=== PATIENT | male | born 1965 | race Caucasian/White ===

== ENCOUNTER 2024-09-17 15:36 | Inpatient (IN) ==
[2024-09-17 16:32] LABS: iSTAT Blood Urea Nitrogen > 140 mg/dl (7-18); iSTAT Carbon Dioxide 17 mmol/L (24-31); iSTAT Chloride 106 mmol/L (101-112); iSTAT Creatinine 16.4 mg/dl (0.6-1.3); iSTAT Glucose 93 mg/dl (70-99); iSTAT Hematocrit 21 % (42-52); iSTAT Hemoglobin 7.1 g/dl (14.0-18.0); iSTAT Ionized Calcium 0.84 mmol/l (1.12-1.32); iSTAT Potassium 4.9 mmol/L (3.3-5.0); iSTAT Sodium 136 mmol/L (135-144)
[2024-09-17 16:43] LABS: Basophils # (auto) 0.05 K/uL (0.00-0.20); Basophils % (auto) 0.7 %; Eosinophils # (auto) 0.16 K/uL (0.00-0.50); Eosinophils % (auto) 2.2 %; Hematocrit (blood only) 23.4 % (42.0-52.0); Hemoglobin 7.9 g/dl (14.0-18.0); Immature Granulocytes # (auto) 0.09 K/uL (0.01-0.20); Immature Granulocytes % (auto) 1.2 %; Lymphocytes # (auto) 0.97 K/uL (1.20-3.40); Lymphocytes % (auto) 13.3 %; Mean Corpuscular Hemoglobin 28.9 pg (25.0-34.0); Mean Corpuscular Hgb Conc 33.8 g/dL (32.0-36.0); Mean Corpuscular Volume 85.7 fL (80.0-100.0); Mean Platelet Volume 10.3 fL (9.4-12.4); Monocytes # (auto) 0.59 K/uL (0.11-0.59); Monocytes % (auto) 8.1 %; Neutrophils # (auto) 5.46 K/uL (1.40-6.50); Neutrophils % (auto) 74.5 %; Platelet Count 191 K/uL (130-400); Red Blood Count 2.73 M/uL (4.70-6.10); White Blood Count 7.32 K/ul (4.8-10.8)
--- NOTE | 2024-09-17 16:50 | Emergency Department Note ---
Impression & Plan Acute renal failure, Anemia ED Provider Note NAME: JULIA PURVIS AGE: 59 SEX: M : 1965 ARRIVES VIA: Walk-In INFORMANT: Patient, ED PROVIDER(S): Kofi Siddiqui DO CHIEF COMPLAINT: Renal failure HPI: The patient is a 59-year-old male who presented to the emergency department at the request of his primary care physician for an evaluation of renal failure. The patient was diagnosed with kidney disease. They have been following his labs. The patient started to enter stage IV but was last seen by nephrology in 2022. At that time they were encouraging the patient to consider dialysis. The patient was very reluctant and did not want to have dialysis. The patient had worsening of his uremia and was found to have signs of renal failure. He was told by his primary care physician to call his iv rn and when he talk to his iv rn office he was told to come to the emergency department in [facility]. ROS: See above HPI for pertinent positives & negatives. A total of 10 systems reviewed and were otherwise negative. PAST MEDICAL HISTORY: See Below PAST SURGICAL HISTORY: See Below FAMILY HISTORY: See Below SOCIAL HISTORY: See Below HOME MEDICATIONS: See Below ALLERGIES: See Below VITALS: See Below PHYSICAL EXAMINATION: GENERAL: Patient is awake alert in no acute distress patient is resting comfortably and showing no signs of anxiety EYES: The conjunctivae are clear. The pupils are round and reactive. EARS, NOSE, MOUTH AND THROAT: The nose is without any evidence of any deformity NECK: The neck is nontender and supple. RESPIRATORY: Normal respiratory effort is noted there is no evidence of wheezing rhonchi or rales CARDIOVASCULAR: Regular rate and rhythm noted there no murmurs rubs or gallops normal S1 normal S2. GASTROINTESTINAL: The abdomen is soft. Abdomen is nontender. MUSCULOSKELETAL/EXTREMITIES: There is no evidence of gross deformity full range of motion is noted in the hips and shoulders. SKIN: There is no obvious evidence of any rash. There are no petechiae, pallor or cyanosis noted. NEUROLOGIC: Patient is awake alert and oriented x3 MEDICAL DECISION MAKING: The patient is a 59-year-old male who presented to the emergency department for an evaluation of renal insufficiency. The patient is diagnosed with stage IV renal insufficiency. His laboratory studies have been trending upward and the patient was felt to be nearing the need for dialysis. He is been very resistant to this but his has been prompting him to seek follow-up. The patient was followed by his family doctor. He was told to call his primary iv rn today. The patient was sent to the emergency department for further evaluation. Vital signs are reassuring. He does not have hyperkalemia but his BUN and creatinine are consistent with worsening disease and he is likely heading towards dialysis. I discussed his condition with his primary iv rn and he recommends that we keep the patient in the hospital. He will likely need some sort of access for dialysis which can happen tomorrow and then he can have dialysis and follow-up from there. Triage Nursing notes reviewed. Prior medical records reviewed Vital Signs: reviewed and remarkable for elevated blood pressure. Differential diagnosis: Infection, dehydration, metabolic abnormality, hypo/hyperglycemia, electrolyte disturbance, anemia, hypoxia, cardiac sources, intracerebral event, toxicologic, neurologic, as well as other pathologies. ER treatment provided: See below Diagnostics interpreted by me: ECG: EKG was obtained in the emergency department. My interpretation is normal sinus rhythm at 78 bpm. There was no ectopy. Nonspecific T wave abnormalities were noted. No previous tracing was available. Cardiac Monitoring: An order was placed for continuous cardiac monitoring. The monitor shows a rate of elevated blood pressure. Laboratory studies: As stated above and show below. Imaging studies: See below. Radiographic imaging was reviewed by myself Consultation(s): I discussed this case with Dr. Franco who is on-call for the [facility] hospitalist group. I discussed this case with Dr[facility] Horn [facility] I discussed this case with Dr. Hirsch who was the patient's previous iv rn. Past Med/Surg History Problem List (Updated 09/17/24 @ 19:01 by Kofi Siddiqui DO) Acute renal failure (Acute) Anemia (Acute) Secondary hyperparathyroidism Chronic Kidney Disease History of CVA (cerebrovascular accident) Diabetes mellitus Hypertension Medical History History of deep venous thrombosis or pulmonary embolus Asthma Dyslipidemia Hypertriglyceridemia Family History Father Cancer Prostate Kidney disease Late in life while suffering from advanced metastatic prostate cancer and alcoholism Social History Smoking Status: Never smoker Hx Alcohol Use: No Preferred Language: Setswana Current Living Situation: Spouse current occupational status: disabled How many Children do You have: 2 Feels Safe at Home: Yes Allergies Allergies Allergy/AdvReac Type Severity Reaction Status Date / Time cephalexin AdvReac Verified 07/29/23 13:35 hydralazine AdvReac Verified 07/29/23 13:35 sulfamethoxazole AdvReac Verified 07/29/23 13:35 [From Bactrim] trimethoprim [From Bactrim] AdvReac Verified 07/29/23 13:35 Home Meds Home Medications Medication Instructions Recorded Confirmed albuterol sulfate 90 mcg/actuation 2 puff inhalation QID PRN 11/02/21 07/29/23 aerosol inhaler (Ventolin HFA) shortness of breath or wheezing insulin glargine 100 unit/mL (3 20 unit subcut BID 11/02/21 07/29/23 mL) subcutaneous pen (Lantus Solostar U-100 Insulin) allopurinol 100 mg tablet 100 mg PO Q2D 07/29/23 07/29/23 Previous Rx's Medication Instructions Recorded lisinopril 10 mg tablet 10 mg PO DAILY #30 tabs 11/06/22 clonidine HCl 0.1 mg tablet 0.1 mg PO BID PRN hypertensive 07/29/23 emergency #60 tabs Results & Data (ED) Vital Signs Vital Signs - 24 hr 09/17/24 16:00 09/17/24 16:40 09/17/24 16:58 Temperature 36.5 C Temperature Source Temporal Artery Scan Pulse Rate 73 80 Pulse Rate [Apical] 78 Pulse Rhythm [Apical] Regular Respiratory Rate 18 16 Respiratory Effort / Characteristics Non-Labored Non-Labored Respiratory Depth Normal Normal Blood Pressure 178/92 H Blood Pressure [Right Arm] 175/109 H Blood Pressure Mean 120 Blood Pressure Mean [Right Arm] 131 Pulse Oximetry 100 100 Oxygen Delivery Method Room Air Room Air Sepsis Recent Fever Within 48 Hours No Sepsis New/Unexplained Change in Mental Status No Sepsis Action Taken by Nursing No Action Required Home Medications Current Medication List: was personally reviewed by me Laboratory Data Attestation: I reviewed the patient's lab results. 09/17/24 16:15 01/17/25 16:15 Lab Results 09/17/24 09/17/24 09/17/24 Range/Units 16:15 16:19 16:35 WBC 7.32 (4.8-10.8) K/ul RBC 2.73 L (4.70-6.10) M/uL Hgb 7.9 L (14.0-18.0) g/dl POC Hgb 7.1 L (14.0-18.0) g/dl Hct 23.4 L (42.0-52.0) % POC Hct 21 L (42-52) % MCV 85.7 (80.0-100.0) fL MCH 28.9 (25.0-34.0) pg MCHC 33.8 (32.0-36.0) g/dL RDW Std Deviation 40.0 (36.4-46.3) fL RDW Coeff of Chelsey 13.0 (11.5-14.5) % Plt Count 191 (130-400) K/uL MPV 10.3 (9.4-12.4) fL Immature Gran % (Auto) 1.2 % Neut % (Auto) 74.5 % Lymph % (Auto) 13.3 % [place] % (Auto) 8.1 % Eos % (Auto) 2.2 % Baso % (Auto) 0.7 % Neut # (Auto) 5.46 (1.40-6.50) K/uL Lymph # (Auto) 0.97 L (1.20-3.40) K/uL [place] # (Auto) 0.59 (0.11-0.59) K/uL Eos # (Auto) 0.16 (0.00-0.50) K/uL Baso # (Auto) 0.05 (0.00-0.20) K/uL Immature Gran # (Auto) 0.09 (0.01-0.20) K/uL RBC Morphology Unremarkable PT 10.9 (9.0-12.0) Seconds INR 1.0 (0.9-1.1) APTT 30 (21-31) Seconds PTT Ratio 1.1 POC Sodium 136 (135-144) mmol/L Sodium 136 (136-145) mmol/L POC Potassium 4.9 (3.3-5.0) mmol/L Potassium 4.9 (3.5-5.1) mmol/L POC Chloride 106 (101-112) mmol/L Chloride 104 (98-107) mmol/L Carbon Dioxide 16 L (21-32) mmol/L POC Total CO2 17 L (24-31) mmol/L Anion Gap 16 H (3-11) POC Anion Gap 19.0 (16-25) mmol/L POC BUN > 140 H* (7-18) mg/dl BUN 145 H (6-23) mg/dl Creatinine 14.81 H* (0.6-1.4) mg/dl POC Creatinine 16.4 H* (0.6-1.3) mg/dl Est Cr Clr Drug Dosing 5.6 ml/min eGFR 3.39 BUN/Creatinine Ratio 9.8 L (10-20) Glucose 96 (70-99(Fasting)) mg/dl POC Glucose (other) 93 (70-99) mg/dl Calcium 6.9 L (8.6-10.3) mg/dl POC Ioniz Calcium Brando 0.84 L (1.12-1.32) mmol/l Phosphorus 10.9 H (2.5-4.9) mg/dl Magnesium 2.1 (1.7-2.4) mg/dl Total Bilirubin 0.5 (0.2-1.0) mg/dl AST 9 L (13-39) U/L ALT 8 (7-52) U/L Alkaline Phosphatase 83 (34-104) U/L Total Protein 7.0 (6.0-8.3) gm/dl Albumin 4.5 (3.4-5.0) gm/dl Globulin 2.5 (2.5-4.0) gm/dl Albumin/Globulin Ratio 1.8 (0.9-2) Urine Color Yellow Urine Appearance Clear (Clear) Urine pH 5.5 (4.5-7.5) Ur Specific [place] 1.012 (1.000-1.030) Urine Protein 3+ H (Negative) Urine Glucose (UA) Trace H (Negative) Urine Ketones Negative (Negative) Urine Blood Trace H (Negative) Urine Nitrite Negative (Negative) Urine Bilirubin Negative (Negative) Urine Urobilinogen Negative (Negative) Ur Leukocyte Esterase Negative (Negative) Urine WBC (Auto) 0-5 (0-5) /hpf Urine RBC (Auto) 0-2 (0-2) /hpf U Hyaline Cast (Auto) 0-2 (0-2) /lpf U Epithel Cells (Auto) 0-2 (0-2) /hpf Urine Bacteria (Auto) None Seen (None Seen) Imaging Data Attestation: I personally reviewed and interpreted this imaging study as follows: My Impression: 1 view chest x-ray was obtained in the emergency department. My interpretation is no free air or definite infiltrate, final report below. Radiologist's Impression: Chest X-Ray 09/17/24 16:08 EXAM: XR chest 1V not portable CLINICAL HISTORY: ILLNESS CLW TECHNIQUE: An X-ray image of the chest is obtained in AP projection. COMPARISON: No prior studies are available for comparison. FINDINGS: Pulmonary Parenchyma: Lungs are clear bilaterally. No evidence of consolidation, collapse, or focal opacities. No pulmonary nodules are identified. No evidence of pleural effusion or pleural thickening. Heart and Mediastinum: Heart size and shape are normal. No mediastinal widening or masses. No hilar or mediastinal lymphadenopathy. Bony Thorax: Bony thorax appears intact without fractures or deformities. Soft Tissues: Soft tissues overlying the chest wall are unremarkable. IMPRESSION: No acute cardiopulmonary abnormalities are identified. Electronically signed by Fannie Sinclair 09-17-2024 6:13 PM Renal Ultrasound 09/17/24 16:45 EXAM: US Retroperitoneal Limited Renal INDICATION: Acute kidney failure. TECHNIQUE: Real-time limited ultrasound of the kidneys and bladder with image documentation. COMPARISON: No relevant prior studies available. FINDINGS: Right kidney: 10.7 cm long. There is mild cortical thinning and increased echotexture. No stones. No solid mass. No hydronephrosis. Left kidney: 10.1 cm long. There is mild cortical thinning and increased echotexture. No stones. No solid mass. No hydronephrosis. Bladder: Suboptimally distended. Grossly unremarkable. No debris. No surrounding fluid. Ureteral jets not identified during the examination although they can be intermittent. IMPRESSION: There is mild bilateral renal cortical atrophy. No hydronephrosis. ACT 112: Negative or not required by law. Electronically signed by Lori Rosas 09-17-2024 5:44 PM Discharge Plan Visit Data Chief Complaint: Referred by Doctor Stated Complaint: KIDNEY FAILURE, NOSE BLEED, VOMITING/DIARRHEA ED Provider: Kofi Siddiqui Discharge Problem: Acute renal failure, Anemia Patient Disposition: Being Evaluated by Hospitalist Forms Stand Alone Forms: My [facility] Prescriptions Prescriptions: No Action lisinopril 10 mg tablet 10 mg PO DAILY Qty: 30 11RF albuterol sulfate [Ventolin HFA] 90 mcg/actuation HFA aerosol inhaler 2 puff inhalation QID PRN (Reason: shortness of breath or wheezing) Lantus Solostar U-100 Insulin 100 unit/mL (3 mL) insulin pen 20 unit subcut BID allopurinol 100 mg tablet 100 mg PO Q2D clonidine HCl 0.1 mg tablet 0.1 mg PO BID MDD 0.2 mg PRN (Reason: hypertensive emergency) Qty: 60 0RF Rx Instructions: PRN SBP >150 mmHg Referrals Referrals: Kamlesh Owens DO [Primary Care Provider] - Discharge Problem: Acute renal failure Qualifiers: Acute renal failure type: unspecified Qualified Code(s): N17.9 - Acute kidney failure, unspecified Anemia Qualifiers: Anemia type: unspecified type Qualified Code(s): D64.9 - Anemia, unspecified
[2024-09-17 16:51] LABS: Appearance Urine Clear (Clear); Bacteria Urine Automated None Seen (None Seen); Bilirubin Urine Negative (Negative); Blood Urine Trace (Negative); Cast Urine Automated 0-2 /lpf (0-2); Color Urine Yellow; Epithelial Cell Urine Auto 0-2 /hpf (0-2); Glucose Urine UA Trace (Negative); Ketones Urine Negative (Negative); Leukocyte Esterase Urine Negative (Negative); Nitrite Urine Negative (Negative); Protein Urine 3+ (Negative); RBC Urine Automated 0-2 /hpf (0-2); Specific Gravity Urine 1.012 (1.000-1.030); Urobilinogen Urine Negative (Negative); WBC Urine Automated 0-5 /hpf (0-5); pH Urine 5.5 (4.5-7.5)
[2024-09-17 17:04] LABS: RBC Morphology Unremarkable
[2024-09-17 17:14] LABS: Albumin Globulin Ratio 1.8 (0.9-2); Albumin Level 4.5 gm/dl (3.4-5.0); BUN Creatinine Ratio 9.8 (10-20); Bilirubin,Total 0.5 mg/dl (0.2-1.0); Calcium 6.9 mg/dl (8.6-10.3); Globulin 2.5 gm/dl (2.5-4.0); Magnesium 2.1 mg/dl (1.7-2.4); Phosphorus 10.9 mg/dl (2.5-4.9); Potassium 4.9 mmol/L (3.5-5.1)
[2024-09-17 17:15] LABS: Creatinine Clr Calc Pharmacy 5.6 ml/min
[2024-09-17 17:17] LABS: Partial Thromboplastin Ratio 1.1; Partial Thromboplastin Time 30 Seconds (21-31); Prothrombin Time 10.9 Seconds (9.0-12.0)
--- NOTE | 2024-09-17 17:43 | Nephrology Consultation ---
Date of Consultation September 17, 2024 Assessment & Plan (1) Chronic Kidney Disease: ESRD requiring HD. I have advised admission for emergent start hemodialysis. Curtis was agreeable. Dr. Rogel confirmed that temporary dialysis catheter can be placed tomorrow. Curtis will be admitted to the hospitalist service. Once catheter is in place, the first HD treatment will be coordinated. Vascular surgery will be consulted for permcath placement when available. Please obtain updated hepatitis B core antibody, hepatitis B surf ag + hep B surf ab testing. Please ask case management to place a referral to [facility] for outpatient dialysis arrangements under my care. Renal dietary restrictions requested. (2) Hypertension: Lisinopril may be continued. (3) Secondary hyperparathyroidism: Low phosphorus diet. Updated PO4 and iPTH requested with next blood work. (4) Anemia: Check iron profile with next labs. QUETA therapy can be coordinated with hemodialysis. History of Present Illness Reason for Consultation: chronic kidney disease Requesting Physician: Dr. Siddiqui History of Present Illness Mr. Curtis Ballesteros is a 59 year-old male with advanced CKD who previously followed with me in the [facility] clinic in [place]. His last clinic visit was in July 2023. At that time, I advise Curtis to start preparing for dialysis but Curtis declined and opted not to follow up. Curtis completed predialysis education through [facility] in 2022. He refused referral for transplant evaluation. We had discussed the advanced nature of his kidney dysfunction extensively. He is aware of the possibility of due to kidney failure. R eferrals had been made to Dr. Milner for vascular access placement but Curtis canceled this consultation. Curtis told me that he did not want dialysis and that he would pursue hospice care when appropriate. He has continued to follow with his PCP - Dr. Owens. Uremic symptoms have been progressing. Curtis discussed his symptoms with his PCP. He stated that he did not want hospice and would reconsider dialysis. His PCP advised that he reach out to my office today. Curtis presents to the ER accompanied by his . After discussion in the ER, the patient and his were agreeable to admission for urgent start hemodialysis. Unfortunately, vascular surgery is not available for permcath placement over the weekend. I confirmed with Dr. Rogel that a temporary HD catheter could be placed tomorrow. I discussed the plan with Dr. Siddiqui. Curtis will be admitted to the hospitalist service. He denies fluid retention or edema. Remains non-oliguric. CKD has been attributed to DKD. He has never had a kidney biopsy. Curtis's father also suffered with advanced kidney dysfunction late in life associated with underlying metastatic prostate cancer and complications from alcoholism. Curtis's medical history is notable for DM, hypertension, history of CVA x 2 (10/2012 and 11/2014), history of gout in 2016, vertigo, OA/DJD, and a history of DVT/PE. Curtis followed with Dr. De La Vega in the urology clinic for what he describes as BPH with LUTS. Cystoscopy scheduled with Dr. De La Vega in 2022 was canceled by Curtis. Renal US obtained in the ER demonstrated no evidence of obstruction. Allergies Allergy/AdvReac Type Severity Reaction Status Date / Time cephalexin AdvReac Verified 07/29/23 13:35 hydralazine AdvReac Verified 07/29/23 13:35 sulfamethoxazole AdvReac Verified 07/29/23 13:35 [From Bactrim] trimethoprim [From Bactrim] AdvReac Verified 07/29/23 13:35 Home Medications Medication Instructions Recorded Confirmed Type albuterol sulfate 90 mcg/actuation 2 puff inhalation QID PRN 11/02/21 07/29/23 History aerosol inhaler (Ventolin HFA) shortness of breath or wheezing insulin glargine 100 unit/mL (3 20 unit subcut BID 11/02/21 07/29/23 History mL) subcutaneous pen (Lantus Solostar U-100 Insulin) lisinopril 10 mg tablet 10 mg PO DAILY #30 tabs 11/06/22 07/29/23 Rx allopurinol 100 mg tablet 100 mg PO Q2D 07/29/23 07/29/23 History clonidine HCl 0.1 mg tablet 0.1 mg PO BID PRN hypertensive 07/29/23 07/29/23 Rx emergency #60 tabs Patient History Medical History History of deep venous thrombosis or pulmonary embolus Asthma Dyslipidemia Hypertriglyceridemia Family History Father Cancer Prostate Kidney disease Late in life while suffering from advanced metastatic prostate cancer and alcoholism Social History Smoking Status: Never smoker Hx Alcohol Use: No Preferred Language: Maori Current Living Situation: Spouse current occupational status: disabled How many Children do You have: 2 Feels Safe at Home: Yes Review of Systems Review of Systems: All systems reviewed & are unremarkable except as noted in HPI & below Constitutional: + fatigue, + weakness, + anorexia, + jose luis ght loss and + insomnia; no fever Cardiovascular: no chest pain, no palpitations and no edema Integumentary: + rash, + dry skin and + pruritus Physical Exam Constitutional: well developed; no acute distress Eyes: no scleral abnormality and no corneal abnormality Neck: normal visual inspection and trachea midline Respiratory: normal respiratory effort Auscultation: lungs clear to auscult ation bilaterally Cardiovascular: Rate/Rhythm: regular rate Heart Sounds: normal S1 and normal S2 Extremities: no edema Musculoskeletal: Extremities: no cyanosis and no clubbing Skin: normal turgor; no lesions Neurologic: Motor/Sensory: + asterixis Psychiatric: Orientation: alert and oriented x 3 Results & Data Vital Signs (Past 12 Hours) Vital Signs Temp Pulse Pulse Resp BP BP Pulse Ox 09/17/24 16:58 80 09/17/24 16:40 78 16 175/109 H 100 09/17/24 16:00 36.5 C 73 18 178/92 H 100 O2 Del Method 09/17/24 16:58 09/17/24 16:40 Room Air 09/17/24 16:00 Room Air Laboratory Results Laboratory Results - last 24 hr 09/17/24 09/17/24 09/17/24 16:15 16:19 16:35 WBC 7.32 RBC 2.73 L Hgb 7.9 L POC Hgb 7.1 L Hct 23.4 L POC Hct 21 L MCV 85.7 MCH 28.9 MCHC 33.8 RDW Std Deviation 40.0 RDW Coeff of Chelsey 13.0 Plt Count 191 MPV 10.3 Immature Gran % (Auto) 1.2 Neut % (Auto) 74.5 Lymph % (Auto) 13.3 [place] % (Auto) 8.1 Eos % (Auto) 2.2 Baso % (Auto) 0.7 Neut # (Auto) 5.46 Lymph # (Auto) 0.97 L [place] # (Auto) 0.59 Eos # (Auto) 0.16 Baso # (Auto) 0.05 Immature Gran # (Auto) 0.09 RBC Morphology Unremarkable PT 10.9 INR 1.0 APTT 30 PTT Ratio 1.1 POC Sodium 136 Sodium 136 POC Potassium 4.9 Potassium 4.9 POC Chloride 106 Chloride 104 Carbon Dioxide 16 L POC Total CO2 17 L Anion Gap 16 H POC Anion Gap 19.0 POC BUN > 140 H* BUN 145 H Creatinine 14.81 H* POC Creatinine 16.4 H* Est Cr Clr Drug Dosing 5.6 eGFR 3.39 BUN/Creatinine Ratio 9.8 L Glucose 96 POC Glucose (other) 93 Calcium 6.9 L POC Ioniz Calcium Brando 0.84 L Phosphorus 10.9 H Magnesium 2.1 Total Bilirubin 0.5 AST 9 L ALT 8 Alkaline Phosphatase 83 Total Protein 7.0 Albumin 4.5 Globulin 2.5 Albumin/Globulin Ratio 1.8 Urine Color Yellow Urine Appearance Clear Urine pH 5.5 Ur Specific [place] 1.012 Urine Protein 3+ H Urine Glucose (UA) Trace H Urine Ketones Negative Urine Blood Trace H Urine Nitrite Negative Urine Bilirubin Negative Urine Urobilinogen Negative Ur Leukocyte Esterase Negative Urine WBC (Auto) 0-5 Urine RBC (Auto) 0-2 U Hyaline Cast (Auto) 0-2 U Epithel Cells (Auto) 0-2 Urine Bacteria (Auto) None Seen Diagnostic Findings US Retroperitoneal Limited Renal FINDINGS: Right kidney: 10.7 cm long. There is mild cortical thinning and increased echotexture. No stones. No solid mass. No hydronephrosis. Left kidney: 10.1 cm long. There is mild cortical thinning and increased echotexture. No stones. No solid mass. No hydronephrosis. Bladder: Suboptimally distended. Grossly unremarkable. No debris. No surrounding fluid. Ureteral jets not identified during the examination although they can be intermittent. IMPRESSION: There is mild bilateral renal cortical atrophy. No hydronephrosis. PG Care Time/CCT Total # of Minutes Spent Total Time Spent with Patient: Total time spent is greater than 50% in coordination of care (as documented) at patient's floor/unit and/or counseling patient: Coding Level of Care Code 88748 IN/OBS CONSULT LVL 5,80M Diagnoses Chronic Kidney Disease N18.9 Hypertension I10 Secondary hyperparathyroidism N25.81 Anemia D64.9
--- NOTE | 2024-09-17 17:45 | Ultrasound Report ---
EXAM: US Retroperitoneal Limited Renal INDICATION: Acute kidney failure. TECHNIQUE: Real-time limited ultrasound of the kidneys and bladder with image documentation. COMPARISON: No relevant prior studies available. FINDINGS: Right kidney: 10.7 cm long. There is mild cortical thinning and increased echotexture. No stones. No solid mass. No hydronephrosis. Left kidney: 10.1 cm long. There is mild cortical thinning and increased echotexture. No stones. No solid mass. No hydronephrosis. Bladder: Suboptimally distended. Grossly unremarkable. No debris. No surrounding fluid. Ureteral jets not identified during the examination although they can be intermittent. IMPRESSION: There is mild bilateral renal cortical atrophy. No hydronephrosis. ACT 112: Negative or not required by law. Electronically signed by Lori Rossa 09-17-2024 5:44 PM
--- NOTE | 2024-09-17 18:13 | XRay Report ---
EXAM: XR chest 1V not portable CLINICAL HISTORY: ILLNESS CLW TECHNIQUE: An X-ray image of the chest is obtained in AP projection. COMPARISON: No prior studies are available for comparison. FINDINGS: Pulmonary Parenchyma: Lungs are clear bilaterally. No evidence of consolidation, collapse, or focal opacities. No pulmonary nodules are identified. No evidence of pleural effusion or pleural thickening. Heart and Mediastinum: Heart size and shape are normal. No mediastinal widening or masses. No hilar or mediastinal lymphadenopathy. Bony Thorax: Bony thorax appears intact without fractures or deformities. Soft Tissues: Soft tissues overlying the chest wall are unremarkable. IMPRESSION: No acute cardiopulmonary abnormalities are identified. Electronically signed by Fannie Sinclair 09-17-2024 6:13 PM
--- NOTE | 2024-09-17 19:36 | History & Physical Report ---
Date of Service September 17, 2024 Assessment & Plan (1) Chronic Kidney Disease: Plan: ESRD with uremianow would like to initiate dialysis. While he definitely appears to be symptomatic with nausea, tremors, and skin changes; fortunately he does not show anything as far as pulmonary edema or hyperkalemia. Appreciate nephrology input. For dialysis over the weekendNephrology discussed with hoisting machine operator who will place central venous access. Check PTH. Continue to follow. (2) Diabetes mellitus: Plan: It sounds like he is essentially cured this with lifestyle change. Given that he is on almost homeopathic dosing of insulin at home, I will hold off on any basal/bolus dosing unless he proves to need it. Fingersticks with purely reactive sliding scale insulin for nowrolling over to a basal bolus regimen if required; check A1c. Follow. (3) Anemia: Plan: Probably due to his ESRD. Check iron stores, replace if low. Anticipate nephrology management as it relates to his ESRD. (4) Hypertension: Plan: Quite likely that dialysis will improve blood pressure control. Low-dose of amlodipine for now. (5) DVT prophylaxis: Plan: heparin subcu (6) Discharge planning issues: Plan: admit the [facility], medical floor, anticipate he will discharge home independently once he is doing well on dialysis and outpatient dialysis has been set up. He is a full code. History of Present Illness Chief Complaint: abnormal labs Primary Care Provider: Kamlesh Owens DO patient is a very pleasant 59-year-old male who came due to abnormal labs indicating end-stage renal disease. He has actually been in end-stage renal disease for quite a while but was declining any dialysis or transplant evaluation. His labs continued to be bad, he was continuing to feel fairly bad, and eventually it sounds like largely at the urging of his he decided to seek care. He was instructed to come to the hospital for admission and initiation of dialysis. It sounds like he has been uremic for quite a whilenoting quite a while of feeling nausea and some vomiting, tremulousness/shakes, and very dry and itchy skin. Fortunately he does not have shortness of breath. He notes that his sugars under very good controlgenerally speaking he takes about 2 units of Lantus if he checks his sugar and sees it above 125. On review of A1c's available they had been dropping and most recently had been normal. He notes this was largely affected by about 70 pounds of intentional weight loss and diet improvement. Allergies Allergy/AdvReac Type Severity Reaction Status Date / Time cephalexin AdvReac Verified 07/29/23 13:35 hydralazine AdvReac Verified 07/29/23 13:35 sulfamethoxazole AdvReac Verified 07/29/23 13:35 [From Bactrim] trimethoprim [From Bactrim] AdvReac Verified 07/29/23 13:35 Home Medications Medication Instructions Recorded Confirmed Type albuterol sulfate 90 mcg/actuation 2 puff inhalation QID PRN 11/02/21 07/29/23 History aerosol inhaler (Ventolin HFA) shortness of breath or wheezing insulin glargine 100 unit/mL (3 20 unit subcut BID 11/02/21 07/29/23 History mL) subcutaneous pen (Lantus Solostar U-100 Insulin) lisinopril 10 mg tablet 10 mg PO DAILY #30 tabs 11/06/22 07/29/23 Rx allopurinol 100 mg tablet 100 mg PO Q2D 07/29/23 07/29/23 History clonidine HCl 0.1 mg tablet 0.1 mg PO BID PRN hypertensive 07/29/23 07/29/23 Rx emergency #60 tabs Past Med/Surg History Problem List (Updated 09/17/24 @ 19:33 by Juan Horn DO) Discharge planning issues DVT prophylaxis Acute renal failure (Acute) Anemia (Acute) Secondary hyperparathyroidism Chronic Kidney Disease History of CVA (cerebrovascular accident) Diabetes mellitus Hypertension Medical History History of deep venous thrombosis or pulmonary embolus Asthma Dyslipidemia Hypertriglyceridemia Family History Father Cancer Prostate Kidney disease Late in life while suffering from advanced metastatic prostate cancer and alcoholism Social History Smoking Status: Never smoker Hx Alcohol Use: No Preferred Language: Romanian Current Living Situation: Spouse current occupational status: disabled How many Children do You have: 2 Feels Safe at Home: Yes Review of Systems Review of Systems: All systems reviewed & are unremarkable except as noted in HPI & below Physical Exam Physical Exam: In general he is awake and alert very pleasant no acute distress but does appear somewhat fatigued. HEENT normocephalic atraumatic mucous membranes moist. Cardio is regular although somewhat distant, lungs are clear but somewhat quiet. No rubs murmurs gallops no rales rhonchi or wheezes. Abdomen is soft nondistended nontender. Extremities are without cyanosis clubbing or edema. Skin is very dry and scaly. Neuro shows moderate tremor and occasional random myoclonic jerks. Mental status shows good recent and remote recall normal mood and affect good judgment and insight. Labs notedmost notably anemia and rather significant elevation of creatinine. Renal ultrasound does not show obstruction. Results & Data Results & Data Vital Signs (Past 12 Hours) Vital Signs Temp Pulse Pulse Resp BP BP Pulse Ox 09/17/24 16:58 80 09/17/24 16:40 78 16 175/109 H 100 09/17/24 16:00 97.7 F 73 18 178/92 H 100 O2 Del Method 09/17/24 16:58 09/17/24 16:40 Room Air 09/17/24 16:00 Room Air Code Status & VTE Plan VTE Prophylaxis Plan VTE Prophylaxis will be ordered: Yes PG Care Time/CCT Total # of Minutes Spent Total Time Spent with Patient: Total time spent is greater than 50% in coordination of care (as documented) at patient's floor/unit and/or counseling patient: Coding Level of Care Code 51393 INT INP/OBS CARE MIN Diagnoses Chronic Kidney Disease N18.9 Diabetes mellitus E11.9 Anemia D64.9 Anemia type: unspecified type Hypertension I10 DVT prophylaxis Z29.9 Discharge planning issues Z75.8 (3) Anemia Anemia type: unspecified type Qualified Code(s): D64.9 - Anemia, unspecified
--- NOTE | 2024-09-17 21:00 | Procedure Note ---
Procedure Note Date of Service September 17, 2024 Procedure: Internal Jugular Dialysis Line placement Proceduralist: Yuriy INGRAM ([facility]-) Attending: Dr. Rogel Indication: Access for Dialysis Anesthesia: [x]Lidocaine 1% Consent was obtained as delegated to me by Dr. Rogel. Consent was signed and witnessed and placed on the chart prior to procedure. Indication, risks, and benefits were explained at length. A time-out was completed verifying correct patient, procedure, site, position ing, and implants(s) or special equipment if applicable. Patients RIGHT Neck was scouted with ultrasound, once anatomy identified and appropriate target identified, the RIGHT neck was cleansed and draped in the typical sterile fashion using Chloraprep. The Internal Jugular Vein and Carotid Artery were identified using ultrasound. The superficial tissue was anesthetized using 5 mL of 1% lidocaine without epinephrine under direct visualization with the ultrasound. After adequate anesthetization was achieved, the Internal Jugular vein was cannulated under direct ultrasound guidance using an introducer needle on a syringe. Good venous blood return was maintained prior to removal of syringe from introducer needle. Using Seldinger Technique, a guide wire was advanced through the introducer needle without resistance. The introducer needle was removed and ultrasound images were obtained of the guide wire within the Internal Jugular Vein. A small incision was made in penetrating fashion at the guide wire insertion site utilizing an 11 blade scalpel. The serial dilators were advanced to the vessel without resistance. The larger dilator was then exchanged for the dual lumen dialysis catheter which was advanced into the vessel without resistance. The guide wire was removed intact from the catheter without issue. Claves were placed on each catheter tip with confirmation of good blood flow from each lumen. Each port was easily flushed with sterile saline. The catheter was placed at 18 cm and sutured in place. BioPatch was applied to the catheter and a sterile Tegaderm dressing was applied over the catheter with careful attention to sterility. Patient tolerated procedure well. No immediate complications were met. Post procedure x-ray was completed, placement was appropriate and no pneumothorax was noted. Images obtained are NOT saved for permanent record as patient was awaiting bed placement and technical issues prevented. Artery AND Vein visualized: YES Compressible Vein: YES Guidewire or Short Catheter seen in vein prior to dilation: YES [facility] Procedure Codes (Charges) Tubes, Drains, and Vasc Access Procedure 1: Tubes, Drains, and Vasc Access: [id number] Insertion Of Non-tunneled Catheter Age 4 Yrs> Coding CPT Codes Tubes, Drains, and Vasc Access - Tubes, Drains, and Vasc Access: [id number] Insertion Of Non-tunneled Catheter Age 4 Yrs> ([id number]) Additional Codes Date of Service (PG.SURGERY)
[2024-09-17] MEDS ORDERED: MAGNESIUM HYDROXIDE SUSP 30 ML UDC PO PRN (21:22)
[2024-09-17] MEDS ORDERED: ONDANSETRON INJ 2 MG/ML 2 ML VIAL IV PRN (21:22)
[2024-09-17] MEDS ORDERED: MELATONIN 3 MG TAB PO PRN (21:22)
[2024-09-17] MEDS ORDERED: ALBUTEROL HFA 8 GM INHALER INH PRN (21:22)
[2024-09-17] MEDS ORDERED: ALUMINUM/MAGNESIUM SUSP 30 ML UDC PO PRN (21:22)
[2024-09-17] MEDS ORDERED: POLYETHYLENE (MIRALAX) 17 GM PACK PO PRN (21:22)
[2024-09-17] MEDS: INSULIN ASPART PER UNIT CHARGE SC SCH (21:28)
[2024-09-17] MEDS: HEPARIN SOD 5,000 UNIT/0.5 ML VIAL SQ SCH (22:03)
[2024-09-17] MEDS: EUCERIN CR 120 GM JAR EXT SCH (22:04)
[2024-09-17] MEDS: TRIAMCINOLONE ACET 0.1% CR 80 GM TUBE EXT SCH (22:04)
[2024-09-17] MEDS: allopurinoL 100 MG TAB PO SCH (22:05)
[2024-09-17 22:21] LABS: Ferritin 488.5 ng/ml (8-388)
[2024-09-17 23:57] LABS: Hepatitis B Surface Ab Quant < 3.00 mIU/mL (>or=10mIU/mL Immune); Hepatitis B Surface Antibody Non-Immune
--- NOTE | 2024-09-18 01:13 | XRay Report ---
Exam(s): XR CXR 1 VIEW EXAM: XR Chest, 1 View CLINICAL HISTORY: Reason for exam: s/p dialysis line placement- eval line and lung. TECHNIQUE: Frontal view of the chest. COMPARISON: 09/17/24 at 1644 hrs. FINDINGS: Lungs: Unremarkable. No consolidation. Pleural space: Unremarkable. No pleural effusion or pneumothorax. Heart: Unremarkable. No cardiomegaly or pulmonary vascular congestion. Bones/joints: No acute fracture. No dislocation. Tubes, lines and devices: Right internal jugular hemodialysis catheter with tip in the distal SVC. IMPRESSION: Right internal jugular hemodialysis catheter with tip in the distal SVC. Electronically signed by: Evangelista Siddiqi M.D. 09/18/24 01:12 AM
[2024-09-18 02:13] LABS: Hep B Surface Ag with confirm Negative (Negative)
[2024-09-18 07:10] LABS: Basophils # (auto) 0.05 K/uL (0.00-0.20); Basophils % (auto) 0.6 %; Eosinophils # (auto) 0.21 K/uL (0.00-0.50); Eosinophils % (auto) 2.7 %; Hematocrit (blood only) 22.1 % (42.0-52.0); Hemoglobin 7.5 g/dl (14.0-18.0); Immature Granulocytes # (auto) 0.07 K/uL (0.01-0.20); Immature Granulocytes % (auto) 0.9 %; Lymphocytes # (auto) 0.88 K/uL (1.20-3.40); Lymphocytes % (auto) 11.1 %; Mean Corpuscular Hemoglobin 28.8 pg (25.0-34.0); Mean Corpuscular Hgb Conc 33.9 g/dL (32.0-36.0); Mean Platelet Volume 10.4 fL (9.4-12.4); Monocytes # (auto) 0.58 K/uL (0.11-0.59); Monocytes % (auto) 7.3 %; Neutrophils # (auto) 6.13 K/uL (1.40-6.50); Neutrophils % (auto) 77.4 %; Platelet Count 172 K/uL (130-400); RDW Coefficient of Variation 12.8 % (11.5-14.5); RDW Standard Deviation 38.8 fL (36.4-46.3); White Blood Count 7.92 K/ul (4.8-10.8)
--- NOTE | 2024-09-18 07:33 | Electrocardiogram Report ---
Test Reason : Blood Pressure : */* mmHG Vent. Rate : 78 BPM Atrial Rate : 78 BPM P-R Int : 144 ms QRS Dur : 90 ms QT Int : 426 ms P-R-T Axes : 31 8 104 degrees QTcB Int : 485 ms Normal sinus rhythm Nonspecific T wave abnormality Abnormal ECG No previous ECGs available Confirmed by Venkata Salazar ([id number]) on 09/18/2024 7:33:22 AM Referred By: Confirmed By: Venkata Salazar
[2024-09-18 07:34] LABS: Polychromasia 2+
[2024-09-18 07:53] LABS: BUN Creatinine Ratio 10.1 (10-20); Calcium 6.7 mg/dl (8.6-10.3); Creatinine Clr Calc Pharmacy 5.7 ml/min; Phosphorus 10.9 mg/dl (2.5-4.9); Potassium 5.3 mmol/L (3.5-5.1)
[2024-09-18 08:40] LABS: Estimated Average Glucose 108 mg/dl; Hemoglobin A1C 5.4 % (4.5-5.6)
--- NOTE | 2024-09-18 08:44 | Nephrology Progress Note ---
Date of Service September 18, 2024 Assessment & Plan (1) End stage chronic kidney disease: Plan: * ESKD due to DKD, HTN * Has not maintained regular outpatient nephrology follow-up * Presented to [facility] with kidney failure and need for urgent start HD * Temporary right IJ dialysis catheter has been placed by critical care team 09/17/2024 * Will provide 1st run HD this a.m. Orders have been placed in EMR and HD RN notified. Plan is for 2-hour treatment at [facility] with 2L UF * Consult vascular surgery for IJ TCC on Friday * Social service consultation to set up outpatient HD at [facility] * Start nephrocap one daily, phos-lo 667 mg two w/ each meal * Will need Heplisav immunization at outpatient HD unit (2) Hypertension: Plan: * Continue lisinopril * Monitor BP response following UF (3) Secondary hyperparathyroidism: Plan: * Start phos-lo 667 mg 2 cap po qAC (4) Anemia: Plan: * Iron saturation acceptable * Will provide QUETA w/ HD Admission and Anticipated Discharge Date Admission Date: September 17, 2024 Subjective Mr. Ballesteros was evaluated in his hospital room this morning. He underwent placement of a temporary right IJ dialysis catheter last evening. He reports no complications and denies dyspnea or angina. Mr. Ballesteros is anxious to begin dialysis so that he may return home soon. Review of Systems Constitutional: no fever Eyes: no problem reported Ear, Nose, Mouth, Throat: no problem reported Respiratory: no cough and no dyspnea Cardiovascular: no chest pain and no dyspnea Gastrointestinal: no abdominal pain, no nausea, no vomiting and no diarrhea/loose stools Integumentary: no rash Physical Exam Constitutional: not in distress Eyes: PERRL, conjunctivae normal, anicteric sclerae ENMT: external ear and nose normal, oropharynx normal Neck: trachea midline, no thyromegaly R IJ temporary dialysis catheter w/ clean dry dressing in place Respiratory: normal respiratory effort, lungs clear to auscultation Cardiovascular: RRR, no murmur, no edema Gastrointestinal (Abdomen): normal bowel sounds, soft, nontender, no hepatosplenomegaly Musculoskeletal: Extremities: no cyanosis and no clubbing Skin: no rashes, warm and dry Neurologic: awake; not confused Results & Data Vital Signs (Past 12 Hours) Vital Signs Temp Pulse Pulse Resp BP BP Pulse Ox 09/18/24 07:31 36.4 C L 80 16 167/85 H 98 09/17/24 21:48 36.7 C 94 H 18 188/95 H 99 O2 Del Method 09/18/24 07:31 Room Air 09/17/24 21:48 Room Air Laboratory Results Laboratory Results - last 24 hr 09/17/24 09/17/24 09/17/24 16:14 16:15 16:19 WBC 7.32 RBC 2.73 L Hgb 7.9 L POC Hgb 7.1 L Hct 23.4 L POC Hct 21 L MCV 85.7 MCH 28.9 MCHC 33.8 RDW Std Deviation 40.0 RDW Coeff of Chelsey 13.0 Plt Count 191 MPV 10.3 Immature Gran % (Auto) 1.2 Neut % (Auto) 74.5 Lymph % (Auto) 13.3 Boundary % (Auto) 8.1 Eos % (Auto) 2.2 Baso % (Auto) 0.7 Neut # (Auto) 5.46 Lymph # (Auto) 0.97 L Boundary # (Auto) 0.59 Eos # (Auto) 0.16 Baso # (Auto) 0.05 Immature Gran # (Auto) 0.09 RBC Morphology Unremarkable Polychromasia PT 10.9 INR 1.0 APTT 30 PTT Ratio 1.1 POC Sodium 136 Sodium 136 POC Potassium 4.9 Potassium 4.9 POC Chloride 106 Chloride 104 Carbon Dioxide 16 L POC Total CO2 17 L Anion Gap 16 H POC Anion Gap 19.0 POC BUN > 140 H* BUN 145 H Creatinine 14.81 H* POC Creatinine 16.4 H* Est Cr Clr Drug Dosing 5.6 eGFR 3.39 BUN/Creatinine Ratio 9.8 L Glucose 96 POC Glucose POC Glucose (other) 93 Estimat Average Glucose 108 Hemoglobin A1c 5.4 Calcium 6.9 L POC Ioniz Calcium Brando 0.84 L Phosphorus 10.9 H Magnesium 2.1 Iron 127 TIBC 248 L Transferrin 177 L Transferrin % Sat 51 H Ferritin 488.5 H Total Bilirubin 0.5 AST 9 L ALT 8 Alkaline Phosphatase 83 Total Protein 7.0 Albumin 4.5 Globulin 2.5 Albumin/Globulin Ratio 1.8 PTH Intact Urine Color Urine Appearance Urine pH Ur Specific [place] Urine Protein Urine Glucose (UA) Urine Ketones Urine Blood Urine Nitrite Urine Bilirubin Urine Urobilinogen Ur Leukocyte Esterase Urine WBC (Auto) Urine RBC (Auto) U Hyaline Cast (Auto) U Epithel Cells (Auto) Urine Bacteria (Auto) Hep Bs Antigen Negative Hep Bs Antibody Non-Immune Hep Bs Antibody, Quant < 3.00 Hep B Core IgM Ab 09/17/24 09/17/24 09/18/24 16:35 21:27 06:24 WBC 7.92 RBC 2.60 L Hgb 7.5 L POC Hgb Hct 22.1 L POC Hct MCV 85.0 MCH 28.8 MCHC 33.9 RDW Std Deviation 38.8 RDW Coeff of Chelsey 12.8 Plt Count 172 MPV 10.4 Immature Gran % (Auto) 0.9 Neut % (Auto) 77.4 Lymph % (Auto) 11.1 Boundary % (Auto) 7.3 Eos % (Auto) 2.7 Baso % (Auto) 0.6 Neut # (Auto) 6.13 Lymph # (Auto) 0.88 L Boundary # (Auto) 0.58 Eos # (Auto) 0.21 Baso # (Auto) 0.05 Immature Gran # (Auto) 0.07 RBC Morphology Polychromasia 2+ PT INR APTT PTT Ratio POC Sodium Sodium 136 POC Potassium Potassium 5.3 H POC Chloride Chloride 104 Carbon Dioxide 15 L POC Total CO2 Anion Gap 17 H POC Anion Gap POC BUN BUN 147 H Creatinine 14.59 H* POC Creatinine Est Cr Clr Drug Dosing 5.7 eGFR 3.46 BUN/Creatinine Ratio 10.1 Glucose 87 POC Glucose 138 H POC Glucose (other) Estimat Average Glucose Hemoglobin A1c Calcium 6.7 L POC Ioniz Calcium Brando Phosphorus 10.9 H Magnesium Iron TIBC Transferrin Transferrin % Sat Ferritin Total Bilirubin AST ALT Alkaline Phosphatase Total Protein Albumin Globulin Albumin/Globulin Ratio PTH Intact 647.3 H Urine Color Yellow Urine Appearance Clear Urine pH 5.5 Ur Specific [place] 1.012 Urine Protein 3+ H Urine Glucose (UA) Trace H Urine Ketones Negative Urine Blood Trace H Urine Nitrite Negative Urine Bilirubin Negative Urine Urobilinogen Negative Ur Leukocyte Esterase Negative Urine WBC (Auto) 0-5 Urine RBC (Auto) 0-2 U Hyaline Cast (Auto) 0-2 U Epithel Cells (Auto) 0-2 Urine Bacteria (Auto) None Seen Hep Bs Antigen Hep Bs Antibody Hep Bs Antibody, Quant Hep B Core IgM Ab Pending 09/18/24 07:55 WBC RBC Hgb POC Hgb Hct POC Hct MCV MCH MCHC RDW Std Deviation RDW Coeff of Chelsey Plt Count MPV Immature Gran % (Auto) Neut % (Auto) Lymph % (Auto) Boundary % (Auto) Eos % (Auto) Baso % (Auto) Neut # (Auto) Lymph # (Auto) Boundary # (Auto) Eos # (Auto) Baso # (Auto) Immature Gran # (Auto) RBC Morphology Polychromasia PT INR APTT PTT Ratio POC Sodium Sodium POC Potassium Potassium POC Chloride Chloride Carbon Dioxide POC Total CO2 Anion Gap POC Anion Gap POC BUN BUN Creatinine POC Creatinine Est Cr Clr Drug Dosing eGFR BUN/Creatinine Ratio Glucose POC Glucose 91 POC Glucose (other) Estimat Average Glucose Hemoglobin A1c Calcium POC Ioniz Calcium Brando Phosphorus Magnesium Iron TIBC Transferrin Transferrin % Sat Ferritin Total Bilirubin AST ALT Alkaline Phosphatase Total Protein Albumin Globulin Albumin/Globulin Ratio PTH Intact Urine Color Urine Appearance Urine pH Ur Specific [place] Urine Protein Urine Glucose (UA) Urine Ketones Urine Blood Urine Nitrite Urine Bilirubin Urine Urobilinogen Ur Leukocyte Esterase Urine WBC (Auto) Urine RBC (Auto) U Hyaline Cast (Auto) U Epithel Cells (Auto) Urine Bacteria (Auto) Hep Bs Antigen Hep Bs Antibody Hep Bs Antibody, Quant Hep B Core IgM Ab PG Care Time/CCT Total # of Minutes Spent Total Time Spent with Patient: Total time spent is greater than 50% in coordination of care (as documented) at patient's floor/unit and/or counseling patient: Coding Level of Care Code 68829 SUB INP/OBS CARE 3/50MIN Diagnoses End stage chronic kidney disease N18.6 Hypertension I10 Secondary hyperparathyroidism N25.81 Anemia D64.9 Anemia type: unspecified type (4) Anemia Anemia type: unspecified type Qualified Code(s): D64.9 - Anemia, unspecified
[2024-09-18] MEDS: EPOETIN ALFA 10,000 UNITS/ML VIAL IV ONE (11:32)
[2024-09-18] MEDS: HEPARIN SOD (PORCINE) 1000 UNIT/ML IV ONE (11:33)
[2024-09-18] MEDS: CALCIUM ACETATE 667 MG CAP/TAB PO SCH (13:38)
[2024-09-18] MEDS: amLODIPine BESYLATE 5 MG TAB PO SCH (14:06)
--- NOTE | 2024-09-18 18:04 | Hospitalist Progress Note ---
Date of Service September 18, 2024 Assessment & Plan (1) Chronic Kidney Disease: Plan: ESRD with uremia No starting dialysis. Tolerated first treatment well today. PTH up with secondary hyperparathyroidism. Continue dialysis. For tunneled dialysis catheter early next week, early next week will ask case management to start to coordinate for dialysis as an outpatient. (2) Diabetes mellitus: Plan: It sounds like he is essentially cured this with lifestyle change. Given that he is on almost homeopathic dosing of insulin at home, I am holding off on any basal/bolus dosing unless he proves to need it. Fingersticks with purely reactive sliding scale insulin for nowrolling over to a basal bolus regimen if required; he has needed none. A1c 5.4. (3) Anemia: Plan: Probably due to his ESRD. Anticipate nephrology management as it relates to his ESRD. (4) Hypertension: Plan: Quite likely that dialysis will improve blood pressure control. Per nephrology, can continue lisinopril, at the same timetoday his blood pressures were somewhat erratic and even reasonably low briefly during dialysisto that end we will hold off on active management for now until his situation has a chance to level out more. (5) DVT prophylaxis: Plan: heparin subcu (6) Discharge planning issues: Plan: admit the [facility], medical floor, anticipate he will discharge home independently once he is doing well on dialysis and outpatient dialysis has been set up. He is a full code. Admission and Anticipated Discharge Date Admission Date: September 17, 2024 Subjective feeling pretty good overall. Seen twiceduring dialysis he was doing okay. Later revisited to answer questions to family. No complaints during any time. Answered all questions to the best my ability and to their satisfaction. Review of Systems Review of Systems: All systems reviewed & are unremarkable except as noted in HPI & below Physical Exam Physical Exam: in general he is awake and alert pleasant no distress. HEENT normocephalic at raumatic mucous membranes moist. Breathing unlabored no accessory muscle use good effort. Tremor appears to have resolved. Skin already looks a little less dry and flaky. No neurodeficits. Results & Data Results & Data Vital Signs (Past 12 Hours) Vital Signs Temp Pulse Pulse Pulse Resp BP BP 09/18/24 15:15 98.2 F 95 H 16 170/95 H 09/18/24 12:00 97.7 F 88 128/90 09/18/24 11:30 83 113/46 L 09/18/24 11:00 87 132/90 09/18/24 10:30 52 L 91/44 L 09/18/24 10:00 83 161/96 H 09/18/24 09:53 97.7 F 85 09/18/24 07:31 97.5 F L 80 16 167/85 H Pulse Ox O2 Del Method 09/18/24 15:15 98 Room Air 09/18/24 12:00 09/18/24 11:30 09/18/24 11:00 09/18/24 10:30 09/18/24 10:00 09/18/24 09:53 09/18/24 07:31 98 Room Air PG Care Time/CCT Total # of Minutes Spent Total Time Spent with Patient: Total time spent is greater than 50% in coordination of care (as documented) at patient's floor/unit and/or counseling patient: Coding Level of Care Code 15779 SUB INP/OBS CARE 3/50MIN Diagnoses Chronic Kidney Disease N18.9 Diabetes mellitus E11.9 Anemia D64.9 Anemia type: unspecified type Hypertension I10 DVT prophylaxis Z29.9 Discharge planning issues Z75.8 (3) Anemia Anemia type: unspecified type Qualified Code(s): D64.9 - Anemia, unspecified
[2024-09-19 07:46] LABS: Hematocrit (blood only) 21.3 % (42.0-52.0); Hemoglobin 7.4 g/dl (14.0-18.0); Mean Corpuscular Hemoglobin 29.7 pg (25.0-34.0); Mean Corpuscular Hgb Conc 34.7 g/dL (32.0-36.0); Mean Corpuscular Volume 85.5 fL (80.0-100.0); Mean Platelet Volume 10.7 fL (9.4-12.4); Platelet Count 144 K/uL (130-400); RDW Coefficient of Variation 12.7 % (11.5-14.5); RDW Standard Deviation 39.2 fL (36.4-46.3); Red Blood Count 2.49 M/uL (4.70-6.10)
[2024-09-19 08:04] LABS: BUN Creatinine Ratio 9.5 (10-20); Calcium 7.4 mg/dl (8.6-10.3); Creatinine Clr Calc Pharmacy 7.5 ml/min
--- NOTE | 2024-09-19 08:41 | Nephrology Progress Note ---
Date of Service September 19, 2024 Assessment & Plan (1) End stage chronic kidney disease: Plan: * ESKD due to DKD, HTN * Has not maintained regular outpatient nephrology follow-up * Presented to [facility] with kidney failure and need for urgent start HD * Temporary right IJ dialysis catheter has been placed by critical care team 09/17/2024 * 1st run HD provided 09/18/24. * Will plan 2nd HD Friday09/20/24. Orders have been placed in EMR and HD RN notified * Consult vascular surgery for IJ TCC on Friday * Social service consultation to set up outpatient HD at [facility] [place] * Nephrocap one daily, phos-lo 667 mg two w/ each meal started * Will need Heplisav immunization at outpatient HD unit (2) Hypertension: Plan: * Continue lisinopril * Monitor BP response following UF (3) Secondary hyperparathyroidism: Plan: * Continue phos-lo 667 mg 2 cap po qAC (4) Anemia: Plan: * Iron saturation acceptable * Will provide QUETA w/ HD Admission and Anticipated Discharge Date Admission Date: September 17, 2024 Subjective Mr. Ballesteros was evaluated in his hospital room this morning. He was dialyzed yesterday for 1 L UF. HD complicated by nausea. Temporary catheter ran A-->A without complicatiion. Review of Systems Constitutional: no fever Eyes: no problem reported Ear, Nose, Mouth, Throat: no problem reported Respiratory: no cough and no dyspnea Cardiovascular: no chest pain and no dyspnea Gastrointestinal: no abdominal pain, no nausea, no vomiting and no diarrhea/loose stools Integumentary: no rash Physical Exam Constitutional: not in distress Eyes: PERRL, conjunctivae normal, anicteric sclerae ENMT: external ear and nose normal, oropharynx normal Neck: trachea midline, no thyromegaly Respiratory: normal respiratory effort, lungs clear to auscultation Cardiovascular: RRR, no murmur, no edema Gastrointestinal (Abdomen): normal bowel sounds, soft, nontender, no hepatosplenomegaly Musculoskeletal: Extremities: no cyanosis and no clubbing Skin: no rashes, warm and dry Neurologic: awake; not confused Results & Data Vital Signs (Past 12 Hours) Vital Signs Temp Pulse Resp BP Pulse Ox O2 Del Method 09/19/24 07:10 36.8 C 86 18 180/87 H 98 Room Air Laboratory Results Laboratory Results - last 24 hr 09/18/24 09/18/24 09/18/24 12:14 16:29 20:14 WBC RBC Hgb Hct MCV MCH MCHC RDW Std Deviation RDW Coeff of Chelsey Plt Count MPV Sodium Potassium Chloride Carbon Dioxide Anion Gap BUN Creatinine Est Cr Clr Drug Dosing eGFR BUN/Creatinine Ratio Glucose POC Glucose 107 H 168 H 92 Calcium 09/19/24 09/19/24 07:14 07:39 WBC 6.30 RBC 2.49 L Hgb 7.4 L Hct 21.3 L MCV 85.5 MCH 29.7 MCHC 34.7 RDW Std Deviation 39.2 RDW Coeff of Chelsey 12.7 Plt Count 144 MPV 10.7 Sodium 135 L Potassium 5.0 Chloride 104 Carbon Dioxide 19 L Anion Gap 12 H BUN 105 H D Creatinine 11.03 H* D Est Cr Clr Drug Dosing 7.5 eGFR 4.83 BUN/Creatinine Ratio 9.5 L Glucose 91 POC Glucose 96 Calcium 7.4 L PG Care Time/CCT Total # of Minutes Spent Total Time Spent with Patient: Total time spent is greater than 50% in coordination of care (as documented) at patient's floor/unit and/or counseling patient: Coding Level of Care Code 14820 SUB INP/OBS CARE 3/50MIN Diagnoses End stage chronic kidney disease N18.6 Hypertension I10 Secondary hyperparathyroidism N25.81 Anemia D64.9 Anemia type: unspecified type (4) Anemia Anemia type: unspecified type Qualified Code(s): D64.9 - Anemia, unspecified
[2024-09-19] MEDS: NEPHROCAPS PO SCH (09:00)
--- NOTE | 2024-09-19 17:33 | Hospitalist Progress Note ---
Date of Service September 19, 2024 Assessment & Plan (1) Chronic Kidney Disease: Plan: ESRD with uremia No starting dialysis. Tolerated first treatment well 09/18, next treatment 09/20. PTH up with secondary hyperparathyroidism. Continue dialysis. For tunneled dialysis catheter early next week, early next week will ask case management to start to coordinate for dialysis as an outpatient. (2) Diabetes mellitus: Plan: It sounds like he is essentially cured this with lifestyle change. Given that he is on almost homeopathic dosing of insulin at home, I am holding off on any basal/bolus dosing unless he proves to need it. Fingersticks with purely reactive sliding scale insulin for nowrolling over to a basal bolus regimen if required; he has needed none thus far. A1c 5.4. (3) Anemia: Plan: Probably due to his ESRD. Anticipate nephrology management as it relates to his ESRD. (4) Hypertension: Plan: Quite likely that dialysis will improve blood pressure control. Per nephrology, can continue lisinopril, at the same timeyesterday his blood pressures were somewhat erratic and even reasonably low briefly during dialysisto that end we will hold off on active management for now until his situation has a chance to level out more. (5) DVT prophylaxis: Plan: heparin subcu (6) [facility]charge planning issues: [facility], anticipate he will discharge home independently once he is doing well on dialysis and outpatient dialysis has been set up. He is a full code. Admission and Anticipated Discharge Date Admission Date: September 17, 2024 Subjective Feeling okay. No new complaints. Tremulousness seems to have resolved. Review of Systems Review of Systems: Vitals noted, in general he is awake and alert pleasant no distress. HEENT normocephalic atraumatic mucous membranes moist. IV right side of neck intact. Breathing unlabored no accessory muscle use good effort. Skin without rashes pallor or icterus. Neuro without focal deficits. Results & Data Results & Data Vital Signs (Past 12 Hours) Vital Signs Temp Pulse Resp BP BP Pulse Ox O2 Del Method 09/19/24 15:06 97.9 F 86 16 165/98 H 99 Room Air 09/19/24 07:10 98.2 F 86 18 180/87 H 98 Room Air PG Care Time/CCT Total # of Minutes Spent Total Time Spent with Patient: Total time spent is greater than 50% in coordination of care (as documented) at patient's floor/unit and/or counseling patient: Coding Level of Care Code 37516 SUB INP/OBS CARE 235MIN Diagnoses Chronic Kidney Disease N18.9 Diabetes mellitus E11.9 Anemia D64.9 Anemia type: unspecified type Hypertension I10 DVT prophylaxis Z29.9 Discharge planning issues Z75.8 (3) Anemia Anemia type: unspecified type Qualified Code(s): D64.9 - Anemia, unspecified
--- NOTE | 2024-09-19 22:55 | Communication Note ---
Date of Service: September 19, 2024 Patient c/o constant left-sided chest pain that was rated 2/10 in intensity and then increased to a 4/10. Presented to bedside. Patient states pain is worse when he lays on his back and was there fore laying on his left side. Denies radiation to left arm, neck, or jaw. No other associated sxs. VS showing elevated BP at 174/97 but otherwise wnl. To my exam, patient had pain with palpation of area under left pectoral region over ribs that is reproducible of his pain. Patient states he has hx of rib fracture in that same area that occurred years ago but produces random pain sometimes. Physical exam otherwise unremarkable. EKG showing NSR w/o ischemic changes. Troponin showing level of 27.8 with 2-hr repeat showing 31. Suspect slight elevation in initial troponin may have been due to current renal function/ESKD. Nevertheless, ordered troponin levels q6h to trend to peak. Patient deferring pain medications at this time. Will continue to monitor. Resident Activity Tracking Resident Involvement: Resident Care Provided Care Provided: Adult Hospital Medicine
[2024-09-20 02:04] LABS: Albumin Level 3.7 gm/dl (3.4-5.0); BUN Creatinine Ratio 9.1 (10-20); Calcium 6.9 mg/dl (8.6-10.3); Creatinine Clr Calc Pharmacy 6.9 ml/min; Phosphorus 6.3 mg/dl (2.5-4.9); Potassium 4.4 mmol/L (3.5-5.1)
--- NOTE | 2024-09-20 08:14 | Hospitalist Progress Note ---
Date of Service September 20, 2024 Assessment & Plan (1) Chronic Kidney Disease: (2) Diabetes mellitus: (3) Anemia: (4) Hypertension: (5) DVT prophylaxis: (6) Discharge planning issues: Plan 59-year-old male who presented due to abnormal labs indicating end-stage renal disease: #ESRD with uremia, secondary hyperparathyroidism: Temporary right IJ dialysis catheter in place, vascular surgery to place IJ TCC tomorrow Nephrology consulted for HD, successfully dialyzed 09/18, HD today discontinued early d/t N/V/brief syncopal episode Attempt dialysis again tomorrow after tunneled catheter placement CM following for outpatient HD needs #N/V/D, Syncopal Episode: Vomiting x2, Diarrhea x2 today - ?secondary to uremia Syncopal episode appears most consistent with vasovagal episode HD session ended prematurely, patient upgraded to med-tele for cardiac monitoring EKG demonstrated borderline prolonged QTc of 489, though this is has been relatively constant throughout this hospital stay - avoid QT prolonging agents #T2DM: A1c 5.4 Blood sugar checks ACHS, sliding scale insulin #Anemia of chronic disease: Hgb stable in low 7s Will receive QUETA with HD #HTN: Restart Lisinopril 10mg daily, expect that dialysis will continue to improve BP #Hyponatremia, mild: AM Na 130 - Asx, continue to monitor Renal diet VTE ppx: Heparin Med-Tele Admission and Anticipated Discharge Date Admission Date: September 17, 2024 Supervising Physician Co-Signing Physician Notes Attending attestation Pt seen and examined in concert with Dr. Garg. In agreement with the documented findings as noted in the resident documentation with any exceptions or additions as noted here. Resting in bed without recurrence of syncope. Ongoing nausea and loose bowel movements without vomiting reported. Ongoing wordfinding difficulty intermittently, which is subacute. V/S as noted. On examination, S1/S2 nl RRR no MCG. CTAB. Abd NT/ND BS+ve Syncopal episode during dialsysis - most consistent with vasovagal in the setting of constellation of circumstances described and no residual symptoms. Monitor ESRD on HD - nephrology consult - pending tunneled catheter tomorrow and re- attempt for HD HTN with intermittent tachycardia - counseling re: importance of BP control and adherence to medications, restart lisinopril 10mg and monitor. Continue tele monitoring Else see resident documentation as noted. Subjective Noted to have chest pain overnight, trop negative, sx resolved. Vomitingx1, diarrhea x1 this AM, again during HD in addition to brief syncopal episode. Denies fevers, chills. Elevated BP, Lisinopril on hold - pt reports that home BP generally 130s/80s Review of Systems Review of Systems: as per HPI Physical Exam Physical Exam: Constitutional: no acute distress HEENT: NCAT, no conjunctival injection CV: extremities well-perfused, no LE edema Resp: no increased work of breathing GI: nondistended MSK: no gross deformities Skin: warm, dry, no rash appreciated Neuro: alert, oriented, mild word finding difficulty (chronic) Results & Data Results & Data Vital Signs (Past 12 Hours) Vital Signs Temp Pulse Resp BP BP Pulse Ox O2 Del Method 09/20/24 07:30 Room Air 09/20/24 07:19 36.7 C 90 18 189/107 H 166/93 H 96 Room Air 09/20/24 06:05 162/90 H 09/19/24 20:47 174/97 H Resident Activity Tracking Resident Involvement: Resident Care Provided Care Provided: Adult Hospital Medicine (3) Anemia Anemia type: unspecified type Qualified Code(s): D64.9 - Anemia, unspecified
--- NOTE | 2024-09-20 08:45 | Nephrology Progress Note ---
Date of Service September 20, 2024 Assessment & Plan (1) End stage chronic kidney disease: Plan: * ESKD due to DKD, HTN * Has not maintained regular outpatient nephrology follow-up * Presented to [facility] with kidney failure and need for urgent start HD * Temporary right IJ dialysis catheter has been placed by critical care team 09/17/2024 * 1st run HD provided 09/18/24. * Will provide 2nd HD today. Orders have been placed in EMR and HD RN notified * Vascular surgery plans IJ TCC tomorrow * Social service consultation to set up outpatient HD at [facility] [place] * Nephrocap one daily, phos-lo 667 mg two w/ each meal started * Will need Heplisav immunization at outpatient HD unit (2) Hypertension: Plan: * Continue lisinopril * Monitor BP response following UF (3) Secondary hyperparathyroidism: Plan: * Continue phos-lo 667 mg 2 cap po qAC (4) Anemia: Plan: * Iron saturation acceptable * Will provide QUETA w/ HD Admission and Anticipated Discharge Date Admission Date: September 17, 2024 Subjective Mr. Ballesteros was evaluated in his hospital room this morning. He reports one episode of emesis last evening. He is scheduled for IJ TCC Friday morning Review of Systems Constitutional: no fever Eyes: no problem reported Ear, Nose, Mouth, Throat: no problem reported Respiratory: no cough and no dyspnea Cardiovascular: no chest pain and no dyspnea Gastrointestinal: no abdominal pain, no nausea, no vomiting and no diarrhea/loose stools Integumentary: no rash Physical Exam Constitutional: not in distress Eyes: PERRL, conjunctivae normal, anicteric sclerae ENMT: external ear and nose normal, oropharynx normal Neck: trachea midline, no thyromegaly Respiratory: normal respiratory effort, lungs clear to auscultation Cardiovascular: RRR, no murmur, no edema Gastrointestinal (Abdomen): normal bowel sounds, soft, nontender, no hepa tosplenomegaly Musculoskeletal: Extremities: no cyanosis and no clubbing Skin: no rashes, warm and dry Neurologic: awake; not confused Results & Data Vital Signs (Past 12 Hours) Vital Signs Temp Pulse Resp BP BP Pulse Ox O2 Del Method 09/20/24 07:30 Room Air 09/20/24 07:19 36.7 C 90 18 189/107 H 166/93 H 96 Room Air 09/20/24 06:05 162/90 H 09/19/24 20:47 174/97 H Laboratory Results Laboratory Results - last 24 hr 09/18/24 09/19/24 09/19/24 06:24 11:32 16:37 Sodium Potassium Chloride Carbon Dioxide Anion Gap BUN Creatinine Est Cr Clr Drug Dosing eGFR BUN/Creatinine Ratio Glucose POC Glucose 129 H 121 H Calcium Phosphorus Troponin I High Sens Albumin Hep B Core IgM Ab NON-REACTIVE 09/19/24 09/19/24 09/20/24 20:46 22:31 00:56 Sodium 130 L Potassium 4.4 Chloride 99 Carbon Dioxide 18 L Anion Gap 13 H BUN 110 H Creatinine 12.06 H* D Est Cr Clr Drug Dosing 6.9 eGFR 4.34 BUN/Creatinine Ratio 9.1 L Glucose 92 POC Glucose 111 H Calcium 6.9 L Phosphorus 6.3 H Troponin I High Sens 27.8 H 31.0 H Albumin 3.7 Hep B Core IgM Ab 09/20/24 09/20/24 09/20/24 06:40 07:28 07:44 Sodium Potassium Chloride Carbon Dioxide Anion Gap BUN Creatinine Est Cr Clr Drug Dosing eGFR BUN/Creatinine Ratio Glucose POC Glucose 115 H 97 Calcium Phosphorus Troponin I High Sens Pending Albumin Hep B Core IgM Ab PG Care Time/CCT Total # of Minutes Spent Total Time Spent with Patient: Total time spent is greater than 50% in coordination of care (as documented) at patient's floor/unit and/or counseling patient: Coding Level of Care Code 09314 SUB INP/OBS CARE 3/50MIN Diagnoses End stage chronic kidney disease N18.6 Hypertension I10 Secondary hyperparathyroidism N25.81 Anemia D64.9 Anemia type: unspecified type (4) Anemia Anemia type: unspecified type Qualified Code(s): D64.9 - Anemia, unspecified
--- NOTE | 2024-09-20 11:04 | Dialysis Progress Note ---
Date of Service September 20, 2024 Assessment & Plan (1) End stage chronic kidney disease: Plan: * Advised HD RN to stop treatment * Only 1 hour HD completed today * Will obtain BMP, CBC in am * Will plan 2 hr HD tx tomorrow after IJ TCC placed (2) Hypertension: Plan: * Continue lisinopril * Monitor BP response following UF (3) Secondary hyperparathyroidism: Plan: * Continue phos-lo 667 mg 2 cap po qAC (4) Anemia: Plan: * Iron saturation acceptable * Will provide QUETA w/ HD Admission and Anticipated Discharge Date Admission Date: September 17, 2024 Subjective Mr. Ballesteros was evaluated while on HD. Unfortunately one hour into treatment he developed recurrent N&V. He remained hemodynamically stable Review of Systems Constitutional: no fever Eyes: no problem reported Ear, Nose, Mouth, Throat: no problem reported Respiratory: no cough and no dyspnea Cardiovascular: no chest pain and no dyspnea Gastrointestinal: no abdominal pain, no nausea, no vomiting and no diarrhea/loose stools Integumentary: no rash Physical Exam Constitutional: not in distress Eyes: PERRL, conjunctivae normal, anicteric sclerae ENMT: external ear and nose normal, oropharynx normal Neck: trachea midline, no thyromegaly Respiratory: normal respiratory effort, lungs clear to auscultation Cardiovascular: RRR, no murmur, no edema Gastrointestinal (Abdomen): normal bowel sounds, soft, nontender, no hepatosplenomegaly Musculoskeletal: Extremities: no cyanosis and no clubbing Skin: no rashes, warm and dry Neurologic: awake; not confused Results & Data Vital Signs (Past 12 Hours) Vital Signs Temp Pulse Resp BP BP Pulse Ox O2 Del Method 09/20/24 07:30 Room Air 09/20/24 07:19 36.7 C 90 18 189/107 H 166/93 H 96 Room Air 09/20/24 06:05 162/90 H Laboratory Results Laboratory Results - last 24 hr 09/19/24 09/19/24 09/19/24 11:32 16:37 20:46 Sodium Potassium Chloride Carbon Dioxide Anion Gap BUN Creatinine Est Cr Clr Drug Dosing eGFR BUN/Creatinine Ratio Glucose POC Glucose 129 H 121 H 111 H Calcium Phosphorus Troponin I High Sens Albumin 09/19/24 09/20/24 09/20/24 22:31 00:56 06:40 Sodium 130 L Potassium 4.4 Chloride 99 Carbon Dioxide 18 L Anion Gap 13 H BUN 110 H Creatinine 12.06 H* D Est Cr Clr Drug Dosing 6.9 eGFR 4.34 BUN/Creatinine Ratio 9.1 L Glucose 92 POC Glucose 115 H Calcium 6.9 L Phosphorus 6.3 H Troponin I High Sens 27.8 H 31.0 H Albumin 3.7 09/20/24 09/20/24 07:28 07:44 Sodium Potassium Chloride Carbon Dioxide Anion Gap BUN Creatinine Est Cr Clr Drug Dosing eGFR BUN/Creatinine Ratio Glucose POC Glucose 97 Calcium Phosphorus Troponin I High Sens 25.4 H Albumin Coding Level of Care Code None Diagnoses End stage chronic kidney disease N18.6 Hypertension I10 Secondary hyperparathyroidism N25.81 Anemia D64.9 Anemia type: unspecified type (4) Anemia Anemia type: unspecified type Qualified Code(s): D64.9 - Anemia, unspecified
--- NOTE | 2024-09-20 11:32 | Electrocardiogram Report ---
Test Reason : Blood Pressure : */* mmHG Vent. Rate : 93 BPM Atrial Rate : 93 BPM P-R Int : 172 ms QRS Dur : 90 ms QT Int : 394 ms P-R-T Axes : 52 -7 97 degrees QTcB Int : 489 ms Normal sinus rhythm T wave abnormality, consider anterolateral ischemia Prolonged QT Abnormal ECG When compared with ECG of 17-Sep-2024 16:14, T wave inversion now evident in Anterior leads Confirmed by Venkata Salazar ([id number]) on 09/20/2024 11:32:29 AM Referred By: Kamlesh Owens Confirmed By: Venkata Salazar
[2024-09-20] MEDS: EPOETIN ALFA 10,000 UNITS/ML VIAL IV ONE (11:50)
[2024-09-20] MEDS: lisinopril 10 MG TAB PO SCH (13:59)
--- NOTE | 2024-09-20 15:08 | Electrocardiogram Report ---
Test Reason : Blood Pressure : */* mmHG Vent. Rate : 90 BPM Atrial Rate : 90 BPM P-R Int : 186 ms QRS Dur : 88 ms QT Int : 400 ms P-R-T Axes : 44 -2 238 degrees QTcB Int : 489 ms Normal sinus rhythm T wave abnormality, consider anterolateral ischemia Prolonged QT Abnormal ECG When compared with ECG of 19-Sep-2024 22:04, Nonspecific T wave abnormality now evident in Inferior leads T wave inversion more evident in Lateral leads Confirmed by Venkata Salazar ([id number] on 09/20/2024 3:07:38 PM Referred By: Kamlesh Owens Confirmed By: Venkata Salazar
[2024-09-21 06:41] LABS: BUN Creatinine Ratio 8.6 (10-20); Calcium 7.9 mg/dl (8.6-10.3); Creatinine Clr Calc Pharmacy 7.9 ml/min; Potassium 4.9 mmol/L (3.5-5.1)
[2024-09-21 06:46] LABS: Hematocrit (blood only) 20.2 % (42.0-52.0); Hemoglobin 6.9 g/dl (14.0-18.0); Mean Corpuscular Hemoglobin 29.2 pg (25.0-34.0); Mean Corpuscular Hgb Conc 34.2 g/dL (32.0-36.0); Mean Corpuscular Volume 85.6 fL (80.0-100.0); Platelet Count 148 K/uL (130-400); RDW Coefficient of Variation 12.7 % (11.5-14.5); RDW Standard Deviation 38.7 fL (36.4-46.3); Red Blood Count 2.36 M/uL (4.70-6.10); White Blood Count 7.23 K/ul (4.8-10.8)
--- NOTE | 2024-09-21 06:59 | Hospitalist Progress Note ---
Date of Service September 21, 2024 Assessment & Plan (1) Chronic Kidney Disease: (2) Diabetes mellitus: (3) Anemia: (4) Hypertension: (5) DVT prophylaxis: (6) Discharge planning issues: Plan 59-year-old male who presented due to abnormal labs indicating end-stage renal disease: #ESRD with uremia, secondary hyperparathyroidism, Anemia of chronic disease: IJ TCC placed today Nephrology consulted for HD, patient to have HD today AM Hgb 6.9 - QUETA with HD, blood consent obtained, patient to receive 1 unit pRBCs with dialysis CM following for outpatient HD needs #N/V/D, Syncopal Episode - Resolved: #T2DM: A1c 5.4 Blood sugar checks ACHS, sliding scale insulin #HTN: Continue Lisinopril 10mg daily #Hyponatremia, mild: AM Na 133 - Asx, continue to monitor Renal diet VTE ppx: Heparin Med-Tele Admission and Anticipated Discharge Date Admission Date: September 17, 2024 Supervising Physician Co-Signing Physician Notes Attending attestation Pt seen and examined in concert with Dr. Garg. In agreement with the documented findings as noted in the resident documentation with any exceptions or additions as noted here. Resting in bed without further symptoms s/p PermaCath, HD with no further GI symptoms reported. Ongoing wordfinding difficulty intermittently, which is subacute. V/S as noted. On examination, S1/S2 nl RRR no MCG. CTAB. Abd NT/ND BS+ve Anemia, microcytic - transfuse 1U PRBC during dialysis, agree w/ QUETA per nephrology ESRD on HD - nephrology consult - PermaCath in place, HD and schedule for outpatient HTN with intermittent tachycardia - continue lisinopril 10mg, consider uptitration based on response Else see resident documentation as noted. Subjective No acute overnight events. Denies CP, SOB, palpitations. Denies V/D. Denies fevers, chills. Review of Systems Review of Systems: as per HPI Physical Exam Physical Exam: Constitutional: no acute distress HEENT: NCAT, no conjunctival injection CV: RRR, extremities well-perfused, no LE edema Resp: no increased work of breathing, lungs CTA bilaterally GI: nondistended MSK: no gross deformities Skin: warm, dry, no rash appreciated Neuro: alert, oriented, mild word finding difficulty (chronic) Results & Data Results & Data Vital Signs (Past 12 Hours) Vital Signs Temp Pulse Pulse Resp BP Pulse Ox O2 Del Method 09/21/24 03:29 36.9 C 90 20 165/89 H 96 Room Air 09/21/24 00:05 37.1 C 96 H 20 163/101 H 96 Room Air 09/20/24 23:55 89 09/20/24 20:10 37.1 C 100 H 20 186/98 H 98 Room Air Resident Activity Tracking Resident Involvement: Resident Care Provided Care Provided: Adult Hospital Medicine (3) Anemia Anemia type: unspecified type Qualified Code(s): D64.9 - Anemia, unspecified
[2024-09-21] MEDS ORDERED: SODIUM CHLORIDE 0.9% 100 ML IV PRN ×2 (07:56→10:03)
[2024-09-21] MEDS ORDERED: SODIUM CHLORIDE 0.9% 50 ML IV PRN ×2 (07:56→10:03)
--- NOTE | 2024-09-21 08:38 | Nephrology Progress Note ---
Date of Service September 21, 2024 Assessment & Plan (1) End stage chronic kidney disease: Plan: * Advised HD RN to stop treatment * Only 1 hour HD completed today * Will obtain BMP, CBC in am * Will plan 2 hr HD tx tomorrow after IJ TCC placed (2) Hypertension: Plan: * Continue lisinopril * Monitor BP response following UF (3) Secondary hyperparathyroidism: Plan: * Continue phos-lo 667 mg 2 cap po qAC (4) Anemia: Plan: * Iron saturation acceptable * Will provide QUETA w/ HD Admission and Anticipated Discharge Date Admission Date: September 17, 2024 Subjective Mr. Ballesteros was evaluated while on HD. Unfortunately one hour into treatment he developed recurrent N&V. He remained hemodynamically stable Review of Systems Constitutional: no fever Eyes: no problem reported Ear, Nose, Mouth, Throat: no problem reported Respiratory: no cough and no dyspnea Cardiovascular: no chest pain and no dyspnea Gastrointestinal: no abdominal pain, no nausea, no vomiting and no diarrhea/loose stools Integumentary: no rash Physical Exam Constitutional: not in distress Eyes: PERRL, conjunctivae normal, anicteric sclerae ENMT: external ear and nose normal, oropharynx normal Neck: trachea midline, no thyromegaly Respiratory: normal respiratory effort, lungs clear to auscultation Cardiovascular: RRR, no murmur, no edema Gastrointestinal (Abdomen): normal bowel sounds, soft, nontender, no hepatosplenomegaly Musculoskeletal: Extremities: no cyanosis and no clubbing Skin: no rashes, warm and dry Neurologic: awake; not confused Results & Data Vital Signs (Past 12 Hours) Vital Signs Temp Pulse Pulse Pulse Resp BP Pulse Ox 09/21/24 07:08 36.8 C 85 20 169/93 H 98 09/21/24 03:29 36.9 C 90 20 165/89 H 96 09/21/24 00:05 37.1 C 96 H 20 163/101 H 96 09/20/24 23:55 89 O2 Del Method 09/21/24 07:08 Room Air 09/21/24 03:29 Room Air 09/21/24 00:05 Room Air 09/20/24 23:55 Laboratory Results Laboratory Results - last 24 hr 09/20/24 09/20/24 09/20/24 07:44 11:40 12:47 WBC RBC Hgb Hct MCV MCH MCHC RDW Std Deviation RDW Coeff of Chelsey Plt Count MPV Sodium Potassium Chloride Carbon Dioxide Anion Gap BUN Creatinine Est Cr Clr Drug Dosing eGFR BUN/Creatinine Ratio Glucose POC Glucose 126 H Calcium Troponin I High Sens 25.4 H 21.9 H Nasal Screen MRSA (PCR) Blood Type Antibody Screen Crossmatch 09/20/24 09/20/24 09/20/24 17:09 20:41 Unknown WBC RBC Hgb Hct MCV MCH MCHC RDW Std Deviation RDW Coeff of Chelsey Plt Count MPV Sodium Potassium Chloride Carbon Dioxide Anion Gap BUN Creatinine Est Cr Clr Drug Dosing eGFR BUN/Creatinine Ratio Glucose POC Glucose 108 H 115 H Calcium Troponin I High Sens Nasal Screen MRSA (PCR) Negative Blood Type Antibody Screen Crossmatch 09/21/24 09/21/24 09/21/24 05:25 08:12 08:29 WBC 7.23 RBC 2.36 L Hgb 6.9 L* Hct 20.2 L* MCV 85.6 MCH 29.2 MCHC 34.2 RDW Std Deviation 38.7 RDW Coeff of Chelsey 12.7 Plt Count 148 MPV 11.0 Sodium 133 L Potassium 4.9 Chloride 100 Carbon Dioxide 21 Anion Gap 12 H BUN 91 H Creatinine 10.53 H* D Est Cr Clr Drug Dosing 7.9 eGFR 5.11 BUN/Creatinine Ratio 8.6 L Glucose 86 POC Glucose 98 Calcium 7.9 L Troponin I High Sens Nasal Screen MRSA (PCR) Blood Type Pending Antibody Screen Pending Crossmatch See Detail PG Care Time/CCT Total # of Minutes Spent Total Time Spent with Patient: Total time spent is greater than 50% in coordination of care (as documented) at patient's floor/unit and/or counseling patient: Coding Level of Care Code None Diagnoses End stage chronic kidney disease N18.6 Hypertension I10 Secondary hyperparathyroidism N25.81 Anemia D64.9 Anemia type: unspecified type (4) Anemia Anemia type: unspecified type Qualified Code(s): D64.9 - Anemia, unspecified
--- NOTE | 2024-09-21 08:42 | Consultation ---
Date of Consultation September 20, 2024 Assessment & Plan (1) End stage chronic kidney disease: Patient is to have a PermCath placed for dialysis. I have discussed the risks options and benefits of the procedure with the patient. The patient understands the risks options and benefits and agrees to the procedure. History of Present Illness Reason for Consultation: End stage renal disease Attending Physician: Venkata Torres MD History of Present Illness This is a 59-year-old gentleman who has chronic renal disease which is now worsened. He is in need of dialysis. He has a temporary catheter in place but now needs a PermCath placed for future dialysis. Allergies Allergy/AdvReac Type Severity Reaction Status Date / Time cephalexin AdvReac Verified 07/29/23 13:35 hydralazine AdvReac Verified 07/29/23 13:35 sulfamethoxazole AdvReac Verified 07/29/23 13:35 [From Bactrim] trimethoprim [From Bactrim] AdvReac Verified 07/29/23 13:35 Home Medications Medication Instructions Recorded Confirmed Type albuterol sulfate 90 mcg/actuation 2 puff inhalation QID PRN 11/02/21 09/17/24 History aerosol inhaler (Ventolin HFA) shortness of breath or wheezing insulin glargine 100 unit/mL (3 See Rx Instructions .Route .COMPLEX 11/02/21 09/17/24 History mL) subcutaneous pen (Lantus Solostar U-100 Insulin) lisinopril 10 mg tablet 10 mg PO DAILY #30 tabs 11/06/22 09/17/24 Rx Patient History Medical History History of deep venous thrombosis or pulmonary embolus Asthma Dyslipidemia Hypertriglyceridemia Family History Father Cancer Prostate Kidney disease Late in life while suffering from advanced metastatic prostate cancer and alcoholism Social History Smoking Status: Former smoker Tobacco Type: Smokeless Tobacco (Dip or Chew) Hx Alcohol Use: Yes (12 years ago) Hx Substance Use: No Preferred Language: Cypriot Communication Ability: Effective Professional Bondsman Required: No Beliefs That Will Affect Care: None Current Living Situation: Spouse current occupational status: disabled How many Children do You have: 2 Feels Safe at Home: Yes Safety Concerns: Feels Safe At This Time Assistive Devices: Cane Review of Systems Review of Systems: All systems reviewed & are unremarkable except as noted in HPI & below Physical Exam Constitutional: WD/WN, vitals as above Respiratory: normal respiratory effort, lungs clear to auscultation Cardiovascular: RRR, no murmur, no edema Gastrointestinal (Abdomen): normal bowel sounds, soft, nontender, no hepatosplenomegaly Neurologic: CN's II-XI intact bilaterally and moves all extremities Psychiatric: A+Ox3, euthymic affect Results & Data Vital Signs (Past 12 Hours) Vital Signs Temp Pulse Pulse Pulse Resp BP Pulse Ox 09/21/24 07:08 36.8 C 85 20 169/93 H 98 09/21/24 03:29 36.9 C 90 20 165/89 H 96 09/21/24 00:05 37.1 C 96 H 20 163/101 H 96 09/20/24 23:55 89 O2 Del Method 09/21/24 07:08 Room Air 09/21/24 03:29 Room Air 09/21/24 00:05 Room Air 09/20/24 23:55
--- NOTE | 2024-09-21 10:46 | Pre Anesthesia Assessment ---
Date of Service September 21, 2024 Pre Sedation Assessment Vital Signs Temp Pulse Pulse Pulse Pulse Resp BP 09/21/24 09:46 36.8 C 93 H 20 09/21/24 07:08 36.8 C 85 20 09/21/24 03:29 36.9 C 90 20 09/21/24 00:05 37.1 C 96 H 20 09/20/24 23:55 89 09/20/24 20:10 37.1 C 100 H 20 09/20/24 16:07 37.0 C 114 H 20 09/20/24 13:36 36.5 C 90 16 09/20/24 13:34 99 H 09/20/24 11:26 36.7 C 83 16 09/20/24 11:05 36.6 C 86 09/20/24 10:58 137 H 183/112 H 09/20/24 10:50 102 H 139/89 BP BP Pulse Ox O2 Del Method 09/21/24 09:46 160/99 H 98 Room Air 09/21/24 07:08 169/93 H 98 Room Air 09/21/24 03:29 165/89 H 96 Room Air 09/21/24 00:05 163/101 H 96 Room Air 09/20/24 23:55 09/20/24 20:10 186/98 H 98 Room Air 09/20/24 16:07 169/83 H 99 Room Air 09/20/24 13:36 173/96 H 99 Room Air 09/20/24 13:34 09/20/24 11:26 155/98 H 98 Room Air 09/20/24 11:05 174/95 H 09/20/24 10:58 09/20/24 10:50 Cardiovascular RRR, no murmur, no edema Respiratory normal respiratory effort, lungs clear to auscultation Pre-Sedation Airway Assessment Smoking Status: Former smoker Hx Sleep Apnea: No Short, Thick Neck: No Thyromental Distance: > or= 3.5 Finger Breadths Oral Cavity: + WNL Mallampati Class: III ASA: ASA3 NPO Status Date of Last Intake of Fluids: 09/20/24 Time of Last Intake of Fluids: 23:59 Date of Last Intake of Solid Food: 09/20/24 Time of Last Intake of Solid Foods: 18:00 Procedure Planning Contraindications for Sedation: none Current Medications Reviewed: Yes Notes The planned sedation has been discussed with the patient. Informed Consent was obtained. I have identified the patient, determined the appropriateness of sedation and have assessed the patient immediately prior to the procedure. All medicine(s) and interventions are by my order.
[2024-09-21] MEDS: fentaNYL citrate PF 100 MCG/2 ML VIAL ONE (10:55)
[2024-09-21] MEDS: CLINDAMYCIN/D5W 900 MG/50 ML BAG IV SCH (10:55)
[2024-09-21] MEDS: MIDAZOLAM HCL 1 MG/ML 2ML VIAL ONE ×2 (10:55→11:03)
[2024-09-21] MEDS: HEPARIN SOD (PORCINE) 5,000 UNITS/ML VIAL ONE (11:06)
[2024-09-21] MEDS: LIDOCAINE 1% LOCAL 20 ML VIAL ONE (11:12)
--- NOTE | 2024-09-21 11:15 | Nephrology Progress Note ---
Date of Service September 21, 2024 Assessment & Plan (1) End stage chronic kidney disease: Plan: * ESKD due to DKD, HTN * Has not maintained regular outpatient nephrology follow-up * Presented to [facility] with kidney failure and need for urgent start HD * Temporary right IJ dialysis catheter has been placed by critical care team 09/17/2024 * 1st run HD provided 09/18/24. * Scheduled for IJ TCC by vascular surgery today * Will provide HD following IJ TCC placement. Orders have been entered into EMR and HD RN notified * Hgb 6.9. Will transfuse 1 unit PRBC on HD today. Discussed w/ primary service * Social service consultation to set up outpatient HD at [facility] [place] * Nephrocap one daily, phos-lo 667 mg two w/ each meal started * Will need Heplisav immunization at outpatient HD unit (2) Hypertension: Plan: * Continue lisinopril * Monitor BP response following UF (3) Secondary hyperparathyroidism: Plan: * Continue phos-lo 667 mg 2 cap po qAC (4) Anemia: Plan: * Iron saturation acceptable * Will provide QUETA w/ HD Admission and Anticipated Discharge Date Admission Date: September 17, 2024 Subjective Mr. Ballesteros was evaluated in his hospital room this morning. He developed nausea while on HD yesterday and only one hour treatment was completed. He is scheduled for IJ TCC this morning. Review of Systems Constitutional: no fever Eyes: no problem reported Ear, Nose, Mouth, Throat: no problem reported Respiratory: no cough and no dyspnea Cardiovascular: no chest pain and no dyspnea Gastrointestinal: no abdominal pain, no nausea, no vomiting and no diarrhea/loose stools Integumentary: no rash Physical Exam Constitutional: not in distress Eyes: PERRL, conjunctivae normal, anicteric sclerae ENMT: external ear and nose normal, oropharynx normal Neck: trachea midline, no thyromegaly Respiratory: normal respiratory effort, lungs clear to auscultation Cardiovascular: RRR, no murmur, no edema Gastrointestinal (Abdomen): normal bowel sounds, soft, nontender, no hepatosplenomegaly Musculoskeletal: Extremities: no cyanosis and no clubbing Skin: no rashes, warm and dry Neurologic: awake; not confused Results & Data Vital Signs (Past 12 Hours) Vital Signs Temp Pulse Pulse Pulse Pulse Resp BP 09/21/24 11:10 85 16 142/89 H 09/21/24 11:05 82 16 153/90 H 09/21/24 11:00 85 16 152/87 H 09/21/24 10:55 90 16 172/95 H 09/21/24 10:50 88 16 174/99 H 09/21/24 09:46 36.8 C 93 H 20 160/99 H 09/21/24 07:08 36.8 C 85 20 09/21/24 03:29 36.9 C 90 20 09/21/24 00:05 37.1 C 96 H 20 09/20/24 23:55 89 BP Pulse Ox O2 Del Method O2 Flow Rate 09/21/24 11:10 99 Nasal Cannula 4 09/21/24 11:05 100 Nasal Cannula 4 09/21/24 11:00 100 Nasal Cannula 4 09/21/24 10:55 100 Nasal Cannula 4 09/21/24 10:50 100 Nasal Cannula 4 09/21/24 09:46 98 Room Air 09/21/24 07:08 169/93 H 98 Room Air 09/21/24 03:29 165/89 H 96 Room Air 09/21/24 00:05 163/101 H 96 Room Air 09/20/24 23:55 Laboratory Results Laboratory Results - last 24 hr 09/20/24 09/20/24 09/20/24 11:40 12:47 17:09 WBC RBC Hgb Hct MCV MCH MCHC RDW Std Deviation RDW Coeff of Chelsey Plt Count MPV Sodium Potassium Chloride Carbon Dioxide Anion Gap BUN Creatinine Est Cr Clr Drug Dosing eGFR BUN/Creatinine Ratio Glucose POC Glucose 126 H 108 H Calcium Troponin I High Sens 21.9 H Nasal Screen MRSA (PCR) Blood Type Blood Type Recheck Antibody Screen Crossmatch 09/20/24 09/20/24 09/21/24 20:41 Unknown 05:25 WBC 7.23 RBC 2.36 L Hgb 6.9 L* Hct 20.2 L* MCV 85.6 MCH 29.2 MCHC 34.2 RDW Std Deviation 38.7 RDW Coeff of Chelsey 12.7 Plt Count 148 MPV 11.0 Sodium 133 L Potassium 4.9 Chloride 100 Carbon Dioxide 21 Anion Gap 12 H BUN 91 H Creatinine 10.53 H* D Est Cr Clr Drug Dosing 7.9 eGFR 5.11 BUN/Creatinine Ratio 8.6 L Glucose 86 POC Glucose 115 H Calcium 7.9 L Troponin I High Sens Nasal Screen MRSA (PCR) Negative Blood Type Blood Type Recheck Antibody Screen Crossmatch 09/21/24 09/21/24 09/21/24 08:12 08:29 09:29 WBC RBC Hgb Hct MCV MCH MCHC RDW Std Deviation RDW Coeff of Chelsey Plt Count MPV Sodium Potassium Chloride Carbon Dioxide Anion Gap BUN Creatinine Est Cr Clr Drug Dosing eGFR BUN/Creatinine Ratio Glucose POC Glucose 98 Calcium Troponin I High Sens Nasal Screen MRSA (PCR) Blood Type A Positive Blood Type Recheck A Positive Antibody Screen NEGATIVE Crossmatch See Detail 09/21/24 09:48 WBC RBC Hgb Hct MCV MCH MCHC RDW Std Deviation RDW Coeff of Chelsey Plt Count MPV Sodium Potassium Chloride Carbon Dioxide Anion Gap BUN Creatinine Est Cr Clr Drug Dosing eGFR BUN/Creatinine Ratio Glucose POC Glucose 104 H Calcium Troponin I High Sens Nasal Screen MRSA (PCR) Blood Type Blood Type Recheck Antibody Screen Crossmatch PG Care Time/CCT Total # of Minutes Spent Total Time Spent with Patient: Total time spent is greater than 50% in coordination of care (as documented) at patient's floor/unit and/or counseling patient: Coding Level of Care Code 02457 SUB INP/OBS CARE 3/50MIN Diagnoses End stage chronic kidney disease N18.6 Hypertension I10 Secondary hyperparathyroidism N25.81 Anemia D64.9 Anemia type: unspecified type (4) Anemia Anemia type: unspecified type Qualified Code(s): D64.9 - Anemia, unspecified
--- NOTE | 2024-09-21 11:19 | Operative Report ---
Post Operative Report Pre & Post Diagnosis Operation Date: 09/21/24 10:20 Pre-Op Diagnosis: ESRD Post-Op Diagnosis: ESRD I identified the patient and participated in the time-out.: Yes Procedure Operation Date: 09/21/24 10:20 Actual Procedures p Insertion of Perm Catheter, Right Jugular Approach, Ultrasound Locialization of Right Internal Jugular Vein, Fluoroscopy for positioning, Removal of temporary dialysis catheter, Moderate Sedation [id number] (Right) - Shilo Figueroa MD Surgeon Shilo Figueroa MD Redevelopment Manager none Estimated Blood Loss 3 Findings Consistent with Post-Op Diagnosis Specimens none Anesthesia Type RN Sedation Complications none Disposition Accompanied Patient To Recovery: No Disposition: Recovery Room Indications This is a 59-year-old gentleman chronic renal disease in need of dialysis. He has a temporary catheter placed and is now recommended to place a PermCath for a more prolonged dialysis access. I have discussed the risks options and benefits of the procedure with the pat ient. The patient understands the risks options and benefits and agrees to the procedure. Description of Procedure Patient was taken to the angio suite and placed in the supine position. The dressing was removed and a temporary catheter in the right side of the neck. The catheter was removed pressure was applied and hemostasis was obtained. The right side of the neck and chest wall were prepped and draped in a sterile manner. The patient was identified and a timeout performed. Local anesthesia was then administered to the appropriate areas of the neck and chest wall. Ultrasound was then used to locate the right internal jugular vein. The vein compressed easily, had no filing defects, and was patent. The vein was then punctured under direct ultrasound imaging. A guidewire was then passed centrally under fluoroscopic imaging. A stab wound was then made in the anterior chest wall and a 19 cm permcath was passed from the stab wound on the chest wall to the puncture site on the neck. The puncture site was then dilated till the 14Fr peel away sheath was inserted. The permcath was then inserted through the sheath to a central position in the distal superior vena cava. The peel away sheath was then removed. The catheter was then sutured in place using nylon sutures. The puncture was then closed using a 4-0 Vicryl subcuticular suture. Dermabond was used for a dressing on the puncture site. Both ports aspirated and flushed easily and were then packed with heparin. A sterile dressing was applied to the catheter. The patient left the operation room in satisfactory condition and tolerated the procedure well. All needle and sponge counts were correct at the end of the procedure. I attest to the content of the Intraoperative Record and any orders documented therein. Any exceptions are noted below.
[2024-09-21] MEDS: EPOETIN ALFA 10,000 UNITS/ML VIAL IV ONE (13:06)
[2024-09-21] MEDS: guaiFENesin/DEXTROM SYRUP 100MG/10MG 5ML UDC PO PRN (20:39)
[2024-09-22 02:43] LABS: Appearance Urine Clear (Clear); Bacteria Urine Automated None Seen (None Seen); Bilirubin Urine Negative (Negative); Blood Urine Trace (Negative); Cast Urine Automated 0-2 /lpf (0-2); Color Urine Yellow; Epithelial Cell Urine Auto 0-2 /hpf (0-2); Glucose Urine UA Negative (Negative); Ketones Urine Negative (Negative); Leukocyte Esterase Urine Negative (Negative); Nitrite Urine Negative (Negative); Protein Urine 2+ (Negative); RBC Urine Automated 0-2 /hpf (0-2); Specific Gravity Urine 1.006 (1.000-1.030); Urobilinogen Urine Negative (Negative); WBC Urine Automated 0-5 /hpf (0-5)
[2024-09-22 06:32] LABS: Hematocrit (blood only) 23.4 % (42.0-52.0); Mean Corpuscular Hemoglobin 29.5 pg (25.0-34.0); Mean Corpuscular Hgb Conc 34.2 g/dL (32.0-36.0); Mean Corpuscular Volume 86.3 fL (80.0-100.0); Mean Platelet Volume 10.9 fL (9.4-12.4); Nucleated RBC # (auto) 0.02 K/uL (0.00-0.12); Nucleated RBC % (auto) 0.2 %; Platelet Count 147 K/uL (130-400); RDW Coefficient of Variation 13.1 % (11.5-14.5); RDW Standard Deviation 39.8 fL (36.4-46.3); Red Blood Count 2.71 M/uL (4.70-6.10); White Blood Count 8.86 K/ul (4.8-10.8)
[2024-09-22 06:58] LABS: BUN Creatinine Ratio 7.7 (10-20); Calcium 8.2 mg/dl (8.6-10.3); Creatinine Clr Calc Pharmacy 9.6 ml/min; Potassium 5.1 mmol/L (3.5-5.1)
--- NOTE | 2024-09-22 07:41 | Hospitalist Progress Note ---
Date of Service September 22, 2024 Assessment & Plan (1) Chronic Kidney Disease: (2) Diabetes mellitus: (3) Anemia: (4) Hypertension: (5) DVT prophylaxis: (6) Discharge planning issues: Plan 59-year-old male who presented due to abnormal labs indicating end-stage renal disease: #ESRD with uremia, secondary hyperparathyroidism, Anemia of chronic disease: IJ TCC placed 09/21 Nephrology consulted for HD management: AM Hgb 8 CM following for outpatient HD needs #N/V/D, Syncopal Episode - Resolved: #T2DM: A1c 5.4 Blood sugar checks ACHS, sliding scale insulin #HTN: BP remains mildly elevated Continue Lisinopril 10mg daily Appreciate any further recs from nephrology #Hyponatremia, mild: Mild,Asx - continue to monitor Renal diet VTE ppx: Heparin Med-Tele Admission and Anticipated Discharge Date Admission Date: September 17, 2024 Supervising Physician Co-Signing Physician Notes Attending attestation Pt seen and examined in concert with Dr. Garg. In agreement with the documented findings as noted in the resident documentation with any exceptions or additions as noted here. Significant improvement today following HD in fatigue/malaise. Ongoing wordfinding difficulty intermittently, which is subacute. V/S as noted. On examination, S1/S2 nl RRR no MCG. CTAB. Abd NT/ND BS+ve Anemia, microcytic - s/p 1U PRBC, QUETA - trend hgb daily ESRD on HD - nephrology consult - PermaCath in place, HD and schedule for outpatient, trend BMP HTN with intermittent tachycardia - continue lisinopril 10mg, consider uptitration vs addition of amlodipine based on response Else see resident documentation as noted. Subjective No acute overnight events. Tolerated dialysis yesterday. Denies CP, SOB, palpitations. Denies V/D. Denies fevers, chills. Review of Systems Review of Systems: as per HPI Physical Exam Physical Exam: Constitutional: no acute distress HEENT: NCAT, no conjunctival injection CV: RRR, extremities well-perfused, no LE edema Resp: no increased work of breathing, lungs CTA bilaterally GI: nondistended MSK: no gross deformities Skin: warm, dry, no rash appreciated Neuro: alert, oriented, mild word finding difficulty (chronic) Results & Data Results & Data Vital Signs (Past 12 Hours) Vital Signs Temp Pulse Pulse Resp BP Pulse Ox O2 Del Method 09/22/24 07:38 79 09/22/24 02:24 37.4 C 90 16 160/88 H 98 Room Air 09/21/24 22:43 36.9 C 102 H 18 156/90 H 95 Room Air 09/21/24 21:47 96 H 09/21/24 20:46 102 H Resident Activity Tracking Resident Involvement: Resident Care Provided Care Provided: Adult Hospital Medicine (3) Anemia Anemia type: unspecified type Qualified Code(s): D64.9 - Anemia, unspecified
--- NOTE | 2024-09-22 08:37 | Nephrology Progress Note ---
Date of Service September 22, 2024 Assessment & Plan (1) End stage chronic kidney disease: Plan: * ESKD due to DKD, HTN * Has not maintained regular outpatient nephrology follow-up * Presented to [facility] with kidney failure and need for urgent start HD * Temporary right IJ dialysis catheter has been placed by critical care team 09/17/2024 * 1st run HD provided 09/18/24. * IJ TCC placed by vascular surgery 09/21/24 * Transfused 1 unit PRBC during HD 09/21/24 due to Hgb 6.9. Hgb 8.0 this am * Will provide HD today and then maintain MWF schedule * Social service consultation to set up outpatient HD at [facility] [place] * Nephrocap one daily, phos-lo 667 mg two w/ each meal started * Will need Heplisav immunization at outpatient HD unit (2) Hypertension: Plan: * Continue lisinopril * Monitor BP response following UF (3) Secondary hyperparathyroidism: Plan: * Continue phos-lo 667 mg 2 cap po qAC (4) Anemia: Plan: * Iron saturation acceptable * Will provide QUETA w/ HD Admission and Anticipated Discharge Date Admission Date: September 17, 2024 Subjective Mr. Ballesteros was evaluated in his hospital room this morning. He denied angina, dyspnea or uremic symptoms. He reported no complications w/ his HD or blood transfusion yesterday Review of Systems Constitutional: no fever Eyes: no problem reported Ear, Nose, Mouth, Throat: no problem reported Respiratory: no cough and no dyspnea Cardiovascular: no chest pain and no dyspnea Gastrointestinal: no abdominal pain, no nausea, no vomiting and no diarrhea/loose stools Integumentary: no rash Physical Exam Constitutional: not in distress Eyes: PERRL, conjunctivae normal, anicteric sclerae ENMT: external ear and nose normal, oropharynx normal Neck: trachea midline, no thyromegaly (IJ TCC w/ clean dry dressing in place) Respiratory: normal respiratory effort, lungs clear to auscultation Cardiovascular: RRR, no murmur, no edema Gastrointestinal (Abdomen): normal bowel sounds, soft, nontender, no hepatosplenomegaly Musculoskeletal: Extremities: no cyanosis and no clubbing Skin: no rashes, warm and dry Neurologic: awake; not confused Results & Data Vital Signs (Past 12 Hours) Vital Signs Temp Pulse Pulse Pulse Resp BP Pulse Ox 09/22/24 07:47 36.6 C 86 20 171/99 H 98 09/22/24 07:38 79 09/22/24 02:24 37.4 C 90 16 160/88 H 98 09/21/24 22:43 36.9 C 102 H 18 156/90 H 95 09/21/24 21:47 96 H 09/21/24 20:46 102 H O2 Del Method 09/22/24 07:47 Room Air 09/22/24 07:38 09/22/24 02:24 Room Air 09/21/24 22:43 Room Air 09/21/24 21:47 09/21/24 20:46 Laboratory Results Laboratory Results - last 24 hr 09/21/24 09/21/24 09/21/24 08:29 09:29 09:48 WBC RBC Hgb Hct MCV MCH MCHC RDW Std Deviation RDW Coeff of Chelsey Plt Count MPV Absolute Nucleated RBC Nucleated RBC % (auto) Sodium Potassium Chloride Carbon Dioxide Anion Gap BUN Creatinine Est Cr Clr Drug Dosing eGFR BUN/Creatinine Ratio Glucose POC Glucose 104 H Calcium Urine Color Urine Appearance Urine pH Ur Specific Moore Urine Protein Urine Glucose (UA) Urine Ketones Urine Blood Urine Nitrite Urine Bilirubin Urine Urobilinogen Ur Leukocyte Esterase Urine WBC (Auto) Urine RBC (Auto) U Hyaline Cast (Auto) U Epithel Cells (Auto) Urine Bacteria (Auto) Blood Type A Positive Blood Type Recheck A Positive Antibody Screen NEGATIVE Crossmatch See Detail 09/21/24 09/21/24 09/21/24 14:05 17:05 20:09 WBC RBC Hgb Hct MCV MCH MCHC RDW Std Deviation RDW Coeff of Chelsey Plt Count MPV Absolute Nucleated RBC Nucleated RBC % (auto) Sodium Potassium Chloride Carbon Dioxide Anion Gap BUN Creatinine Est Cr Clr Drug Dosing eGFR BUN/Creatinine Ratio Glucose POC Glucose 91 202 H 117 H Calcium Urine Color Urine Appearance Urine pH Ur Specific Moore Urine Protein Urine Glucose (UA) Urine Ketones Urine Blood Urine Nitrite Urine Bilirubin Urine Urobilinogen Ur Leukocyte Esterase Urine WBC (Auto) Urine RBC (Auto) U Hyaline Cast (Auto) U Epithel Cells (Auto) Urine Bacteria (Auto) Blood Type Blood Type Recheck Antibody Screen Crossmatch 09/22/24 09/22/24 09/22/24 02:27 06:02 08:00 WBC 8.86 RBC 2.71 L Hgb 8.0 L Hct 23.4 L MCV 86.3 MCH 29.5 MCHC 34.2 RDW Std Deviation 39.8 RDW Coeff of Chelsey 13.1 Plt Count 147 MPV 10.9 Absolute Nucleated RBC 0.02 Nucleated RBC % (auto) 0.2 Sodium 133 L Potassium 5.1 Chloride 101 Carbon Dioxide 24 Anion Gap 8 BUN 67 H D Creatinine 8.70 H* D Est Cr Clr Drug Dosing 9.6 eGFR 6.43 BUN/Creatinine Ratio 7.7 L Glucose 97 POC Glucose 101 H Calcium 8.2 L Urine Color Yellow Urine Appearance Clear Urine pH 7.0 Ur Specific Moore 1.006 Urine Protein 2+ H Urine Glucose (UA) Negative Urine Ketones Negative Urine Blood Trace H Urine Nitrite Negative Urine Bilirubin Negative Urine Urobilinogen Negative Ur Leukocyte Esterase Negative Urine WBC (Auto) 0-5 Urine RBC (Auto) 0-2 U Hyaline Cast (Auto) 0-2 U Epithel Cells (Auto) 0-2 Urine Bacteria (Auto) None Seen Blood Type Blood Type Recheck Antibody Screen Crossmatch PG Care Time/CCT Total # of Minutes Spent Total Time Spent with Patient: Total time spent is greater than 50% in coordination of care (as documented) at patient's floor/unit and/or counseling patient: Coding Level of Care Code 70313 SUB INP/OBS CARE 3/50MIN Diagnoses End stage chronic kidney disease N18.6 Hypertension I10 Secondary hyperparathyroidism N25.81 Anemia D64.9 Anemia type: unspecified type (4) Anemia Anemia type: unspecified type Qualified Code(s): D64.9 - Anemia, unspecified
[2024-09-22] MEDS: HEPARIN SOD (PORCINE) 1000 UNIT/ML IV ONE (10:57)
[2024-09-22] MEDS: ACETAMINOPHEN 325 MG TAB PO PRN (23:03)
[2024-09-22] MEDS: BENZONATATE 100 MG CAPSULE PO PRN (23:04)
[2024-09-23 07:42] LABS: Hematocrit (blood only) 24.2 % (42.0-52.0); Hemoglobin 8.1 g/dl (14.0-18.0); Mean Corpuscular Hgb Conc 33.5 g/dL (32.0-36.0); Mean Corpuscular Volume 86.7 fL (80.0-100.0); Mean Platelet Volume 10.8 fL (9.4-12.4); Platelet Count 156 K/uL (130-400); RDW Coefficient of Variation 13.6 % (11.5-14.5); RDW Standard Deviation 40.6 fL (36.4-46.3); Red Blood Count 2.79 M/uL (4.70-6.10); White Blood Count 9.19 K/ul (4.8-10.8)
--- NOTE | 2024-09-23 07:46 | Hospitalist Progress Note ---
Date of Service September 23, 2024 Assessment & Plan (1) Chronic Kidney Disease: (2) Diabetes mellitus: (3) Anemia: (4) Hypertension: (5) DVT prophylaxis: (6) Discharge planning issues: Plan 59-year-old male who presented due to abnormal labs indicating end-stage renal disease: #ESRD with uremia, secondary hyperparathyroidism, Anemia of chronic disease: IJ TCC placed 09/21 Nephrology consulted for HD management: HD M/W/F Hgb stable, >8 CM following for outpatient HD needs #N/V/D, Syncopal Episode - Resolved: #T2DM: A1c 5.4 Blood sugar checks ACHS, sliding scale insulin #HTN: BP remains mildly elevated Continue Lisinopril 10mg daily Appreciate any further recs from nephrology #Hyponatremia, mild: Mild, Asx - continue to monitor Renal diet VTE ppx: Heparin Med-Tele Admission and Anticipated Discharge Date Admission Date: September 17, 2024 Supervising Physician Co-Signing Physician Notes Attending attestation Pt seen and examined in concert with Dr. Garg. In agreement with the documented findings as noted in the resident documentation with any exceptions or additions as noted here. Resting in chair at bedside with ongoing nonproductive cough with improving fatigue. Ongoing mild wordfinding difficulty intermittently, which is subacute. V/S as noted. On examination, S1/S2 nl RRR no MCG. CTAB. Abd NT/ND BS+ve ESRD on HD - nephrology consult - PermaCath in place, pending HD schedule for outpatient, trend BMP Anemia, microcytic - s/p 1U PRBC, QUETA - trend hgb daily HTN with intermittent tachycardia - continue lisinopril 10mg, consider uptitration vs addition of amlodipine based on response Else see resident documentation as noted. Subjective No acute overnight events. Tolerated dialysis yesterday. Notes mild dysphagia, better today compared to last night. Denies CP, SOB, palpitations. Denies V/D. Denies fevers, chills. Review of Systems Review of Systems: as per HPI Physical Exam Physical Exam: Constitutional: no acute distress HEENT: NCAT, no conjunctival injection CV: RRR, extremities well-perfused, no LE edema Resp: no increased work of breathing, lungs CTA bilaterally GI: nondistended MSK: no gross deformities Skin: warm, dry, no rash appreciated Neuro: alert, oriented, mild word finding difficulty (chronic) Results & Data Results & Data Vital Signs (Past 12 Hours) Vital Signs Temp Pulse Pulse Resp BP Pulse Ox O2 Del Method 09/23/24 07:29 36.8 C 95 H 18 174/78 H 97 Room Air 09/23/24 07:11 86 09/23/24 02:41 37.0 C 87 18 147/79 H 93 Room Air 09/22/24 22:35 37.0 C 98 H 18 160/86 H 94 Room Air 09/22/24 21:55 92 H Resident Activity Tracking Resident Involvement: Resident Care Provided Care Provided: Adult Hospital Medicine (3) Anemia Anemia type: unspecified type Qualified Code(s): D64.9 - Anemia, unspecified
[2024-09-23 07:59] LABS: BUN Creatinine Ratio 6.7 (10-20); Calcium 8.4 mg/dl (8.6-10.3); Creatinine Clr Calc Pharmacy 11.9 ml/min; Potassium 4.6 mmol/L (3.5-5.1)
--- NOTE | 2024-09-23 08:35 | Nephrology Progress Note ---
Date of Service September 23, 2024 Assessment & Plan (1) End stage chronic kidney disease: Plan: * ESKD due to DKD, HTN * Has not maintained regular outpatient nephrology follow-up * Presented to [facility] with kidney failure and need for urgent start HD * Temporary right IJ dialysis catheter has been placed by critical care team 09/17/2024 * 1st run HD provided 09/18/24. * IJ TCC placed by vascular surgery 09/21/24 * Transfused 1 unit PRBC during HD 09/21/24 due to Hgb 6.9. Hgb 8.0 this am * POC discussed w/ primary service this am. OK to discharge home from nephrology perspective once outpatient HD is set up in [place], [place] * Continue nephrocap one daily, phos-lo 667 mg two w/ each meal started * Will need Heplisav immunization at outpatient HD unit (2) Hypertension: Plan: * Continue lisinopril * Monitor BP response following UF (3) Secondary hyperparathyroidism: Plan: * Continue phos-lo 667 mg 2 cap po qAC (4) Anemia: Plan: * Iron saturation acceptable * Will provide QUETA w/ HD Admission and Anticipated Discharge Date Admission Date: September 17, 2024 Subjective Mr. Ballesteros was evaluated in his hospital room this morning. He denied angina, dyspnea or uremic symptoms. He was dialyzed yesterday without complication Review of Systems Constitutional: no fever Eyes: no problem reported Ear, Nose, Mouth, Throat: no problem reported Respiratory: no cough and no dyspnea Cardiovascular: no chest pain and no dyspnea Gastrointestinal: no abdominal pain, no nausea, no vomiting and no diarrhea/loose stools Integumentary: no rash Physical Exam Constitutional: not in distress Eyes: PERRL, conjunctivae normal, anicteric sclerae ENMT: external ear and nose normal, oropharynx normal Neck: trachea midline, no thyromegaly (IJ TCC w/ clean dry dressing in place) Respiratory: normal respiratory effort, lungs clear to auscultation Cardiovascular: RRR, no murmur, no edema Gastrointestinal (Abdomen): normal bowel sounds, soft, nontender, no hepatosplenomegaly Musculoskeletal: Extremities: no cyanosis and no clubbing Skin: no rashes, warm and dry Neurologic: awake; not confused Results & Data Vital Signs (Past 12 Hours) Vital Signs Temp Pulse Pulse Resp BP Pulse Ox O2 Del Method 09/23/24 07:29 36.8 C 95 H 18 174/78 H 97 Room Air 09/23/24 07:11 86 09/23/24 02:41 37.0 C 87 18 147/79 H 93 Room Air 09/22/24 22:35 37.0 C 98 H 18 160/86 H 94 Room Air 09/22/24 21:55 92 H Laboratory Results Laboratory Results - last 24 hr 09/22/24 09/22/24 09/22/24 13:08 17:04 20:01 WBC RBC Hgb Hct MCV MCH MCHC RDW Std Deviation RDW Coeff of Chelsey Plt Count MPV Sodium Potassium Chloride Carbon Dioxide Anion Gap BUN Creatinine Est Cr Clr Drug Dosing eGFR BUN/Creatinine Ratio Glucose POC Glucose 97 132 H 128 H Calcium 09/23/24 09/23/24 06:54 08:07 WBC 9.19 RBC 2.79 L Hgb 8.1 L Hct 24.2 L MCV 86.7 MCH 29.0 MCHC 33.5 RDW Std Deviation 40.6 RDW Coeff of Chelsey 13.6 Plt Count 156 MPV 10.8 Sodium 134 L Potassium 4.6 Chloride 100 Carbon Dioxide 26 Anion Gap 8 BUN 47 H D Creatinine 7.02 H* D Est Cr Clr Drug Dosing 11.9 eGFR 8.31 BUN/Creatinine Ratio 6.7 L Glucose 91 POC Glucose 103 H Calcium 8.4 L PG Care Time/CCT Total # of Minutes Spent Total Time Spent with Patient: Total time spent is greater than 50% in coordination of care (as documented) at patient's floor/unit and/or counseling patient: Coding Level of Care Code 03949 SUB INP/OBS CARE 3/50MIN Diagnoses End stage chronic kidney disease N18.6 Hypertension I10 Secondary hyperparathyroidism N25.81 Anemia D64.9 Anemia type: unspecified type (4) Anemia Anemia type: unspecified type Qualified Code(s): D64.9 - Anemia, unspecified
[2024-09-24 06:10] LABS: Hematocrit (blood only) 23.1 % (42.0-52.0); Hemoglobin 7.8 g/dl (14.0-18.0); Mean Corpuscular Hemoglobin 29.4 pg (25.0-34.0); Mean Corpuscular Hgb Conc 33.8 g/dL (32.0-36.0); Mean Corpuscular Volume 87.2 fL (80.0-100.0); Mean Platelet Volume 10.9 fL (9.4-12.4); Platelet Count 158 K/uL (130-400); RDW Coefficient of Variation 13.7 % (11.5-14.5); RDW Standard Deviation 41.2 fL (36.4-46.3); Red Blood Count 2.65 M/uL (4.70-6.10); White Blood Count 8.08 K/ul (4.8-10.8)
[2024-09-24 06:30] LABS: BUN Creatinine Ratio 7.5 (10-20); Calcium 8.2 mg/dl (8.6-10.3); Creatinine Clr Calc Pharmacy 9.8 ml/min
--- NOTE | 2024-09-24 07:16 | Hospitalist Progress Note ---
Date of Service September 24, 2024 Assessment & Plan (1) Chronic Kidney Disease: (2) Diabetes mellitus: (3) Anemia: (4) Hypertension: (5) DVT prophylaxis: (6) Discharge planning issues: Plan 59-year-old male who presented due to abnormal labs indicating end-stage renal disease: #ESRD with uremia, secondary hyperparathyroidism, Anemia of chronic disease: IJ TCC placed 09/21 Nephrology consulted for HD management: HD M/W/F Hgb stable, >8 CM following for outpatient HD needs #N/V/D, Syncopal Episode - Resolved: #T2DM: A1c 5.4 Blood sugar checks ACHS, sliding scale insulin #HTN: BP remains mildly elevated Continue Lisinopril 10mg daily Appreciate any further recs from nephrology #Hyponatremia, mild: Mild, Asx - continue to monitor Renal diet VTE ppx: Heparin Med-Tele Admission and Anticipated Discharge Date Admission Date: September 17, 2024 Results & Data Results & Data Vital Signs (Past 12 Hours) Vital Signs Temp Pulse Pulse Resp BP Pulse Ox O2 Del Method 09/24/24 03:10 37.3 C 84 18 165/84 H 95 Room Air 09/23/24 22:25 37.5 C 92 H 18 156/81 H 98 Room Air 09/23/24 21:52 91 H 09/23/24 19:32 37.5 C 93 H 18 155/92 H 99 Room Air (3) Anemia Anemia type: unspecified type Qualified Code(s): D64.9 - Anemia, unspecified
[2024-09-24 07:58] VITALS: RESP 16; O2SAT 98
--- NOTE | 2024-09-24 08:42 | Nephrology Progress Note ---
Date of Service September 24, 2024 Assessment & Plan (1) End stage chronic kidney disease: Plan: * ESKD due to DKD, HTN * Has not maintained regular outpatient nephrology follow-up * Presented to [facility] with kidney failure and need for urgent start HD * Temporary right IJ dialysis catheter has been placed by critical care team 09/17/2024 * 1st run HD provided 09/18/24. * IJ TCC placed by vascular surgery 09/21/24 * Transfused 1 unit PRBC during HD 09/21/24 due to Hgb 6.9. Hgb 7.8 this a.m. * POC discussed w/ primary service this am. OK to discharge home from nephrology perspective once outpatient HD is set up in [place], [place] * Continue nephrocap one daily, phos-lo 667 mg two w/ each meal started * Will need Heplisav immunization at outpatient HD unit (2) Hypertension: Plan: * Continue lisinopril * Monitor BP response following UF (3) Secondary hyperparathyroidism: Plan: * Continue phos-lo 667 mg 2 cap po qAC (4) Anemia: Plan: * Iron saturation acceptable * Will provide QUETA w/ HD Admission and Anticipated Discharge Date Admission Date: September 17, 2024 Subjective Mr. Ballesteros was evaluated in his hospital room this morning. He denied angina, dyspnea or uremic symptoms. He complains of sore throat and stuffy head, "cold" symptoms Review of Systems Constitutional: no fever Eyes: no problem reported Ear, Nose, Mouth, Throat: no problem reported Respiratory: no cough and no dyspnea Cardiovascular: no chest pain and no dyspnea Gastrointestinal: no abdominal pain, no nausea, no vomiting and no di arrhea/loose stools Integumentary: no rash Physical Exam Constitutional: not in distress Eyes: PERRL, conjunctivae normal, anicteric sclerae ENMT: external ear and nose normal, oropharynx normal Neck: trachea midline, no thyromegaly (IJ TCC w/ clean dry dressing in place) Respiratory: normal respiratory effort, lungs clear to auscultation Cardiovascular: RRR, no murmur, no edema Gastrointestinal (Abdomen): normal bowel sounds, soft, nontender, no hepatosplenomegaly Musculoskeletal: Extremities: no cyanosis and no clubbing Skin: no rashes, warm and dry Neurologic: awake; not confused Results & Data Vital Signs (Past 12 Hours) Vital Signs Temp Pulse Pulse Pulse Resp BP Pulse Ox 09/24/24 07:57 36.9 C 92 H 16 167/87 H 98 09/24/24 07:37 85 09/24/24 07:26 09/24/24 03:10 37.3 C 84 18 165/84 H 95 09/23/24 22:25 37.5 C 92 H 18 156/81 H 98 09/23/24 21:52 91 H O2 Del Method 09/24/24 07:57 Room Air 09/24/24 07:37 09/24/24 07:26 Room Air 09/24/24 03:10 Room Air 09/23/24 22:25 Room Air 09/23/24 21:52 Laboratory Results Laboratory Results - last 24 hr 09/21/24 09/23/24 09/23/24 08:29 12:04 17:10 WBC RBC Hgb Hct MCV MCH MCHC RDW Std Deviation RDW Coeff of Chelsey Plt Count MPV Sodium Potassium Chloride Carbon Dioxide Anion Gap BUN Creatinine Est Cr Clr Drug Dosing eGFR BUN/Creatinine Ratio Glucose POC Glucose 90 123 H Calcium Crossmatch See Detail 09/23/24 09/24/24 09/24/24 20:05 05:44 08:03 WBC 8.08 RBC 2.65 L Hgb 7.8 L Hct 23.1 L MCV 87.2 MCH 29.4 MCHC 33.8 RDW Std Deviation 41.2 RDW Coeff of Chelsey 13.7 Plt Count 158 MPV 10.9 Sodium 131 L Potassium 5.0 Chloride 99 Carbon Dioxide 22 Anion Gap 10 BUN 64 H Creatinine 8.50 H* D Est Cr Clr Drug Dosing 9.8 eGFR 6.61 BUN/Creatinine Ratio 7.5 L Glucose 89 POC Glucose 126 H 96 Calcium 8.2 L Crossmatch PG Care Time/CCT Total # of Minutes Spent Total Time Spent with Patient: Total time spent is greater than 50% in coordination of care (as documented) at patient's floor/unit and/or counseling patient: Coding Level of Care Code 40461 SUB INP/OBS CARE 3/50MIN Diagnoses End stage chronic kidney disease N18.6 Hypertension I10 Secondary hyperparathyroidism N25.81 Anemia D64.9 Anemia type: unspecified type (4) Anemia Anemia type: unspecified type Qualified Code(s): D64.9 - Anemia, unspecified
[2024-09-24] MEDS: HEPARIN SOD (PORCINE) 1000 UNIT/ML IV ONE (11:19)
[2024-09-24] MEDS: HEPARIN SOD (PORCINE) 1000 UNIT/ML IV SCH (11:19)
[2024-09-24] MEDS: EPOETIN ALFA 10,000 UNITS/ML VIAL IV ONE (11:20)
[2024-09-24 12:43] VITALS: TEMP 98.2
--- NOTE | 2024-09-24 14:39 | Discharge Summary ---
Date of Service September 24, 2024 Admission HPI Per Admitting Provider patient is a very pleasant 59-year-old male who came due to abnormal labs indicating end-stage renal disease. He has actually been in end-stage renal disease for quite a while but was declining any dialysis or transplant evaluation. His labs continued to be bad, he was continuing to feel fairly bad, and eventually it sounds like largely at the urging of his he decided to seek care. He was instructed to come to the hospital for admission and initiation of dialysis. It sounds like he has been uremic for quite a whilenoting quite a while of feeling nausea and some vomiting, tremulousness/shakes, and very dry and itchy skin. Fortunately he does not have shortness of breath. He notes that his sugars under very good controlgenerally speaking he takes about 2 units of Lantus if he checks his sugar and sees it above 125. On review of A1c's available they had been dropping and most recently had been normal. He notes this was largely affected by about 70 pounds of intentional weight loss and diet improvement. Admission Exam Per Admitting Provider In general he is awake and alert very pleasant no acute distress but does appear somewhat fatigued. HEENT normocephalic atraumatic mucous membranes moist. Cardio is regular although somewhat distant, lungs are clear but somewhat quiet. No rubs murmurs gallops no rales rhonchi or wheezes. Abdomen is soft nondistended nontender. Extremities are without cyanosis clubbing or edema. Skin is very dry and scaly. Neuro shows moderate tremor and occasional random myoclonic jerks. Mental status shows good recent and remote recall normal mood and affect good judgment and insight. Labs notedmost notably anemia and rather significant elevation of creatinine. Renal ultrasound does not show obstruction. Principal Diagnosis End-stage chronic kidney disease Discharge Exam Constitutional Constitutional: well-appearing, no acute distress HEENT: NCAT, no conjunctival injection CV: regular rhythm, no murmur appreciated, extremities well-perfused, no LE edema Resp: CTABL, no wheezes/rales/rhonchi appreciated, no increased work of breathing GI: soft, nondistended, nontender, BS normoactive MSK: no gross deformities appreciated Skin: warm, dry, no rash appreciated Neuro: alert, oriented, no focal neurologic deficit appreciated Discharge Data Allergies Allergy/AdvReac Type Severity Reaction Status Date / Time cephalexin AdvReac Verified 09/21/24 10:01 hydralazine AdvReac Verified 09/21/24 10:01 sulfamethoxazole AdvReac Verified 09/21/24 10:01 [From Bactrim] trimethoprim [From Bactrim] AdvReac Verified 09/21/24 10:01 Consultations 09/17/24 18:14 ED Decision to Admit Stat 09/17/24 19:29 Consult B2B Sales Manager Routine 09/17/24 21:22 Consult Nephrology Routine 09/18/24 08:45 Consult Nephrology Routine Procedures Performed Operation Date: 09/21/24 10:20 Actual Procedures p Insertion of Perm Catheter, Right Jugular Approach, Ultrasound Locialization of Right Internal Jugular Vein, Fluoroscopy for positioning, Moderate Sedation 1055-(Right) - Shilo Figueroa MD Ordered Studies 09/17/24 16:45 US renal/blad retro comp Stat 09/21/24 07:29 EV cvc insrt tunnel wo prt/collections attorney Routine US EV guide vascular access Routine Chest X-Ray 09/17/24 16:08 EXAM: XR chest 1V not portable CLINICAL HISTORY: ILLNESS CLW TECHNIQUE: An X-ray image of the chest is obtained in AP projection. COMPARISON: No prior studies are available for comparison. FINDINGS: Pulmonary Parenchyma: Lungs are clear bilaterally. No evidence of consolidation, collapse, or focal opacities. No pulmonary nodules are identified. No evidence of pleural effusion or pleural thickening. Heart and Mediastinum: Heart size and shape are normal. No mediastinal widening or masses. No hilar or mediastinal lymphadenopathy. Bony Thorax: Bony thorax appears intact without fractures or deformities. Soft Tissues: Soft tissues overlying the chest wall are unremarkable. IMPRESSION: No acute cardiopulmonary abnormalities are identified. Electronically signed by Fannie Sinclair 09-17-2024 6:13 PM Renal Ultrasound 09/17/24 16:45 EXAM: US Retroperitoneal Limited Renal INDICATION: Acute kidney failure. TECHNIQUE: Real-time limited ultrasound of the kidneys and bladder with image documentation. COMPARISON: No relevant prior studies available. FINDINGS: Right kidney: 10.7 cm long. There is mild cortical thinning and increased echotexture. No stones. No solid mass. No hydronephrosis. Left kidney: 10.1 cm long. There is mild cortical thinning and increased echotexture. No stones. No solid mass. No hydronephrosis. Bladder: Suboptimally distended. Grossly unremarkable. No debris. No surrounding fluid. Ureteral jets not identified during the examination although they can be intermittent. IMPRESSION: There is mild bilateral renal cortical atrophy. No hydronephrosis. ACT 112: Negative or not required by law. Electronically signed by Lori Rosas 09-17-2024 5:44 PM Chest X-Ray 09/17/24 19:52 Exam(s): XR CXR 1 VIEW EXAM: XR Chest, 1 View CLINICAL HISTORY: Reason for exam: s/p dialysis line placement- eval line and lung. TECHNIQUE: Frontal view of the chest. COMPARISON: 09/17/24 at 1644 hrs. FINDINGS: Lungs: Unremarkable. No consolidation. Pleural space: Unremarkable. No pleural effusion or pneumothorax. Heart: Unremarkable. No cardiomegaly or pulmonary vascular congestion. Bones/joints: No acute fracture. No dislocation. Tubes, lines and devices: Right internal jugular hemodialysis catheter with tip in the distal SVC. IMPRESSION: Right internal jugular hemodialysis catheter with tip in the distal SVC. Electronically signed by: Evangelista Siddiqi M.D. 09/18/24 01:12 AM Hospital Course (1) End stage chronic kidney disease: (2) Acute renal failure: (3) Anemia: (4) Secondary hyperparathyroidism: (5) Diabetes mellitus: (6) Hypertension: Plan 59-year-old male who presented due to abnormal labs indicating end-stage renal disease: #ESRD with uremia, secondary hyperparathyroidism, Anemia of chronic disease: -IJ TCC placed 09/21 -Nephrology consulted for HD management: HD M/W/F -PhosLo 667 mg 2 tabs 3 times daily with meals. Nephrocaps once daily. - set up hemodialysis Friday in [place]. -Will need Heplisav immunization at outpatient HD unit -[facility] clinic for dialysis to start on 09/27/2024. Appointment is at 4:30 PM. You should arrive at 4:15 PM. This is located at [address] [place] [address]. -Follow-up with PCP within 1 week. Check CBC and BMP at that appointment. Arrange outpatient refrigeration manager at PCP appointment in [place]. #Anemia: -Iron saturation acceptable. -Was provided with QUETA with hemodialysis. Should consider continuing at outpatient dialysis. #T2DM: A1c 5.4 Blood sugar checks ACHS, sliding scale insulin #HTN: BP remains mildly elevated Continue Lisinopril 10mg daily #Hyponatremia, mild: Mild, Asx - continue to monitor # Secondary hyperparathyroidism -Continue PhosLo as stated above. Total Time Total Time Spent Total Time Spent (In Minutes): Please refer to attendings attestation Discharge Plan Discharge Items Patient Disposition: Home - Self-Care Reason For Visit: ESRD, UREMIA Discharge Diagnosis: End-stage chronic kidney disease Activity: Resume your previous activity Non-emergency contact: Primary Care Provider and Train Reservation Clerk Call non-emergency contact if: you have any medication questions, your pain is concerning for you and your temperature is above 101.5 Follow-up/Referrals: Kamlesh Owens DO [Primary Care Provider] - (PLEASE CALL YOUR PRIMARY CARE PROVIDER TO SCHEDULE A HOSPITAL DISCHARGE FOLLOW-UP APPOINTMENT WITHIN 7-10 DAYS) Diet: Dialysis Renal Addtl Attending Provider Instructions: You were admitted to the hospital for end-stage renal disease. You started treatment with dialysis. You will continue with dialysis as an outpatient. You will continue dialysis Friday at [facility]. A permanent catheter was placed on 09/21/2024 which you will rece patito dialysis through. A discharge summary will be sent to your primary care physician to ensure continuity of care. Please bring this discharge summary with you to your next office appointment so that your provider can review it at that time. Follow-up appointments: * Make a follow-up appointment with your PCP within the next week. It is very important that you follow up with them shortly after discharge from the hospital. * You have an appointment at [facility] for dialysis to start on 09/27/2024. Your appointment is at 4:30 PM. You should arrive at 4:15 PM. This is located at [address] [place] [id number]. Their number is [phone]. You will continue with dialysis Friday. * Keep all your follow-up appointments as already scheduled. If you cannot make an appointment, notify your provider. Medications: Your medication list has been reviewed and reconciled upon discharge to ensure accuracy and continuity of care. An updated list of all your medications is included with your hospital discharge paperwork. Please review this list closely , and make note of any changes. * We sent a new medication called PhosLo to your pharmacy. Take PhosLo 1334 mg 3 times daily with each meal. * We sent a new medication called Nephrocaps to pharmacy. Take Nephrocaps once daily. * If you have any issues filling these prescriptions, please call [phone] and ask to leave a message for Dr. Pedroza. * Take your medications as instructed; do not skip a dose of your medicines. Make sure all of your doctors know every medicine you are taking (including [id number] medicines, vitamins, and supplements). Call your primary care provider before taking any new medicines (including over- the-counter medicines, vitamins, and supplements), because some of these may interact with your current medications, or may make your symptoms worse. Tell your primary care provider if you cannot afford your medications. CONTACT YOUR PRIMARY CARE PROVIDER if you experience any of the following: * Worsening of symptoms * Fever, chills, or fatigue * Difficulty following your treatment plan, or difficulty taking medications CALL 911 OR GO TO THE EMERGENCY DEPARTMENT if you experience any of the following: * Sudden, severe abdominal pain or nausea/vomiting * Severe chest pain, or chest pain that radiates (moves) to your jaw or arm * Sudden, severe shortness of breath or difficulty breathing Thank you for allowing us to participate in your care. Pending Studies at Discharge: No Stand-Alone Forms: My [facility], Smoking Cessation Medications and DC Order Prescriptions: New calcium acetate(phosphat bind) 667 mg Capsule 1,334 mg PO TIDM 30 Days Qty: 60 1RF Renal Caps 1 mg Capsule 1 cap PO QAM 30 Days Qty: 30 1RF Continued lisinopril 10 mg tablet 10 mg PO DAILY Qty: 30 11RF albuterol sulfate [Ventolin HFA] 90 mcg/actuation HFA aerosol inhaler 2 puff inhalation QID PRN (Reason: shortness of breath or wheezing) Lantus Solostar U-100 Insulin 100 unit/mL (3 mL) insulin pen See Rx Instructions .ROUTE .COMPLEX Rx Instructions: INJECT BASELINE OF 1 UNIT AND ADD 1 UNIT FOR EVERY 10 POINTS OF BLOOD SUGAR READINGS, DO NOT EXCEED GREATER THAN 30 UNITS ONCE A DAY Discharge Orders: Discharge Order (Routine); Ordered 09/24/24 Ordered By: Hieu Lu/Other Patient Handouts: ED Diet for Chronic Kidney Disease Admission Data Admit Date/Time: 09/17/24 19:29 Attending Provider: Sulma Swift Admit Provider: Juan Horn Primary Care Provider: Kamlesh Owens Other Providers: Juan Horn; Sukhdeep Rogel; Philip Hirsch; Shilo Figueroa; Venkata Torres Other Interventions: Discharge Summary Assessment (RN) Last Done: 09/24/24 14:46 Supervising Physician Co-Signing Physician Notes Attending Physician Supervision Note: I independently interviewed and examined the patient and verified the condon history and physical, reviewed labs and image studies and agree with findings and care plan noted above. Seen in Dialysis unit. comfortable. no concerns. vitals noted nad heent nc at mmm breathing unlabored no accessory muscles good effort skin no rashes no pallor or icterus neuro no focal deficits. RRR, CTA ESRD on HD - nephrology consult - PermaCath in place, HD initated- outpatient HD arranged. Anemia, microcytic - s/p 1U PRBC, QUETA. HTN with intermittent tachycardia - continue lisinopril 10mg, further titration as outpatient. Else see resident documentation as noted. Total time spent in discharge process- 20min
[2024-09-24 14:47] VITALS: BP 167/98; PULSE 93
== END 2024-09-24 15:11 | disposition home or self-care (01) | DRG 674 ==
LOC: ED 15:36 → SUATTDRO 19:29 → 3W 19:29 → 2W 09-20 11:25

== ENCOUNTER 2024-12-12 15:25 | Inpatient (IN) ==
[2024-12-12 16:13] LABS: iSTAT Creatinine 10.7 mg/dl (0.6-1.3); iSTAT Hemoglobin 9.2 g/dl (14.0-18.0); iSTAT Ionized Calcium 1.02 mmol/l (1.12-1.32); iSTAT Potassium 5.5 mmol/L (3.3-5.0)
[2024-12-12 16:22] LABS: Basophils # (auto) 0.08 K/uL (0.00-0.20); Basophils % (auto) 0.9 %; Eosinophils # (auto) 0.23 K/uL (0.00-0.50); Eosinophils % (auto) 2.7 %; Hematocrit (blood only) 29.1 % (42.0-52.0); Hemoglobin 9.8 g/dl (14.0-18.0); Immature Granulocytes # (auto) 0.03 K/uL (0.01-0.20); Immature Granulocytes % (auto) 0.4 %; Lymphocytes # (auto) 1.15 K/uL (1.20-3.40); Lymphocytes % (auto) 13.5 %; Mean Corpuscular Hemoglobin 31.2 pg (25.0-34.0); Mean Corpuscular Hgb Conc 33.7 g/dL (32.0-36.0); Mean Corpuscular Volume 92.7 fL (80.0-100.0); Mean Platelet Volume 11.6 fL (9.4-12.4); Monocytes # (auto) 0.61 K/uL (0.11-0.59); Monocytes % (auto) 7.2 %; Neutrophils # (auto) 6.43 K/uL (1.40-6.50); Neutrophils % (auto) 75.3 %; Platelet Count 179 K/uL (130-400); RDW Coefficient of Variation 13.3 % (11.5-14.5); RDW Standard Deviation 45.1 fL (36.4-46.3); Red Blood Count 3.14 M/uL (4.70-6.10); White Blood Count 8.53 K/ul (4.8-10.8)
--- NOTE | 2024-12-12 16:36 | Emergency Department Note ---
Impression & Plan Chest pain, Pulmonary edema, Elevated troponin, Acute hyperkalemia, Abdominal pain, lower ED Provider Note HISTORY OF PRESENT ILLNESS: Patient is a 59-year-old male presenting with left-sided chest pain and lower abdominal pain. Patient reports that he has been having pain for the last week. Patient recently had a new fistula placed in his left upper extremity for initiation of hemodialysis. This fistula was placed 3 weeks ago. He gets dialysis Friday/Friday/Friday. He reports his last dialysis session was this past Friday but it was cut about 20 minutes short. He reports he has been feeling generally unwell for the last week. He states he has a left-sided pressure pain along his left chest. He states the pain radiates into his left arm. He is also had bilateral lower abdominal pain for the last week, but worse in the last few days. He reports that 2 days ago he got very lightheaded and dizzy while up and about. He reports that he makes very little urine anymore, but again he is on dialysis. He states that he has been having diarrhea for the last 3 days. He denies any history of abdominal surgeries. He denies any recent fever, but does state he has been having chills. He denies any recent sick contact exposures. ROS: as above PHYSICAL EXAM: Constitutional: Patient appears in no acute distress. HENT: Head: Normocephalic and atraumatic. Eyes: EOMI, PERRL Mouth/Throat: Mucous membranes moist. Neck: Trachea midline. Neck supple. Cardiovascular: RRR, No murmurs, rubs or gallops. Intact distal pulses. Pulmonary/Chest: No respiratory distress. Breath sounds clear and equal bilaterally. No wheezes or rales. Abdominal: Abdomen soft, no rebound or guarding. Bilateral lower quadrants TTP Musculoskeletal: No edema, tenderness or deformity noted. Skin: Warm and dry. No rash, erythema, pallor or cyanosis Psychiatric: Appropriate mood and affect for situation. Neurological: Alert and keenly responsive. CN II-XII grossly intact, moving all extremities equally and fully. MDM: - Vitals signs showed hypertension - History obtained via patient. History as above. - Chronic conditions affecting care: HTN; ESRD; DM-2 - Differential diagnoses include, but are not limited to: Acute coronary syndrome; pulmonary embolism; dissection; tension pneumothorax; esophageal rupture; pneumonia - Order placed for continuous cardiac monitoring. At this time, monitor showed rate of 86 bpm with normal sinus rhythm, per my interpretation. - External medical records reviewed. Discharge summary dated 09/20/2024 was reviewed. Patient was admitted for ESRD. Patient had a permacath inserted into his right jugular at that time for dialysis. - EKG image interpreted by myself showed normal sinus rhythm. Rate 80 bpm. QT 394. No acute ischemic changes. - Laboratory workup interpreted by myself showed normal WBC; anemia (Hgb 9.8); hyperkalemia (K 5.6); ESRD (Cr 9.67); elevated troponin (22.1); normal lipase - CXR image reviewed by myself showed some pulmonary vascular congestion, most notably in the right, per my interpretation. Radiology notes "progression of cardiac congestion, mild pleural effusion with suspected mild related pulmonary edema." - Patient given 1g IV calcium gluconate for hyperkalemia. - Repeat troponin elevated at 24.3 - CT abdomen/pelvis wo contrast (given his ESRD) obtained. - UA negative for infection - Discussion was had with pillowcase folder about patient's case and need for admission - Hospitalist, Dr. Horn, consulted for admission - Patient admitted to [facility] hospitalist service for further evaluation and management. ASSESSMENT AND PLAN: Diagnosis: chest pain; pulmonary edema; acute hyperkalemia; lower abdominal pain; elevated troponin Plan: admit Past Med/Surg History Problem List Abdominal pain, lower (Acute) Acute hyperkalemia (Acute) Elevated troponin (Acute) Pulmonary edema (Acute) Chest pain (Acute) End stage chronic kidney disease Acute renal failure (Acute) Anemia (Acute) Secondary hyperparathyroidism Chronic Kidney Disease History of CVA (cerebrovascular accident) Diabetes mellitus Hypertension Medical History Discharge planning issues DVT prophylaxis History of deep venous thrombosis or pulmonary embolus Asthma Dyslipidemia Hypertriglyceridemia Family History Father Cancer Prostate Kidney disease Late in life while suffering from advanced metastatic prostate cancer and alcoholism Social History Smoking Status: Unknown if ever smoked Tobacco Type: Smokeless Tobacco (Dip or Chew) Hx Alcohol Use: Yes (12 years ago) Hx Substance Use: No Preferred Language: Yakut Communication Ability: Effective Manager Pharmacy Required: No Beliefs That Will Affect Care: None Current Living Situation: Spouse current occupational status: disabled How many Children do You have: 2 Feels Safe at Home: Yes Assistive Devices: Cane Allergies Allergies Allergy/AdvReac Type Severity Reaction Status Date / Time cephalexin AdvReac Verified 10/26/24 18:10 hydralazine AdvReac Verified 10/26/24 18:10 sulfamethoxazole AdvReac Verified 10/26/24 18:10 [From Bactrim] trimethoprim [From Bactrim] AdvReac Verified 10/26/24 18:10 Home Meds Home Medications Medication Instructions Recorded Confirmed insulin glargine 100 unit/mL (3 1 unit subcut UD 11/02/21 12/12/24 mL) subcutaneous pen (Lantus Solostar U-100 Insulin) furosemide 40 mg tablet 40 mg PO DAILY 10/26/24 12/12/24 nifedipine 30 mg tablet,extended 30 mg PO DAILY 10/26/24 12/12/24 release vitamin B complex and vitamin C 1 cap PO QAM 10/26/24 12/12/24 no.20-folic acid 1 mg capsule (Renal Caps) albuterol sulfate 90 mcg/actuation 2 puff inhalation .Q4-6 PRN sob 12/12/24 12/12/24 aerosol inhaler (Ventolin HFA) oxycodone 5 mg tablet 5 mg PO Q6H PRN Pain 12/12/24 12/12/24 Previous Rx's Medication Instructions Recorded lisinopril 10 mg tablet 10 mg PO DAILY #30 tabs 11/06/22 calcium acetate(phosphat bind) 667 1,334 mg (2 x 667 mg) PO TIDM 30 09/24/24 mg capsule days #60 caps Results & Data (ED) Vital Signs Vital Signs - 24 hr 12/12/24 15:38 12/12/24 15:58 12/12/24 16:21 Temperature 36.5 C Temperature Source Skin Pulse Rate 93 H 88 86 Respiratory Rate 22 Blood Pressure 167/99 H 158/106 H Blood Pressure Mean 121 137 Pulse Oximetry 96 98 Oxygen Delivery Method Room Air Room Air Sepsis Recent Fever Within 48 Hours No Sepsis New/Unexplained Change in Mental Status N/A Sepsis Action Taken by Nursing No Action Required 12/12/24 18:12 12/12/24 18:35 Temperature Temperature Source Pulse Rate 85 87 Respiratory Rate 23 18 Blood Pressure 166/92 H 175/109 H Blood Pressure Mean 116 121 Pulse Oximetry 93 95 Oxygen Delivery Method Room Air Room Air Sepsis Recent Fever Within 48 Hours Sepsis New/Unexplained Change in Mental Status Sepsis Action Taken by Nursing Laboratory Data 12/12/24 15:55 12/12/24 15:55 Lab Results 12/12/24 12/12/24 12/12/24 Range/Units 15:55 16:00 17:44 WBC 8.53 (4.8-10.8) K/ul RBC 3.14 L (4.70-6.10) M/uL Hgb 9.8 L (14.0-18.0) g/dl POC Hgb 9.2 L (14.0-18.0) g/dl Hct 29.1 L (42.0-52.0) % POC Hct 27 L (42-52) % MCV 92.7 (80.0-100.0) fL MCH 31.2 (25.0-34.0) pg MCHC 33.7 (32.0-36.0) g/dL RDW Std Deviation 45.1 (36.4-46.3) fL RDW Coeff of Chelsey 13.3 (11.5-14.5) % Plt Count 179 (130-400) K/uL MPV 11.6 (9.4-12.4) fL Immature Gran % (Auto) 0.4 % Neut % (Auto) 75.3 % Lymph % (Auto) 13.5 % Gl[place]ock % (Auto) 7.2 % Eos % (Auto) 2.7 % Baso % (Auto) 0.9 % Neut # (Auto) 6.43 (1.40-6.50) K/uL Lymph # (Auto) 1.15 L (1.20-3.40) K/uL [place]ock # (Auto) 0.61 H (0.11-0.59) K/uL Eos # (Auto) 0.23 (0.00-0.50) K/uL Baso # (Auto) 0.08 (0.00-0.20) K/uL Immature Gran # (Auto) 0.03 (0.01-0.20) K/uL PT 11.0 (9.0-12.0) Seconds INR 1.0 (0.9-1.1) POC Sodium 137 (135-144) mmol/L Sodium 139 (136-145) mmol/L POC Potassium 5.5 H (3.3-5.0) mmol/L Potassium 5.6 H (3.5-5.1) mmol/L POC Chloride 104 (101-112) mmol/L Chloride 102 (98-107) mmol/L Carbon Dioxide 23 (21-32) mmol/L POC Total CO2 21 L (24-31) mmol/L Anion Gap 14 H (3-11) POC Anion Gap 19.0 (16-25) mmol/L POC BUN 57 H (7-18) mg/dl BUN 64 H (6-23) mg/dl Creatinine 9.67 H* (0.6-1.4) mg/dl POC Creatinine 10.7 H* (0.6-1.3) mg/dl Est Cr Clr Drug Dosing 9.4 ml/min eGFR 5.66 BUN/Creatinine Ratio 6.6 L (10-20) Glucose 79 (70-99(Fasting)) mg/dl POC Glucose (other) 81 (70-99) mg/dl Calcium 8.7 (8.6-10.3) mg/dl POC Ioniz Calcium Brando 1.02 L (1.12-1.32) mmol/l Total Bilirubin 0.7 (0.2-1.0) mg/dl AST 12 L (13-39) U/L ALT < 3 L (7-52) U/L Alkaline Phosphatase 93 (34-104) U/L Troponin I High Sens 22.1 H 24.3 H (0-20) pg/ml Total Protein 7.0 (6.0-8.3) gm/dl Albumin 4.2 (3.4-5.0) gm/dl Globulin 2.8 (2.5-4.0) gm/dl Albumin/Globulin Ratio 1.5 (0.9-2) Lipase 12 (11-82) U/L Urine Color Yellow Urine Appearance Clear (Clear) Urine pH >= 9.0 H (4.5-7.5) Ur Specific [place] 1.010 (1.000-1.030) Urine Protein 3+ H (Negative) Urine Glucose (UA) Trace H (Negative) Urine Ketones Negative (Negative) Urine Blood Trace H (Negative) Urine Nitrite Negative (Negative) Urine Bilirubin Negative (Negative) Urine Urobilinogen Negative (Negative) Ur Leukocyte Esterase Negative (Negative) Urine WBC (Auto) 0-5 (0-5) /hpf Urine RBC (Auto) 0-2 (0-2) /hpf U Hyaline Cast (Auto) 0-2 (0-2) /lpf U Epithel Cells (Auto) 0-2 (0-2) /hpf Urine Bacteria (Auto) None Seen (None Seen) Administered Medications Discontinued Medications Calcium Gluconate () 1,000 mg in 60 mls @ 240 mls/hr IV NOW STA Stop: 12/12/24 18:23 Last Admin: 12/12/24 18:28 Dose: 240 mls/hr Documented By: FATUMA Imaging Data Radiologist's Impression: Chest X-Ray 12/12/24 15:45 EXAM: XR chest 1V portable CLINICAL HISTORY: Chest pain, nonspecific. TECHNIQUE: An X-ray image of the chest is obtained in AP projection. COMPARISON: 10/26/2024 X-ray [address] CT FINDINGS: Pulmonary Parenchyma: Interval increased bronchovascular markings. Haziness in both lower zones Blunted CP angles are more at the right side, suggesting an increase in the mild pleural effusion. Heart and Mediastinum: The heart size is enlarged with more bilateral congested hilum. Dilated, unfolded aorta. No mediastinal widening or masses. No hilar or mediastinal lymphadenopathy. Bony Thorax: The bony thorax appears intact without fractures or deformities. Soft Tissues: The right central venous line was applied in the proper position. Soft tissues overlying the chest wall are unremarkable. IMPRESSION: Mild progression of the cardiac congestion, mild pleural effusion with suspected mild related pulmonary edema. Also, underlying chest infection could not be ruled out; it needs clinical and lab correlation. Electronically signed by Jesus Lux 12-12-2024 5:08 PM Discharge Plan Visit Data Chief Complaint: Illness Stated Complaint: RENAL FAILURE ED Provider: Sydnie Gibson Discharge Problem: Chest pain, Pulmonary edema, Elevated troponin, Acute hyperkalemia, Abdominal pain, lower Forms Stand Alone Forms: [employer] Business Plan Prescriptions Prescriptions: No Action lisinopril 10 mg tablet 10 mg PO DAILY Qty: 30 11RF Lantus Solostar U-100 Insulin 100 unit/mL (3 mL) insulin pen 1 unit subcut UD Rx Instructions: 12/12- usually 1 unit daily but if readings are perfect, he does none. INJECT BASELINE OF 1 UNIT AND ADD 1 UNIT FOR EVERY 10 POINTS OF BLOOD SUGAR READINGS, DO NOT EXCEED GREATER THAN 30 UNITS ONCE A DAY calcium acetate(phosphat bind) 667 mg Capsule 1,334 mg PO TIDM 30 Days Qty: 60 1RF furosemide 40 mg tablet 40 mg PO DAILY nifedipine 30 mg tablet extended release 30 mg PO DAILY Renal Caps 1 mg capsule 1 cap PO QAM Rx Instructions: triphrocaps oxycodone 5 mg tablet 5 mg PO Q6H PRN (Reason: Pain) albuterol sulfate [Ventolin HFA] 90 mcg/actuation HFA aerosol inhaler 2 puff INHALATION .Q4-6 PRN (Reason: sob) Referrals Referrals: Kamlesh Owens DO [Primary Care Provider] -
[2024-12-12 16:45] LABS: Alanine Aminotransferase < 3 U/L (7-52); Albumin Globulin Ratio 1.5 (0.9-2); Albumin Level 4.2 gm/dl (3.4-5.0); Alkaline Phosphatase 93 U/L (34-104); Anion Gap 14 (3-11); Aspartate Aminotransferase 12 U/L (13-39); BUN Creatinine Ratio 6.6 (10-20); Bilirubin,Total 0.7 mg/dl (0.2-1.0); Blood Urea Nitrogen 64 mg/dl (6-23); Calcium 8.7 mg/dl (8.6-10.3); Carbon Dioxide 23 mmol/L (21-32); Chloride 102 mmol/L (98-107); Creatinine Clr Calc Pharmacy 9.4 ml/min; Globulin 2.8 gm/dl (2.5-4.0); Glucose 79 mg/dl (70-99(Fasting)); Lipase 12 U/L (11-82); Potassium 5.6 mmol/L (3.5-5.1); Sodium 139 mmol/L (136-145); Troponin I High Sensitivity 22.1 pg/ml (0-20)
--- NOTE | 2024-12-12 17:09 | XRay Report ---
EXAM: XR chest 1V portable CLINICAL HISTORY: Chest pain, nonspecific. TECHNIQUE: An X-ray image of the chest is obtained in AP projection. COMPARISON: 10/26/2024 X-ray and CT FINDINGS: Pulmonary Parenchyma: Interval increased bronchovascular markings. Haziness in both lower zones Blunted CP angles are more at the right side, suggesting an increase in the mild pleural effusion. Heart and Mediastinum: The heart size is enlarged with more bilateral congested hilum. Dilated, unfolded aorta. No mediastinal widening or masses. No hilar or mediastinal lymphadenopathy. Bony Thorax: The bony thorax appears intact without fractures or deformities. Soft Tissues: The right central venous line was applied in the proper position. Soft tissues overlying the chest wall are unremarkable. IMPRESSION: Mild progression of the cardiac congestion, mild pleural effusion with suspected mild related pulmonary edema. Also, underlying chest infection could not be ruled out; it needs clinical and lab correlation. Electronically signed by Jesus Lux 12-12-2024 5:08 PM
[2024-12-12 17:57] LABS: Appearance Urine Clear (Clear); Bacteria Urine Automated None Seen (None Seen); Bilirubin Urine Negative (Negative); Blood Urine Trace (Negative); Cast Urine Automated 0-2 /lpf (0-2); Color Urine Yellow; Epithelial Cell Urine Auto 0-2 /hpf (0-2); Glucose Urine UA Trace (Negative); Ketones Urine Negative (Negative); Leukocyte Esterase Urine Negative (Negative); Nitrite Urine Negative (Negative); Protein Urine 3+ (Negative); RBC Urine Automated 0-2 /hpf (0-2); Urobilinogen Urine Negative (Negative); WBC Urine Automated 0-5 /hpf (0-5); pH Urine >= 9.0 (4.5-7.5)
[2024-12-12] MEDS: CALCIUM GLUCONATE 1,000 MG/60 ML BAG IV STA (18:28)
--- NOTE | 2024-12-12 18:46 | History & Physical Report ---
Date of Service December 12, 2024 Assessment & Plan (1) Chest pain: (2) Pulmonary edema: (3) Acute hyperkalemia: (4) End stage chronic kidney disease: Plan #Chest pain - based on his history and exam, it actually seems quite compelling that it is chest pain that is really referred upper abdominal pain from significant constipationhe, himself, notes that the pain seems to wax and wane with when he feels like he needs to have a bowel movement, and now that he finally had a reasonable sized bowel movement his pain has improved quite significantly. - He also has some chronic chest wall pain from rib issues and that is reproducible, and while that seems to be a bit of a different pain than what he is feeling/what brought him in, I suspect the 2 are playing off of each other - at the same time, of course, he is high risk for coronary diseasebut given that the symptoms really do not seem to fit, and his troponin has essentially stayed flat (2224) and his EKG is quite similar with lateral ST changes as before, as long as he does not continue to have exertional symptoms I feel that an echocardiogram without regional wall motion abnormalities, and resolution of symptoms with bowel movements would be a more than adequate workup. Obviously, should his echocardiogram show wall motion abnormalities then we would consult cardiology; if he has bowel movements and continues to have symptomsparticularly exertional (would have him walk in the hospital prior to discharge) then a stress test may be indicated #end-stage renal disease - he is hyperkalemic, and his x-ray and exam are consistent with a mild degree of pulmonary edema. I wonder if some has to do with his dietary habits (it is somewhat difficult to get a history from him as he notes he only drinks about a cup and a half of water, but then later refers to drinking Gatorade (certainly that may contribute to the potassium), and he also notes never missing dialysis, but then later his asked how she should approach it if he does not want to go to dialysis because he feels lousy - his EKG does not show peaked T or widened QRS, potassium 5.5. ER has given calcium gluconate. The bowel regimen I am giving him for his symptomatic constipation will likely help bring his potassium down as well. Monitor on telemetry. Anticipate improvement with bowel movements, and/or dialysis - consult nephrology for ongoing assistance in this regard - follow hemoglobin - check mag and Phos in a.m. #symptomatic constipation - MiraLAX 85 g x 1 now, additional bowel meds if needed. Once he is moving his bowels more regularly, probably would benefit from some degree of a chronic bowel regimen to prevent recurrence; at the same time, it has started recently and he has had a few fistula surgeriesso it is possible that it is all acute and reaction to pain/stress/etc. #elevated troponin - does not really have cardiac specific symptoms, I suspect this is nonspecific and/or related to ESRD #left hand paresthesias - distally neurovascularly intact, I suspect this is probably simply due to nerve compression from swelling from the surgeries, it seems like it is getting betterdiscussed active vigilance, and further evaluation for other areas of nerve entrapment if it does not resolve within a reasonable timeframe after the postoperative swelling has resolved #DVT prophylaxis - [facility], comes from home, anticipate him being able to be independent in going back home at discharge. History of Present Illness Chief Complaint: Chest pain Primary Care Provider: Kamlesh Owens DO patient is a very pleasant 59-year-old male known to me from a prior admissionhe comes in for chest pain. He is extremely pleasant and forthcoming with information, but jumps around quite a bit and often while we are trying to finish out a line of questioning for 1 issue he will jump to anothermaking gathering history somewhat difficult and requiring a lot of circling back to clarify details. However, it sounds like over the last 10 days or so he has had difficulty with chest paindescribes as left side of his chest pressure and very intense, waxing and waning, and associated with some degree of feeling like he cannot take a deep breath or may be, but not entirely sure, degree of true dyspnea. Is not entirely clear how long it lasts when it comes onbut he does note that he has been constipated a good bit over the last 10 days as well, and whenever he feels more like he has to have a bowel movement but cannot as whenever the pain seems to worsen. He gives an example that he had a lot of pain through the day today and has tried to have a bowel movement about 7 timesthe first 6 were extremely small, and whenever that sensation would come up the pain would worsen, and then finally he had very adequate bowel movement here in the ER as the seventh 1 that he had and with that his pain has finally reduced to about a 2. He notes a degree of exertional limitation, but he also notes that is more due to what he describes as "hip" (clarifies to be lateral buttock) and calf pain climbing the stairsso it is hard to tell if he has any actual limiting dyspnea. He may have a mild degree of orthopnea, but again this is not entirely clearother than that he seems to imply that the symptoms are often worse when he is laying down in bed, and his notes that she was trying to get him to sleep on more pillows. He has been eating quite well, and his notes he is gaining weight. He tries to fluid restrict, but it is not entirely clear how much he does sohe relates only drinking a cup and a half of water a day, but then also later alludes to drinking some Gatorade at times. He does note a reduction in his urine output. No clear fevers chills or sweats, although about 2 nights ago he did have to sleep a little blankets on, but whenever his checked his temperature it was normal, around 98 F. Goes to dialysis Friday and Friday. Around the time that his symptoms began he had a fistula surgery, and then had to have another 1 on . Allergies Allergy/AdvReac Type Severity Reaction Status Date / Time cephalexin AdvReac Verified 10/26/24 18:10 hydralazine AdvReac Verified 10/26/24 18:10 sulfamethoxazole AdvReac Verified 10/26/24 18:10 [From Bactrim] trimethoprim [From Bactrim] AdvReac Verified 10/26/24 18:10 Home Medications Medication Instructions Recorded Confirmed Type insulin glargine 100 unit/mL (3 1 unit subcut UD 11/02/21 12/12/24 History mL) subcutaneous pen (Lantus Solostar U-100 Insulin) lisinopril 10 mg tablet 10 mg PO DAILY #30 tabs 11/06/22 12/12/24 Rx calcium acetate(phosphat bind) 667 1,334 mg (2 x 667 mg) PO TIDM 30 09/24/24 12/12/24 Rx mg capsule days #60 caps furosemide 40 mg tablet 40 mg PO DAILY 10/26/24 12/12/24 History nifedipine 30 mg tablet,extended 30 mg PO DAILY 10/26/24 12/12/24 History release vitamin B complex and vitamin C 1 cap PO QAM 10/26/24 12/12/24 History no.20-folic acid 1 mg capsule (Renal Caps) albuterol sulfate 90 mcg/actuation 2 puff inhalation .Q4-6 PRN sob 12/12/24 12/12/24 History aerosol inhaler (Ventolin HFA) oxycodone 5 mg tablet 5 mg PO Q6H PRN Pain 12/12/24 12/12/24 History Past Med/Surg History Problem List Abdominal pain, lower (Acute) Acute hyperkalemia (Acute) Elevated troponin (Acute) Pulmonary edema (Acute) Chest pain (Acute) End stage chronic kidney disease Acute renal failure (Acute) Anemia (Acute) Secondary hyperparathyroidism Chronic Kidney Disease History of CVA (cerebrovascular accident) Diabetes mellitus Hypertension Medical History Discharge planning issues DVT prophylaxis History of deep venous thrombosis or pulmonary embolus Asthma Dyslipidemia Hypertriglyceridemia Family History Father Cancer Prostate Kidney disease Late in life while suffering from advanced metastatic prostate cancer and alcoholism Social History Smoking Status: Unknown if ever smoked Tobacco Type: Smokeless Tobacco (Dip or Chew) Hx Alcohol Use: Yes (12 years ago) Hx Substance Use: No Preferred Language: Gibraltarian Communication Ability: Effective Product Finisher Required: No Beliefs That Will Affect Care: None Current Living Situation: Spouse current occupational status: disabled How many Children do You have: 2 Feels Safe at Home: Yes Assistive Devices: Cane Physical Exam Physical Exam: In general he is awake alert oriented x 3 pleasant no acute distress. HEENT normocephalic atraumatic mucous membranes moist. Cardio is regular without rubs murmurs or gallops. Lungs show faint bibasilar rales no other rales rhonchi or wheezes good effort no accessory muscle use, 95% on room air. His left anterior chest wall is reproducibly tender to palpation, although he notes the sensation is somewhat different than what he was feeling. Abdomen is soft but mild to maybe moderately distended upper abdominal tendernessespecially left upper abdomen no guarding rebound or rigidity. Positive and slightly hyperactive bowel sounds. Skin shows no rashes no pallor or icterus. Neuro shows cranial nerves II through XII grossly intact gross motor and sensory intactleft hand shows no motor or sensory or neurovascular deficits good capillary refill. Extremities are without sinus clubbing or edema no calf tenderness. Mental status shows good recent and remote recall normal mood and affect. Labs and diagnostics noted, EKG without QRS widening or peaked T's, does have anterolateral ST changespredominantly T wave inversionthis is reasonably similar to prior. Chest x-ray is consistent with a mild degree of pulmonary edema, CT abdomen pelvis radiology read is pending, lung windows to me show bibasilar effusions and a little bit of atelectasis versus may be some mild pulmonary edema, mild degree of constipation but with some solid stool, some loops of bowel that seem to [place] sal[place] outside of the liver, but nothing that seems to be any hernia or incarceration, no bowel dilation. Labs show troponin of 22.1 that over about 2 hours only changes to 24.3, his potassium is 5.6 Results & Data Results & Data Vital Signs (Past 12 Hours) Vital Signs Temp Pulse Resp BP Pulse Ox O2 Del Method 12/12/24 18:12 85 23 166/92 H 93 Room Air 12/12/24 16:21 86 158/106 H 98 Room Air 12/12/24 15:58 88 12/12/24 15:38 97.7 F 93 H 22 167/99 H 96 Room Air Code Status & VTE Plan VTE Prophylaxis Plan VTE Prophylaxis will be ordered: Yes PG Care Time/CCT Total # of Minutes Spent Total Time Spent with Patient: Total time spent is greater than 50% in coordination of care (as documented) at patient's floor/unit and/or counseling patient: Coding Level of Care Code 39688 INT INP/OBS CARE 3/75MIN Diagnoses Chest pain R07.9 Pulmonary edema J81.1 Acute hyperkalemia E87.5 End stage chronic kidney disease N18.6
[2024-12-12] MEDS ORDERED: oxyCODONE HCL IR 5 MG TAB (IMMEDIATE RELEASE) PO PRN (20:55)
[2024-12-12] MEDS ORDERED: ALBUTEROL HFA 8 GM INHALER INH PRN (20:55)
[2024-12-12] MEDS ORDERED: ONDANSETRON INJ 2 MG/ML 2 ML VIAL IV PRN (20:55)
[2024-12-12] MEDS ORDERED: NON-FORMULARY MEDICATION (Insulin Glargine [Lantus Solostar U-100 Insulin] 100 unit/mL (3 SQ SCH (20:55)
[2024-12-12] MEDS ORDERED: ACETAMINOPHEN 325 MG TAB PO PRN (20:55)
[2024-12-12] MEDS ORDERED: CARBOHYDRATES FOR HYPOGLYCEMIA PO PRN ×2 (21:22→21:30)
[2024-12-12] MEDS ORDERED: DEXTROSE 50% 50 ML SYRINGE IV PRN ×2 (21:22→21:30)
[2024-12-12] MEDS ORDERED: GLUCOSE 10 TAB/TUBE PO PRN ×2 (21:22→21:30)
[2024-12-12] MEDS ORDERED: GLUCAGON FOR INJ 1 MG VIAL SQ PRN ×2 (21:22→21:30)
[2024-12-12] MEDS ORDERED: GLUCOSE 40% GEL 15 GM TUBE PO PRN ×2 (21:22→21:30)
[2024-12-12] MEDS: DICLOFENAC SOD 1% GEL 100 GM TUBE EXT SCH (21:56)
[2024-12-12] MEDS: HEPARIN SOD 5,000 UNIT/0.5 ML VIAL SQ SCH (21:56)
[2024-12-12] MEDS: INSULIN ASPART PER UNIT CHARGE SC SCH (22:07)
--- NOTE | 2024-12-12 22:56 | CT Scan Report ---
Exam(s): CT ABDOMEN + PELVIS Without Contrast EXAM: CT Abdomen and Pelvis Without Intravenous Contrast CLINICAL HISTORY: Reason for exam: bilateral lower abd pain. TECHNIQUE: Axial computed tomography images of the abdomen and pelvis without intravenous contrast. CTDI is 24 mGy and DLP is 1275 mGy-cm. Automated exposure control was utilized for the study. A dose lowering technique was utilized adhering to the principles of ALARA. COMPARISON: No relevant prior studies available. FINDINGS: Pleural space: Small bilateral pleural effusions. ABDOMEN: Liver: Unremarkable. Gallbladder and bile ducts: Cholelithiasis without acute cholecystitis. Pancreas: Unremarkable. Spleen: Unremarkable. Adrenals: Unremarkable. Kidneys and ureters: No hydronephrosis or ureteral stone the kidneys. Cortical thinning bilaterally. Stomach and bowel: Acute diverticulitis of the sigmoid colon. No perforation or abscess. PELVIS: Appendix: The appendix measures up to 1 cm with trace periappendiceal fat stranding. No appendicolith. Bladder: Unremarkable. Reproductive: Unremarkable as visualized. ABDOMEN and PELVIS: Intraperitoneal space: Unremarkable. No free air. No significant fluid collection. Bones/joints: No acute fracture or malalignment. Butterfly vertebrae at L4. Soft tissues: Unremarkable. Vasculature: Unremarkable. Lymph nodes: Unremarkable. IMPRESSION: 1. Acute diverticulitis of the sigmoid colon. No perforation or abscess. 2. Cholelithiasis without acute cholecystitis. 3. Small bilateral pleural effusions. 4. The appendix measures up to 1 cm with trace periappendiceal fat stranding. No appendicolith. Early acute appendicitis on the differential in the appropriate clinical setting. Electronically signed by: Dylan Cox MD 12/12/24 22:54 PM
[2024-12-12] MEDS: POLYETHYLENE (MIRALAX) 17 GM PACK PO ONE (23:43)
[2024-12-13 06:24] LABS: Basophils # (auto) 0.06 K/uL (0.00-0.20); Basophils % (auto) 0.8 %; Eosinophils # (auto) 0.23 K/uL (0.00-0.50); Eosinophils % (auto) 2.9 %; Hematocrit (blood only) 27.1 % (42.0-52.0); Hemoglobin 9.1 g/dl (14.0-18.0); Immature Granulocytes # (auto) 0.03 K/uL (0.01-0.20); Immature Granulocytes % (auto) 0.4 %; Lymphocytes # (auto) 0.96 K/uL (1.20-3.40); Lymphocytes % (auto) 12.3 %; Mean Corpuscular Hgb Conc 33.6 g/dL (32.0-36.0); Mean Corpuscular Volume 92.2 fL (80.0-100.0); Mean Platelet Volume 11.9 fL (9.4-12.4); Monocytes # (auto) 0.54 K/uL (0.11-0.59); Monocytes % (auto) 6.9 %; Neutrophils % (auto) 76.7 %; Platelet Count 168 K/uL (130-400); RDW Coefficient of Variation 13.2 % (11.5-14.5); RDW Standard Deviation 44.7 fL (36.4-46.3); Red Blood Count 2.94 M/uL (4.70-6.10); White Blood Count 7.82 K/ul (4.8-10.8)
[2024-12-13 07:05] LABS: BUN Creatinine Ratio 6.2 (10-20); Calcium 8.7 mg/dl (8.6-10.3); Creatinine Clr Calc Pharmacy 8.1 ml/min; Magnesium 2.2 mg/dl (1.7-2.4); Phosphorus 8.9 mg/dl (2.5-4.9)
[2024-12-13 07:07] LABS: Potassium 6.2 mmol/L (3.5-5.1)
--- NOTE | 2024-12-13 07:17 | Hospitalist Progress Note ---
Date of Service December 13, 2024 Assessment & Plan (1) Chest pain: (2) Pulmonary edema: (3) Acute hyperkalemia: (4) End stage chronic kidney disease: (5) Diverticulitis: (6) Abdominal pain, lower: Plan 59 year old male presenting with chest pain: #Chest pain: -EKG largely unchanged from baseline, no new ischemic changes -Trop minimally elevated, peaked at 24 -TTE without wall motion abnormalities - notable for mildly reduced systolic function, grade II diastolic dysfunction, increased RV pressure -Impression favors non-cardiac etiology - ?referred abdominal pain secondary to marked constipation, as evidenced by partial improvement in sx after passing stool. #Abdominal pain: #Diverticulitis: -CT A/P significant for sigmoid diverticulitis-no perforation or abscess, trace periappendiceal fat stranding - early acute appendicitis cannot be excluded. -No leukocytosis, afebrile, CRP minimally elevated -Clear liquid diet with slow advancement if tolerating -Will start Cipro + Flagyl for gram neg. and anaerobic coverage - continue to watch overnight, serial labs, serial exams -Likely contribution from symptomatic constipation - s/p Miralax x85g, continue Miralax 17g TID. #ESRD: -Nephrology consulted for HD management -Repeat AM labs T2DM: Insulin sliding scale HTN: Continue Nifedipine, Lisinopril held on admission d/t hyperkalemia VTE ppx: Heparin Admission and Anticipated Discharge Date Admission Date: December 12, 2024 Supervising Physician Co-Signing Physician Notes Attending attestation Pt seen and examined in concert with Dr. Garg. In agreement with the documented findings as noted in the resident documentation with any exceptions or additions as noted here. Ongoing improvement in abdominal pain which is now manageable and isolated to the LLQ. Since miralax initiation, has had liquid brown stool following rabbit pellet stools prior to. On examination, S1/S2 nl RRR no MCG. CTAB. Abd with LLQ/suprapubic TTP Constipation with concern for divertiulitis/mild appendicitis - likely 2/2 severe constipation manuel w/ improving clinical symptoms. Continue miralax, dieta ry advancement as noted. Start abx as noted and monitor. Chest pain - TTE as noted, less concerning for cardiac disease, manuel w/ relative resolution of symptoms and troponin as noted. ESRD on HD - continue to trend lab studies. Nephrology consult appreciated Else see resident documentation as noted. Subjective Patient notes improvement in abdominal pain after bowel movements - had several bowel movements overnight after Miralax loading, mostly liquidy. Unsure of when last colonoscopy was but reports no abnormal findings to his knowledge. Left lower chest wall pain ongoing, non-exertional, sometimes reproducible. Denies recent illness, fever, chills. Review of Systems Review of Systems: as per HPI Physical Exam Physical Exam: Constitutional: no acute distress HEENT: NCAT, no conjunctival injection CV: extremities well-perfused, no LE edema Resp: no increased work of breathing GI: nondistended, soft and moderately tender to palpation in suprapubic region. Normal bowel sounds. No rebound tenderness, guarding, or rigidity. MSK: no gross deformities Skin: warm, dry, no rash appreciated Neuro: alert, oriented, no focal neurologic deficit appreciated Results & Data Results & Data Vital Signs (Past 12 Hours) Vital Signs Temp Pulse Pulse Resp BP BP Pulse Ox 12/13/24 04:52 36.8 C 86 18 147/75 H 95 12/13/24 00:06 36.3 C L 89 18 153/79 H 95 12/12/24 22:19 92 H 12/12/24 20:58 36.8 C 94 H 18 182/93 H 95 12/12/24 20:55 92 H 12/12/24 20:40 95 H 20 162/99 H 94 12/12/24 20:00 90 18 166/93 H 95 12/12/24 19:49 89 O2 Del Method 12/13/24 04:52 Room Air 12/13/24 00:06 Room Air 12/12/24 22:19 12/12/24 20:58 Room Air 12/12/24 20:55 12/12/24 20:40 Room Air 12/12/24 20:00 Room Air 12/12/24 19:49 Resident Activity Tracking Resident Involvement: Resident Care Provided Care Provided: Adult Hospital Medicine
[2024-12-13] MEDS ORDERED: EPOETIN ALFA 10,000 UNITS in SYRINGE 0 ML IV SCH (09:00)
[2024-12-13] MEDS: POLYETHYLENE (MIRALAX) 17 GM PACK PO SCH ×3 (09:15→14:55)
[2024-12-13] MEDS: NEPHROCAPS PO SCH (09:16)
[2024-12-13] MEDS: NIFEdipine EXTENDED REL 30 MG TABCR PO SCH (09:16)
[2024-12-13] MEDS: CALCIUM ACETATE 667 MG CAP/TAB PO SCH (09:16)
[2024-12-13] MEDS: FUROSEMIDE 40 MG TAB PO SCH (09:19)
[2024-12-13 09:30] LABS: C Reactive Protein 2.5 mg/dl (0-0.5)
--- NOTE | 2024-12-13 10:34 | XCELERA ---
[id number] [id number]
--- NOTE | 2024-12-13 11:09 | Electrocardiogram Report ---
Test Reason : Blood Pressure : */* mmHG Vent. Rate : 88 BPM Atrial Rate : 88 BPM P-R Int : 172 ms QRS Dur : 86 ms QT Int : 394 ms P-R-T Axes : 37 2 88 degrees QTcB Int : 476 ms Normal sinus rhythm Nonspecific ST and T wave abnormality Prolonged QT Abnormal ECG When compared with ECG of 26-Oct-2024 12:35, T wave inversion less evident in Anterior leads Confirmed by Venkata Salazar ([id number]) on 12/13/2024 11:09:06 AM Referred By: REFERRED SELF Confirmed By: Venkata Salazar
--- NOTE | 2024-12-13 11:23 | Nephrology Consultation ---
Date of Consultation December 13, 2024 Assessment & Plan (1) End stage chronic kidney disease: * Will provide HD today according to outpatient orders * Outpatient HD orders: MWF 3.5hr 2K 2Ca F-180 EDW 89.5 kg * Renal diet * Nephrocaps daily * Protect L arm AVF * Monitor daily BMP, CBC (2) Diverticulitis: * 12/12/[address] -acute diverticulitis of the sigmoid colon. No perforation or abscess. Cholelithiasis without acute cholecystitis. Appendix measures up to 1 cm with trace periappendiceal fat stranding. Early acute appendicitis is a possibility in the appropriate clinical setting * Primary service was notified of CT findings this morning and need for broad- spectrum antibiotics History of Present Illness Reason for Consultation: ESKD-D Attending Physician: Venkata Torres MD History of Present Illness Mr. Ballesteros is a 59-year-old white male who is seen at the request of the [facility] hospitalist service to provide inpatient hemodialysis and assist with medical management. Information including HPI is obtained from direct patient interview and review of the EMR. HPI summarized as follows: Mr. Zhou has ESKD due to DKD, HTN. His first treatment was 09/17/2024. Mr. Ballesteros currently has a right IJ TCC in place. He underwent L BC AVF creation last week by Dr. Milner. Mr. Ballesteros dialyzes at [facility] under the care of Dr. Hirsch (MWF 3.5hr 2K 2Ca F-180 EDW 89.5 kg). His medical history is significant for AODM, DVT w/ PE, hyperlipidemia, asthma. Mr. Ballesteros presented to the [facility] EMD last evening with complaints of constipation and chest discomfort. Creatinine was 9.7, K 5.6. ECG was NSR without ischemic change. Troponin has been stable. Patient was symptomatically improved following miralax. Echocardiogram was negative for new WMA. Serum K has risen to 6.2 and HD has been requested. Allergies Allergy/AdvReac Type Severity Reaction Status Date / Time cephalexin AdvReac Verified 10/26/24 18:10 hydralazine AdvReac Verified 10/26/24 18:10 sulfamethoxazole AdvReac Verified 10/26/24 18:10 [From Bactrim] trimethoprim [From Bactrim] AdvReac Verified 10/26/24 18:10 Home Medications Medication Instructions Recorded Confirmed Type insulin glargine 100 unit/mL (3 1 unit subcut UD 11/02/21 12/12/24 History mL) subcutaneous pen (Lantus Solostar U-100 Insulin) lisinopril 10 mg tablet 10 mg PO DAILY #30 tabs 11/06/22 12/12/24 Rx calcium acetate(phosphat bind) 667 1,334 mg (2 x 667 mg) PO TIDM 30 09/24/24 12/12/24 Rx mg capsule days #60 caps furosemide 40 mg tablet 40 mg PO DAILY 10/26/24 12/12/24 History nifedipine 30 mg tablet,extended 30 mg PO DAILY 10/26/24 12/12/24 History release vitamin B complex and vitamin C 1 cap PO QAM 10/26/24 12/12/24 History no.20-folic acid 1 mg capsule (Renal Caps) albuterol sulfate 90 mcg/actuation 2 puff inhalation .Q4-6 PRN sob 12/12/24 12/12/24 History aerosol inhaler (Ventolin HFA) oxycodone 5 mg tablet 5 mg PO Q6H PRN Pain 12/12/24 12/12/24 History Patient History Medical History Discharge planning issues DVT prophylaxis History of deep venous thrombosis or pulmonary embolus Asthma Dyslipidemia Hypertriglyceridemia Family History Father Cancer Prostate Kidney disease Late in life while suffering from advanced metastatic prostate cancer and alcoholism Social History Smoking Status: Never smoker Tobacco Type: Smokeless Tobacco (Dip or Chew) Smoking End Date: 2005; Hx Alcohol Use: Yes (Quit 8 years ago per pt) Hx Substance Use: No Preferred Language: Persian Communication Ability: Effective Linen Room Custodian Required: No Beliefs That Will Affect Care: None Current Living Situation: Spouse current occupational status: disabled How many Children do You have: 2 Other Information That Helps Us Care for You: No Feels Safe at Home: Yes Safety Concerns: Feels Safe At This Time Assistive Devices: Glasses Review of Systems Constitutional: no fever Eyes: no problem reported Ear, Nose, Mouth, Throat: no problem reported Respiratory: no cough and no dyspnea Cardiovascular: no chest pain and no dyspnea Gastrointestinal: no abdominal pain, no nausea, no vomiting and no diarrhea/loose stools Integumentary: no rash Physical Exam Constitutional: not in distress Eyes: PERRL, conjunctivae normal, anicteric sclerae ENMT: external ear and nose normal, oropharynx normal Neck: trachea midline, no thyromegaly (IJ TCC w/ clean dry dressing in place) Respiratory: normal respiratory effort, lungs clear to auscultation Cardiovascular: RRR, no murmur, no edema L arm BC AVF + bruit Gastrointestinal (Abdomen): normal bowel sounds, soft, nontender, no hepatosplenomegaly Musculoskeletal: Extremities: no cyanosis and no clubbing Skin: no rashes, warm and dry Neurologic: awake; not confused Results & Data Vital Signs (Past 12 Hours) Vital Signs Temp Pulse Pulse Resp BP BP Pulse Ox 12/13/24 10:30 89 147/86 H 12/13/24 10:00 81 158/89 H 12/13/24 09:33 88 153/102 H 12/13/24 09:20 36.5 C 12/13/24 07:36 36.7 C 81 18 152/72 H 95 12/13/24 07:00 88 12/13/24 04:52 36.8 C 86 18 147/75 H 95 12/13/24 00:06 36.3 C L 89 18 153/79 H 95 O2 Del Method 12/13/24 10:30 12/13/24 10:00 12/13/24 09:33 12/13/24 09:20 12/13/24 07:36 Room Air 12/13/24 07:00 12/13/24 04:52 Room Air 12/13/24 00:06 Room Air Laboratory Results Laboratory Results - last 24 hr 12/12/24 12/12/24 12/12/24 15:55 16:00 17:44 WBC 8.53 RBC 3.14 L Hgb 9.8 L POC Hgb 9.2 L Hct 29.1 L POC Hct 27 L MCV 92.7 MCH 31.2 MCHC 33.7 RDW Std Deviation 45.1 RDW Coeff of Chelsey 13.3 Plt Count 179 MPV 11.6 Immature Gran % (Auto) 0.4 Neut % (Auto) 75.3 Lymph % (Auto) 13.5 Aiken % (Auto) 7.2 Eos % (Auto) 2.7 Baso % (Auto) 0.9 Neut # (Auto) 6.43 Lymph # (Auto) 1.15 L Aiken # (Auto) 0.61 H Eos # (Auto) 0.23 Baso # (Auto) 0.08 Immature Gran # (Auto) 0.03 PT 11.0 INR 1.0 POC Sodium 137 Sodium 139 POC Potassium 5.5 H Potassium 5.6 H POC Chloride 104 Chloride 102 Carbon Dioxide 23 POC Total CO2 21 L Anion Gap 14 H POC Anion Gap 19.0 POC BUN 57 H BUN 64 H Creatinine 9.67 H* POC Creatinine 10.7 H* Est Cr Clr Drug Dosing 9.4 eGFR 5.66 BUN/Creatinine Ratio 6.6 L Glucose 79 POC Glucose POC Glucose (other) 81 Calcium 8.7 POC Ioniz Calcium Brando 1.02 L Phosphorus Magnesium Total Bilirubin 0.7 AST 12 L ALT < 3 L Alkaline Phosphatase 93 Troponin I High Sens 22.1 H 24.3 H C-Reactive Protein Total Protein 7.0 Albumin 4.2 Globulin 2.8 Albumin/Globulin Ratio 1.5 Lipase 12 Urine Color Yellow Urine Appearance Clear Urine pH >= 9.0 H Ur Specific [place] 1.010 Urine Protein 3+ H Urine Glucose (UA) Trace H Urine Ketones Negative Urine Blood Trace H Urine Nitrite Negative Urine Bilirubin Negative Urine Urobilinogen Negative Ur Leukocyte Esterase Negative Urine WBC (Auto) 0-5 Urine RBC (Auto) 0-2 U Hyaline Cast (Auto) 0-2 U Epithel Cells (Auto) 0-2 Urine Bacteria (Auto) None Seen Nasal Screen MRSA (PCR) Hep Bs Antigen Pending Hep Bs Antibody Pending Hep Bs Antibody, Quant Pending 12/12/24 12/12/24 12/13/24 20:53 23:34 05:37 WBC 7.82 RBC 2.94 L Hgb 9.1 L POC Hgb Hct 27.1 L POC Hct MCV 92.2 MCH 31.0 MCHC 33.6 RDW Std Deviation 44.7 RDW Coeff of Chelsey 13.2 Plt Count 168 MPV 11.9 Immature Gran % (Auto) 0.4 Neut % (Auto) 76.7 Lymph % (Auto) 12.3 Aiken % (Auto) 6.9 Eos % (Auto) 2.9 Baso % (Auto) 0.8 Neut # (Auto) 6.00 Lymph # (Auto) 0.96 L Aiken # (Auto) 0.54 Eos # (Auto) 0.23 Baso # (Auto) 0.06 Immature Gran # (Auto) 0.03 PT INR POC Sodium Sodium 139 POC Potassium Potassium 6.2 H* POC Chloride Chloride 105 Carbon Dioxide 21 POC Total CO2 Anion Gap 13 H POC Anion Gap POC BUN BUN 69 H Creatinine 11.14 H* D POC Creatinine Est Cr Clr Drug Dosing 8.1 eGFR 4.78 BUN/Creatinine Ratio 6.2 L Glucose 95 POC Glucose 166 H POC Glucose (other) Calcium 8.7 POC Ioniz Calcium Brando Phosphorus 8.9 H Magnesium 2.2 Total Bilirubin AST ALT Alkaline Phosphatase Troponin I High Sens C-Reactive Protein 2.50 H Total Protein Albumin Globulin Albumin/Globulin Ratio Lipase Urine Color Urine Appearance Urine pH Ur Specific [place] Urine Protein Urine Glucose (UA) Urine Ketones Urine Blood Urine Nitrite Urine Bilirubin Urine Urobilinogen Ur Leukocyte Esterase Urine WBC (Auto) Urine RBC (Auto) U Hyaline Cast (Auto) U Epithel Cells (Auto) Urine Bacteria (Auto) Nasal Screen MRSA (PCR) Negative Hep Bs Antigen Hep Bs Antibody Hep Bs Antibody, Quant 12/13/24 12/13/24 05:37 08:00 WBC RBC Hgb POC Hgb Hct POC Hct MCV MCH MCHC RDW Std Deviation RDW Coeff of Chelsey Plt Count MPV Immature Gran % (Auto) Neut % (Auto) Lymph % (Auto) Aiken % (Auto) Eos % (Auto) Baso % (Auto) Neut # (Auto) Lymph # (Auto) Aiken # (Auto) Eos # (Auto) Baso # (Auto) Immature Gran # (Auto) PT INR POC Sodium Sodium POC Potassium Potassium POC Chloride Chloride Carbon Dioxide POC Total CO2 Anion Gap POC Anion Gap POC BUN BUN Creatinine POC Creatinine Est Cr Clr Drug Dosing eGFR BUN/Creatinine Ratio Glucose POC Glucose 114 H POC Glucose (other) Calcium POC Ioniz Calcium Brando Phosphorus Magnesium Total Bilirubin AST ALT Alkaline Phosphatase Troponin I High Sens C-Reactive Protein Cancelled Total Protein Albumin Globulin Albumin/Globulin Ratio Lipase Urine Color Urine Appearance Urine pH Ur Specific [place] Urine Protein Urine Glucose (UA) Urine Ketones Urine Blood Urine Nitrite Urine Bilirubin Urine Urobilinogen Ur Leukocyte Esterase Urine WBC (Auto) Urine RBC (Auto) U Hyaline Cast (Auto) U Epithel Cells (Auto) Urine Bacteria (Auto) Nasal Screen MRSA (PCR) Hep Bs Antigen Hep Bs Antibody Hep Bs Antibody, Quant Laboratory Results WBC 7.82 K/ul (4.8-10.8) 12/13/24 05:37 RBC 2.94 M/uL (4.70-6.10) L 12/13/24 05:37 Hgb 9.1 g/dl (14.0-18.0) L 12/13/24 05:37 POC Hgb 9.2 g/dl (14.0-18.0) L 12/12/24 16:00 Hct 27.1 % (42.0-52.0) L 12/13/24 05:37 POC Hct 27 % (42-52) L 12/12/24 16:00 MCV 92.2 fL (80.0-100.0) 12/13/24 05:37 MCH 31.0 pg (25.0-34.0) 12/13/24 05:37 MCHC 33.6 g/dL (32.0-36.0) 12/13/24 05:37 RDW Std Deviation 44.7 fL (36.4-46.3) 12/13/24 05:37 RDW Coeff of Chelsey 13.2 % (11.5-14.5) 12/13/24 05:37 Plt Count 168 K/uL (130-400) 12/13/24 05:37 MPV 11.9 fL (9.4-12.4) 12/13/24 05:37 Immature Gran % (Auto) 0.4 % 12/13/24 05:37 Neut % (Auto) 76.7 % 12/13/24 05:37 Lymph % (Auto) 12.3 % 12/13/24 05:37 Aiken % (Auto) 6.9 % 12/13/24 05:37 Eos % (Auto) 2.9 % 12/13/24 05:37 Baso % (Auto) 0.8 % 12/13/24 05:37 Neut # (Auto) 6.00 K/uL (1.40-6.50) 12/13/24 05:37 Lymph # (Auto) 0.96 K/uL (1.20-3.40) L 12/13/24 05:37 Aiken # (Auto) 0.54 K/uL (0.11-0.59) 12/13/24 05:37 Eos # (Auto) 0.23 K/uL (0.00-0.50) 12/13/24 05:37 Baso # (Auto) 0.06 K/uL (0.00-0.20) 12/13/24 05:37 Immature Gran # (Auto) 0.03 K/uL (0.01-0.20) 12/13/24 05:37 PT 11.0 Seconds (9.0-12.0) 12/12/24 15:55 INR 1.0 (0.9-1.1) 12/12/24 15:55 POC Sodium 137 mmol/L (135-144) 12/12/24 16:00 Sodium 139 mmol/L (136-145) 12/13/24 05:37 POC Potassium 5.5 mmol/L (3.3-5.0) H 12/12/24 16:00 Potassium 6.2 mmol/L (3.5-5.1) H* 12/13/24 05:37 POC Chloride 104 mmol/L (101-112) 12/12/24 16:00 Chloride 105 mmol/L (98-107) 12/13/24 05:37 Carbon Dioxide 21 mmol/L (21-32) 12/13/24 05:37 POC Total CO2 21 mmol/L (24-31) L 12/12/24 16:00 Anion Gap 13 (3-11) H 12/13/24 05:37 POC Anion Gap 19.0 mmol/L (16-25) 12/12/24 16:00 POC BUN 57 mg/dl (7-18) H 12/12/24 16:00 BUN 69 mg/dl (6-23) H 12/13/24 05:37 Creatinine 11.14 mg/dl (0.6-1.4) H* D 12/13/24 05:37 POC Creatinine 10.7 mg/dl (0.6-1.3) H* 12/12/24 16:00 Est Cr Clr Drug Dosing 8.1 ml/min 12/13/24 05:37 eGFR 4.78 12/13/24 05:37 BUN/Creatinine Ratio 6.2 (10-20) L 12/13/24 05:37 Glucose 95 mg/dl (70-99(Fasting)) 12/13/24 05:37 POC Glucose 114 mg/dl (70-99) H 12/13/24 08:00 POC Glucose (other) 81 mg/dl (70-99) 12/12/24 16:00 Calcium 8.7 mg/dl (8.6-10.3) 12/13/24 05:37 POC Ioniz Calcium Brando 1.02 mmol/l (1.12-1.32) L 12/12/24 16:00 Phosphorus 8.9 mg/dl (2.5-4.9) H 12/13/24 05:37 Magnesium 2.2 mg/dl (1.7-2.4) 12/13/24 05:37 Total Bilirubin 0.7 mg/dl (0.2-1.0) 12/12/24 15:55 AST 12 U/L (13-39) L 12/12/24 15:55 ALT < 3 U/L (7-52) L 12/12/24 15:55 Alkaline Phosphatase 93 U/L (34-104) 12/12/24 15:55 Troponin I High Sens 24.3 pg/ml (0-20) H 12/12/24 17:44 C-Reactive Protein 2.50 mg/dl (0-0.5) H 12/13/24 05:37 C-Reactive Protein Cancelled 12/13/24 05:37 Total Protein 7.0 gm/dl (6.0-8.3) 12/12/24 15:55 Albumin 4.2 gm/dl (3.4-5.0) 12/12/24 15:55 Globulin 2.8 gm/dl (2.5-4.0) 12/12/24 15:55 Albumin/Globulin Ratio 1.5 (0.9-2) 12/12/24 15:55 Lipase 12 U/L (11-82) 12/12/24 15:55 Urine Color Yellow 12/12/24 17:44 Urine Appearance Clear (Clear) 12/12/24 17:44 Urine pH >= 9.0 (4.5-7.5) H 12/12/24 17:44 Ur Specific [place] 1.010 (1.000-1.030) 12/12/24 17:44 Urine Protein 3+ (Negative) H 12/12/24 17:44 Urine Glucose (UA) Trace (Negative) H 12/12/24 17:44 Urine Ketones Negative (Negative) 12/12/24 17:44 Urine Blood Trace (Negative) H 12/12/24 17:44 Urine Nitrite Negative (Negative) 12/12/24 17:44 Urine Bilirubin Negative (Negative) 12/12/24 17:44 Urine Urobilinogen Negative (Negative) 12/12/24 17:44 Ur Leukocyte Esterase Negative (Negative) 12/12/24 17:44 Urine WBC (Auto) 0-5 /hpf (0-5) 12/12/24 17:44 Urine RBC (Auto) 0-2 /hpf (0-2) 12/12/24 17:44 U Hyaline Cast (Auto) 0-2 /lpf (0-2) 12/12/24 17:44 U Epithel Cells (Auto) 0-2 /hpf (0-2) 12/12/24 17:44 Urine Bacteria (Auto) None Seen (None Seen) 12/12/24 17:44 Nasal Screen MRSA (PCR) Negative (Negative) 12/12/24 23:34 Impressions Chest X-Ray 12/12/24 15:45 EXAM: XR chest 1V portable CLINICAL HISTORY: Chest pain, nonspecific. TECHNIQUE: An X-ray image of the chest is obtained in AP projection. COMPARISON: 10/26/2024 X-ray and CT FINDINGS: Pulmonary Parenchyma: Interval increased bronchovascular markings. Haziness in both lower zones Blunted CP angles are more at the right side, suggesting an increase in the mild pleural effusion. Heart and Mediastinum: The heart size is enlarged with more bilateral congested hilum. Dilated, unfolded aorta. No mediastinal widening or masses. No hilar or mediastinal lymphadenopathy. Bony Thorax: The bony thorax appears intact without fractures or deformities. Soft Tissues: The right central venous line was applied in the proper position. Soft tissues overlying the chest wall are unremarkable. IMPRESSION: Mild progression of the cardiac congestion, mild pleural effusion with suspected mild related pulmonary edema. Also, underlying chest infection could not be ruled out; it needs clinical and lab correlation. Electronically signed by Jesus Lux 12-12-2024 5:08 PM Abdomen/Pelvis CT 12/12/24 16:15 Exam(s): CT ABDOMEN + PELVIS Without Contrast EXAM: CT Abdomen and Pelvis Without Intravenous Contrast CLINICAL HISTORY: Reason for exam: bilateral lower abd pain. TECHNIQUE: Axial computed tomography images of the abdomen and pelvis without intravenous contrast. CTDI is 24 mGy and DLP is 1275 mGy-cm. Automated exposure control was utilized for the study. A dose lowering technique was utilized adhering to the principles of ALARA. COMPARISON: No relevant prior studies available. FINDINGS: Pleural space: Small bilateral pleural effusions. ABDOMEN: Liver: Unremarkable. Gallbladder and bile ducts: Cholelithiasis without acute cholecystitis. Pancreas: Unremarkable. Spleen: Unremarkable. Adrenals: Unremarkable. Kidneys and ureters: No hydronephrosis or ureteral stone the kidneys. Cortical thinning bilaterally. Stomach and bowel: Acute diverticulitis of the sigmoid colon. No perforation or abscess. PELVIS: Appendix: The appendix measures up to 1 cm with trace periappendiceal fat stranding. No appendicolith. Bladder: Unremarkable. Reproductive: Unremarkable as visualized. ABDOMEN and PELVIS: Intraperitoneal space: Unremarkable. No free air. No significant fluid collection. Bones/joints: No acute fracture or malalignment. Butterfly vertebrae at L4. Soft tissues: Unremarkable. Vasculature: Unremarkable. Lymph nodes: Unremarkable. IMPRESSION: 1. Acute diverticulitis of the sigmoid colon. No perforation or abscess. 2. Cholelithiasis without acute cholecystitis. 3. Small bilateral pleural effusions. 4. The appendix measures up to 1 cm with trace periappendiceal fat stranding. No appendicolith. Early acute appendicitis on the differential in the appropriate clinical setting. Electronically signed by: Dylan Cox MD 12/12/24 22:54 PM PG Care Time/CCT Total # of Minutes Spent Total Time Spent with Patient: Total time spent is greater than 50% in coordination of care (as documented) at patient's floor/unit and/or counseling patient: Coding Level of Care Code 96367 IN/OBS CONSULT LVL 5,80M Diagnoses End stage chronic kidney disease N18.6 Diverticulitis K57.92
[2024-12-13] MEDS: EPOETIN ALFA 10,000 UNITS/ML VIAL IV SCH (11:38)
--- NOTE | 2024-12-13 11:43 | Dialysis Progress Note ---
Date of Service December 13, 2024 Assessment & Plan (1) End stage chronic kidney disease: Plan: * Will provide HD today according to outpatient orders * Outpatient HD orders: MWF 3.5hr 2K 2Ca F-180 EDW 89.5 kg * Renal diet * Nephrocaps daily * Protect L arm AVF * Monitor daily BMP, CBC (2) Diverticulitis: Plan: * 12/12/[address] -acute diverticulitis of the sigmoid colon. No perforation or abscess. Cholelithiasis without acute cholecystitis. Appendix measures up to 1 cm with trace periappendiceal fat stranding. Early acute appendicitis is a possibility in the appropriate clinical setting * Primary service was notified of CT findings this morning and need for broad- spectrum antibiotics Admission and Anticipated Discharge Date Admission Date: December 12, 2024 Subjective Mr. Ballesteros was seen on HD this morning. IJ TCC is functioning A-->A at Qb 300 cc/min. Patient c/o mild abdominal discomfort. Review of Systems Constitutional: no fever Eyes: no problem reported Ear, Nose, Mouth, Throat: no problem reported Respiratory: no cough and no dyspnea Cardiovascular: no chest pain and no dyspnea Gastrointestinal: no abdominal pain, no nausea, no vomiting and no diarrhea/loose stools Integumentary: no rash Physical Exam Constitutional: not in distress Eyes: PERRL, conjunctivae normal, anicteric sclerae ENMT: external ear and nose normal, oropharynx normal Neck: trachea midline, no thyromegaly (IJ TCC w/ clean dry dressing in place) Respiratory: normal respiratory effort, lungs clear to auscultation Cardiovascular: RRR, no murmur, no edema Gastrointestinal (Abdomen): normal bowel sounds, soft, nontender, no hepatosplenomegaly Musculoskeletal: Extremities: no cyanosis and no clubbing Skin: no rashes, warm and dry Neurologic: awake; not confused Results & Data Vital Signs (Past 12 Hours) Vital Signs Temp Pulse Pulse Resp BP BP Pulse Ox 12/13/24 11:00 80 147/83 H 12/13/24 10:30 89 147/86 H 12/13/24 10:00 81 158/89 H 12/13/24 09:33 88 153/102 H 12/13/24 09:20 36.5 C 12/13/24 07:36 36.7 C 81 18 152/72 H 95 12/13/24 07:00 88 12/13/24 04:52 36.8 C 86 18 147/75 H 95 12/13/24 00:06 36.3 C L 89 18 153/79 H 95 O2 Del Method 12/13/24 11:00 12/13/24 10:30 12/13/24 10:00 12/13/24 09:33 12/13/24 09:20 12/13/24 07:36 Room Air 12/13/24 07:00 12/13/24 04:52 Room Air 12/13/24 00:06 Room Air [facility] Procedure Codes (Charges) Renal/Urologic Renal/Urologic: 40254 Hemodialysis, One Evaluation Coding Level of Care Code None Diagnoses End stage chronic kidney disease N18.6 Diverticulitis K57.92 CPT Codes Renal/Urologic - Renal/Urologic: 81428 Hemodialysis, One Evaluation ([id number])
[2024-12-13 11:53] LABS: Hepatitis B Surface Ab Quant > 500.00 mIU/mL (>or=10mIU/mL Immune); Hepatitis B Surface Antibody Immune
[2024-12-13 13:50] LABS: Hep B Surface Ag with confirm Negative (Negative)
[2024-12-13] MEDS: CIPROFLOXACIN 500 MG TAB PO SCH (14:55)
[2024-12-13] MEDS: metroNIDAZOLE 500 MG TAB PO SCH (14:55)
[2024-12-13] MEDS: MAGNESIUM HYDROXIDE SUSP 30 ML UDC PO PRN (21:03)
--- NOTE | 2024-12-14 06:51 | Hospitalist Progress Note ---
Date of Service December 14, 2024 Assessment & Plan (1) Chest pain: (2) Pulmonary edema: (3) Acute hyperkalemia: (4) End stage chronic kidney disease: (5) Diverticulitis: (6) Abdominal pain, lower: Plan 59 year old male presenting with chest pain: #Diverticulitis: -CT A/P significant for sigmoid diverticulitis-no perforation or abscess, trace periappendiceal fat stranding -No leukocytosis, afebrile, CRP minimally elevated -CT A/P repeated 12/14 d/t significant worsening of overall clinical picture - ongoing sigmoid diverticulitis, no appendicitis -Clear liquid diet with slow advancement if tolerating -Abx changed to IV Zosyn - continue serial labs, serial exams -Will discontinue Miralax, as prominent stool burden not noted on CT read -Pain control as needed #Chest pain - Resolved: -EKG largely unchanged from baseline, no new ischemic changes -Trop minimally elevated, peaked at 24 -TTE without wall motion abnormalities - notable for mildly reduced systolic function, grade II diastolic dysfunction, increased RV pressure -Impression favors non-cardiac etiology - suspect referred abdominal pain secondary to marked constipation, improved with escalation of bowel regimen. #ESRD: -Nephrology consulted for HD management -Repeat AM labs T2DM: Insulin sliding scale HTN: Continue Nifedipine, Lisinopril held on admission d/t hyperkalemia VTE ppx: Heparin Admission and Anticipated Discharge Date Admission Date: December 12, 2024 Supervising Physician Co-Signing Physician Notes Attending attestation Pt seen and examined in concert with Dr. Garg. In agreement with the documented findings as noted in the resident documentation with any exceptions or additions as noted here. Significant worsening in LLQ abdominal pain worse with straining for BM which is described as sharp, localized and relieved by bringing knees to chest. Ongoing loose/watery BM. Reports no fever, vomiting, chills. On examination, S1/S2 nl RRR no MCG. CTAB. Abd with LLQ/suprapubic TTP, voluntary guarding Acute diverticulitis with constipation - continue miralax. Would broaden abx therapy to Zosyn and continue to monitor for changes in symptoms. Pain control w/ dilaudid ordered x 1, will increase PRN if sx persist Chest pain - TTE as noted, less concerning for cardiac disease, manuel w/ resolution of symptoms and troponin as noted. ESRD on HD - continue to trend lab studies. Nephrology consult appreciated Else see resident documentation as noted. Subjective Left lower chest wall pain resolved. Had several watery bowel movements since yesterday. Abdominal pain worse today. Denies fever, chills. Review of Systems Review of Systems: as per HPI Physical Exam Physical Exam: Constitutional: no acute distress HEENT: NCAT, no conjunctival injection CV: RRR, extremities well-perfused, no LE edema Resp: no increased work of breathing, lungs CTAB GI: nondistended, moderately tender to palpation in LLQ region. Normal bowel sounds. No rebound tenderness, guarding, or rigidity. MSK: no gross deformities Skin: warm, dry, no rash appreciated Neuro: alert, oriented, no focal neurologic deficit appreciated Results & Data Results & Data Vital Signs (Past 12 Hours) Vital Signs Temp Pulse Pulse Resp BP Pulse Ox O2 Del Method 12/14/24 03:31 36.7 C 84 18 157/83 H 90 Room Air 12/13/24 23:51 37.0 C 83 18 162/83 H 96 Room Air 12/13/24 22:10 88 12/13/24 20:24 36.7 C 90 18 150/77 H 95 Room Air Resident Activity Tracking Resident Involvement: Resident Care Provided Care Provided: Adult Hospital Medicine
--- NOTE | 2024-12-14 08:32 | Nephrology Progress Note ---
Date of Service December 14, 2024 Assessment & Plan (1) End stage chronic kidney disease: Plan: * No acute indication for HD today. Will plan for next HD in am * Outpatient HD orders: MWF 3.5hr 2K 2Ca F-180 EDW 89.5 kg * Renal diet * Nephrocaps daily * Protect L arm AVF * Monitor daily BMP, CBC (2) Diverticulitis: Plan: * 12/12/[address] -acute diverticulitis of the sigmoid colon. No perforat ion or abscess. Cholelithiasis without acute cholecystitis. Appendix measures up to 1 cm with trace periappendiceal fat stranding. Early acute appendicitis is a possibility in the appropriate clinical setting * Uncomfortable this morning. Rates abdominal pain 9 out of 10. Consider follow up imaging * Continue cipro/flagyl Admission and Anticipated Discharge Date Admission Date: December 12, 2024 Subjective Mr. Ballesteros was seen in his hospital room this morning. He reports worsening abdominal discomfort despite antibiotic therapy. No N/V or diarrhea. Tolerated HD yesterday without complication. 2L UF obtained. Review of Systems Constitutional: no fever Eyes: no problem reported Ear, Nose, Mouth, Throat: no problem reported Respiratory: no cough and no dyspnea Cardiovascular: no chest pain and no dyspnea Gastrointestinal: no abdominal pain, no nausea, no vomiting and no diarrhea/loose stools Integumentary: no rash Physical Exam Constitutional: not in distress Eyes: PERRL, conjunctivae normal, anicteric sclerae ENMT: external ear and nose normal, oropharynx normal Neck: trachea midline, no thyromegaly (IJ TCC w/ clean dry dressing in place) Respiratory: normal respiratory effort, lungs clear to auscultation Cardiovascular: RRR, no murmur, no edema Gastrointestinal (Abdomen): normal bowel sounds, soft, nontender, no hepatosplenomegaly Musculoskeletal: Extremities: no cyanosis and no clubbing Skin: no rashes, warm and dry Neurologic: awake; not confused Results & Data Vital Signs (Past 12 Hours) Vital Signs Temp Pulse Pulse Pulse Resp BP Pulse Ox 12/14/24 08:10 36.7 C 83 18 166/90 H 94 12/14/24 03:31 36.7 C 84 18 157/83 H 90 12/13/24 23:51 37.0 C 83 18 162/83 H 96 12/13/24 22:10 88 O2 Del Method 12/14/24 08:10 Room Air 12/14/24 03:31 Room Air 12/13/24 23:51 Room Air 12/13/24 22:10 Laboratory Results Laboratory Results - last 24 hr 12/12/24 12/13/24 12/13/24 15:55 13:14 17:11 WBC RBC Hgb Hct MCV MCH MCHC RDW Std Deviation RDW Coeff of Chelsey Plt Count MPV Sodium Potassium Chloride Carbon Dioxide Anion Gap BUN Creatinine Est Cr Clr Drug Dosing eGFR BUN/Creatinine Ratio Glucose POC Glucose 89 176 H Calcium Phosphorus Magnesium C-Reactive Protein Hep Bs Antigen Negative Hep Bs Antibody Immune Hep Bs Antibody, Quant > 500.00 12/13/24 12/14/24 12/14/24 21:10 08:21 09:37 WBC 6.10 RBC 3.09 L Hgb 9.4 L Hct 28.2 L MCV 91.3 MCH 30.4 MCHC 33.3 RDW Std Deviation 43.2 RDW Coeff of Chelsey 13.2 Plt Count 152 MPV 11.4 Sodium 138 Potassium 4.7 D Chloride 101 Carbon Dioxide 27 Anion Gap 10 BUN 40 H D Creatinine 8.06 H* D Est Cr Clr Drug Dosing 11.2 eGFR 7.04 BUN/Creatinine Ratio 5.0 L Glucose 141 H POC Glucose 134 H 97 Calcium 8.8 Phosphorus 6.9 H Magnesium 2.2 C-Reactive Protein 2.94 H Hep Bs Antigen Hep Bs Antibody Hep Bs Antibody, Quant PG Care Time/CCT Total # of Minutes Spent Total Time Spent with Patient: Total time spent is greater than 50% in coordination of care (as documented) at patient's floor/unit and/or counseling patient: Coding Level of Care Code 14477 SUB INP/OBS CARE 3/50MIN Diagnoses End stage chronic kidney disease N18.6 Diverticulitis K57.92
[2024-12-14 10:05] LABS: Hematocrit (blood only) 28.2 % (42.0-52.0); Hemoglobin 9.4 g/dl (14.0-18.0); Mean Corpuscular Hemoglobin 30.4 pg (25.0-34.0); Mean Corpuscular Hgb Conc 33.3 g/dL (32.0-36.0); Mean Corpuscular Volume 91.3 fL (80.0-100.0); Mean Platelet Volume 11.4 fL (9.4-12.4); Platelet Count 152 K/uL (130-400); RDW Coefficient of Variation 13.2 % (11.5-14.5); RDW Standard Deviation 43.2 fL (36.4-46.3); Red Blood Count 3.09 M/uL (4.70-6.10)
[2024-12-14 10:29] LABS: Calcium 8.8 mg/dl (8.6-10.3); Magnesium 2.2 mg/dl (1.7-2.4); Potassium 4.7 mmol/L (3.5-5.1)
[2024-12-14 10:33] LABS: C Reactive Protein 2.94 mg/dl (0-0.5); Creatinine Clr Calc Pharmacy 11.2 ml/min; Phosphorus 6.9 mg/dl (2.5-4.9)
[2024-12-14] MEDS: ALUMINUM/MAGNESIUM SUSP 30 ML UDC PO PRN (11:26)
[2024-12-14] MEDS ORDERED: HYDROmorphone INJ 1 MG/ML SYRINGE IV PRN (11:47)
--- NOTE | 2024-12-14 13:09 | CT Scan Report ---
ABDOMEN AND PELVIS CT WITHOUT CONTRAST CT DOSE: 1262.28 mGy.cm HISTORY: worsening abd pain - r/o appendicitis TECHNIQUE: Multiaxial CT images of the abdomen and pelvis were performed without contrast. A dose lo wering technique was utilized adhering to the principles of ALARA. COMPARISON STUDY: 12/12/2024 FINDINGS: Stable small bilateral pleural effusions with adjacent compressive atelectasis at the lower lung lobes. ABDOMEN: There are multiple tiny gallstones. Gallbladder is decompressed. Spleen, pancreas, and adren al glands have an unremarkable non-IV contrast appearance. Stable mild atrophy of the kidneys. There is no hydronephrosis or renal calculi. There are scattered atherosclerotic calcifications. No abdomin al aortic aneurysm. Pelvis: Prostate is enlarged. Urinary bladder is nondistended. There is sigmoid diverticulosis. There is short segment wall thickening and inflammation at the proximal sigmoid colon consistent with acut e diverticulitis. No free fluid, free air, or abscess. Mildly prominent appendix is stable, likely an atomic variation. There is no adjacent inflammation.. No bowel obstruction. No enlarged adenopathy. T here are lumbar spine degenerative changes. IMPRESSION: 1. Acute uncomplicated sigmoid diverticulitis, mildly progressive. 2. No acute appendicitis seen. 3. Otherwise as described. ACT 112: Negative or not required by law. The above report was generated using voice recognition software. It may contain grammatical, syntax o r spelling errors. Electronically signed by: Artie Mehta M.D. 12/14/2024 1:07 PM
[2024-12-14] MEDS: 4.5GM X1 IV ONE (14:35)
[2024-12-14] MEDS: PIPERACILLIN/TAZOBACTAM 4.5 GM/100 ML BAG IV SCH (21:58)
[2024-12-15] MEDS ORDERED: SODIUM CHLORIDE 0.9% 1,000 ML IV PRN (07:00)
--- NOTE | 2024-12-15 07:13 | Hospitalist Progress Note ---
Date of Service December 15, 2024 Assessment & Plan (1) Diverticulitis: (2) Chest pain: (3) Pulmonary edema: (4) Acute hyperkalemia: (5) End stage chronic kidney disease: (6) Abdominal pain, lower: Plan 59 year old male presenting with chest pain: #Diverticulitis: -CT A/P on admission significant for sigmoid diverticulitis-no perforation or abscess, trace periappendiceal fat stranding -No leukocytosis, afebrile, CRP minimally elevated -CT A/P repeated 12/14 d/t significant worsening of overall clinical picture - ongoing sigmoid diverticulitis, no appendicitis -Given clinical improvement noted 12/15, will advance diet to full liquids. -Discontinue Zosyn, will change to PO Cipro and Flagyl to establish PO tolerability prior to hopeful discharge 12/16. #Chest pain - Resolved: -EKG largely unchanged from baseline, no new ischemic changes -Trop minimally elevated, peaked at 24 -TTE without wall motion abnormalities - notable for mildly reduced systolic function, grade II diastolic dysfunction, increased RV pressure -Impression favors non-cardiac etiology - suspect referred abdominal pain secondary to marked constipation, improved with escalation of bowel regimen. #ESRD: -Nephrology consulted for HD management -Repeat AM labs T2DM: Insulin sliding scale HTN: Continue Nifedipine, Lisinopril held on admission d/t hyperkalemia VTE ppx: Heparin Admission and Anticipated Discharge Date Admission Date: December 12, 2024 Supervising Physician Co-Signing Physician Notes Attending attestation Pt seen and examined in concert with Dr. Garg. In agreement with the documented findings as noted in the resident documentation with any exceptions or additions as noted here. Improved LLQ abdominal pain today without need for pain medication and now with 2 loose, brown bowel movements. On examination, S1/S2 nl RRR no MCG. CTAB. Abd with LLQ/suprapubic TTP Acute diverticulitis with constipation - transition to cipro/flagyl oral medication for trial of response and encourage PO hydration. IV hydromorphone for pain management as noted. Chest pain - TTE as noted, less concerning for cardiac disease, manuel w/ resolution of symptoms and troponin as noted. ESRD on HD - continue to trend lab studies. Nephrology consult appreciated Else see resident documentation as noted. Subjective Abdominal pain significantly improved, now 1/10 in severity. Denies fever, chills. Tolerating clear liquid diet. No pain meds needed overnight. Review of Systems Review of Systems: as per HPI Physical Exam Physical Exam: Constitutional: no acute distress HEENT: NCAT, no conjunctival injection CV: RRR, extremities well-perfused, no LE edema Resp: no increased work of breathing, lungs CTAB GI: nondistended, very minimal tenderness to palpation in LLQ region. Normal bowel sounds. No rebound tenderness, guarding, or rigidity. MSK: no gross deformities Skin: warm, dry, no rash appreciated Neuro: alert, oriented, no focal neurologic deficit appreciated Results & Data Results & Data Vital Signs (Past 12 Hours) Vital Signs Temp Pulse Pulse Resp BP Pulse Ox O2 Del Method 12/15/24 07:00 77 12/15/24 02:34 36.8 C 80 18 148/80 H 95 Room Air 12/14/24 22:09 37.1 C 90 16 165/86 H 91 Room Air 12/14/24 21:50 87 12/14/24 19:27 37.4 C 87 16 161/93 H 95 Room Air Resident Activity Tracking Resident Involvement: Resident Care Provided Care Provided: Adult Hospital Medicine
--- NOTE | 2024-12-15 08:43 | Nephrology Progress Note ---
Date of Service December 15, 2024 Assessment & Plan (1) End stage chronic kidney disease: Plan: * Will provide HD today. Orders have been entered into EMR and HD RN notified * Outpatient HD orders: MWF 3.5hr 2K 2Ca F-180 EDW 89.5 kg * Renal diet * Nephrocaps daily * Protect L arm AVF * Monitor daily BMP, CBC (2) Diverticulitis: Plan: * 12/12/[address] - acute diverticulitis of the sigmoid colon. No perforation or abscess. Cholelithiasis without acute cholecystitis. Appendix measures up to 1 cm with trace periappendiceal fat stranding. Early acute appendicitis is a possibility in the appropriate clinical setting * 12/14/24 follow up imaging is negative for acute perforation. * Continue cipro/flagyl Admission and Anticipated Discharge Date Admission Date: December 12, 2024 Subjective Mr. Ballesteros was seen in his hospital room this morning. He reports that his abdo jluito discomfort is improved. He is tolerating a liquid diet without N/V. He reports regular BM. Review of Systems Constitutional: no fever Eyes: no problem reported Ear, Nose, Mouth, Throat: no problem reported Respiratory: no cough and no dyspnea Cardiovascular: no chest pain and no dyspnea Gastrointestinal: no abdominal pain, no nausea, no vomiting and no di arrhea/loose stools Integumentary: no rash Physical Exam Constitutional: not in distress Eyes: PERRL, conjunctivae normal, anicteric sclerae ENMT: external ear and nose normal, oropharynx normal Neck: trachea midline, no thyromegaly (IJ TCC w/ clean dry dressing in place) Respiratory: normal respiratory effort, lungs clear to auscultation Cardiovascular: RRR, no murmur, no edema Gastrointestinal (Abdomen): normal bowel sounds, soft, nontender, no hepatosplenomegaly Musculoskeletal: Extremities: no cyanosis and no clubbing Skin: no rashes, warm and dry Neurologic: awake; not confused Results & Data Vital Signs (Past 12 Hours) Vital Signs Temp Pulse Pulse Resp BP Pulse Ox O2 Del Method 12/15/24 07:45 36.7 C 73 24 136/75 95 Room Air 12/15/24 07:30 Room Air 12/15/24 07:00 77 12/15/24 02:34 36.8 C 80 18 148/80 H 95 Room Air 12/14/24 22:09 37.1 C 90 16 165/86 H 91 Room Air 12/14/24 21:50 87 Laboratory Results Laboratory Results - last 24 hr 12/14/24 12/14/24 12/14/24 09:37 11:54 17:07 WBC 6.10 RBC 3.09 L Hgb 9.4 L Hct 28.2 L MCV 91.3 MCH 30.4 MCHC 33.3 RDW Std Deviation 43.2 RDW Coeff of Chelsey 13.2 Plt Count 152 MPV 11.4 Sodium 138 Potassium 4.7 D Chloride 101 Carbon Dioxide 27 Anion Gap 10 BUN 40 H D Creatinine 8.06 H* D Est Cr Clr Drug Dosing 11.2 eGFR 7.04 BUN/Creatinine Ratio 5.0 L Glucose 141 H POC Glucose 101 H 92 Calcium 8.8 Phosphorus 6.9 H Magnesium 2.2 C-Reactive Protein 2.94 H 12/14/24 12/15/24 20:21 08:06 WBC RBC Hgb Hct MCV MCH MCHC RDW Std Deviation RDW Coeff of Chelsey Plt Count MPV Sodium Potassium Chloride Carbon Dioxide Anion Gap BUN Creatinine Est Cr Clr Drug Dosing eGFR BUN/Creatinine Ratio Glucose POC Glucose 93 96 Calcium Phosphorus Magnesium C-Reactive Protein Diagnostic Findings 12/14/[address]: There are multiple tiny gallstones. Gallbladder is decompressed. Spleen, pancreas, and adrenal glands have an unremarkable non-IV contrast appearance. Stable mild atrophy of the kidneys. There is no hydronephrosis or renal calculi. There are scattered atherosclerotic calcifications. No abdominal aortic aneurysm. Prostate is enlarged. Urinary bladder is nondistended. There is sigmoid diverticulosis. There is short segment wall thickening and inflammation at the proximal sigmoid colon consistent with a cute diverticulitis. No free fluid, free air, or abscess. Mildly prominent appendix is stable, likely anatomic variation. There is no adjacent inflammation.. No bowel obstruction. No enlarged adenopathy. There are lumbar spine degenerative changes. PG Care Time/CCT Total # of Minutes Spent Total Time Spent with Patient: Total time spent is greater than 50% in coordination of care (as documented) at patient's floor/unit and/or counseling patient: Coding Level of Care Code 60856 SUB INP/OBS CARE 3/50MIN Diagnoses End stage chronic kidney disease N18.6 Diverticulitis K57.92
[2024-12-15 09:21] LABS: Hematocrit (blood only) 27.4 % (42.0-52.0); Hemoglobin 9.1 g/dl (14.0-18.0); Mean Corpuscular Hemoglobin 30.7 pg (25.0-34.0); Mean Corpuscular Hgb Conc 33.2 g/dL (32.0-36.0); Mean Corpuscular Volume 92.6 fL (80.0-100.0); Mean Platelet Volume 10.8 fL (9.4-12.4); Platelet Count 140 K/uL (130-400); RDW Coefficient of Variation 13.2 % (11.5-14.5); RDW Standard Deviation 44.9 fL (36.4-46.3); Red Blood Count 2.96 M/uL (4.70-6.10)
[2024-12-15 09:42] LABS: Albumin Level 3.9 gm/dl (3.4-5.0); Anion Gap 12 (3-11); Calcium 8.6 mg/dl (8.6-10.3); Carbon Dioxide 23 mmol/L (21-32); Chloride 102 mmol/L (98-107); Potassium 4.8 mmol/L (3.5-5.1); Sodium 137 mmol/L (136-145)
[2024-12-15 09:51] LABS: Alanine Aminotransferase < 3 U/L (7-52); Albumin Globulin Ratio 1.6 (0.9-2); Alkaline Phosphatase 75 U/L (34-104); Aspartate Aminotransferase 9 U/L (13-39); BUN Creatinine Ratio 4.8 (10-20); Blood Urea Nitrogen 46 mg/dl (6-23); Creatinine Clr Calc Pharmacy 8.6 ml/min; Globulin 2.4 gm/dl (2.5-4.0); Glucose 128 mg/dl (70-99(Fasting)); Total Protein 6.3 gm/dl (6.0-8.3)
[2024-12-15] MEDS: HEPARIN SOD (PORCINE) 1000 UNIT/ML IV ONE (10:44)
[2024-12-15] MEDS: HEPARIN SOD (PORCINE) 1000 UNIT/ML IV SCH (10:45)
[2024-12-15] MEDS: EPOETIN ALFA 10,000 UNITS/ML VIAL IV ONE (12:40)
[2024-12-15] MEDS: metroNIDAZOLE 500 MG TAB PO SCH (13:29)
[2024-12-15] MEDS: CIPROFLOXACIN 500 MG TAB PO SCH (21:04)
--- NOTE | 2024-12-16 06:58 | Hospitalist Progress Note ---
Date of Service December 16, 2024 Assessment & Plan (1) Diverticulitis: (2) Chest pain: (3) Pulmonary edema: (4) Acute hyperkalemia: (5) End stage chronic kidney disease: (6) Abdominal pain, lower: Plan 59 year old male presenting with chest pain: #Diverticulitis: -CT A/P on admission significant for sigmoid diverticulitis-no perforation or abscess, trace periappendiceal fat stranding -No leukocytosis, afebrile, CRP minimally elevated -CT A/P repeated 12/14 d/t significant worsening of overall clinical picture - ongoing sigmoid diverticulitis, no appendicitis -Given clinical improvement noted 12/15, will advance diet to full liquids. -Discontinue Zosyn, will change to PO Cipro and Flagyl to establish PO tolerability prior to hopeful discharge 12/16. #Chest pain - Resolved: -EKG largely unchanged from baseline, no new ischemic changes -Trop minimally elevated, peaked at 24 -TTE without wall motion abnormalities - notable for mildly reduced systolic function, grade II diastolic dysfunction, increased RV pressure -Impression favors non-cardiac etiology - suspect referred abdominal pain secondary to marked constipation, improved with escalation of bowel regimen. #ESRD: -Nephrology consulted for HD management -Repeat AM labs T2DM: Insulin sliding scale HTN: Continue Nifedipine, Lisinopril held on admission d/t hyperkalemia VTE ppx: Heparin Admission and Anticipated Discharge Date Admission Date: December 12, 2024 Subjective Abdominal pain significantly improved, now 1/10 in severity. Denies fever, chills. Tolerating clear liquid diet. No pain meds needed overnight. Review of Systems Review of Systems: as per HPI Physical Exam Physical Exam: Constitutional: no acute distress HEENT: NCAT, no conjunctival injection CV: RRR, extremities well-perfused, no LE edema Resp: no increased work of breathing, lungs CTAB GI: nondistended, very minimal tenderness to palpation in LLQ region. Normal bowel sounds. No rebound tenderness, guarding, or rigidity. MSK: no gross deformities Skin: warm, dry, no rash appreciated Neuro: alert, oriented, no focal neurologic deficit appreciated Results & Data Results & Data Vital Signs (Past 12 Hours) Vital Signs Temp Pulse Pulse Resp BP Pulse Ox O2 Del Method 12/16/24 02:32 36.9 C 82 16 156/86 H 98 Room Air 12/15/24 23:52 84 12/15/24 22:53 37.1 C 82 16 150/77 H 94 Room Air 12/15/24 19:28 36.8 C 84 18 131/73 97 Room Air
[2024-12-16 07:38] VITALS: RESP 20
[2024-12-16 07:43] LABS: Hematocrit (blood only) 30.7 % (42.0-52.0); Hemoglobin 10.2 g/dl (14.0-18.0); Mean Corpuscular Hemoglobin 30.2 pg (25.0-34.0); Mean Corpuscular Hgb Conc 33.2 g/dL (32.0-36.0); Mean Corpuscular Volume 90.8 fL (80.0-100.0); Mean Platelet Volume 11.2 fL (9.4-12.4); Platelet Count 170 K/uL (130-400); RDW Coefficient of Variation 13.2 % (11.5-14.5); Red Blood Count 3.38 M/uL (4.70-6.10)
[2024-12-16 07:59] LABS: Calcium 9.1 mg/dl (8.6-10.3); Potassium 4.7 mmol/L (3.5-5.1)
[2024-12-16 08:09] LABS: BUN Creatinine Ratio 3.7 (10-20); Creatinine Clr Calc Pharmacy 11.9 ml/min
--- NOTE | 2024-12-16 08:49 | Nephrology Progress Note ---
Date of Service December 16, 2024 Assessment & Plan (1) End stage chronic kidney disease: Plan: * Volume status and electrolyte balance are acceptable. No acute indication for HD today * Outpatient HD orders: MWF 3.5hr 2K 2Ca F-180 EDW 89.5 kg * Renal diet * Nephrocaps daily * Protect L arm AVF * Monitor daily BMP, CBC * If discharge is anticipated, please have patient resume HD at [facility] in am (2) Diverticulitis: Plan: * 12/12/[address] - acute diverticulitis of the sigmoid colon. No perforation or abscess. Cholelithiasis without acute cholecystitis. Appendix measures up to 1 cm with trace periappendiceal fat stranding. Early acute appendicitis is a possibility in the appropriate clinical setting * 12/14/24 follow up imaging is negative for acute perforation. * Continue cipro/flagyl Admission and Anticipated Discharge Date Admission Date: December 12, 2024 Subjective Mr. Ballesteros was seen in his hospital room this morning. He reports that his abdominal discomfort is improved. He reports regular BM. Mr. Ballesteros is anxious to return home soon. He is scheduled for surgical evaluation of his AVF tomorrow Review of Systems Constitutional: no fever Eyes: no problem reported Ear, Nose, Mouth, Throat: no problem reported Respiratory: no cough and no dyspnea Cardiovascular: no chest pain and no dyspnea Gastrointestinal: no abdominal pain, no nausea, no vomiting and no diarrhea/loose stools Integumentary: no rash Physical Exam Constitutional: not in distress Eyes: PERRL, conjunctivae normal, anicteric sclerae ENMT: external ear and nose normal, oropharynx normal Neck: trachea midline, no thyromegaly (IJ TCC w/ clean dry dressing in place) Respiratory: normal respiratory effort, lungs clear to auscultation Cardiovascular: RRR, no murmur, no edema Gastrointestinal (Abdomen): normal bowel sounds, soft, nontender, no hepatosplenomegaly Musculoskeletal: Extremities: no cyanosis and no clubbing Skin: no rashes, warm and dry Neurologic: awake; not confused Results & Data Vital Signs (Past 12 Hours) Vital Signs Temp Pulse Pulse Resp BP Pulse Ox O2 Del Method 12/16/24 07:37 36.7 C 86 20 162/78 H 98 Room Air 12/16/24 07:00 85 12/16/24 02:32 36.9 C 82 16 156/86 H 98 Room Air 12/15/24 23:52 84 12/15/24 22:53 37.1 C 82 16 150/77 H 94 Room Air Laboratory Results Laboratory Results - last 24 hr 12/15/24 12/15/24 12/15/24 09:09 13:27 17:23 WBC 4.60 L RBC 2.96 L Hgb 9.1 L Hct 27.4 L MCV 92.6 MCH 30.7 MCHC 33.2 RDW Std Deviation 44.9 RDW Coeff of Chelsey 13.2 Plt Count 140 MPV 10.8 Sodium 137 Potassium 4.8 Chloride 102 Carbon Dioxide 23 Anion Gap 12 H BUN 46 H Creatinine 9.68 H* D Est Cr Clr Drug Dosing 8.6 eGFR 5.65 BUN/Creatinine Ratio 4.8 L Glucose 128 H POC Glucose 89 184 H Calcium 8.6 Total Bilirubin 1.0 AST 9 L ALT < 3 L Alkaline Phosphatase 75 Total Protein 6.3 Albumin 3.9 Globulin 2.4 L Albumin/Globulin Ratio 1.6 12/15/24 12/16/24 12/16/24 20:21 07:13 07:59 WBC 3.90 L RBC 3.38 L Hgb 10.2 L Hct 30.7 L MCV 90.8 MCH 30.2 MCHC 33.2 RDW Std Deviation 43.0 RDW Coeff of Chelsey 13.2 Plt Count 170 MPV 11.2 Sodium 139 Potassium 4.7 Chloride 102 Carbon Dioxide 27 Anion Gap 10 BUN 26 H D Creatinine 7.03 H* D Est Cr Clr Drug Dosing 11.9 eGFR 8.30 BUN/Creatinine Ratio 3.7 L Glucose 85 POC Glucose 73 83 Calcium 9.1 Total Bilirubin AST ALT Alkaline Phosphatase Total Protein Albumin Globulin Albumin/Globulin Ratio PG Care Time/CCT Total # of Minutes Spent Total Time Spent with Patient: Total time spent is greater than 50% in coordination of care (as documented) at patient's floor/unit and/or counseling patient: Coding Level of Care Code 21762 SUB INP/OBS CARE 3/50MIN Diagnoses End stage chronic kidney disease N18.6 Diverticulitis K57.92
[2024-12-16 11:33] VITALS: BP 146/85; PULSE 89; TEMP 98.8; O2SAT 95
--- NOTE | 2024-12-16 12:08 | Discharge Summary ---
Date of Service December 16, 2024 Admission HPI Per Admitting Provider patient is a very pleasant 59-year-old male known to me from a prior admissionhe comes in for chest pain. He is extremely pleasant and forthcoming with information, but jumps around quite a bit and often while we are trying to finish out a line of questioning for 1 issue he will jump to anothermaking gathering history somewhat difficult and requiring a lot of circling back to clarify details. However, it sounds like over the last 10 days or so he has had difficulty with chest paindescribes as left side of his chest pressure and very intense, waxing and waning, and associated with some degree of feeling like he cannot take a deep breath or may be, but not entirely sure, degree of true dyspnea. Is not entirely clear how long it lasts when it comes onbut he does note that he has been constipated a good bit over the last 10 days as well, and whenever he feels more like he has to have a bowel movement but cannot as whenever the pain seems to worsen. He gives an example that he had a lot of pain through the day today and has tried to have a bowel movement about 7 timesthe first 6 were extremely small, and whenever that sensation would come up the pain would worsen, and then finally he had very adequate bowel movement here in the ER as the seventh 1 that he had and with that his pain has finally reduced to about a 2. He notes a degree of exertional limitation, but he also notes that is more due to what he describes as "hip" (clarifies to be lateral buttock) and calf pain climbing the stairsso it is hard to tell if he has any actual limiting dyspnea. He may have a mild degree of orthopnea, but again this is not entirely clearother than that he seems to imply that the symptoms are often worse when he is laying down in bed, and his notes that she was trying to get him to sleep on more pillows. He has been eating quite well, and his notes he is gaining weight. He tries to fluid restrict, but it is not entirely clear how much he does sohe relates only drinking a cup and a half of water a day, but then also later alludes to drinking some Gatorade at times. He does note a reduction in his urine output. No clear fevers chills or sweats, although about 2 nights ago he did have to sleep a little blankets on, but whenever his checked his temperature it was normal, around 98 F. Goes to dialysis Friday and Friday. Around the time that his symptoms began he had a fistula surgery, and then had to have another 1 on . Admission Exam Per Admitting Provider In general he is awake alert oriented x 3 pleasant no acute distress. HEENT normocephalic atraumatic mucous membranes moist. Cardio is regular without rubs murmurs or gallops. Lungs show faint bibasilar rales no other rales rhonchi or wheezes good effort no accessory muscle use, 95% on room air. His left anterior chest wall is reproducibly tender to palpation, although he notes the sensation is somewhat different than what he was feeling. Abdomen is soft but mild to maybe moderately distended upper abdominal tendernessespecially left upper abdomen no guarding rebound or rigidity. Positive and slightly hyperactive bowel sounds. Skin shows no rashes no pallor or icterus. Neuro shows cranial nerves II through XII grossly intact gross motor and sensory intactleft hand shows no motor or sensory or neurovascular deficits good capillary refill. Extremities are without sinus clubbing or edema no calf tenderness. Mental status shows good recent and remote recall normal mood and affect. Labs and diagnostics noted, EKG without QRS widening or peaked T's, does have anterolateral ST changespredominantly T wave inversionthis is reasonably similar to prior. Chest x-ray is consistent with a mild degree of pulmonary edema, CT abdomen pelvis radiology read is pending, lung windows to me show bibasilar effusions and a little bit of atelectasis versus may be some mild pulmonary edema, mild degree of constipation but with some solid stool, some loops of bowel that seem to tribal outside of the liver, but nothing that seems to be any hernia or incarceration, no bowel dilation. Labs show troponin of 22.1 that over about 2 hours only changes to 24.3, his potassium is 5.6 Principal Diagnosis sigmoid diverticulitis Discharge Exam Constitutional: no acute distress HEENT: NCAT, no conjunctival injection CV: RRR, extremities well-perfused, no LE edema Resp: no increased work of breathing, lungs CTAB GI: nondistended, nontender to palpation in LLQ region. Normal bowel sounds. No rebound tenderness, guarding, or rigidity. MSK: no gross deformities Skin: warm, dry, no rash appreciated Neuro: alert, oriented, no focal neurologic deficit appreciated Discharge Data Allergies Allergy/AdvReac Type Severity Reaction Status Date / Time cephalexin AdvReac Verified 10/26/24 18:10 hydralazine AdvReac Verified 10/26/24 18:10 sulfamethoxazole AdvReac Verified 10/26/24 18:10 [From Bactrim] trimethoprim [From Bactrim] AdvReac Verified 10/26/24 18:10 Consultations 12/12/24 18:09 ED Decision to Admit Stat 12/12/24 18:39 Consult Nephrology Routine Ordered Studies 12/12/24 16:15 CT Abd and Pelvis [CT abd pelvis wo con] Stat 12/14/24 11:27 CT Abdomen and Pelvis [CT abd pelvis wo con] Stat Hospital Course (1) Diverticulitis: (2) Chest pain: (3) Pulmonary edema: (4) Acute hyperkalemia: (5) End stage chronic kidney disease: (6) Abdominal pain, lower: Plan 59 year old male presented with chest pain: #Diverticulitis - Improving: -CT A/P 12/12 significant for sigmoid diverticulitis-no perforation or abscess, trace periappendiceal fat stranding -No leukocytosis, afebrile, CRP minimally elevated -CT A/P repeated 12/14 d/t significant worsening of abdominal pain - noted ongoing uncomplicated sigmoid diverticulitis, no appendicitis -Diet advanced to low fiber, tolerating at time of discharge -Discharged on Cipro and Flagyl x5 additional days -Pt with symptomatic constipation on admission, CT with prominent stool burden - sx improved with aggressive Miralax regimen. Following resolution of current diverticulitis, patient likely to benefit from a consistent bowel regimen. #Chest pain - Resolved: -EKG largely unchanged from baseline, no new ischemic changes -Trop minimally elevated, peaked at 24 -TTE without wall motion abnormalities - notable for mildly reduced systolic function, grade II diastolic dysfunction, increased RV pressure -Impression favors non-cardiac etiology - suspect referred abdominal pain secondary to marked constipation, improved with escalation of bowel regimen. #ESRD // AV Fistula Revision: -Nephrology consulted for HD management - s/p HD 12/13 and 12/15 -Pt reports AV fistula revision at outside facility 12/09, was supposed to have sutures removed on 12/14 - has follow up with operating surgeon 12/16 immediately following discharge. Total Time Total Time Spent Total Time Spent (In Minutes): see attending attestation Discharge Plan Discharge Items Patient Disposition: Home - Self-Care Reason For Visit: CHEST PAIN Discharge Diagnosis: sigmoid diverticulitis Activity: Resume your previous activity Non-emergency contact: Primary Care Provider Call non-emergency contact if: you have any medication questions, your symptoms worsen, your pain is not controlled and you have a fever Follow-up/Referrals: Kamlesh Owens, [Primary Care Provider] - (PLEASE CALL YOUR PRIMARY CARE PROVIDER TO SCHEDULE A HOSPITAL FOLLOW-UP APPOINTMENT WITHIN 7-10 DAYS) Diet: Low Fiber Addtl Attending Provider Instructions: You were admitted to the hospital with chest pain, however it does not appear that this was cardiac-related. More likely, this was referred pain from your abdomen. You were found to have diverticulitis - for this, you were started on antibiotics. Following discharge, please complete the course of oral antibiotics as outlined below. Please see the attached sheet for additional recommendations to follow during your recovery period. Regarding the sutures in your left arm, these proved difficult to remove. Due to risk of compromising the underlying fistula, we recommend following up with your surgeon to have these removed; please keep your appointment for this afternoon. A discharge summary will be sent to your primary care physician to ensure continuity of care. Please bring this discharge summary with you to your next office appointment so that your provider can review it at that time. Medications: Your medication list has been reviewed and reconciled upon discharge to ensure accuracy and continuity of care. An updated list of all your medications is included with your hospital discharge paperwork. Please review this list closely and make note of any changes to your medications. New Medications: On dialysis days, please take these antibiotics AFTER dialysis is complete. - Ciprofloxacin: Please take 1 tab daily starting in the evening on 12/16/24, for an additional 5 days following discharge. - Metronidazole: Please take 1 tab three times daily starting in the afternoon on 12/16/24, for an additional 5 days following discharge. Follow up appointments: - Make a follow up appointment with your PCP within the next week. It is very important that you follow up with them shortly after discharge from the hospital. - Keep all of your follow up appointments as already scheduled. If you cannot make an appointment, notify your provider. CONTACT YOUR PRIMARY CARE PROVIDER if you experience any of the following: - Difficulty following your treatment plan - Difficulty taking any of your medications CALL 911 OR GO TO THE EMERGENCY DEPARTMENT if you experience any of the following: - Sudden, severe abdominal pain or nausea/vomiting - Severe chest pain or chest pain that radiates to your jaw or arm - Sudden, severe shortness of breath or difficulty breathing Pending Studies at Discharge: No Stand-Alone Forms: My [facility], Smoking Cessation Medications and DC Order Prescriptions: New ciprofloxacin HCl 500 mg tablet 500 mg PO DAILY 5 Days Qty: 5 0RF metronidazole 500 mg tablet 500 mg PO TID 5 Days Qty: 15 0RF Continued lisinopril 10 mg tablet 10 mg PO DAILY Qty: 30 11RF Lantus Solostar U-100 Insulin 100 unit/mL (3 mL) insulin pen 1 unit subcut UD Rx Instructions: 12/12- usually 1 unit daily but if readings are perfect, he does none. INJECT BASELINE OF 1 UNIT AND ADD 1 UNIT FOR EVERY 10 POINTS OF BLOOD SUGAR READINGS, DO NOT EXCEED GREATER THAN 30 UNITS ONCE A DAY calcium acetate(phosphat bind) 667 mg Capsule 1,334 mg PO TIDM 30 Days Qty: 60 1RF furosemide 40 mg tablet 40 mg PO DAILY nifedipine 30 mg tablet extended release 30 mg PO DAILY Renal Caps 1 mg capsule 1 cap PO QAM Rx Instructions: triphrocaps oxycodone 5 mg tablet 5 mg PO Q6H PRN (Reason: Pain) albuterol sulfate [Ventolin HFA] 90 mcg/actuation HFA aerosol inhaler 2 puff INHALATION .Q4-6 PRN (Reason: sob) Discharge Orders: Discharge Order (Routine); Ordered 12/16/24 Ordered By: Sebastien Lu/Other Patient Handouts: Diverticulitis Dc Admission Data Admit Date/Time: 12/12/24 18:39 Attending Provider: Venkata Torres Admit Provider: Juan Horn Primary Care Provider: Kamlesh Owens Other Providers: Maged Agrawal; Juan Horn Other Interventions: Discharge Summary Assessment (RN) Last Done: 12/16/24 11:55 Supervising Physician Co-Signing Physician Notes Attending attestation Pt seen and examined in concert with Dr. Garg. In agreement with the documented findings as noted in the resident documentation with any exceptions or additions as noted here. Near resolution of LLQ abdominal pain with a more formed BM this morning and no nausea reported. On examination, S1/S2 nl RRR no MCG. CTAB. Minimal abd LLQ/suprapubic TTP Acute diverticulitis with constipation - complete course of cipro/flagyl as noted with constipation management encouraged to resume following PCP re- evaluation Chest pain, resolved - TTE as noted, less concerning for cardiac disease, manuel w/ resolution of symptoms and troponin as noted. ESRD on HD - return to home dialysis schedule. Else see resident documentation as noted. Total attending physician time spent with this patient's care on the day of discharge: 35 minutes. Resident Activity Tracking Resident Involvement: Resident Care Provided Care Provided: Adult Hospital Medicine
== END 2024-12-16 12:21 | disposition home or self-care (01) | DRG 391 ==
LOC: SUATTDRO → ED 15:25 → SUATTDRO 18:39 → 2N 18:39
DX: N18.6 End stage renal disease; K57.32 Diverticulitis of large intestine without perforation or abscess without bleeding; Z87.891 Personal history of nicotine dependence; K59.00 Constipation, unspecified; Z88.2 Allergy status to sulfonamides; I12.0 Hypertensive chronic kidney disease with stage 5 chronic kidney disease or end stage renal disease; E87.5 Hyperkalemia; Z79.4 Long term (current) use of insulin; R79.89 Other specified abnormal findings of blood chemistry; E11.22 Type 2 diabetes mellitus with diabetic chronic kidney disease

== ENCOUNTER 2025-02-16 15:06 | Observation (INO) ==
--- NOTE | 2025-02-16 15:23 | Emergency Department Note ---
Impression & Plan Hyperkalemia Admission ED Provider Note HPI: History obtained from patient. The patient is a 60-year-old gentleman with history of end-stage renal disease, on dialysis Friday via left antecubital fossa AV fistula who presents the emergency department with a chief complaint of constipation. Patient states over the past several months he has had worsening constipation and some intermittent lower abdominal pain. Patient states recently this is gotten worse to the point where he is only having very small bowel movements that are very firm. On arrival here to the ED the patient is hemodynamically stable, he otherwise appears to be in no acute distress on my initial assessment. ROS: - Per HPI Differential Diagnosis: Constipation, diverticulitis flare, intra-abdominal abscess, perforated viscus, hemorrhoids, amongst other potential pathologies. *Outpatient medications and allergy history reviewed. PE: General: Alert HEENT: Normocephalic, trachea midline Eyes: Extraocular eye movement is intact, no scleral erythema Pulmonary: Clear to auscultation bilaterally, no wheezing Cardio: Regular rate and rhythm GI: Abdomen is soft to palpation, mild distention : No suprapubic tenderness MSK: No evidence of trauma or malformation of the extremities, no edema, palpable thrill in the AV fistula on the left AC fossa Skin: No evidence of rash Neuro: Alert, no focal deficits Psychiatric: Cooperative INDEPENDENT INTERPRETATIONS: youth nutritional monitor: (As interpreted by myself): - An order was placed for continuous cardiac monitoring - Patient was noted to be in sinus rhythm with a rate of 90 EKG: (As interpreted by myself): Rate: 93 Rhythm: Normal sinus rhythm Intervals: Within normal limits ST changes: No ST elevation Time: 1630 Interventions provided in ED: - IV calcium gluconate, Veltassa, IV fluid bolus Medical Decision Making: IV was established and lab work obtained, patient was placed on traffic monitor specialist. Lab work shows no leukocytosis, hemoglobin is stable at 9.7, platelet count is normal, CMP shows a potassium of 5.9, EKG does not show any evidence of peaked T waves (per my interpretation), creatinine is 9.65 and BUN is 62. Magnesium is within normal limits. Lipase is normal. There is no transaminitis and bilirubin is normal. CT imaging of the abdomen pelvis was obtained without IV contrast and does not show any evidence of any acute abnormalities. Given the patient's elevated potassium level, I did discuss his presentation with on-call nephrology, Dr. Agrawal, he is in agreement for consultation and will arrange for dialysis tomorrow. Patient was given Veltassa and IV calcium gluconate here in the ED as well as a small IV fluid bolus. He is otherwise hemodynamically stable. I discussed the patient's presentation with the on-call hospitalist, Dr. Campos, and the patient was placed for admission in stable condition. Patient was in agreement to this plan. Consultants/Discussions held with other healthcare providers: - Nephrology, Dr. Agrawal - Hospitalist, Dr. Campos Disposition discussion held by myself with: - Patient Diagnosis: 1. Hyperkalemia, acute 2. End-stage renal disease, on dialysis Friday 3. Sensation of constipation 4. Anemia, chronic, stable Disposition: Admission Randy Guzman DO Emergency Medicine Past Med/Surg History Problem List (Updated 02/16/25 @ 19:44 by Randy Guzman DO) Hyperkalemia (Acute) Diarrhea Medical History (Updated 02/16/25 @ 19:44 by Randy Guzman DO) Diverticulitis sigmoid - 11/2024 End stage chronic kidney disease Anemia Secondary hyperparathyroidism History of CVA (cerebrovascular accident) Diabetes mellitus Hypertension History of deep venous thrombosis or pulmonary embolus Asthma Dyslipidemia Hypertriglyceridemia Surgical History (Updated 02/16/25 @ 18:49 by Joel Campos MD) S/P arteriovenous (AV) fistula creation LUE Family History (Updated 02/16/25 @ 18:49 by Joel Campos MD) Father Cancer Prostate Kidney disease Late in life while suffering from advanced metastatic prostate cancer and alcoholism Heart disease Denies family history of Colorectal cancer Social History (Updated 02/16/25 @ 18:50 by Joel Campos MD) Smoking Status: Never smoker Tobacco Type: Smokeless Tobacco (Dip or Chew) Hx Alcohol Use: Yes (Quit 8 years ago) Hx Substance Use: No Preferred Language: Latvian Communication Ability: Effective Vice President Quality Required: No Beliefs That Will Affect Care: None marital status: Current Living Situation: Spouse current occupational status: disabled How many Children do You have: 2 Feels Safe at Home: Yes Assistive Devices: Glasses Allergies Allergies Allergy/AdvReac Type Severity Reaction Status Date / Time cephalexin AdvReac Verified 10/26/24 18:10 hydralazine AdvReac Verified 10/26/24 18:10 sulfamethoxazole AdvReac Verified 10/26/24 18:10 [From Bactrim] trimethoprim [From Bactrim] AdvReac Verified 10/26/24 18:10 Home Meds Home Medications Medication Instructions Recorded Confirmed insulin glargine 100 unit/mL (3 1 unit subcut UD 11/02/21 02/16/25 mL) subcutaneous pen (Lantus Solostar U-100 Insulin) vitamin B complex and vitamin C 1 cap PO QAM 10/26/24 02/16/25 no.20-folic acid 1 mg capsule (Renal Caps) albuterol sulfate 90 mcg/actuation 2 puff inhalation .Q4-6 PRN sob 12/12/24 02/16/25 aerosol inhaler (Ventolin HFA) furosemide 80 mg tablet 80 mg PO QAM 02/16/25 02/16/25 lisinopril 10 mg tablet 10 mg PO AMHS 02/16/25 02/16/25 nifedipine 60 mg tablet,extended 60 mg PO QAM 02/16/25 02/16/25 release Previous Rx's Medication Instructions Recorded calcium acetate(phosphat bind) 667 1,334 mg (2 x 667 mg) PO TIDM 30 09/24/24 mg capsule days #60 caps Results & Data (ED) Vital Signs Vital Signs - 24 hr 02/16/25 15:08 02/16/25 16:21 02/16/25 16:21 Temperature 36.5 C Temperature Source Temporal Artery Scan Pulse Rate 93 H Pulse Rate [Finger] 92 H Respiratory Rate 18 16 Respiratory Effort / Characteristics Non-Labored Spontaneous Non-Labored Spontaneous Respiratory Depth Normal Normal Blood Pressure 177/95 H Blood Pressure [Right Arm] Blood Pressure Mean 122 Blood Pressure Mean [Right Arm] Blood Pressure Position Sitting Pulse Oximetry 97 98 98 Oxygen Delivery Method Room Air Room Air Room Air Sepsis Recent Fever Within 48 Hours No Sepsis New/Unexplained Change in Mental Status No Sepsis Action Taken by Nursing No Action Required 02/16/25 16:21 02/16/25 16:21 02/16/25 16:21 Temperature Temperature Source Pulse Rate 88 92 H Pulse Rate [Finger] Respiratory Rate Respiratory Effort / Characteristics Respiratory Depth Blood Pressure Blood Pressure [Right Arm] Blood Pressure Mean Blood Pressure Mean [Right Arm] Blood Pressure Position Pulse Oximetry 98 Oxygen Delivery Method Room Air Sepsis Recent Fever Within 48 Hours Sepsis New/Unexplained Change in Mental Status Sepsis Action Taken by Nursing 02/16/25 16:21 02/16/25 16:21 02/16/25 16:22 Temperature Temperature Source Pulse Rate Pulse Rate [Finger] Respiratory Rate Respiratory Effort / Characteristics Respiratory Depth Blood Pressure 173/100 H 173/100 H Blood Pressure [Right Arm] 173/100 H Blood Pressure Mean 140 140 Blood Pressure Mean [Right Arm] 124 Blood Pressure Position Pulse Oximetry Oxygen Delivery Method Sepsis Recent Fever Within 48 Hours Sepsis New/Unexplained Change in Mental Status Sepsis Action Taken by Nursing 02/16/25 16:30 02/16/25 16:30 02/16/25 16:30 Temperature Temperature Source Pulse Rate 84 Pulse Rate [Finger] Respiratory Rate Respiratory Effort / Characteristics Respiratory Depth Blood Pressure 170/103 H 170/103 H Blood Pressure [Right Arm] Blood Pressure Mean 130 130 Blood Pressure Mean [Right Arm] Blood Pressure Position Pulse Oximetry Oxygen Delivery Method Sepsis Recent Fever Within 48 Hours Sepsis New/Unexplained Change in Mental Status Sepsis Action Taken by Nursing 02/16/25 16:30 02/16/25 16:45 02/16/25 17:00 Temperature Temperature Source Pulse Rate 88 Pulse Rate [Finger] Respiratory Rate Respiratory Effort / Characteristics Respiratory Depth Blood Pressure 170/103 H 176/110 H Blood Pressure [Right Arm] Blood Pressure Mean 130 121 Blood Pressure Mean [Right Arm] Blood Pressure Position Pulse Oximetry Oxygen Delivery Method Sepsis Recent Fever Within 48 Hours Sepsis New/Unexplained Change in Mental Status Sepsis Action Taken by Nursing 02/16/25 17:00 02/16/25 17:18 02/16/25 17:27 Temperature Temperature Source Pulse Rate 91 H 86 Pulse Rate [Finger] Respiratory Rate 19 Respiratory Effort / Characteristics Respiratory Depth Blood Pressure 176/110 H Blood Pressure [Right Arm] Blood Pressure Mean 121 Blood Pressure Mean [Right Arm] Blood Pressure Position Pulse Oximetry Oxygen Delivery Method Sepsis Recent Fever Within 48 Hours Sepsis New/Unexplained Change in Mental Status Sepsis Action Taken by Nursing 02/16/25 17:30 02/16/25 17:30 02/16/25 17:33 Temperature Temperature Source Pulse Rate 85 Pulse Rate [Finger] Respiratory Rate 22 Respiratory Effort / Characteristics Respiratory Depth Blood Pressure 172/112 H 172/112 H Blood Pressure [Right Arm] Blood Pressure Mean 129 129 Blood Pressure Mean [Right Arm] Blood Pressure Position Pulse Oximetry Oxygen Delivery Method Sepsis Recent Fever Within 48 Hours Sepsis New/Unexplained Change in Mental Status Sepsis Action Taken by Nursing 02/16/25 17:48 02/16/25 17:54 02/16/25 18:00 Temperature Temperature Source Pulse Rate 90 92 H Pulse Rate [Finger] Respiratory Rate 21 Respiratory Effort / Characteristics Respiratory Depth Blood Pressure 186/108 H Blood Pressure [Right Arm] Blood Pressure Mean 140 Blood Pressure Mean [Right Arm] Blood Pressure Position Pulse Oximetry Oxygen Delivery Method Sepsis Recent Fever Within 48 Hours Sepsis New/Unexplained Change in Mental Status Sepsis Action Taken by Nursing 02/16/25 18:00 02/16/25 18:00 02/16/25 18:12 Temperature Temperature Source Pulse Rate 94 H 95 H Pulse Rate [Finger] Respiratory Rate 21 22 Respiratory Effort / Characteristics Respiratory Depth Blood Pressure 186/108 H Blood Pressure [Right Arm] Blood Pressure Mean 140 Blood Pressure Mean [Right Arm] Blood Pressure Position Pulse Oximetry Oxygen Delivery Method Sepsis Recent Fever Within 48 Hours Sepsis New/Unexplained Change in Mental Status Sepsis Action Taken by Nursing 02/16/25 18:21 02/16/25 18:30 02/16/25 19:01 Temperature Temperature Source Pulse Rate 96 H 95 H Pulse Rate [Finger] Respiratory Rate 17 Respiratory Effort / Characteristics Respiratory Depth Blood Pressure 153/118 H 184/114 H Blood Pressure [Right Arm] Blood Pressure Mean 128 149 Blood Pressure Mean [Right Arm] Blood Pressure Position Pulse Oximetry 95 Oxygen Delivery Method Room Air Sepsis Recent Fever Within 48 Hours Sepsis New/Unexplained Change in Mental Status Sepsis Action Taken by Nursing Laboratory Data 02/16/25 15:28 02/16/25 15:28 Lab Results 02/16/25 02/16/25 02/16/25 Range/Units 15:28 17:59 18:50 WBC 5.19 (4.8-10.8) K/ul RBC 3.06 L (4.70-6.10) M/uL Hgb 9.7 L (14.0-18.0) g/dl Hct 28.8 L (42.0-52.0) % MCV 94.1 (80.0-100.0) fL MCH 31.7 (25.0-34.0) pg MCHC 33.7 (32.0-36.0) g/dL RDW Std Deviation 52.2 H (36.4-46.3) fL RDW Coeff of Chelsey 15.2 H (11.5-14.5) % Plt Count 144 (130-400) K/uL MPV 11.2 (9.4-12.4) fL Immature Gran % (Auto) 0.2 % Neut % (Auto) 74.8 % Lymph % (Auto) 14.6 % Russell % (Auto) 7.3 % Eos % (Auto) 2.3 % Baso % (Auto) 0.8 % Neut # (Auto) 3.88 (1.40-6.50) K/uL Lymph # (Auto) 0.76 L (1.20-3.40) K/uL Russell # (Auto) 0.38 (0.11-0.59) K/uL Eos # (Auto) 0.12 (0.00-0.50) K/uL Baso # (Auto) 0.04 (0.00-0.20) K/uL Immature Gran # (Auto) 0.01 (0.01-0.20) K/uL Sodium 136 (136-145) mmol/L Potassium 5.9 H (3.5-5.1) mmol/L Chloride 99 (98-107) mmol/L Carbon Dioxide 22 (21-32) mmol/L Anion Gap 15 H (3-11) BUN 62 H (6-23) mg/dl Creatinine 9.65 H* (0.6-1.4) mg/dl Est Cr Clr Drug Dosing 9.5 ml/min eGFR 5.64 BUN/Creatinine Ratio 6.4 L (10-20) Glucose 195 H (70-99(Fasting)) mg/dl POC Glucose 83 (70-99) mg/dl Calcium 8.4 L (8.6-10.3) mg/dl Magnesium 2.2 (1.7-2.4) mg/dl Total Bilirubin 0.8 (0.2-1.0) mg/dl AST 11 L (13-39) U/L ALT 8 (7-52) U/L Alkaline Phosphatase 62 (34-104) U/L Total Protein 6.7 (6.0-8.3) gm/dl Albumin 4.1 (3.4-5.0) gm/dl Globulin 2.6 (2.5-4.0) gm/dl Albumin/Globulin Ratio 1.6 (0.9-2) Lipase 38 (11-82) U/L Urine Color Yellow Urine Appearance Clear (Clear) Urine pH 8.5 H (4.5-7.5) Ur Specific [place] 1.010 (1.000-1.030) Urine Protein 2+ H (Negative) Urine Glucose (UA) 1+ H (Negative) Urine Ketones Negative (Negative) Urine Blood Trace H (Negative) Urine Nitrite Negative (Negative) Urine Bilirubin Negative (Negative) Urine Urobilinogen Negative (Negative) Ur Leukocyte Esterase Negative (Negative) Urine WBC (Auto) 0-5 (0-5) /hpf Urine RBC (Auto) 0-2 (0-2) /hpf U Hyaline Cast (Auto) 0-2 (0-2) /lpf U Epithel Cells (Auto) 0-2 (0-2) /hpf Urine Bacteria (Auto) None Seen (None Seen) Urine Comment Administered Medications Discontinued Medications Sodium Chloride (Nss) 1,000 mls @ 999 mls/hr IV .Q1H1M STA Stop: 02/16/25 16:15 Last Admin: 02/16/25 16:05 Dose: Not Given Documented By: TRUDY Sodium Chloride (Nss) 250 mls @ 999 mls/hr IV .Q16M ONE Stop: 02/16/25 15:34 Last Infusion: 02/16/25 16:33 Dose: Infused Documented By: Admin: 02/16/25 16:05 Dose: 999 mls/hr Documented By: TRUDY Calcium Gluconate () 1,000 mg in 60 mls @ 240 mls/hr IV NOW STA Stop: 02/16/25 16:22 Last Infusion: 02/16/25 16:47 Dose: Infused Documented By: Admin: 02/16/25 16:22 Dose: 240 mls/hr Documented By: TRUDY Magnesium Citrate (Magnesium Citrate 296 Ml/Btl) 148 ml PO TODAY@ ONE Stop: 02/16/25 16:01 Last Admin: 02/16/25 16:13 Dose: Not Given Documented By: TRUDY Nifedipine (Nifedipine Extended Rel 30 Mg Tabcr) 60 mg PO NOW STA Stop: 02/16/25 18:27 Last Admin: 02/16/25 18:47 Dose: 60 mg Documented By: TRUDY Patiromer (Patiromer Calcium Sorbitex 8.4 Gm Pack) 8.4 gm PO NOW STA Stop: 02/16/25 16:09 Last Admin: 02/16/25 16:28 Dose: 8.4 gm Documented By: TRUDY Imaging Data Radiologist's Impression: Abdomen/Pelvis CT 02/16/25 15:[address] WITHOUT CONTRAST CT DOSE: 1436.11 mGy.cm HISTORY: Constipation, history of diverticulitis TECHNIQUE: Multiaxial CT images of the abdomen and pelvis were performed without contrast. A dose lowering technique was utilized adhering to the principles of ALARA. COMPARISON STUDY: 12/14/2024 FINDINGS: Stable small bilateral pleural effusions, right greater than left. ABDOMEN: There are gallstones without evidence of acute cholecystitis. Gallbladder is contracted. Stable mild splenomegaly. Otherwise the liver, spleen, pancreas, and adrenal glands have an unremarkable non-IV contrast appearance. Stable mild to moderate atrophy of the kidneys. There is no hydronephrosis or renal calculi. There are scattered atherosclerotic calcifications. No abdominal aortic aneurysm. Pelvis: Prostate is mildly enlarged. Urinary bladder is decompressed. There is sigmoid diverticulosis. No acute diverticulitis. There is mild retained stool. No bowel inflammation or obstruction. Normal appendix. No free fluid, free air, or abscess. No enlarged adenopathy. Osseous structures: There is stable mild height loss at a few lumbar vertebral bodies. Stable diffuse spinal degenerative changes. IMPRESSION: 1. No acute findings seen. 2. Otherwise as described. ACT 112: Negative or not required by law. The above report was generated using voice recognition software. It may contain grammatical, syntax or spelling errors. Electronically signed by: Artie Mehta M.D. 02/16/2025 3:55 PM Discharge Plan Visit Data Chief Complaint: Constipation Stated Complaint: BLOCKAGE OF THE BOWELS, DIVERTICULITIS ED Provider: Randy Guzman Discharge Problem: Hyperkalemia Patient Disposition: Admitted As Inpatient Condition: Fair Forms Stand Alone Forms: My Expert TA Prescriptions Prescriptions: No Action Lantus Solostar U-100 Insulin 100 unit/mL (3 mL) insulin pen 1 unit subcut UD Rx Instructions: 12/12- usually 1 unit daily but if readings are perfect, he does none. INJECT BASELINE OF 1 UNIT AND ADD 1 UNIT FOR EVERY 10 POINTS OF BLOOD SUGAR READINGS, DO NOT EXCEED GREATER THAN 30 UNITS ONCE A DAY calcium acetate(phosphat bind) 667 mg Capsule 1,334 mg PO TIDM 30 Days Qty: 60 1RF Renal Caps 1 mg capsule 1 cap PO QAM Rx Instructions: RAN OUT albuterol sulfate [Ventolin HFA] 90 mcg/actuation HFA aerosol inhaler 2 puff INHALATION .Q4-6 PRN (Reason: sob) nifedipine 60 mg tablet extended release 60 mg PO QAM furosemide 80 mg tablet 80 mg PO QAM lisinopril 10 mg tablet 10 mg PO AMHS Referrals Referrals: Kamlesh Owens DO [Primary Care Provider] -
[2025-02-16 15:42] LABS: Basophils # (auto) 0.04 K/uL (0.00-0.20); Basophils % (auto) 0.8 %; Eosinophils # (auto) 0.12 K/uL (0.00-0.50); Eosinophils % (auto) 2.3 %; Hematocrit (blood only) 28.8 % (42.0-52.0); Hemoglobin 9.7 g/dl (14.0-18.0); Immature Granulocytes # (auto) 0.01 K/uL (0.01-0.20); Immature Granulocytes % (auto) 0.2 %; Lymphocytes # (auto) 0.76 K/uL (1.20-3.40); Lymphocytes % (auto) 14.6 %; Mean Corpuscular Hemoglobin 31.7 pg (25.0-34.0); Mean Corpuscular Hgb Conc 33.7 g/dL (32.0-36.0); Mean Corpuscular Volume 94.1 fL (80.0-100.0); Mean Platelet Volume 11.2 fL (9.4-12.4); Monocytes # (auto) 0.38 K/uL (0.11-0.59); Monocytes % (auto) 7.3 %; Neutrophils # (auto) 3.88 K/uL (1.40-6.50); Neutrophils % (auto) 74.8 %; Platelet Count 144 K/uL (130-400); RDW Coefficient of Variation 15.2 % (11.5-14.5); RDW Standard Deviation 52.2 fL (36.4-46.3); Red Blood Count 3.06 M/uL (4.70-6.10); White Blood Count 5.19 K/ul (4.8-10.8)
--- NOTE | 2025-02-16 15:58 | CT Scan Report ---
ABDOMEN AND PELVIS CT WITHOUT CONTRAST CT DOSE: 1436.11 mGy.cm HISTORY: Constipation, history of diverticulitis TECHNIQUE: Multiaxial CT images of the abdomen and pelvis were performed without contrast. A dose lo wering technique was utilized adhering to the principles of ALARA. COMPARISON STUDY: 12/14/2024 FINDINGS: Stable small bilateral pleural effusions, right greater than left. ABDOMEN: There are gallstones without evidence of acute cholecystitis. Gallbladder is contracted. Sta ble mild splenomegaly. Otherwise the liver, spleen, pancreas, and adrenal glands have an unremarkable non-IV contrast appearance. Stable mild to moderate atrophy of the kidneys. There is no hydronephros is or renal calculi. There are scattered atherosclerotic calcifications. No abdominal aortic aneurysm . Pelvis: Prostate is mildly enlarged. Urinary bladder is decompressed. There is sigmoid diverticulosis . No acute diverticulitis. There is mild retained stool. No bowel inflammation or obstruction. Normal appendix. No free fluid, free air, or abscess. No enlarged adenopathy. Osseous structures: There is stable mild height loss at a few lumbar vertebral bodies. Stable diffuse spinal degenerative changes. IMPRESSION: 1. No acute findings seen. 2. Otherwise as described. ACT 112: Negative or not required by law. The above report was generated using voice recognition software. It may contain grammatical, syntax o r spelling errors. Electronically signed by: Artie Mehta M.D. 02/16/2025 3:55 PM
[2025-02-16 16:03] LABS: Albumin Globulin Ratio 1.6 (0.9-2); Albumin Level 4.1 gm/dl (3.4-5.0); BUN Creatinine Ratio 6.4 (10-20); Bilirubin,Total 0.8 mg/dl (0.2-1.0); Calcium 8.4 mg/dl (8.6-10.3); Creatinine Clr Calc Pharmacy 9.5 ml/min; Globulin 2.6 gm/dl (2.5-4.0); Potassium 5.9 mmol/L (3.5-5.1); Total Protein 6.7 gm/dl (6.0-8.3)
[2025-02-16] MEDS: SODIUM CHLORIDE 0.9% 1,000 ML IV STA (16:05)
[2025-02-16] MEDS: SODIUM CHLORIDE 0.9% 250 ML IV ONE (16:05)
[2025-02-16] MEDS: MAGNESIUM CITRATE 296 ML/BTL PO ONE (16:13)
[2025-02-16] MEDS: CALCIUM GLUCONATE 1,000 MG/60 ML BAG IV STA (16:22)
[2025-02-16] MEDS: PATIROMER CALCIUM SORBITEX 8.4 GM PACK PO STA (16:28)
[2025-02-16 18:22] LABS: Appearance Urine Clear (Clear); Bacteria Urine Automated None Seen (None Seen); Bilirubin Urine Negative (Negative); Blood Urine Trace (Negative); Cast Urine Automated 0-2 /lpf (0-2); Color Urine Yellow; Epithelial Cell Urine Auto 0-2 /hpf (0-2); Glucose Urine UA 1+ (Negative); Ketones Urine Negative (Negative); Leukocyte Esterase Urine Negative (Negative); Nitrite Urine Negative (Negative); Protein Urine 2+ (Negative); RBC Urine Automated 0-2 /hpf (0-2); Urobilinogen Urine Negative (Negative); WBC Urine Automated 0-5 /hpf (0-5); pH Urine 8.5 (4.5-7.5)
--- NOTE | 2025-02-16 18:28 | History & Physical Report ---
Date of Service February 16, 2025 Assessment & Plan (1) Diarrhea: (2) Hyperkalemia: (3) End stage chronic kidney disease: (4) Anemia: (5) Diabetes mellitus: (6) Hypertension: (7) Asthma: (8) Dyslipidemia: Plan 60yo male with ESRD on HD Fri/Fri/Friday (dialyzes in [place]), T2DM, HTN, prior VTE, asthma, history of CVA x 2 (10/2012 and 11/2014), and chronic tobacco dependence who presents from home with frequent loose stools, weakness/fatigue, and abdominal bloating. He states that his symptoms started about 2 weeks after his hospitalization in November when he had CT-confirmed sigmoid diverticulitis. He took a course of oral cipro/flagyl after discharge per records. #diarrhea - -present for several weeks starting in early December -no weight loss, no vomiting, able to eat/drink despite the symptoms -CT a/p today without constipation/impaction -start with cdiff testing & stool BioFire -if infectious w/u is negative consider pancreatic insufficiency, microscopic colitis, etc. -if infectious w/u is negative consider formal GI consultation -would not give anything for diarrhea until infectious etiologies are ruled out -pt reports they have well water but they use bottle water for drinking purposes; defer on O & P testing -fortunately no evidence of diverticulitis on CT imaging today #hyperkalemia - -missing HD session today, volume contraction from diarrhea, MIRIAM inhibitor use, etc likely all to blame -s/p patiromer in the ER -recheck K level tonight, repeat patiromer dose as needed -then BMP am -low K diet -hold lasix -hold lisinopril #ESRD on HD Fri/Fri/Friday - -well-functioning LUE AVF in place -missed his HD session today due to severe diarrhea & GI symptoms -consult placed to [facility] for HD needs; ER attending spoke directly to Dr Agrawal earlier today; they plan HD tomorrow am -treat high K -cont phosphate binders -cont nephrocaps -treat HTN #poorly-controlled HTN - -typically only on lasix & lisinopril at home along with nifedipine xr 60mg daily -review of record shows BPs tend to be high most checks -add coreg low-dose 3.125mg BID, first dose now -cont nifedipine xr -holding lasix/lisinopril due to high K, volume contraction, etc. -follow response to coreg #h/o T2DM - -check a1c in am -loose novolog SSI #chronic dyspnea - -no formal dx of COPD but his record mentions asthma and he does have albuterol for prn use at home -no prior cigarette smoking although has had 2nd-hand exposure and he himself uses chew -he has crackles on exam - uncertain if due to pulm edema from missing HD session today vs chronic lung disease vs other -CT chest 10/2024 showed b/l basilar infiltrates & air bronchograms -consider non-urgent pulmonary referral after discharge for work-up, PFTs, etc. -can't exclude undiagnosed CAD causing dyspnea (has multiple risk factors for CAD) #mildly prolonged QTc - -not on any offending agents (psychotropic meds, etc) -k/mag not low -calcium minimally depressed - doubt this is the cause -place on tele while here #h/o VTE / DVT prophylaxis - -heparin 5000 BID #h/o prior CVA x 2 - -uncertain why he is not on antiplatelet agent for secondary prevention -uncertain why he is not on statin therapy -no head imaging in the chart #chronic tobacco use - -counseling aide to quit -can offer nicoderm patch, if desired place on observation status for now pt's updated at bedside during the admissions process History of Present Illness Chief Complaint: frequent loose stools, weakness, fatigue Primary Care Provider: Kamlesh Owens DO 60yo male with ESRD on HD Fri/Fri/Friday (dialyzes in [place]), T2DM, HTN, prior VTE, asthma, history of CVA x 2 (10/2012 and 11/2014),and chronic tobacco dependence who presents from home with frequent loose stools, weakness/fatigue, and abdominal bloating. He states that his symptoms started about 2 weeks after his hospitalization in November when he had CT-confirmed sigmoid diverticulitis. He took a course of oral cipro/flagyl after discharge per records. Normally he has severe constipation with passage for firm/hard balls of stool. Then, in the last few weeks, he developed "soup-like" stools. He would have about 1-2 loose stools per day but then the frequent was much worse today. He passed several loose stools this am. He was afraid of having a stool accident while at dialysis and simply felt unwell & thus did not attend his normal HD session this am. Denies any fevers/chills. Has had good appetite despite the loose stool. His last colonoscopy was between 5-10 years ago at [facility] in [place]. Had 2 polyps removed to his recollection. Reports well-controlled BSGs at home recently with BSG of about 105 earlier today. Denies any prior history of pancreatitis. Denies recent travel. no sick contacts. Allergies Allergy/AdvReac Type Severity Reaction Status Date / Time cephalexin AdvReac Verified 10/26/24 18:10 hydralazine AdvReac Verified 10/26/24 18:10 sulfamethoxazole AdvReac Verified 10/26/24 18:10 [From Bactrim] trimethoprim [From Bactrim] AdvReac Verified 10/26/24 18:10 Home Medications Medication Instructions Recorded Confirmed Type insulin glargine 100 unit/mL (3 1 unit subcut UD 11/02/21 02/16/25 History mL) subcutaneous pen (Lantus Solostar U-100 Insulin) calcium acetate(phosphat bind) 667 1,334 mg (2 x 667 mg) PO TIDM 30 09/24/24 02/16/25 Rx mg capsule days #60 caps vitamin B complex and vitamin C 1 cap PO QAM 10/26/24 02/16/25 History no.20-folic acid 1 mg capsule (Renal Caps) albuterol sulfate 90 mcg/actuation 2 puff inhalation .Q4-6 PRN sob 12/12/24 02/16/25 History aerosol inhaler (Ventolin HFA) furosemide 80 mg tablet 80 mg PO QAM 02/16/25 02/16/25 History lisinopril 10 mg tablet 10 mg PO AMHS 02/16/25 02/16/25 History nifedipine 60 mg tablet,extended 60 mg PO QAM 02/16/25 02/16/25 History release Past Med/Surg History Problem List (Updated 02/16/25 @ 19:44 by Randy Guzman DO) Hyperkalemia (Acute) Diarrhea Medical History (Updated 02/16/25 @ 19:44 by Randy Guzman DO) Diverticulitis sigmoid - 11/2024 End stage chronic kidney disease Anemia Secondary hyperparathyroidism History of CVA (cerebrovascular accident) Diabetes mellitus Hypertension History of deep venous thrombosis or pulmonary embolus Asthma Dyslipidemia Hypertriglyceridemia Surgical History (Updated 02/16/25 @ 18:49 by Joel Campos MD) S/P arteriovenous (AV) fistula creation LUE Family History (Updated 02/16/25 @ 18:49 by Joel Campos MD) Father Cancer Prostate Kidney disease Late in life while suffering from advanced metastatic prostate cancer and alcoholism Heart disease Denies family history of Colorectal cancer Social History (Updated 02/16/25 @ 18:50 by Joel Campos MD) Smoking Status: Never smoker Tobacco Type: Smokeless Tobacco (Dip or Chew) Second Hand Exposure: Yes; Do You Dip or Chew Tobacco: No ("quit"); Hx Alcohol Use: Yes Hx Substance Use: No Preferred Language: Ukrainian Communication Ability: Effective 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: No Beliefs That Will Affect Care: None marital status: Current Living Situation: Significant Other current occupational status: disabled How many Children do You have: 2 Other Information That Helps Us Care for You: No Feels Safe at Home: Yes Assistive Devices: Glasses Review of Systems Review of Systems: gen - no fevers or chills but "always feels cold"; no change in appetite - remains very good eyes - no visual field deficits HENT - occasional runny nose; no ear pain; no sore throat CV - no chest pain, no edema pulm - chronic mild dyspnea on exertion, some cough; no significant sputum GI - abdominal bloating, diarrhea; no blood per rectum; previously was constipated up until late November, then "runny/soup-like" since early December; no vomiting - still makes urine; no dysuria musculo - denies joint swelling vascular - no issues with LUE AV fistula skin - no rash psych - admits to depression; no suicidal ideation; declines psych consult endo - diabetes under excellent control with BSGs <150 neuro - no headache Physical Exam Physical Exam: gen - lying comfortably in bed, NAD, nontoxic eyes - PERRL HENT - no oral lesions, MMM, nose clear neck - no JVD, no goiter, no lymph nodes heart - RRR, s1 s2, 2/6 ERNESTINE LSB lungs - mild rales b/l bases, faint end-exp wheeze b/l, no increased work of breathing abd - soft, NT, ND, BS+, no HSM; rectal deferred ext - no peripheral edema, pulses b/l feet 2+ psych - a/o x 3, mildly restricted affect neuro - strength 5/5 x 4 exts; DTRs 2+ b/l upper & lower exts vascular - LUE AVF - excellent bruit, excellent thrill skin - no generalized rash Results & Data Results & Data Vital Signs (Past 12 Hours) Vital Signs Temp Pulse Pulse Resp BP BP Pulse Ox 02/16/25 16:45 88 02/16/25 16:30 170/103 H 02/16/25 16:30 170/103 H 02/16/25 16:30 170/103 H 02/16/25 16:30 84 02/16/25 16:22 173/100 H 02/16/25 16:21 173/100 H 02/16/25 16:21 173/100 H 02/16/25 16:21 92 H 02/16/25 16:21 88 02/16/25 16:21 98 02/16/25 16:21 98 02/16/25 16:21 92 H 16 98 02/16/25 15:08 36.5 C 93 H 18 177/95 H 97 O2 Del Method 02/16/25 16:45 02/16/25 16:30 02/16/25 16:30 02/16/25 16:30 02/16/25 16:30 02/16/25 16:22 02/16/25 16:21 02/16/25 16:21 02/16/25 16:21 02/16/25 16:21 02/16/25 16:21 Room Air 02/16/25 16:21 Room Air 02/16/25 16:21 Room Air 02/16/25 15:08 Room Air Laboratory Results Laboratory Results - last 24 hr 02/16/25 02/16/25 15:28 17:59 WBC 5.19 RBC 3.06 L Hgb 9.7 L Hct 28.8 L MCV 94.1 MCH 31.7 MCHC 33.7 RDW Std Deviation 52.2 H RDW Coeff of Chelsey 15.2 H Plt Count 144 MPV 11.2 Immature Gran % (Auto) 0.2 Neut % (Auto) 74.8 Lymph % (Auto) 14.6 [place] % (Auto) 7.3 Eos % (Auto) 2.3 Baso % (Auto) 0.8 Neut # (Auto) 3.88 Lymph # (Auto) 0.76 L [place] # (Auto) 0.38 Eos # (Auto) 0.12 Baso # (Auto) 0.04 Immature Gran # (Auto) 0.01 Sodium 136 Potassium 5.9 H Chloride 99 Carbon Dioxide 22 Anion Gap 15 H BUN 62 H Creatinine 9.65 H* Est Cr Clr Drug Dosing 9.5 eGFR 5.64 BUN/Creatinine Ratio 6.4 L Glucose 195 H Calcium 8.4 L Magnesium Pending Total Bilirubin 0.8 AST 11 L ALT 8 Alkaline Phosphatase 62 Total Protein 6.7 Albumin 4.1 Globulin 2.6 Albumin/Globulin Ratio 1.6 Lipase 38 Urine Color Yellow Urine Appearance Clear Urine pH 8.5 H Ur Specific [place] 1.010 Urine Protein 2+ H Urine Glucose (UA) 1+ H Urine Ketones Negative Urine Blood Trace H Urine Nitrite Negative Urine Bilirubin Negative Urine Urobilinogen Negative Ur Leukocyte Esterase Negative Urine WBC (Auto) 0-5 Urine RBC (Auto) 0-2 U Hyaline Cast (Auto) 0-2 U Epithel Cells (Auto) 0-2 Urine Bacteria (Auto) None Seen Urine Comment Diagnostic Findings Abdomen/Pelvis CT 02/16/25 15:[address] WITHOUT CONTRAST CT DOSE: 1436.11 mGy.cm HISTORY: Constipation, history of diverticulitis TECHNIQUE: Multiaxial CT images of the abdomen and pelvis were performed without contrast. A dose lowering technique was utilized adhering to the principles of ALARA. COMPARISON STUDY: 12/14/2024 FINDINGS: Stable small bilateral pleural effusions, right greater than left. ABDOMEN: There are gallstones without evidence of acute cholecystitis. Gallbladder is contracted. Stable mild splenomegaly. Otherwise the liver, spleen, pancreas, and adrenal glands have an unremarkable non-IV contrast appearance. Stable mild to moderate atrophy of the kidneys. There is no hydronephrosis or renal calculi. There are scattered atherosclerotic calcifications. No abdominal aortic aneurysm. Pelvis: Prostate is mildly enlarged. Urinary bladder is decompressed. There is sigmoid diverticulosis. No acute diverticulitis. There is mild retained stool. No bowel inflammation or obstruction. Normal appendix. No free fluid, free air, or abscess. No enlarged adenopathy. Osseous structures: There is stable mild height loss at a few lumbar vertebral bodies. Stable diffuse spinal degenerative changes. IMPRESSION: 1. No acute findings seen. 2. Otherwise as described. ACT 112: Negative or not required by law. The above report was generated using voice recognition software. It may contain grammatical, syntax or spelling errors. Electronically signed by: Artie Mehta M.D. 02/16/2025 3:55 PM EKG - my reading - NSR, no ST changes; mildly prolonged QTc, about 500msec Code Status & VTE Plan Code Status DNR/DNI PG Care Time/CCT Total # of Minutes Spent Total Time Spent with Patient: Total time spent is greater than 50% in coordination of care (as documented) at patient's floor/unit and/or counseling patient: Coding Level of Care Code 08440 INT INP/OBS CARE 375MIN Diagnoses Diarrhea R19.7 Hyperkalemia E87.5 End stage chronic kidney disease N18.6 Anemia D64.9 Anemia type: unspecified type Diabetes mellitus E11.9 Hypertension I10 Asthma J45.909 Dyslipidemia E78.5 (4) Anemia Anemia type: unspecified type Qualified Code(s): D64.9 - Anemia, unspecified
[2025-02-16] MEDS: NIFEdipine EXTENDED REL 30 MG TABCR PO STA (18:47)
[2025-02-16 18:54] LABS: Magnesium 2.2 mg/dl (1.7-2.4)
[2025-02-16] MEDS ORDERED: MELATONIN 3 MG TAB PO PRN (20:10)
[2025-02-16] MEDS ORDERED: ONDANSETRON INJ 2 MG/ML 2 ML VIAL IV PRN (20:10)
[2025-02-16] MEDS ORDERED: ACETAMINOPHEN 325 MG TAB PO PRN (20:10)
[2025-02-16] MEDS ORDERED: NITROGLYCERIN SL 0.4 MG/TAB TAB SL PRN (20:10)
[2025-02-16] MEDS: INSULIN ASPART PER UNIT CHARGE SC SCH (20:50)
[2025-02-16] MEDS: carvediloL 3.125 MG TAB PO ONE (21:22)
[2025-02-16 23:16] LABS: C. diff 027-NAP1-BI NEGATIVE
[2025-02-16] MEDS: ALBUTEROL HFA 8 GM INHALER INH PRN (23:37)
[2025-02-17 00:41] LABS: Cdiff Antigen Positive; Cdiff Toxin A+B Negative Cdiff Toxin (Negative); Cdiff Toxin B Gene (2yr or >) Positive Cdiff Gene (Neg)
--- NOTE | 2025-02-17 01:43 | XRay Report ---
Exam(s): XR CXR 2 VIEWS EXAM: XR Chest, 2 Views CLINICAL HISTORY: Reason for exam: cough, wheezing, crackles. TECHNIQUE: Frontal and lateral views of the chest. COMPARISON: 12/12/2024 FINDINGS: Lungs: Prominent vascular and interstitial markings centrally in both lungs suggesting mild pulmonary edema versus interstitial pneumonitis. Pleural space: Unremarkable. No pneumothorax. Heart: The cardiac silhouette is mildly enlarged. Mediastinum: Unremarkable. Normal mediastinal contour. Bones/joints: Mild osteophytosis of the lower thoracic spine. No acute fracture. Tubes, lines and devices: The previously seen dialysis catheter has been removed. Upper abdomen: Unremarkable as visualized. No pneumoperitoneum under the diaphragm. IMPRESSION: 1. The cardiac silhouette is mildly enlarged. 2. Prominent vascular and interstitial markings centrally in both lungs suggesting mild pulmonary edema versus interstitial pneumonitis. This is increased since previous. Electronically signed by: Abilio Romano MD 02/17/25 01:42 AM
[2025-02-17 02:39] LABS: Adenovirus F 40/41 PCR Not Detected (NotDetected); Astrovirus PCR Not Detected (NotDetected); Cryptosporidium PCR Not Detected (NotDetected); Cyclospora cayetanensis PCR Not Detected (NotDetected); Entamoeba histolytica PCR Not Detected (NotDetected); Enteroaggregative E.coli(EAEC) Not Detected (NotDetected); Enteropathogenic E.coli (EPEC) Not Detected (NotDetected); Enterotoxigenic E.coli (ETEC) Not Detected (NotDetected); Giardia lamblia PCR Not Detected (NotDetected); Plesiomonas shigelloides PCR Not Detected (NotDetected); Rotavirus A PCR Not Detected (NotDetected); Salmonella PCR Not Detected (NotDetected); Sapovirus PCR Not Detected (NotDetected); Shiga-like Toxin E.coli (STEC) Not Detected (NotDetected); Shigella/Enteroinvasive E.coli Not Detected (NotDetected); Vibrio cholerae PCR Not Detected (NotDetected); Vibrio species PCR Not Detected (NotDetected); Yersinia enterocolitica PCR Not Detected (NotDetected)
[2025-02-17 02:50] LABS: Campylobacter PCR DETECTED (NotDetected)
[2025-02-17 02:51] LABS: Norovirus GI/GII PCR DETECTED (NotDetected)
[2025-02-17] MEDS: PATIROMER CALCIUM SORBITEX 8.4 GM PACK PO ONE (05:19)
[2025-02-17 06:41] LABS: BUN Creatinine Ratio 6.8 (10-20); Calcium 8.5 mg/dl (8.6-10.3); Creatinine Clr Calc Pharmacy 8.9 ml/min; Potassium 5.7 mmol/L (3.5-5.1)
[2025-02-17 06:52] LABS: Thyroid Stimulating Hormone 5.709 uIu/ml (0.300-4.500)
[2025-02-17 07:31] LABS: T4 Free Thyroxine 0.72 ng/dl (0.61-1.60)
[2025-02-17 08:05] LABS: Estimated Average Glucose 100 mg/dl; Hemoglobin A1C 5.1 % (4.5-5.6)
[2025-02-17] MEDS: CALCIUM ACETATE 667 MG CAP/TAB PO SCH (08:06)
[2025-02-17] MEDS: carvediloL 3.125 MG TAB PO SCH (08:07)
[2025-02-17] MEDS: AZITHROMYCIN 250 MG TAB PO SCH (08:08)
[2025-02-17] MEDS: NEPHROCAPS PO SCH (08:09)
[2025-02-17] MEDS: NIFEdipine EXTENDED REL 30 MG TABCR PO SCH (08:09)
--- NOTE | 2025-02-17 08:57 | Nephrology Consultation ---
Date of Consultation February 17, 2025 Assessment & Plan (1) End stage chronic kidney disease: * Will provide HD today according to outpatient orders. HD RN property utilization officer notified * Outpatient HD orders: MWF 3.5hr 2K 2Ca FX CorAL-80 EDW 89.5 kg 15g needles * Hemodialysis diet * Nephrocaps daily * Protect L arm AVF * Monitor daily BMP, CBC (2) Diarrhea: * Tested + norovirus and Campylobacter. Negative for C. Difficile toxin * Contact isolation, supportive care History of Present Illness Reason for Consultation: ESKD-D Attending Physician: Coy Rhodes MD History of Present Illness Mr. Ballesteros is a 60-year-old white male who is seen at the request of the [facility] hospitalist service to provide inpatient hemodialysis and assist with medical management. Information for the HPI is obtained from direct patient interview and review of the EMR. HPI summarized as follows: Mr. Ballesteros has ESKD due to DKD, HTN. His first treatment was 09/17/2024. Mr. Ballesteros currently has a right IJ TCC in place. He underwent L BC AVF creation 11/[address] Milner. Mr. Ballesteros dialyzes at [facility] under the care of Dr. Hirsch (MWF 3.5hr 2K 2Ca FX CorAL- 80 EDW 89.5 kg 15g needles). His medical history is significant for AODM, DVT w/ PE, CVA x2, hyperlipidemia, asthma. Mr. Ballesteros presented to the [facility] EMD last evening with complaints of weakness and abdominal bloating. His symptoms started ~ 2 weeks ago when he was hospitalized w/ diverticulitis. He did complete a full course of Cipro/Flagyl therapy. He did not attend his dialysis treatment yesterday due to abdominal discomfort. EMD labs revealed K 5.9, CO2 22, BUN 62, Cr 9.65, glucose 195. ECG w/ NSR. No peaked T-waves or QRS prolongation. Case discussed w/ EMD physician. Medical management of hyperkalemia and admission to hospitalist service advised. Inpatient HD to be arranged for 02/17/25. Allergies Allergy/AdvReac Type Severity Reaction Status Date / Time cephalexin AdvReac Verified 10/26/24 18:10 hydralazine AdvReac Verified 10/26/24 18:10 sulfamethoxazole AdvReac Verified 10/26/24 18:10 [From Bactrim] trimethoprim [From Bactrim] AdvReac Verified 10/26/24 18:10 Home Medications Medication Instructions Recorded Confirmed Type insulin glargine 100 unit/mL (3 1 unit subcut UD 11/02/21 02/16/25 History mL) subcutaneous pen (Lantus Solostar U-100 Insulin) calcium acetate(phosphat bind) 667 1,334 mg (2 x 667 mg) PO TIDM 30 09/24/24 02/16/25 Rx mg capsule days #60 caps vitamin B complex and vitamin C 1 cap PO QAM 10/26/24 02/16/25 History no.20-folic acid 1 mg capsule (Renal Caps) albuterol sulfate 90 mcg/actuation 2 puff inhalation .Q4-6 PRN sob 12/12/24 02/16/25 History aerosol inhaler (Ventolin HFA) furosemide 80 mg tablet 80 mg PO QAM 02/16/25 02/16/25 History lisinopril 10 mg tablet 10 mg PO AMHS 02/16/25 02/16/25 History nifedipine 60 mg tablet,extended 60 mg PO QAM 02/16/25 02/16/25 History release Patient History Medical History (Updated 02/16/25 @ 19:44 by Randy Guzman DO) Diverticulitis sigmoid - 11/2024 End stage chronic kidney disease Anemia Secondary hyperparathyroidism History of CVA (cerebrovascular accident) Diabetes mellitus Hypertension History of deep venous thrombosis or pulmonary embolus Asthma Dyslipidemia Hypertriglyceridemia Surgical History (Updated 02/16/25 @ 18:49 by Joel Campos MD) S/P arteriovenous (AV) fistula creation LUE Family History (Updated 02/16/25 @ 18:49 by Joel Campos MD) Father Cancer Prostate Kidney disease Late in life while suffering from advanced metastatic prostate cancer and alcoholism Heart disease Denies family history of Colorectal cancer Social History (Updated 02/16/25 @ 18:50 by Joel Campos MD) Smoking Status: Never smoker Tobacco Type: Smokeless Tobacco (Dip or Chew) Second Hand Exposure: Yes; Do You Dip or Chew Tobacco: No ("quit"); Hx Alcohol Use: Yes Hx Substance Use: No Preferred Language: Jordanian Communication Ability: Effective Slasher Runner Required: No Beliefs That Will Affect Care: None marital status: Current Living Situation: Significant Other current occupational status: disabled How many Children do You have: 2 Other Information That Helps Us Care for You: No Feels Safe at Home: Yes Assistive Devices: Glasses Review of Systems Constitutional: no fever Eyes: no problem reported Ear, Nose, Mouth, Throat: no problem reported Respiratory: no cough and no dyspnea Cardiovascular: no chest pain Gastrointestinal: constipation alternating with diarrhea Integumentary: no rash Neurologic: no problem reported Physical Exam Constitutional: not in distress Eyes: PERRL, conjunctivae normal, anicteric sclerae ENMT: external ear and nose normal, oropharynx normal Neck: trachea midline, no thyromegaly Respiratory: normal respiratory effort, lungs clear to auscultation Cardiovascular: RRR, no murmur, no edema L arm BC AVF + bruit Gastrointestinal (Abdomen): normal bowel sounds, soft, nontender, no hepatosplenomegaly Musculoskeletal: Extremities: no cyanosis and no clubbing Skin: no rashes, warm and dry Neurologic: awake; not confused Results & Data Vital Signs (Past 12 Hours) Vital Signs Temp Pulse Pulse Resp BP Pulse Ox O2 Del Method 02/17/25 08:24 Room Air 02/17/25 08:17 97 Room Air 02/17/25 07:47 36.5 C 84 19 140/76 93 Nasal Cannula 02/17/25 07:37 86 02/17/25 03:12 36.7 C 87 19 154/89 H 92 Nasal Cannula 02/16/25 23:37 90 16 94 Room Air 02/16/25 23:14 37.2 C 97 H 18 174/104 H 90 Room Air 02/16/25 21:37 Room Air O2 Flow Rate 02/17/25 08:24 02/17/25 08:17 02/17/25 07:47 2.0 02/17/25 07:37 02/17/25 03:12 2 02/16/25 23:37 02/16/25 23:14 02/16/25 21:37 Diagnostic Findings Laboratory Results WBC 5.19 K/ul (4.8-10.8) 02/16/25 15:28 RBC 3.06 M/uL (4.70-6.10) L 02/16/25 15:28 Hgb 9.7 g/dl (14.0-18.0) L 02/16/25 15: Hct 28.8 % (42.0-52.0) L 02/16/25: MCV 94.1 fL (80.0-100.0) 02/16/25: MCH 31.7 pg (25.0-34.0) 02/16/25: MCHC 33.7 g/dL (32.0-36.0) 02/16/25: RDW Std Deviation 52.2 fL (36.4-46.3) H 02/16/25: RDW Coeff of Chelsey 15.2 % (11.5-14.5) H 02/16/25 Plt Count 144 K/uL (130-400) 02/16/25 MPV 11.2 fL (9.4-12.4) 02/16/25: Immature Gran % (Auto) 0.2 % 02/16/25: Neut % (Auto) 74.8 % 02/16/25: Lymph % (Auto) 14.6 % 02/16/25: Edwards % (Auto) 7.3 % 02/16/25 15: Eos % (Auto) 2.3 % 02/16/25: Baso % (Auto) 0.8 % 02/16/25: Neut # (Auto) 3.88 K/uL (1.40-6.50) 02/16/25: Lymph # (Auto) 0.76 K/uL (1.20-3.40) L 02/16/25: Edwards # (Auto) 0.38 K/uL (0.11-0.59) 02/16/25: Eos # (Auto) 0.12 K/uL (0.00-0.50) 02/16/25: Baso # (Auto) 0.04 K/uL (0.00-0.20) 02/16/25: Immature Gran # (Auto) 0.01 K/uL (0.01-0.20) 02/16/25: Sodium 135 mmol/L (136-145) L 02/17/25 05:54 Potassium 5.7 mmol/L (3.5-5.1) H 02/17/25 05:54 Chloride 99 mmol/L (98-107) 02/17/25 05:54 Carbon Dioxide 19 mmol/L (21-32) L 02/17/25 05:54 Anion Gap 17 (3-11) H 02/17/25 05:54 BUN 72 mg/dl (6-23) H 02/17/25 05:54 Creatinine 10.54 mg/dl (0.6-1.4) H* D 02/17/25 05:54 Est Cr Clr Drug Dosing 8.9 ml/min 02/17/25 05:54 eGFR 5.07 02/17/25 05:54 BUN/Creatinine Ratio 6.8 (10-20) L 02/17/25 05:54 Glucose 121 mg/dl (70-99(Fasting)) H 02/17/25 05:54 POC Glucose 117 mg/dl (70-99) H 02/17/25 07:47 Estimat Average Glucose 100 mg/dl 02/17/25 05:54 Hemoglobin A1c 5.1 % (4.5-5.6) 02/17/25 05:54 Calcium 8.5 mg/dl (8.6-10.3) L 02/17/25 05:54 Magnesium 2.2 mg/dl (1.7-2.4) 02/16/25 15:28 Total Bilirubin 0.8 mg/dl (0.2-1.0) 02/16/25 15:28 AST 11 U/L (13-39) L 02/16/25 15:28 ALT 8 U/L (7-52) 02/16/25 15:28 Alkaline Phosphatase 62 U/L (34-104) 02/16/25 15:28 Total Protein 6.7 gm/dl (6.0-8.3) 02/16/25 15:28 Albumin 4.1 gm/dl (3.4-5.0) 02/16/25 15:28 Globulin 2.6 gm/dl (2.5-4.0) 02/16/25 15:28 Albumin/Globulin Ratio 1.6 (0.9-2) 02/16/25 15:28 Lipase 38 U/L (11-82) 02/16/25 15:28 TSH 5.709 uIu/ml (0.300-4.500) H 02/17/25 05:54 Free T4 0.72 ng/dl (0.61-1.60) 02/17/25 05:54 Urine Color Yellow 02/16/25 17:59 Urine Appearance Clear (Clear) 02/16/25 17:59 Urine pH 8.5 (4.5-7.5) H 02/16/25 17:59 Ur Specific [place] 1.010 (1.000-1.030) 02/16/25 17:59 Urine Protein 2+ (Negative) H 02/16/25 17:59 Urine Glucose (UA) 1+ (Negative) H 02/16/25 17:59 Urine Ketones Negative (Negative) 02/16/25 17:59 Urine Blood Trace (Negative) H 02/16/25 17:59 Urine Nitrite Negative (Negative) 02/16/25 17:59 Urine Bilirubin Negative (Negative) 02/16/25 17:59 Urine Urobilinogen Negative (Negative) 02/16/25 17:59 Ur Leukocyte Esterase Negative (Negative) 02/16/25 17:59 Urine WBC (Auto) 0-5 /hpf (0-5) 02/16/25 17:59 Urine RBC (Auto) 0-2 /hpf (0-2) 02/16/25 17:59 U Hyaline Cast (Auto) 0-2 /lpf (0-2) 02/16/25 17:59 U Epithel Cells (Auto) 0-2 /hpf (0-2) 02/16/25 17:59 Urine Bacteria (Auto) None Seen (None Seen) 02/16/25 17:59 Urine Comment 02/16/25 17:59 Nasal Screen MRSA (PCR) Negative (Negative) 02/16/25 23:17 Stl C. cayetanensis PCR Not Detected (NotDetected) 02/16/25 22:06 Stool Rotavirus A PCR Not Detected (NotDetected) 02/16/25 22:06 Stl Adenov F 40/41 PCR Not Detected (NotDetected) 02/16/25 22:06 Stool Astrovirus (PCR) Not Detected (NotDetected) 02/16/25 22:06 Stool Campylobacter PCR DETECTED (NotDetected) A* 02/16/25 22:06 Stl C. diff Tox B Gene Positive Cdiff Gene (Neg) A 02/16/25 22:06 Stl C.difficile Tox A&B Negative Cdiff Toxin (Negative) 02/16/25 22:06 Stl C. diff [id number] NEGATIVE 02/16/25 22:06 Stool Cryptosporidium PCR Not Detected (NotDetected) 02/16/25 22:06 Stl E.coli Shiga Tox PCR Not Detected (NotDetected) 02/16/25 22:06 Stl Enterotoxigenic E PCR Not Detected (NotDetected) 02/16/25 22:06 Stool EPEC (PCR) Not Detected (NotDetected) 02/16/25 22:06 Stool EAEC (PCR) Not Detected (NotDetected) 02/16/25 22:06 Stl E. histolytica PCR Not Detected (NotDetected) 02/16/25 22:06 Stool Giardia Lamblia PCR Not Detected (NotDetected) 02/16/25 22:06 Stool Salmonella PCR Not Detected (NotDetected) 02/16/25 22:06 Stool Sapovirus (PCR) Not Detected (NotDetected) 02/16/25 22:06 Stl P. shigelloides PCR Not Detected (NotDetected) 02/16/25 22:06 Stl Shigella/EIEC PCR Not Detected (NotDetected) 02/16/25 22:06 St Y.enterocolitica PCR Not Detected (NotDetected) 02/16/25 22:06 Stool Vibrio (PCR) Not Detected (NotDetected) 02/16/25 22:06 Stl Vibrio cholerae PCR Not Detected (NotDetected) 02/16/25 22:06 Stl Norovirus GI/GII PCR DETECTED (NotDetected) A* 02/16/25 22:06 Impressions Abdomen/Pelvis CT 02/16/25 15:[address] WITHOUT CONTRAST CT DOSE: 1436.11 mGy.cm HISTORY: Constipation, history of diverticulitis TECHNIQUE: Multiaxial CT images of the abdomen and pelvis were performed without contrast. A dose lowering technique was utilized adhering to the principles of ALARA. COMPARISON STUDY: 12/14/2024 FINDINGS: Stable small bilateral pleural effusions, right greater than left. ABDOMEN: There are gallstones without evidence of acute cholecystitis. Gallbladder is contracted. Stable mild splenomegaly. Otherwise the liver, spleen, pancreas, and adrenal glands have an unremarkable non-IV contrast appearance. Stable mild to moderate atrophy of the kidneys. There is no hydronephrosis or renal calculi. There are scattered atherosclerotic calcifications. No abdominal aortic aneurysm. Pelvis: Prostate is mildly enlarged. Urinary bladder is decompressed. There is sigmoid diverticulosis. No acute diverticulitis. There is mild retained stool. No bowel inflammation or obstruction. Normal appendix. No free fluid, free air, or abscess. No enlarged adenopathy. Osseous structures: There is stable mild height loss at a few lumbar vertebral bodies. Stable diffuse spinal degenerative changes. IMPRESSION: 1. No acute findings seen. 2. Otherwise as described. ACT 112: Negative or not required by law. The above report was generated using voice recognition software. It may contain grammatical, syntax or spelling errors. Electronically signed by: Artie Mehta M.D. 02/16/2025 3:55 PM Chest X-Ray 02/16/25 22:53 Exam(s): XR CXR 2 VIEWS EXAM: XR Chest, 2 Views CLINICAL HISTORY: Reason for exam: cough, wheezing, crackles. TECHNIQUE: Frontal and lateral views of the chest. COMPARISON: 12/12/2024 FINDINGS: Lungs: Prominent vascular and interstitial markings centrally in both lungs suggesting mild pulmonary edema versus interstitial pneumonitis. Pleural space: Unremarkable. No pneumothorax. Heart: The cardiac silhouette is mildly enlarged. Mediastinum: Unremarkable. Normal mediastinal contour. Bones/joints: Mild osteophytosis of the lower thoracic spine. No acute fracture. Tubes, lines and devices: The previously seen dialysis catheter has been removed. Upper abdomen: Unremarkable as visualized. No pneumoperitoneum under the diaphragm. IMPRESSION: 1. The cardiac silhouette is mildly enlarged. 2. Prominent vascular and interstitial markings centrally in both lungs suggesting mild pulmonary edema versus interstitial pneumonitis. This is increased since previous. Electronically signed by: Abilio Romano MD 02/17/25 01:42 AM PG Care Time/CCT Total # of Minutes Spent Total Time Spent with Patient: Total time spent is greater than 50% in coordination of care (as documented) at patient's floor/unit and/or counseling patient: Coding Level of Care Code 11345 IN/OBS CONSULT LVL 5,80M Diagnoses End stage chronic kidney disease N18.6 Diarrhea R19.7
[2025-02-17] MEDS: HEPARIN SOD 5,000 UNIT/0.5 ML VIAL SQ SCH (09:00)
[2025-02-17] MEDS ORDERED: SODIUM CHLORIDE 0.9% 1,000 ML IV PRN (09:10)
[2025-02-17] MEDS: HEPARIN SOD (PORCINE) 1000 UNIT/ML IV ONE (10:27)
--- NOTE | 2025-02-17 10:44 | Dialysis Progress Note ---
Date of Service February 17, 2025 Assessment & Plan (1) End stage chronic kidney disease: Plan: * Stable on HD. AVF functioning well. No change to current prescription. (2) Diarrhea: Admission and Anticipated Discharge Date Admission Date: February 16, 2025 Subjective Mr. Ballesteros was seen during HD. He was resting comfortably flat in bed. AVF is functioning well. No new concerns voiced Review of Systems Constitutional: no fever Eyes: no problem reported Ear, Nose, Mouth, Throat: no problem reported Respiratory: no cough and no dyspnea Cardiovascular: no chest pain Gastrointestinal: constipation alternating with diarrhea Integumentary: no rash Neurologic: no problem reported Physical Exam Constitutional: not in distress Eyes: PERRL, conjunctivae normal, anicteric sclerae ENMT: external ear and nose normal, oropharynx normal Neck: trachea midline, no thyromegaly Respiratory: normal respiratory effort, lungs clear to auscultation Cardiovascular: RRR, no murmur, no edema L arm BC AVF + bruit Gastrointestinal (Abdomen): normal bowel sounds, soft, nontender, no hepatosplenomegaly Musculoskeletal: Extremities: no cyanosis and no clubbing Skin: no rashes, warm and dry Neurologic: awake; not confused Results & Data Vital Signs (Past 12 Hours) Vital Signs Temp Pulse Pulse Resp BP Pulse Ox O2 Del Method 02/17/25 08:24 Room Air 02/17/25 08:17 97 Room Air 02/17/25 07:47 36.5 C 84 19 140/76 93 Nasal Cannula 02/17/25 07:37 86 02/17/25 03:12 36.7 C 87 19 154/89 H 92 Nasal Cannula 02/16/25 23:37 90 16 94 Room Air 02/16/25 23:14 37.2 C 97 H 18 174/104 H 90 Room Air O2 Flow Rate 02/17/25 08:24 02/17/25 08:17 02/17/25 07:47 2.0 02/17/25 07:37 02/17/25 03:12 2 02/16/25 23:37 02/16/25 23:14 MNPG Procedure Codes (Charges) Renal/Urologic Renal/Urologic: 44561 Hemodialysis, One Evaluation Coding Level of Care Code None Diagnoses End stage chronic kidney disease N18.6 Diarrhea R19.7 CPT Codes Renal/Urologic - Renal/Urologic: 12354 Hemodialysis, One Evaluation ([id number])
--- NOTE | 2025-02-17 10:48 | Hospitalist Progress Note ---
Date of Service February 17, 2025 Assessment & Plan (1) Diarrhea: Plan: -CT negative -no evidence of infection -pt states has been chronic since November -GI consulted for further evaluation (2) Hyperkalemia: Plan: -HD today (3) End stage chronic kidney disease: Plan: HD as per Nephrology (4) Anemia: (5) Diabetes mellitus: (6) Hypertension: Plan: -coreg -nefidepine XR (7) Asthma: Plan: -albuterol Plan 60yo male with ESRD on HD Fri/Fri/Friday (dialyzes in [place]), T2DM, HTN, prior VTE, asthma, history of CVA x 2 (10/2012 and 11/2014), and chronic tobacco dependence who presents from home with frequent loose stools, weakness/fatigue, and abdominal bloating. He states that his symptoms started about 2 weeks after his hospitalization in November when he had CT-confirmed sigmoid diverticulitis. He took a course of oral cipro/flagyl after discharge per records. Admission and Anticipated Discharge Date Admission Date: February 16, 2025 Subjective Pt still having diarrhea this am. Review of Systems Review of Systems: CONST: Negative for fever, body aches and chills. HENT: Negative for neck pain/stiffness, headache, congestion, sore throat, swelling. EYES: Negative for discharge/pain or vision changes. RESP: Negative for cough/hemoptysis and shortness of breath. CV: Negative chest pain, difficulty breathing, palpitations. ABD: Negative pain, nausea, vomiting. : Negative increase frequency, dysuria, blood in urine or stool. MUSC: Negative for muscle aches, edema. SKIN: Negative rash, lesions/sores. NEURO: Negative headache, dizziness, weakness. Physical Exam Physical Exam: GENERAL APPEARANCE NAD, activity normal for age, well developed/ well nourished, no cyanosis, pallor, or diaphoresis. EYES lids/conjunctiva normal. EARS/NOSE/THROAT Mucous membranes moist, nares normal, lips/teeth normal uvula midline without oral pharyngeal erythema, exudate or swelling TMs normal bilaterally. No lymphangitis/lymphedema. HEAD/NECK normocephalic atraumatic, no facial trauma, neck is supple. RESPIRATORY respiratory effort normal, speaks in full sentences, no tripod position, no accessory muscle use. Lungs clear to auscultation without rhonchi, wheezes, rales CARDIAC Regular rate and rhythm, no edema. ABDOMINAL Soft, ND/NT. No evidence of fluid wave. No pulsatile masses on exam, rebound tenderness, Arroyo sign or pain over Mcburney's point. MUSCLES/EXTREMITIES No abnormal range of motion, no swelling. SKIN Warm, pink and dry. No rashes, dermatoses, petechiae or lesions. NEUROLOGICAL Speech is clear and appropriate. Normal level of consciousness. Gait and coordination are normal. 5/5 strength in all extremities. PSYCH Normal mood and affect. Judgement/competence is appropriate Results & Data Results & Data Vital Signs (Past 12 Hours) Vital Signs Temp Pulse Pulse Resp BP Pulse Ox O2 Del Method 02/17/25 08:24 Room Air 02/17/25 08:17 97 Room Air 02/17/25 07:47 36.5 C 84 19 140/76 93 Nasal Cannula 02/17/25 07:37 86 02/17/25 03:12 36.7 C 87 19 154/89 H 92 Nasal Cannula 02/16/25 23:37 90 16 94 Room Air 02/16/25 23:14 37.2 C 97 H 18 174/104 H 90 Room Air O2 Flow Rate 02/17/25 08:24 02/17/25 08:17 02/17/25 07:47 2.0 02/17/25 07:37 02/17/25 03:12 2 02/16/25 23:37 02/16/25 23:14 PG Care Time/CCT Total # of Minutes Spent Total Time Spent with Patient: Total time spent is greater than 50% in coordination of care (as documented) at patient's floor/unit and/or counseling patient: Coding Level of Care Code 65049 SUB INP/OBS CARE 2/35MIN Diagnoses Diarrhea R19.7 Hyperkalemia E87.5 End stage chronic kidney disease N18.6 Anemia D64.9 Anemia type: unspecified type Diabetes mellitus E11.9 Hypertension I10 Asthma J45.909 (4) Anemia Anemia type: unspecified type Qualified Code(s): D64.9 - Anemia, unspecified
--- NOTE | 2025-02-17 11:13 | Gastrointestinal Consultation ---
Date of Consultation February 17, 2025 Assessment & Plan (1) Diarrhea: 60 year old male w/ history of ESRD on dialysis Fri/Fri/Friday, T2DM, HTN, prior VTE, asthma, history of CVA x 2, chronic tobacco use admitted through the ED w/ abdominal pain, loose stools. Stool PCR positive for both Campylobacter and norovirus. He is C.diff gene positive but toxin negative. There is report of a semi-formed stool last evening and a dry, hard small stool this AM documented by nursing staff. 1. Campylobacter - Typically mild, self-limiting, avoid antimotility agents such as Imodium - He is now having formed stools - Consider Azithromycin 500 mg for three days if evidence of severe disease (bloody stools, fevers, relapsing symptoms etc) 2. Norovirus - Supportive measures There is report of a colonoscopy 5-10 years ago at OSH w/ history of colon poylps. He should be referred back to his regular GI provider as an outpatient to arrange a colonoscopy given sigmoid diverticulitis episode in November. I spent a total of 60 minutes on the date of service in review of patient's record, and previously obtained information in person and appropriate medical visit, discussion and education of plan, with patient and/or caregiver, placing orders for tests/referral/procedures as medically necessary and documentation of pertinent clinical information in patient's medical records for their visit today. Supervising Physician Co-Signing Physician Notes Liquid urgent bowel movements dating back to November. Now positive for norovirus and Campylobacter. Patient does not have known exposures to other people with diarrhea though his has chronic diarrhea from postcholecystectomy state. Patient denies any blood. Symptoms were not associated with any new change in diet or medications. He does ingest milk on a daily basis should put him on a lactose-free diet and exclude lactose intolerance as a factor. Patient is also on well water. He has never had his water checked for potential contamination. The fact he has 2 separate pathogens suggest this should be undertaken. Though he does not drink the water he does use it for cooking and for brushing his teeth. We will arrange an outpatient colonoscopy in 4 to 6 weeks postdischarge and post clearance of this acute infectious diarrhea. History of Present Illness Reason for Consultation: diarrhea Requesting Physician: Coy Rhodes MD Attending Physician: Coy Rhodes MD History of Present Illness 60 year old male w/ history of ESRD on HD Fri/Fri/Friday, T2DM, HTN, prior VTE, asthma, history of CVA x 2, chronic tobacco dependence admitted through the ED w/ abdominal pain, loose stools. GI was asked to evaluate. He suggests symptoms started about 2/3 weeks after an November admission for diverticulitis. He suggests he typically has formed bowel movements and tends towards constipation. He was treated w/ a course of ABX in November for diverticulitis. Suggests after completion of ABX he developed soft stools, incomplete bowel movements and stool frequency of about 4-6 bowel movements a day. Suggests last evening he had a small, formed stool and this AM there is documentation from nursing of a dry, hard stool. He reports his has had diarrhea recently but he is not sure she had any testing. Denies black/bloody stools. No abd pain. No fever, chills, CP, SOB. No raw meat/fish. Uses well water at home. Stool PCR 02/16/25: positive Campylobacter, positive norovirus C.diff 02/16/25: positive gene, negative toxin CTAP 2024: There is mild retained stool. No acute findings seen. Colonoscopy 5-10 years ago at OSH Allergies Allergy/AdvReac Type Severity Reaction Status Date / Time cephalexin AdvReac Verified 10/26/24 18:10 hydralazine AdvReac Verified 10/26/24 18:10 sulfamethoxazole AdvReac Verified 10/26/24 18:10 [From Bactrim] trimethoprim [From Bactrim] AdvReac Verified 10/26/24 18:10 Home Medications Medication Instructions Recorded Confirmed Type insulin glargine 100 unit/mL (3 1 unit subcut UD 11/02/21 02/16/25 History mL) subcutaneous pen (Lantus Solostar U-100 Insulin) calcium acetate(phosphat bind) 667 1,334 mg (2 x 667 mg) PO TIDM 30 09/24/24 02/16/25 Rx mg capsule days #60 caps vitamin B complex and vitamin C 1 cap PO QAM 10/26/24 02/16/25 History no.20-folic acid 1 mg capsule (Renal Caps) albuterol sulfate 90 mcg/actuation 2 puff inhalation .Q4-6 PRN sob 12/12/24 02/16/25 History aerosol inhaler (Ventolin HFA) furosemide 80 mg tablet 80 mg PO QAM 02/16/25 02/16/25 History lisinopril 10 mg tablet 10 mg PO AMHS 02/16/25 02/16/25 History nifedipine 60 mg tablet,extended 60 mg PO QAM 02/16/25 02/16/25 History release Patient History Medical History (Updated 02/16/25 @ 19:44 by Randy Guzman DO) Diverticulitis sigmoid - 11/2024 End stage chronic kidney disease Anemia Secondary hyperparathyroidism History of CVA (cerebrovascular accident) Diabetes mellitus Hypertension History of deep venous thrombosis or pulmonary embolus Asthma Dyslipidemia Hypertriglyceridemia Surgical History (Updated 02/16/25 @ 18:49 by Joel Campos MD) S/P arteriovenous (AV) fistula creation LUE Family History (Updated 02/16/25 @ 18:49 by Joel Campos MD) Father Cancer Prostate Kidney disease Late in life while suffering from advanced metastatic prostate cancer and alcoholism Heart disease Denies family history of Colorectal cancer Social History (Updated 02/16/25 @ 18:50 by Joel Campos MD) Smoking Status: Never smoker Tobacco Type: Smokeless Tobacco (Dip or Chew) Second Hand Exposure: Yes; Do You Dip or Chew Tobacco: No ("quit"); Hx Alcohol Use: Yes Hx Substance Use: No Preferred Language: Belgian Communication Ability: Effective Picture Frame Maker Required: No Beliefs That Will Affect Care: None marital status: Current Living Situation: Significant Other current occupational status: disabled How many Children do You have: 2 Other Information That Helps Us Care for You: No Feels Safe at Home: Yes Assistive Devices: None Review of Systems Review of Systems: All other findings negative except as noted in HPI. Physical Exam Constitutional: WD/WN, vitals as above Gastrointestinal (Abdomen): normal bowel sounds, soft, nontender, no hepatosplenomegaly Skin: no rashes, warm and dry Results & Data Vital Signs (Past 12 Hours) Vital Signs Temp Pulse Pulse Pulse Resp BP BP 02/17/25 10:30 78 120/75 02/17/25 10:11 79 118/69 02/17/25 09:53 97.7 F 81 02/17/25 08:24 02/17/25 08:17 02/17/25 07:47 97.7 F 84 19 140/76 02/17/25 07:37 86 02/17/25 03:12 98.1 F 87 19 154/89 H 02/16/25 23:37 90 16 02/16/25 23:14 99.0 F 97 H 18 174/104 H Pulse Ox O2 Del Method O2 Flow Rate 02/17/25 10:30 02/17/25 10:11 02/17/25 09:53 02/17/25 08:24 Room Air 02/17/25 08:17 97 Room Air 02/17/25 07:47 93 Nasal Cannula 2.0 02/17/25 07:37 02/17/25 03:12 92 Nasal Cannula 2 02/16/25 23:37 94 Room Air 02/16/25 23:14 90 Room Air Laboratory Results 02/17/25 02/17/25 02/16/25 Range/Units 07:47 05:54 23:17 WBC (4.8-10.8) K/ul RBC (4.70-6.10) M/uL Hgb (14.0-18.0) g/dl Hct (42.0-52.0) % MCV (80.0-100.0) fL MCH (25.0-34.0) pg MCHC (32.0-36.0) g/dL RDW Std Deviation (36.4-46.3) fL RDW Coeff of Chelsey (11.5-14.5) % Plt Count (130-400) K/uL MPV (9.4-12.4) fL Immature Gran % (Auto) % Neut % (Auto) % Lymph % (Auto) % [place] % (Auto) % Eos % (Auto) % Baso % (Auto) % Neut # (Auto) (1.40-6.50) K/uL Lymph # (Auto) (1.20-3.40) K/uL [place] # (Auto) (0.11-0.59) K/uL Eos # (Auto) (0.00-0.50) K/uL Baso # (Auto) (0.00-0.20) K/uL Immature Gran # (Auto) (0.01-0.20) K/uL Sodium 135 L (136-145) mmol/L Potassium 5.7 H (3.5-5.1) mmol/L Chloride 99 (98-107) mmol/L Carbon Dioxide 19 L (21-32) mmol/L Anion Gap 17 H (3-11) BUN 72 H (6-23) mg/dl Creatinine 10.54 H* D (0.6-1.4) mg/dl Est Cr Clr Drug Dosing 8.9 ml/min eGFR 5.07 BUN/Creatinine Ratio 6.8 L (10-20) Glucose 121 H (70-99(Fasting)) mg/dl POC Glucose 117 H (70-99) mg/dl Estimat Average Glucose 100 mg/dl Hemoglobin A1c 5.1 (4.5-5.6) % Calcium 8.5 L (8.6-10.3) mg/dl Magnesium (1.7-2.4) mg/dl Total Bilirubin (0.2-1.0) mg/dl AST (13-39) U/L ALT (7-52) U/L Alkaline Phosphatase (34-104) U/L Total Protein (6.0-8.3) gm/dl Albumin (3.4-5.0) gm/dl Globulin (2.5-4.0) gm/dl Albumin/Globulin Ratio (0.9-2) Lipase (11-82) U/L TSH 5.709 H (0.300-4.500) uIu/ml Free T4 0.72 (0.61-1.60) ng/dl Urine Color Urine Appearance (Clear) Urine pH (4.5-7.5) Ur Specific [place] (1.000-1.030) Urine Protein (Negative) Urine Glucose (UA) (Negative) Urine Ketones (Negative) Urine Blood (Negative) Urine Nitrite (Negative) Urine Bilirubin (Negative) Urine Urobilinogen (Negative) Ur Leukocyte Esterase (Negative) Urine WBC (Auto) (0-5) /hpf Urine RBC (Auto) (0-2) /hpf U Hyaline Cast (Auto) (0-2) /lpf U Epithel Cells (Auto) (0-2) /hpf Urine Bacteria (Auto) (None Seen) Urine Comment Nasal Screen MRSA (PCR) Negative (Negative) Stl C. cayetanensis PCR (NotDetected) Stool Rotavirus A PCR (NotDetected) Stl Adenov F 40/41 PCR (NotDetected) Stool Astrovirus (PCR) (NotDetected) Stool Campylobacter PCR (NotDetected) Stl C. diff Tox B Gene (Neg) Stl C.difficile Tox A&B (Negative) Stl C. diff 027-NAP1-BI Stool Cryptosporidium PCR (NotDetected) Stl E.coli Shiga Tox PCR (NotDetected) Stl Enterotoxigenic E PCR (NotDetected) Stool EPEC (PCR) (NotDetected) Stool EAEC (PCR) (NotDetected) Stl E. histolytica PCR (NotDetected) Stool Giardia Lamblia PCR (NotDetected) Stool Salmonella PCR (NotDetected) Stool Sapovirus (PCR) (NotDetected) Stl P. shigelloides PCR (NotDetected) Stl Shigella/EIEC PCR (NotDetected) St Y.enterocolitica PCR (NotDetected) Stool Vibrio (PCR) (NotDetected) Stl Vibrio cholerae PCR (NotDetected) Stl Norovirus GI/GII PCR (NotDetected) 02/16/25 02/16/25 02/16/25 Range/Units 22:06 21:09 20:49 WBC (4.8-10.8) K/ul RBC (4.70-6.10) M/uL Hgb (14.0-18.0) g/dl Hct (42.0-52.0) % MCV (80.0-100.0) fL MCH (25.0-34.0) pg MCHC (32.0-36.0) g/dL RDW Std Deviation (36.4-46.3) fL RDW Coeff of Chelsey (11.5-14.5) % Plt Count (130-400) K/uL MPV (9.4-12.4) fL Immature Gran % (Auto) % Neut % (Auto) % Lymph % (Auto) % [place] % (Auto) % Eos % (Auto) % Baso % (Auto) % Neut # (Auto) (1.40-6.50) K/uL Lymph # (Auto) (1.20-3.40) K/uL [place] # (Auto) (0.11-0.59) K/uL Eos # (Auto) (0.00-0.50) K/uL Baso # (Auto) (0.00-0.20) K/uL Immature Gran # (Auto) (0.01-0.20) K/uL Sodium (136-145) mmol/L Potassium 5.7 H (3.5-5.1) mmol/L Chloride (98-107) mmol/L Carbon Dioxide (21-32) mmol/L Anion Gap (3-11) BUN (6-23) mg/dl Creatinine (0.6-1.4) mg/dl Est Cr Clr Drug Dosing ml/min eGFR BUN/Creatinine Ratio (10-20) Glucose (70-99(Fasting)) mg/dl POC Glucose 132 H (70-99) mg/dl Estimat Average Glucose mg/dl Hemoglobin A1c (4.5-5.6) % Calcium (8.6-10.3) mg/dl Magnesium (1.7-2.4) mg/dl Total Bilirubin (0.2-1.0) mg/dl AST (13-39) U/L ALT (7-52) U/L Alkaline Phosphatase (34-104) U/L Total Protein (6.0-8.3) gm/dl Albumin (3.4-5.0) gm/dl Globulin (2.5-4.0) gm/dl Albumin/Globulin Ratio (0.9-2) Lipase (11-82) U/L TSH (0.300-4.500) uIu/ml Free T4 (0.61-1.60) ng/dl Urine Color Urine Appearance (Clear) Urine pH (4.5-7.5) Ur Specific [place] (1.000-1.030) Urine Protein (Negative) Urine Glucose (UA) (Negative) Urine Ketones (Negative) Urine Blood (Negative) Urine Nitrite (Negative) Urine Bilirubin (Negative) Urine Urobilinogen (Negative) Ur Leukocyte Esterase (Negative) Urine WBC (Auto) (0-5) /hpf Urine RBC (Auto) (0-2) /hpf U Hyaline Cast (Auto) (0-2) /lpf U Epithel Cells (Auto) (0-2) /hpf Urine Bacteria (Auto) (None Seen) Urine Comment Nasal Screen MRSA (PCR) (Negative) Stl C. cayetanensis PCR Not Detected (NotDetected) Stool Rotavirus A PCR Not Detected (NotDetected) Stl Adenov F 40/41 PCR Not Detected (NotDetected) Stool Astrovirus (PCR) Not Detected (NotDetected) Stool Campylobacter PCR DETECTED A* (NotDetected) Stl C. diff Tox B Gene Positive Cdiff Gene A (Neg) Stl C.difficile Tox A&B Negative Cdiff Toxin (Negative) Stl C. diff 027-NAP1-BI NEGATIVE Stool Cryptosporidium PCR Not Detected (NotDetected) Stl E.coli Shiga Tox PCR Not Detected (NotDetected) Stl Enterotoxigenic E PCR Not Detected (NotDetected) Stool EPEC (PCR) Not Detected (NotDetected) Stool EAEC (PCR) Not Detected (NotDetected) Stl E. histolytica PCR Not Detected (NotDetected) Stool Giardia Lamblia PCR Not Detected (NotDetected) Stool Salmonella PCR Not Detected (NotDetected) Stool Sapovirus (PCR) Not Detected (NotDetected) Stl P. shigelloides PCR Not Detected (NotDetected) Stl Shigella/EIEC PCR Not Detected (NotDetected) St Y.enterocolitica PCR Not Detected (NotDetected) Stool Vibrio (PCR) Not Detected (NotDetected) Stl Vibrio cholerae PCR Not Detected (NotDetected) Stl Norovirus GI/GII PCR DETECTED A* (NotDetected) 02/16/25 02/16/25 02/16/25 Range/Units 18:50 17:59 15:28 WBC 5.19 (4.8-10.8) K/ul RBC 3.06 L (4.70-6.10) M/uL Hgb 9.7 L (14.0-18.0) g/dl Hct 28.8 L (42.0-52.0) % MCV 94.1 (80.0-100.0) fL MCH 31.7 (25.0-34.0) pg MCHC 33.7 (32.0-36.0) g/dL RDW Std Deviation 52.2 H (36.4-46.3) fL RDW Coeff of Chelsey 15.2 H (11.5-14.5) % Plt Count 144 (130-400) K/uL MPV 11.2 (9.4-12.4) fL Immature Gran % (Auto) 0.2 % Neut % (Auto) 74.8 % Lymph % (Auto) 14.6 % [place] % (Auto) 7.3 % Eos % (Auto) 2.3 % Baso % (Auto) 0.8 % Neut # (Auto) 3.88 (1.40-6.50) K/uL Lymph # (Auto) 0.76 L (1.20-3.40) K/uL [place] # (Auto) 0.38 (0.11-0.59) K/uL Eos # (Auto) 0.12 (0.00-0.50) K/uL Baso # (Auto) 0.04 (0.00-0.20) K/uL Immature Gran # (Auto) 0.01 (0.01-0.20) K/uL Sodium 136 (136-145) mmol/L Potassium 5.9 H (3.5-5.1) mmol/L Chloride 99 (98-107) mmol/L Carbon Dioxide 22 (21-32) mmol/L Anion Gap 15 H (3-11) BUN 62 H (6-23) mg/dl Creatinine 9.65 H* (0.6-1.4) mg/dl Est Cr Clr Drug Dosing 9.5 ml/min eGFR 5.64 BUN/Creatinine Ratio 6.4 L (10-20) Glucose 195 H (70-99(Fasting)) mg/dl POC Glucose 83 (70-99) mg/dl Estimat Average Glucose mg/dl Hemoglobin A1c (4.5-5.6) % Calcium 8.4 L (8.6-10.3) mg/dl Magnesium 2.2 (1.7-2.4) mg/dl Total Bilirubin 0.8 (0.2-1.0) mg/dl AST 11 L (13-39) U/L ALT 8 (7-52) U/L Alkaline Phosphatase 62 (34-104) U/L Total Protein 6.7 (6.0-8.3) gm/dl Albumin 4.1 (3.4-5.0) gm/dl Globulin 2.6 (2.5-4.0) gm/dl Albumin/Globulin Ratio 1.6 (0.9-2) Lipase 38 (11-82) U/L TSH (0.300-4.500) uIu/ml Free T4 (0.61-1.60) ng/dl Urine Color Yellow Urine Appearance Clear (Clear) Urine pH 8.5 H (4.5-7.5) Ur Specific [place] 1.010 (1.000-1.030) Urine Protein 2+ H (Negative) Urine Glucose (UA) 1+ H (Negative) Urine Ketones Negative (Negative) Urine Blood Trace H (Negative) Urine Nitrite Negative (Negative) Urine Bilirubin Negative (Negative) Urine Urobilinogen Negative (Negative) Ur Leukocyte Esterase Negative (Negative) Urine WBC (Auto) 0-5 (0-5) /hpf Urine RBC (Auto) 0-2 (0-2) /hpf U Hyaline Cast (Auto) 0-2 (0-2) /lpf U Epithel Cells (Auto) 0-2 (0-2) /hpf Urine Bacteria (Auto) None Seen (None Seen) Urine Comment Nasal Screen MRSA (PCR) (Negative) Stl C. cayetanensis PCR (NotDetected) Stool Rotavirus A PCR (NotDetected) Stl Adenov F 40/41 PCR (NotDetected) Stool Astrovirus (PCR) (NotDetected) Stool Campylobacter PCR (NotDetected) Stl C. diff Tox B Gene (Neg) Stl C.difficile Tox A&B (Negative) Stl C. diff 027-NAP1-BI Stool Cryptosporidium PCR (NotDetected) Stl E.coli Shiga Tox PCR (NotDetected) Stl Enterotoxigenic E PCR (NotDetected) Stool EPEC (PCR) (NotDetected) Stool EAEC (PCR) (NotDetected) Stl E. histolytica PCR (NotDetected) Stool Giardia Lamblia PCR (NotDetected) Stool Salmonella PCR (NotDetected) Stool Sapovirus (PCR) (NotDetected) Stl P. shigelloides PCR (NotDetected) Stl Shigella/EIEC PCR (NotDetected) St Y.enterocolitica PCR (NotDetected) Stool Vibrio (PCR) (NotDetected) Stl Vibrio cholerae PCR (NotDetected) Stl Norovirus GI/GII PCR (NotDetected) PG Care Time/CCT Total # of Minutes Spent Total Time Spent with Patient: Total time spent is greater than 50% in coordination of care (as documented) at patient's floor/unit and/or counseling patient: Coding Level of Care Code 83717 INT INP/OBS CARE 2/55MIN Diagnoses Diarrhea R19.7
[2025-02-17] MEDS: HEPARIN SOD (PORCINE) 1000 UNIT/ML IV SCH (11:22)
[2025-02-17] MEDS: EPOETIN ALFA 10,000 UNITS/ML VIAL IV ONE (11:35)
[2025-02-18 05:43] LABS: Hematocrit (blood only) 30.2 % (42.0-52.0); Hemoglobin 9.9 g/dl (14.0-18.0); Mean Corpuscular Hemoglobin 30.7 pg (25.0-34.0); Mean Corpuscular Hgb Conc 32.8 g/dL (32.0-36.0); Mean Corpuscular Volume 93.5 fL (80.0-100.0); Mean Platelet Volume 11.2 fL (9.4-12.4); Platelet Count 108 K/uL (130-400); RDW Standard Deviation 51.5 fL (36.4-46.3); Red Blood Count 3.23 M/uL (4.70-6.10); White Blood Count 4.69 K/ul (4.8-10.8)
[2025-02-18 06:06] LABS: Calcium 8.7 mg/dl (8.6-10.3); Creatinine Clr Calc Pharmacy 10.9 ml/min; Potassium 5.4 mmol/L (3.5-5.1)
--- NOTE | 2025-02-18 06:32 | Electrocardiogram Report ---
Test Reason : Blood Pressure : */* mmHG Vent. Rate : 91 BPM Atrial Rate : 91 BPM P-R Int : 188 ms QRS Dur : 88 ms QT Int : 408 ms P-R-T Axes : 53 6 79 degrees QTcB Int : 501 ms Normal sinus rhythm Prolonged QT Abnormal ECG When compared with ECG of 12-Dec-2024 15:48, T wave inversion no longer evident in Lateral leads Confirmed by Horacio Frey [id number]) on 02/18/2025 6:32:18 AM Referred By: REFERRED SELF Confirmed By: Horacio Frey
[2025-02-18] MEDS ORDERED: SODIUM CHLORIDE 0.9% 1,000 ML IV PRN (08:34)
--- NOTE | 2025-02-18 10:36 | Nephrology Progress Note ---
Date of Service February 18, 2025 Assessment & Plan (1) End stage chronic kidney disease: Plan: * Potassium 5.4 this am. Patient agreeable to HD today to correct serum K and resume MWF HD schedule * Outpatient HD orders: MWF 3.5hr 2K 2Ca FX CorAL-80 EDW 89.5 kg 15g needles * Hemodialysis diet * Nephrocaps daily * Protect L arm AVF * Monitor daily BMP, CBC (2) Diarrhea: Plan: * Tested + norovirus and Campylobacter. Negative for C. Difficile toxin * Contact isolation, supportive care Admission and Anticipated Discharge Date Admission Date: February 16, 2025 Subjective Mr. Ballesteros was evaluated in his hospital room this morning. He reports ongoing diarrhea but denies abdominal pain. Potassium failed to correct w/ HD yesterday. Mr. Ballesteros is agreeable to dialysis again today to correct serum potassium and resume his regular MWF HD schedule. Review of Systems Constitutional: no fever Eyes: no problem reported Ear, Nose, Mouth, Throat: no problem reported Respiratory: no cough and no dyspnea Cardiovascular: no chest pain Gastrointestinal: constipation alternating with diarrhea Integumentary: no rash Neurologic: no problem reported Physical Exam Constitutional: not in distress Eyes: PERRL, conjunctivae normal, anicteric sclerae ENMT: external ear and nose normal, oropharynx normal Neck: trachea midline, no thyromegaly Respiratory: normal respiratory effort, lungs clear to auscultation Cardiovascular: RRR, no murmur, no edema Gastrointestinal (Abdomen): normal bowel sounds, soft, nontender, no hepatosplenomegaly Musculoskeletal: Extremities: no cyanosis and no clubbing Skin: no rashes, warm and dry Neurologic: awake; not confused Results & Data Vital Signs (Past 12 Hours) Vital Signs Temp Pulse Pulse Pulse Resp BP Pulse Ox 02/18/25 07:34 36.5 C 81 20 166/97 H 95 02/18/25 03:39 36.8 C 84 18 146/78 H 95 02/18/25 00:31 85 O2 Del Method 02/18/25 07:34 Room Air 02/18/25 03:39 Room Air 02/18/25 00:31 Laboratory Results Laboratory Results - last 24 hr 02/17/25 02/17/25 02/17/25 14:11 16:00 20:24 WBC RBC Hgb Hct MCV MCH MCHC RDW Std Deviation RDW Coeff of Chelsey Plt Count MPV Sodium Potassium Chloride Carbon Dioxide Anion Gap BUN Creatinine Est Cr Clr Drug Dosing eGFR BUN/Creatinine Ratio Glucose POC Glucose 81 137 H 93 Calcium 02/18/25 02/18/25 05:21 07:33 WBC 4.69 L RBC 3.23 L Hgb 9.9 L Hct 30.2 L MCV 93.5 MCH 30.7 MCHC 32.8 RDW Std Deviation 51.5 H RDW Coeff of Chelsey 15.0 H Plt Count 108 L MPV 11.2 Sodium 135 L Potassium 5.4 H Chloride 100 Carbon Dioxide 24 Anion Gap 11 BUN 51 H D Creatinine 8.50 H* D Est Cr Clr Drug Dosing 10.9 eGFR 6.57 BUN/Creatinine Ratio 6.0 L Glucose 102 H POC Glucose 92 Calcium 8.7 PG Care Time/CCT Total # of Minutes Spent Total Time Spent with Patient: Total time spent is greater than 50% in coordination of care (as documented) at patient's floor/unit and/or counseling patient: Coding Level of Care Code 48121 SUB INP/OBS CARE 3/50MIN Diagnoses End stage chronic kidney disease N18.6 Diarrhea R19.7
--- NOTE | 2025-02-18 10:36 | Discharge Summary ---
Discharge Summary Date of Service February 18, 2025 Principal Dx & Hospital Course #1 = Principal Diagnosis (1) Diarrhea: -CT negative -no evidence of infection -pt states has been chronic since November -GI consulted for further evaluation (2) Hyperkalemia: -HD today (3) End stage chronic kidney disease: HD as per Nephrology (4) Anemia: (5) Diabetes mellitus: (6) Hypertension: -coreg -nefidepine XR (7) Asthma: -albuterol Plan 60yo male with ESRD on HD Fri/Fri/Friday (dialyzes in [place]), T2DM, HTN, pr ior VTE, asthma, history of CVA x 2 (10/2012 and 11/2014), and chronic tobacco dependence who presents from home with frequent loose stools, weakness/fatigue, and abdominal bloating. He states that his symptoms started about 2 weeks after his hospitalization in November when he had CT-confirmed sigmoid diverticulitis. He took a course of oral cipro/flagyl after discharge per records. Admission HPI Per Admitting Provider 60yo male with ESRD on HD Fri/Fri/Friday (dialyzes in [place]), T2DM, HTN, prior VTE, asthma, history of CVA x 2 (10/2012 and 11/2014),and chronic tobacco dependence who presents from home with frequent loose stools, weakness/fatigue, and abdominal bloating. He states that his symptoms started about 2 weeks after his hospitalization in November when he had CT-confirmed sigmoid diverticulitis. He took a course of oral cipro/flagyl after discharge per records. Normally he has severe constipation with passage for firm/hard balls of stool. Then, in the last few weeks, he developed "soup-like" stools. He would have about 1-2 loose stools per day but then the frequent was much worse today. He passed several loose stools this am. He was afraid of having a stool accident while at dialysis and simply felt unwell & thus did not attend his normal HD session this am. Denies any fevers/chills. Has had good appetite despite the loose stool. His last colonoscopy was between 5-10 years ago at [facility] in [place]. Had 2 polyps removed to his recollection. Reports well-controlled BSGs at home recently with BSG of about 105 earlier today. Denies any prior history of pancreatitis. Denies recent travel. no sick contacts. Discharge Exam GENERAL APPEARANCE NAD, activity normal for age, well developed/ well nourished, no cyanosis, pallor, or diaphoresis. EYES lids/conjunctiva normal. EARS/NOSE/THROAT Mucous membranes moist, nares normal, lips/teeth normal uvula midline without oral pharyngeal erythema, exudate or swelling TMs normal bilaterally. No lymphangitis/lymphedema. HEAD/NECK normocephalic atraumatic, no facial trauma, neck is supple. RESPIRATORY respiratory effort normal, speaks in full sentences, no tripod position, no accessory muscle use. Lungs clear to auscultation without rhonchi, wheezes, rales CARDIAC Regular rate and rhythm, no edema. ABDOMINAL Soft, ND/NT. No evidence of fluid wave. No pulsatile masses on exam, rebound tenderness, Arroyo sign or pain over Mcburney's point. MUSCLES/EXTREMITIES No abnormal range of motion, no swelling. SKIN Warm, pink and dry. No rashes, dermatoses, petechiae or lesions. NEUROLOGICAL Speech is clear and appropriate. Normal level of consciousness. Gait and coordination are normal. 5/5 strength in all extremities. PSYCH Normal mood and affect. Judgement/competence is appropriate Discharge Plan Discharge Items Patient Disposition: Home - Self-Care Reason For Visit: HYPERKALEMIA, SEVERE DIARRHEA, ESRD ON HD Discharge Diagnosis: norvovirus Condition on Discharge: Fair Activity: Resume your previous activity Non-emergency contact: Primary Care Provider Call non-emergency contact if: you have any medication questions Follow-up/Referrals: Kamlesh Owens DO [Primary Care Provider] - Diet: Regular Addtl Attending Provider Instructions: Follow up with PMD in 2 weeks Pending Studies at Discharge: No Stand-Alone Forms: My [employer], Smoking Cessation Medications and DC Order Prescriptions: New azithromycin 250 mg Tablet 500 mg PO DAILY Qty: 3 0RF Continued Lantus Solostar U-100 Insulin 100 unit/mL (3 mL) insulin pen 1 unit subcut UD Rx Instructions: 12/12- usually 1 unit daily but if readings are perfect, he does none. INJECT BASELINE OF 1 UNIT AND ADD 1 UNIT FOR EVERY 10 POINTS OF BLOOD SUGAR READINGS, DO NOT EXCEED GREATER THAN 30 UNITS ONCE A DAY calcium acetate(phosphat bind) 667 mg Capsule 1,334 mg PO TIDM 30 Days Qty: 60 1RF Renal Caps 1 mg capsule 1 cap PO QAM Rx Instructions: RAN OUT albuterol sulfate [Ventolin HFA] 90 mcg/actuation HFA aerosol inhaler 2 puff INHALATION .Q4-6 PRN (Reason: sob) nifedipine 60 mg tablet extended release 60 mg PO QAM furosemide 80 mg tablet 80 mg PO QAM lisinopril 10 mg tablet 10 mg PO AMHS Discharge Orders: Discharge Order (Routine); Ordered 02/18/25 Ordered By: Coy Rhodes Admission Data Admit Date/Time: 02/16/25 18:33 Attending Provider: Coy Rhodes Admit Provider: Joel Campos Primary Care Provider: Kamelsh Owens Other Providers: Philip Hirsch; Maged Agrawal; Joel Campos; George Marcos Hospital Stay Data Consultations 02/16/25 17:06 Consult Nephrology Routine 02/16/25 17:23 ED Decision to Admit Stat 02/17/25 10:42 Consult Gastroenterology Routine Diagnostic Imagining Performed 02/16/25 15:20 CT abd pelvis wo con Stat Pending Results Patient Have Any Pending Studies at Discharge: No Discharge Instructions Given to Patient (Per Discharging Provider) Follow up with PMD in 2 weeks Total Time Total Time Spent Total Time Spent (In Minutes): 50 Coding Level of Care Code 86169 INP/OBS DISCH >30 MIN Diagnoses Diarrhea R19.7 Hyperkalemia E87.5 End stage chronic kidney disease N18.6 Anemia D64.9 Anemia type: unspecified type Diabetes mellitus E11.9 Hypertension I10 Asthma J45.909
[2025-02-18] MEDS: EPOETIN ALFA 10,000 UNITS/ML VIAL IV ONE (11:18)
[2025-02-18] MEDS: SODIUM ZIRCONIUM CYCLOSILICATE 10 GM PACKET PO SCH (13:58)
[2025-02-19 06:12] LABS: Hematocrit (blood only) 29.4 % (42.0-52.0); Hemoglobin 10.3 g/dl (14.0-18.0); Mean Corpuscular Volume 91.3 fL (80.0-100.0); Mean Platelet Volume 11.9 fL (9.4-12.4); Platelet Count 112 K/uL (130-400); RDW Coefficient of Variation 14.3 % (11.5-14.5); RDW Standard Deviation 47.8 fL (36.4-46.3); Red Blood Count 3.22 M/uL (4.70-6.10); White Blood Count 5.49 K/ul (4.8-10.8)
[2025-02-19] MEDS ORDERED: SODIUM CHLORIDE 0.9% 1,000 ML IV PRN ×2 (07:00)
[2025-02-19 07:03] LABS: BUN Creatinine Ratio 7.4 (10-20); Calcium 8.8 mg/dl (8.6-10.3); Creatinine Clr Calc Pharmacy 7.5 ml/min; Potassium 5.4 mmol/L (3.5-5.1)
--- NOTE | 2025-02-19 10:48 | Hospitalist Progress Note ---
Date of Service February 19, 2025 Assessment & Plan (1) Diarrhea: Plan: -CT negative -no evidence of infection -pt states has been chronic since November -GI consulted for further evaluation (2) Hyperkalemia: Plan: -K 5.4 today (3) End stage chronic kidney disease: Plan: Pt unable to have HD today due to A-V fistula not able to be accessed Pt may require alterative HD cath access Awaiting nephrology follow up HD as per Nephrology (4) Anemia: (5) Diabetes mellitus: (6) Hypertension: Plan: -coreg -nefidepine XR (7) Asthma: Plan: -albuterol Plan 60yo male with ESRD on HD Fri/Fri/Friday (dialyzes in [place]), T2DM, HTN, prior VTE, asthma, history of CVA x 2 (10/2012 and 11/2014), and chronic tobacco dependence who presents from home with frequent loose stools, weakness/fatigue, and abdominal bloating. He states that his symptoms started about 2 weeks after his hospitalization in November when he had CT-confirmed sigmoid diverticulitis. He took a course of oral cipro/flagyl after discharge per records. Admission and Anticipated Discharge Date Admission Date: February 16, 2025 Subjective Pt unable to have dialysis this am as A-V fistula not accessible. Review of Systems Review of Systems: CONST: Negative for fever, body aches and chills. HENT: Negative for neck pain/stiffness, headache, congestion, sore throat, swelling. EYES: Negative for discharge/pain or vision changes. RESP: Negative for cough/hemoptysis and shortness of breath. CV: Negative chest pain, difficulty breathing, palpitations. ABD: Negative pain, nausea, vomiting. : Negative increase frequency, dysuria, blood in urine or stool. MUSC: Negative for muscle aches, edema. SKIN: Negative rash, lesions/sores. NEURO: Negative headache, dizziness, weakness. Physical Exam Physical Exam: GENERAL APPEARANCE NAD, activity normal for age, well developed/ well nourished, no cyanosis, pallor, or diaphoresis. EYES lids/conjunctiva normal. EARS/NOSE/THROAT Mucous membranes moist, nares normal, lips/teeth normal uvula midline without oral pharyngeal erythema, exudate or swelling TMs normal bilaterally. No lymphangitis/lymphedema. HEAD/NECK normocephalic atraumatic, no facial trauma, neck is supple. RESPIRATORY respiratory effort normal, speaks in full sentences, no tripod position, no accessory muscle use. Lungs clear to auscultation without rhonchi, wheezes, rales CARDIAC Regular rate and rhythm, no edema. ABDOMINAL Soft, ND/NT. No evidence of fluid wave. No pulsatile masses on exam, rebound tenderness, Arroyo sign or pain over Mcburney's point. MUSCLES/EXTREMITIES No abnormal range of motion, no swelling. SKIN Warm, pink and dry. No rashes, dermatoses, petechiae or lesions. NEUROLOGICAL Speech is clear and appropriate. Normal level of consciousness. Gait and coordination are normal. 5/5 strength in all extremities. PSYCH Normal mood and affect. Judgement/competence is appropriate Results & Data Results & Data Vital Signs (Past 12 Hours) Vital Signs Temp Pulse Pulse Pulse Resp BP Pulse Ox 02/19/25 08:17 36.8 C 79 18 100/63 96 02/19/25 08:00 84 02/19/25 08:00 02/19/25 07:53 36.8 C 80 20 100/63 96 02/19/25 02:55 36.5 C 82 18 151/81 H 92 02/18/25 23:30 O2 Del Method 02/19/25 08:17 Room Air 02/19/25 08:00 02/19/25 08:00 Room Air 02/19/25 07:53 Room Air 02/19/25 02:55 Room Air 02/18/25 23:30 Room Air PG Care Time/CCT Total # of Minutes Spent Total Time Spent with Patient: Total time spent is greater than 50% in coordination of care (as documented) at patient's floor/unit and/or counseling patient: Coding Level of Care Code 98650 SUB INP/OBS CARE 2/35MIN Diagnoses Diarrhea R19.7 Hyperkalemia E87.5 End stage chronic kidney disease N18.6 Anemia D64.9 Anemia type: unspecified type Diabetes mellitus E11.9 Hypertension I10 Asthma J45.909 (4) Anemia Anemia type: unspecified type Qualified Code(s): D64.9 - Anemia, unspecified
--- NOTE | 2025-02-19 11:44 | Nephrology Progress Note ---
Date of Service February 19, 2025 Assessment & Plan (1) End stage renal disease on dialysis: (2) Hyperkalemia: (3) Diarrhea: (4) Metabolic acidosis: (5) Anemia due to chronic kidney disease: Plan 60-year-old male with ESKD due to DKD, HTN, started on HD on 09/17/2024, admitted to the hospital with generalized weakness, diarrhea and abdominal bloating for few days and workup revealed norovirus and Campylobacter. On admission he was hyperkalemic. He dialysis Friday, Friday, Friday for 3.5 hours at [facility] in [place]. Had left brachiocephalic AV fistula placed on 11/23/2024 which has been in use over last 1 month. Right IJ tunneled dialysis catheter was removed about 2 weeks ago as fistula has been functioning well. Yesterday during dialysis his fistula infiltrated and he did not have dialysis. This morning dialysis was tried again but there has been blood clot and fistula could not be accessed for use and dialysis was again postponed. Lab this morning was notable for persistent hyperkalemia, potassium is 5.7, bicarb 20, sharp rise in BUN and creatinine noted without dialysis yesterday. Thankfully his volume status is acceptable, no respiratory distress and he generally urinates decent amount. --Start on Lokelma 10 g daily, sodium bicarbonate 650 mg 2 tabs twice a day --Fluid restriction to less than 1200 mL/day, left arm nephrology precaution. --If the electrolyte improved and volume status acceptable we can try discharging him with trying to access the fistula at the outpatient dialysis unit and if still not able to use the fistula then he will need a tunneled dialysis catheter again. However if no improvement in electrolyte, he may need a temporary catheter or a tunneled dialysis catheter Friday here Admission and Anticipated Discharge Date Admission Date: February 16, 2025 Subjective Curtis was seen and evaluated this morning. He denies any shortness of breath or chest pain. Reports generally decent urine output. Blood pressure acceptable. Appetite decent, denies anorexia or nausea. Lab was notable for multiple electrolyte abnormality including hyperkalemia, metabolic acidosis, significant elevation in BUN and creatinine off of dialysis. Reports diarrhea has been ongoing. Review of Systems Review of Systems: All systems reviewed & are unremarkable except as noted in Subjective Physical Exam Constitutional: WD/WN, vitals as above no acute distress Eyes: + anicteric sclerae Respiratory: no respiratory distress Auscultation: lungs clear to auscultation bilaterally Cardiovascular: RRR, no murmur, no edema Extremities: + AV fistula (left BC AVF with bruit) Skin: no rashes, warm and dry Neurologic: no focal motor deficits and not confused Psychiatric: Orientation: alert and oriented x 3 Results & Data Vital Signs (Past 12 Hours) Vital Signs Temp Pulse Pulse Pulse Resp BP Pulse Ox 02/19/25 09:45 36.8 C 81 148/89 H 02/19/25 09:00 36.8 C 83 02/19/25 08:17 36.8 C 79 18 100/63 96 02/19/25 08:00 84 02/19/25 08:00 02/19/25 07:53 36.8 C 80 20 100/63 96 02/19/25 02:55 36.5 C 82 18 151/81 H 92 O2 Del Method 02/19/25 09:45 02/19/25 09:00 02/19/25 08:17 Room Air 02/19/25 08:00 02/19/25 08:00 Room Air 02/19/25 07:53 Room Air 02/19/25 02:55 Room Air PG Care Time/CCT Total # of Minutes Spent Total Time Spent with Patient: Total time spent is greater than 50% in coordination of care (as documented) at patient's floor/unit and/or counseling patient: Coding Level of Care Code 87418 SUB INP/OBS CARE 3/50MIN Diagnoses End stage renal disease on dialysis N18.6; Z99.2 Hyperkalemia E87.5 Diarrhea R19.7 Metabolic acidosis E87.20 Anemia due to chronic kidney disease N18.9; D63.1
[2025-02-19] MEDS: SODIUM BICARBONATE 650 MG TAB PO SCH (21:10)
[2025-02-19] MEDS ORDERED: CALAMINE/PRAMOXINE LOTION 180 APPLN/180 ML BTL EXT PRN (23:10)
[2025-02-20 03:18] VITALS: RESP 20
[2025-02-20 05:58] LABS: Hematocrit (blood only) 27.4 % (42.0-52.0); Hemoglobin 9.4 g/dl (14.0-18.0); Mean Corpuscular Hemoglobin 31.5 pg (25.0-34.0); Mean Corpuscular Hgb Conc 34.3 g/dL (32.0-36.0); Mean Corpuscular Volume 91.9 fL (80.0-100.0); Mean Platelet Volume 11.9 fL (9.4-12.4); Platelet Count 106 K/uL (130-400); RDW Coefficient of Variation 14.5 % (11.5-14.5); RDW Standard Deviation 48.4 fL (36.4-46.3); Red Blood Count 2.98 M/uL (4.70-6.10); White Blood Count 5.38 K/ul (4.8-10.8)
[2025-02-20 06:36] LABS: BUN Creatinine Ratio 8.1 (10-20); Calcium 8.5 mg/dl (8.6-10.3); Creatinine Clr Calc Pharmacy 7.5 ml/min; Phosphorus 11.4 mg/dl (2.5-4.9); Potassium 5.6 mmol/L (3.5-5.1)
[2025-02-20 08:27] VITALS: O2SAT 96
--- NOTE | 2025-02-20 10:52 | Hospitalist Progress Note ---
Date of Service February 20, 2025 Assessment & Plan (1) Diarrhea: Plan: -CT negative -no evidence of infection -pt states has been chronic since November -GI consulted for further evaluation (2) Hyperkalemia: Plan: -K 5.6 today (3) End stage chronic kidney disease: Plan: PT attempting HD today as per Nephrology K+ 5.6 (4) Anemia: (5) Diabetes mellitus: (6) Hypertension: Plan: -coreg -nefidepine XR (7) Asthma: Plan: -albuterol Plan 60yo male with ESRD on HD Fri/Fri/Friday (dialyzes in [place]), T2DM, HTN, prior VTE, asthma, history of CVA x 2 (10/2012 and 11/2014), and chronic tobacco dependence who presents from home with frequent loose stools, weakness/fatigue, and abdominal bloating. He states that his symptoms started about 2 weeks after his hospitalization in November when he had CT-confirmed sigmoid diverticulitis. He took a course of oral cipro/flagyl after discharge per records. Admission and Anticipated Discharge Date Admission Date: February 16, 2025 Subjective No events overnight. Pt awaiting HD again today. Review of Systems Review of Systems: CONST: Negative for fever, body aches and chills. HENT: Negative for neck pain/stiffness, headache, congestion, sore throat, swelling. EYES: Negative for discharge/pain or vision changes. RESP: Negative for cough/hemoptysis and shortness of breath. CV: Negative chest pain, difficulty breathing, palpitations. ABD: Negative pain, nausea, vomiting. : Negative increase frequency, dysuria, blood in urine or stool. MUSC: Negative for muscle aches, edema. SKIN: Negative rash, lesions/sores. NEURO: Negative headache, dizziness, weakness. Physical Exam Physical Exam: GENERAL APPEARANCE NAD, activity normal for age, well developed/ well nourished, no cyanosis, pallor, or diaphoresis. EYES lids/conjunctiva normal. EARS/NOSE/THROAT Mucous membranes moist, nares normal, lips/teeth normal uvula midline without oral pharyngeal erythema, exudate or swelling TMs normal bilaterally. No lymphangitis/lymphedema. HEAD/NECK normocephalic atraumatic, no facial trauma, neck is supple. RESPIRATORY respiratory effort normal, speaks in full sentences, no tripod position, no accessory muscle use. Lungs clear to auscultation without rhonchi, wheezes, rales CARDIAC Regular rate and rhythm, no edema. ABDOMINAL Soft, ND/NT. No evidence of fluid wave. No pulsatile masses on exam, rebound tenderness, Arroyo sign or pain over Mcburney's point. MUSCLES/EXTREMITIES No abnormal range of motion, no swelling. SKIN Warm, pink and dry. No rashes, dermatoses, petechiae or lesions. NEUROLOGICAL Speech is clear and appropriate. Normal level of consciousness. Gait and coordination are normal. 5/5 strength in all extremities. PSYCH Normal mood and affect. Judgement/competence is appropriate Results & Data Results & Data Vital Signs (Past 12 Hours) Vital Signs Temp Pulse Pulse Resp BP Pulse Ox O2 Del Method 02/20/25 08:26 36.9 C 86 20 181/98 H 96 Room Air 02/20/25 08:00 79 02/20/25 03:16 36.3 C L 75 20 154/72 H 95 Room Air 02/19/25 23:15 36.7 C 81 19 170/94 H 93 Room Air PG Care Time/CCT Total # of Minutes Spent Total Time Spent with Patient: Total time spent is greater than 50% in coordination of care (as documented) at patient's floor/unit and/or counseling patient: Coding Level of Care Code 88790 SUB INP/OBS CARE 2/35MIN Diagnoses Diarrhea R19.7 Hyperkalemia E87.5 End stage chronic kidney disease N18.6 Anemia D64.9 Anemia type: unspecified type Diabetes mellitus E11.9 Hypertension I10 Asthma J45.909 (4) Anemia Anemia type: unspecified type Qualified Code(s): D64.9 - Anemia, unspecified
--- NOTE | 2025-02-20 11:06 | Nephrology Progress Note ---
Date of Service February 20, 2025 Assessment & Plan (1) End stage renal disease on dialysis: (2) Hyperkalemia: (3) Diarrhea: (4) Metabolic acidosis: (5) Anemia due to chronic kidney disease: Plan 60-year-old male with ESKD due to DKD, HTN, started on HD on 09/17/2024, admitted to the hospital with generalized weakness, diarrhea and abdominal bloating for few days and workup revealed norovirus and Campylobacter. On admission he was hyperkalemic. He dialysis Friday, Friday, Friday for 3.5 hours at [facility] in [place]. Had left brachiocephalic AV fistula placed on 11/23/2024 which has been in use over last 1 month. Right IJ tunneled dialysis catheter was removed about 2 weeks ago as fistula has been functioning well. Yesterday during dialysis his fistula infiltrated and he did not have dialysis. This morning dialysis was tried again but there has been blood clot and fistula could not be accessed for use and dialysis was again postponed. Lab this morning was notable for worsening hyperkalemia, potassium is 5.7, bicarb 18, sharp rise in BUN and creatinine noted without dialysis yesterday. Volume status is acceptable, no respiratory distress and he generally urinates decent amount. -- Will try to use the fistula again and do the dialysis to improve azotemia and electrolyte abnormality. If fistula cannot be accessed today, options would be to try to have a tunneled catheter tomorrow and have dialysis here. However, Mr. Ballesterso insisted on going home this afternoon and going to his regular dialysis unit tomorrow morning where they have been using the fistula successfully. And if outpatient unit fails and he will go to Dr. Milner for tunneled catheter tomorrow. He understands the significant health risk with multiple critical electrolyte abnormality without dialysis for last few days specifically high risk for fatal cardiac arrhythmia. --Fluid restriction to less than 1200 mL/day, left arm nephrology precaution. Continue on potassium and phosphate binder, sodium bicarbonate and avoid high potassium foods on discharge. Admission and Anticipated Discharge Date Admission Date: February 16, 2025 Subjective Curtis was seen and evaluated this morning. He denies any shortness of breath or chest pain. Reports generally decent urine output. Blood pressure acceptable. Appetite decent, denies anorexia or nausea. Lab was notable for worsening electrolyte abnormality despite being on potassium binder and bicarbonate including hyperkalemia, hyperphosphatemia and metabolic acidosis, significant elevation in BUN and creatinine off of dialysis for almost 4 days. Reports diarrhea has been ongoing. Review of Systems Review of Systems: All systems reviewed & are unremarkable except as noted in Subjective Physical Exam Constitutional: WD/WN, vitals as above no acute distress Eyes: + anicteric sclerae Respiratory: no respiratory distress Auscultation: lungs clear to auscultation bilaterally Cardiovascular: RRR, no murmur, no edema Extremities: + AV fistula (left BC AVF with bruit) Skin: no rashes, warm and dry Neurologic: no focal motor deficits and not confused Psychiatric: Orientation: alert and oriented x 3 Results & Data Vital Signs (Past 12 Hours) Vital Signs Temp Pulse Pulse Resp BP Pulse Ox O2 Del Method 02/20/25 08:26 36.9 C 86 20 181/98 H 96 Room Air 02/20/25 08:00 79 02/20/25 03:16 36.3 C L 75 20 154/72 H 95 Room Air 02/19/25 23:15 36.7 C 81 19 170/94 H 93 Room Air PG Care Time/CCT Total # of Minutes Spent Total Time Spent with Patient: Total time spent is greater than 50% in coordination of care (as documented) at patient's floor/unit and/or counseling patient: Coding Level of Care Code 07216 SUB INP/OBS CARE 3/50MIN Diagnoses End stage renal disease on dialysis N18.6; Z99.2 Hyperkalemia E87.5 Diarrhea R19.7 Metabolic acidosis E87.20 Anemia due to chronic kidney disease N18.9; D63.1
[2025-02-20 12:02] VITALS: TEMP 97.7
[2025-02-20] MEDS: SODIUM ZIRCONIUM CYCLOSILICATE 10 GM PACKET PO SCH (12:12)
[2025-02-20] MEDS: HEPARIN SOD (PORCINE) 1000 UNIT/ML IV ONE (12:17)
[2025-02-20] MEDS: HEPARIN SOD (PORCINE) 1000 UNIT/ML IV SCH (12:35)
[2025-02-20 15:35] VITALS: PULSE 83
[2025-02-20 16:04] VITALS: BP 181/98
== END 2025-02-20 16:38 | disposition home or self-care (01) ==
LOC: 4W 15:06 → ED 15:06 → SUATTDRO 18:33 → 4W 20:01

== ENCOUNTER 2025-04-17 11:18 | Inpatient (IN) ==
[2025-04-17] MEDS: SODIUM CHLORIDE 0.9% 500 ML IV STA (11:49)
[2025-04-17 12:09] LABS: Hematocrit (blood only) 28.2 % (42.0-52.0); Hemoglobin 9.3 g/dl (14.0-18.0); Immature Granulocytes # (auto) 0.03 K/uL (0.01-0.20); Immature Granulocytes % (auto) 0.6 %; Mean Corpuscular Hemoglobin 31.5 pg (25.0-34.0); Mean Corpuscular Volume 95.6 fL (80.0-100.0); Platelet Count 115 K/uL (130-400); RDW Standard Deviation 49.8 fL (36.4-46.3); Red Blood Count 2.95 M/uL (4.70-6.10); White Blood Count 5.19 K/ul (4.8-10.8)
[2025-04-17 12:37] LABS: Alanine Aminotransferase 27.0 U/L (7-52); Albumin Globulin Ratio 1.8 (0.9-2); Alkaline Phosphatase 63.0 U/L (34-104); Anion Gap 25.0 (3-11); Bilirubin,Total 0.4 mg/dl (0.2-1.0); Calcium 6.8 mg/dl (8.6-10.3); Carbon Dioxide 13.0 mmol/L (21-32); Chloride 98.0 mmol/L (98-107); Creatinine Clr Calc Pharmacy 5.3 ml/min; Globulin 2.6 gm/dl (2.5-4.0); Glucose 93.0 mg/dl (70-99(Fasting)); Lipase 134.0 U/L (11-82); Magnesium 2.6 mg/dl (1.7-2.4); Potassium 5.8 mmol/L (3.5-5.1); Sodium 136.0 mmol/L (136-145); Total Protein 7.2 gm/dl (6.0-8.3)
--- NOTE | 2025-04-17 12:41 | Emergency Department Note ---
Impression & Plan Metabolic acidosis, Diffuse abdominal pain, Renal failure, CHF (congestive heart failure), Fluid overload ED Provider Note NAME: JULIA PURVIS AGE: 60 SEX: M : 1965 ARRIVES VIA: Walk-In INFORMANT: [Patient] ED PROVIDER(S): [Hieu Archer MD] CHIEF COMPLAINT: Abdominal pain HISTORY OF PRESENT ILLNESS: Patient is a 60-year-old male who presents with about 2-1/2 weeks of abdominal pain. Patient has had a difficult time moving his bowels and his stools have at times been black, there has been some blood with the stool. He feels bloated and has some nausea. There has been no vomiting. No cough or cold or congestion. No chest pain. No fever. Of note, patient stopped going to dialysis 2 weeks ago, he states he just got fed up with all of the needles and [id number] trips. The patient states that he has had diverticulitis, he is concerned that he may have that infection once again. Of note, the patient was here 2 days ago with similar complaints. Admission was recommended for his abdominal complaints and renal failure, he refused. He was discharged with prescriptions for Bumex and Lokelma. PMHx/PSHx/Social Hx: See Below PHYSICAL EXAM: GENERAL: Patient is in no acute distress. HEENT: No acute trauma, normocephalic atraumatic, mucous membranes moist, no nasal congestion. NECK: No stridor, no adenopathy, no meningismus, trachea is midline. LUNGS: Clear to auscultation bilaterally, no wheeze, no rhonchi, breath sounds equal. Cough noted. HEART: Without murmurs gallops or rubs, regular rate and rhythm. ABDOMEN: Soft, diffusely mildly tender, there is some distention. EXTREMITIES: No cyanosis, full range of motion of all the joints without pain or difficulty. Mild bilateral pedal edema. NEUROLOGIC: Oriented x 3, no acute motor or sensory deficits, no focal weakness. SKIN: No jaundice, no diaphoresis. DIFFERENTIAL DIAGNOSIS: Fluid overload, diverticulitis, constipation, colitis, electrolyte imbalance, renal failure, among others. EMERGENCY DEPARTMENT PROCEDURES: MEDICAL DECISION MAKING: There is no leukocytosis. The patient is anemic however, this is a chronic issue--his hemoglobin has not dropped. Platelet count was low at 115, his thrombocytopenia has been documented before. There was no bandemia. VBG does show a metabolic acidosis with a pH of 7.15. There was renal failure consistent with his need for dialysis-his creatinine was 17.6. Potassium was mildly elevated at 5.8. Phosphorus and magnesium were both high. No worrisome liver enzyme elevation. Lipase somewhat elevated at 134, not high enough to diagnose pancreatitis. Chest x-ray shows cardiomegaly and fluid overload/CHF. Abdominal and pelvis CT shows gallstones with a somewhat thickened gallbladder wall. No ductal dilatation. No bowel obstruction. No diverticulitis. ECG showed a sinus rhythm with a somewhat prolonged QTc. No ST elevation. On exam, the patient was somewhat hypertensive. He had diffuse abdominal discomfort. He was not hypoxic or febrile. The patient was initially ordered for IV saline, this was then quickly canceled before it was administered--once his dialysis need was recognized. Given the patient's history and findings today, I did talk with him about dialysis. He today is willing to undergo dialysis and care within the hospital. I spoke with nephrology, they are going to have the patient dialyzed today. I did speak with case management, the on-call hospitalist was consulted. At this point, the cause for all his complaints is not completely clear. Certainly, the gallstones may be part of his presentation. The large part of why he is here I believe has to do with his multiple missed dialysis appointments. Prior/Outside records/notes reviewed: None ECG per my interpretation: Indication was abdominal pain. The ECG shows a normal sinus rhythm with a rate of 74. There is no acute ST elevation, no PVCs. There is some nonspecific ST change. QCT is 519. Continuous Cardiac Monitoring per my interpretation: An order was placed for continuous cardiac monitoring. The monitor shows a rate of 75 with normal sinus rhythm. Imaging/x-ray results per my interpretation: Chest x-ray shows cardiomegaly and some mild CHF. Chronic Medical/Social conditions affecting care: History of dialysis need. Care/Management discussed with: Case management, the on-call hospitalist. Nani Silva nephrology-Dr. Agrawal. Level of care consideration(s): After review of the information above and other included data: --I believe the patient requires escalation of care to admission DISPOSITION: Admission Past Med/Surg History Problem List Anemia due to chronic kidney disease Metabolic acidosis End stage renal disease on dialysis Hyperkalemia (Acute) Diarrhea Medical History Diverticulitis sigmoid - 11/2024 End stage chronic kidney disease Anemia Secondary hyperparathyroidism History of CVA (cerebrovascular accident) Diabetes mellitus Hypertension History of deep venous thrombosis or pulmonary embolus Asthma Dyslipidemia Hypertriglyceridemia Surgical History S/P arteriovenous (AV) fistula creation LUE Family History Father Cancer Prostate Kidney disease Late in life while suffering from advanced metastatic prostate cancer and alcoholism Heart disease Denies family history of Colorectal cancer Social History Smoking Status: Never smoker Tobacco Type: Smokeless Tobacco (Dip or Chew) Second Hand Exposure: Yes; Do You Dip or Chew Tobacco: No ("quit"); Hx Alcohol Use: Yes Hx Substance Use: No Preferred Language: Austrian Communication Ability: Effective Wet Process [place] Required: No Beliefs That Will Affect Care: None marital status: Current Living Situation: Significant Other current occupational status: disabled How many Children do You have: 2 Feels Safe at Home: Yes Assistive Devices: None Allergies Allergies Allergy/AdvReac Type Severity Reaction Status Date / Time cephalexin AdvReac Verified 10/26/24 18:10 hydralazine AdvReac Verified 10/26/24 18:10 sulfamethoxazole AdvReac Verified 10/26/24 18:10 [From Bactrim] trimethoprim [From Bactrim] AdvReac Verified 10/26/24 18:10 Home Meds Home Medications Medication Instructions Recorded Confirmed insulin glargine 100 unit/mL (3 1 unit subcut UD 11/02/21 04/17/25 mL) subcutaneous pen (Lantus Solostar U-100 Insulin) vitamin B complex and vitamin C 1 cap PO QAM 10/26/24 04/17/25 no.20-folic acid 1 mg capsule (Renal Caps) albuterol sulfate 90 mcg/actuation 2 puff inhalation .Q4-6 PRN sob 12/12/24 04/17/25 aerosol inhaler (Ventolin HFA) furosemide 80 mg tablet 0 mg PO QAM 02/16/25 04/17/25 lisinopril 10 mg tablet 10 mg PO AMHS 02/16/25 04/17/25 nifedipine 60 mg tablet,extended 60 mg PO QAM 02/16/25 04/17/25 release calcium acetate(phosphat bind) 667 0 mg PO TIDM 04/17/25 04/17/25 mg capsule sucroferric oxyhydroxide 500 mg 0 mg PO TIDM 04/17/25 04/17/25 chewable tablet (Velphoro) Previous Rx's Medication Instructions Recorded bumetanide 1 mg tablet 1 mg PO BID #30 tabs 04/15/25 sodium zirconium cyclosilicate 10 10 g PO TID #30 ea 04/15/25 gram oral powder packet (Lokelma) Results & Data (ED) Vital Signs Vital Signs - 24 hr 04/17/25 11:28 04/17/25 11:57 04/17/25 12:00 Temperature 36.9 C Temperature Source Temporal Artery Scan Pulse Rate 81 74 75 Pulse Rate [Apical] Pulse Rate from SpO2 Sensor 75 Respiratory Rate 18 21 Respiratory Effort / Characteristics Non-Labored Respiratory Depth Normal Respiratory Pattern Regular Blood Pressure 165/78 H Blood Pressure Mean 107 Pulse Oximetry 99 94 Oxygen Delivery Method Room Air Sepsis Recent Fever Within 48 Hours No Sepsis New/Unexplained Change in Mental Status N/A Sepsis Action Taken by Nursing No Action Required 04/17/25 12:30 04/17/25 12:33 04/17/25 12:57 Temperature Temperature Source Pulse Rate 74 72 Pulse Rate [Apical] Pulse Rate from SpO2 Sensor 74 72 Respiratory Rate 17 24 Respiratory Effort / Characteristics Respiratory Depth Respiratory Pattern Blood Pressure 148/85 H Blood Pressure Mean 102 Pulse Oximetry 97 96 Oxygen Delivery Method Sepsis Recent Fever Within 48 Hours Sepsis New/Unexplained Change in Mental Status Sepsis Action Taken by Nursing 04/17/25 13:30 04/17/25 14:00 04/17/25 14:54 Temperature Temperature Source Pulse Rate 78 79 Pulse Rate [Apical] Pulse Rate from SpO2 Sensor 77 78 Respiratory Rate 21 18 Respiratory Effort / Characteristics Respiratory Depth Respiratory Pattern Blood Pressure 170/96 H Blood Pressure Mean 116 Pulse Oximetry 94 100 Oxygen Delivery Method Sepsis Recent Fever Within 48 Hours Sepsis New/Unexplained Change in Mental Status Sepsis Action Taken by Nursing 04/17/25 15:09 Temperature Temperature Source Pulse Rate Pulse Rate [Apical] 74 Pulse Rate from SpO2 Sensor Respiratory Rate 20 Respiratory Effort / Characteristics Respiratory Depth Respiratory Pattern Blood Pressure Blood Pressure Mean Pulse Oximetry 96 Oxygen Delivery Method Room Air Sepsis Recent Fever Within 48 Hours Sepsis New/Unexplained Change in Mental Status Sepsis Action Taken by Assisted Medications Current Medication List: was personally reviewed by me Laboratory Data Attestation: I reviewed the patient's lab results. 04/17/25 11:44 04/17/25 11:44 Lab Results 04/17/25 04/17/25 04/17/25 Range/Units 11:44 11:50 12:47 WBC 5.19 (4.8-10.8) K/ul RBC 2.95 L (4.70-6.10) M/uL Hgb 9.3 L (14.0-18.0) g/dl POC Hgb 9.5 L (14.0-18.0) g/dl Hct 28.2 L (42.0-52.0) % POC Hct 28 L (42-52) % MCV 95.6 (80.0-100.0) fL MCH 31.5 (25.0-34.0) pg MCHC 33.0 (32.0-36.0) g/dL RDW Std Deviation 49.8 H (36.4-46.3) fL RDW Coeff of Chelsey 14.3 (11.5-14.5) % Plt Count 115 L (130-400) K/uL MPV 12.6 H (9.4-12.4) fL Immature Gran % (Auto) 0.6 % Neut % (Auto) 74.1 % Lymph % (Auto) 14.3 % [place] % (Auto) 8.1 % Eos % (Auto) 1.7 % Baso % (Auto) 1.2 % Neut # (Auto) 3.85 (1.40-6.50) K/uL Lymph # (Auto) 0.74 L (1.20-3.40) K/uL [place] # (Auto) 0.42 (0.11-0.59) K/uL Eos # (Auto) 0.09 (0.00-0.50) K/uL Baso # (Auto) 0.06 (0.00-0.20) K/uL Immature Gran # (Auto) 0.03 (0.01-0.20) K/uL VBG pH 7.15 L (7.36-7.41) VBG pCO2 36 L (38-50) mmHg VBG pO2 32 mmHg VBG HCO3 13 mmol/L VBG O2 Saturation < 60.0 % VBG Base Excess -15.5 mEq/L POC Sodium 133 L (135-144) mmol/L Sodium 136 (136-145) mmol/L POC Potassium 5.8 H (3.3-5.0) mmol/L Potassium 5.8 H (3.5-5.1) mmol/L POC Chloride 103 (101-112) mmol/L Chloride 98 (98-107) mmol/L Carbon Dioxide 13 L (21-32) mmol/L POC Total CO2 14 L (24-31) mmol/L Anion Gap 25 H (3-11) POC Anion Gap 23.0 (16-25) mmol/L POC BUN > 140 H* (7-18) mg/dl BUN 146 H (6-23) mg/dl Creatinine 17.62 H* D (0.6-1.4) mg/dl POC Creatinine 20.0 H* (0.6-1.3) mg/dl Est Cr Clr Drug Dosing 5.3 ml/min eGFR 2.74 BUN/Creatinine Ratio 8.3 L (10-20) Glucose 93 (70-99(Fasting)) mg/dl POC Glucose (other) 91 (70-99) mg/dl Calcium 6.8 L (8.6-10.3) mg/dl POC Ioniz Calcium Brando 0.79 L (1.12-1.32) mmol/l Phosphorus 18.4 H (2.5-4.9) mg/dl Magnesium 2.6 H (1.7-2.4) mg/dl Total Bilirubin 0.4 (0.2-1.0) mg/dl AST 17 (13-39) U/L ALT 27 (7-52) U/L Alkaline Phosphatase 63 (34-104) U/L Total Protein 7.2 (6.0-8.3) gm/dl Albumin 4.6 (3.4-5.0) gm/dl Globulin 2.6 (2.5-4.0) gm/dl Albumin/Globulin Ratio 1.8 (0.9-2) Lipase 134 H (11-82) U/L Administered Medications Discontinued Medications Sodium Chloride (Nss) 500 mls @ 999 mls/hr IV .Q31M STA Stop: 04/17/25 12:05 Last Admin: 04/17/25 11:49 Dose: Not Given Documented By: TNK Pantoprazole Sodium 80 mg/ (Dextrose) 120 mls @ 480 mls/hr IV 1545 ONE Stop: 04/17/25 15:59 Last Admin: 04/17/25 16:09 Dose: 480 mls/hr Documented By: JUSTINA Imaging Data Radiologist's Impression: Abdomen/Pelvis CT 04/17/25 12:08 Clinical History: Abdominal pain Technique: Axial computed tomography images were obtained of the abdomen and pelvis without intravenous contrast. Comparison is made to the prior CT dated 02/16/2025 Findings: The liver is overall of normal size, attenuation, and contour with no sign of cirrhosis or significant fatty infiltration. No definite liver mass lesion is seen on this noncontrast study. Gallstones are present. There is apparent mild gallbladder wall thickening. No bile duct dilatation is noted. The spleen is mildly enlarged measuring 14.6 cm. No focal splenic lesion is evident. The pancreas appears normal with no sign of acute or chronic pancreatitis and no mass lesion noted. The pancreatic duct is of normal caliber. The adrenal glands appear unremarkable. No renal or proximal ureteral calculi are seen. There is no hydronephrosis or perinephric stranding. No definite renal mass lesion is identified. There is bilateral renal cortical atrophy The aorta is of normal caliber. No abdominal adenopathy is seen. The stomach appears normal. There is no sign of small bowel obstruction. There is diverticulosis without evidence of diverticulitis. No free intraperitoneal fluid or air is identified. No distal ureteral or bladder calculi are seen. No obvious bladder mass lesion is evident. The iliac arteries are of normal caliber. No pelvic adenopathy is noted. The prostate is at the upper limit of normal in size There is a small right pleural effusion and there is a minimal left pleural effusion. There is right lower lobe atelectasis Lumbar scoliosis and degenerative disc disease is seen. No fracture is identified. No focal osseous lesion is seen Impression: 1. Cholelithiasis with possible cholecystitis. Correlation with gallbladder sonography may be useful 2. Small right pleural effusion and minimal left pleural effusion 3. Mild splenomegaly 4. Bilateral renal cortical atrophy 5. Diverticulosis without evidence of diverticulitis ACT 112: Positive. There are findings on this exam that require communication between the performing entity and the patient following Patient Test Result Information Act ([place] ACT 112) guidelines. Electronically signed by Thiago Patel 04-17-2025 2:10 PM Chest X-Ray 04/17/25 12:08 Technique: A frontal view of the chest was obtained Comparison is made to the prior examinations dated 04/15/2025 Findings: There is possible right middle lobe infiltrate, with new mild patchy opacity seen. The heart size is at the upper limit of normal. No pleural effusion or pneumothorax is seen. There is no definite pulmonary nodule. No fracture is noted. No foreign body is seen Impression: Possible right middle lobe pneumonia ACT 112: Positive. There are findings on this exam that require communication between the performing entity and the patient following Patient Test Result Information Act ([place] ACT 112) guidelines. Electronically signed by Thiago Patel 04-17-2025 12:59 PM Discharge Plan Visit Data Chief Complaint: Abdominal Pain Stated Complaint: STOMACH PAIN ED Provider: Hieu Archer Discharge Problem: Metabolic acidosis, Diffuse abdominal pain, Renal failure, CHF (congestive heart failure), Fluid overload Patient Disposition: Admitted As Inpatient Condition: Serious Forms Stand Alone Forms: [facility], Important Visit Information Prescriptions Prescriptions: No Action Lantus Solostar U-100 Insulin 100 unit/mL (3 mL) insulin pen 1 unit subcut UD Rx Instructions: 12/12- usually 1 unit daily but if readings are perfect, he does none. INJECT BASELINE OF 1 UNIT AND ADD 1 UNIT FOR EVERY 10 POINTS OF BLOOD SUGAR READINGS, DO NOT EXCEED GREATER THAN 30 UNITS ONCE A DAY Lokelma 10 gram powder in packet 10 g PO TID Qty: 30 0RF bumetanide 1 mg tablet 1 mg PO BID Qty: 30 0RF Velphoro 500 mg tablet,chewable 0 mg PO TIDM Patient Comments: 04/17-last filled 03/11 30 day supply #180 calcium acetate(phosphat bind) 667 mg capsule 0 mg PO TIDM Patient Comments: 04/17-last filled 01/19/25 30 day supply #180 Renal Caps 1 mg capsule 1 cap PO QAM albuterol sulfate [Ventolin HFA] 90 mcg/actuation HFA aerosol inhaler 2 puff INHALATION .Q4-6 PRN (Reason: sob) Patient Comments: last filled 11/10/24 nifedipine 60 mg tablet extended release 60 mg PO QAM furosemide 80 mg tablet 0 mg PO QAM Patient Comments: 04/17-last filled 11/15 90 day supply #90 lisinopril 10 mg tablet 10 mg PO AMHS Referrals Referrals: Kamlesh Owens DO [Primary Care Provider] -
[2025-04-17 12:46] LABS: Blood Urea Nitrogen 146.0 mg/dl (6-23)
--- NOTE | 2025-04-17 13:02 | XRay Report ---
Technique: A frontal view of the chest was obtained Comparison is made to the prior examinations dated 04/15/2025 Findings: There is possible right middle lobe infiltrate, with new mild patchy opacity seen. The heart size is at the upper limit of normal. No pleural effusion or pneumothorax is seen. There is no definite pulmonary nodule. No fracture is noted. No foreign body is seen Impression: Possible right middle lobe pneumonia ACT 112: Positive. There are findings on this exam that require communication between the performing entity and the patient following Patient Test Result Information Act ([place] ACT 112) guidelines. Electronically signed by Thiago Patel 04-17-2025 12:59 PM
[2025-04-17 13:04] LABS: Base Excess VBG -15.5 mEq/L; HCO3 VBG 13 mmol/L; Oxygen Saturation VBG < 60.0 %; PCO2 VBG 36 mmHg (38-50); PO2 VBG 32 mmHg; pH VBG 7.15 (7.36-7.41)
--- NOTE | 2025-04-17 14:11 | CT Scan Report ---
Clinical History: Abdominal pain Technique: Axial computed tomography images were obtained of the abdomen and pelvis without intravenous contrast. Comparison is made to the prior CT dated 02/16/2025 Findings: The liver is overall of normal size, attenuation, and contour with no sign of cirrhosis or significant fatty infiltration. No definite liver mass lesion is seen on this noncontrast study. Gallstones are present. There is apparent mild gallbladder wall thickening. No bile duct dilatation is noted. The spleen is mildly enlarged measuring 14.6 cm. No focal splenic lesion is evident. The pancreas appears normal with no sign of acute or chronic pancreatitis and no mass lesion noted. The pancreatic duct is of normal caliber. The adrenal glands appear unremarkable. No renal or proximal ureteral calculi are seen. There is no hydronephrosis or perinephric stranding. No definite renal mass lesion is identified. There is bilateral renal cortical atrophy The aorta is of normal caliber. No abdominal adenopathy is seen. The stomach appears normal. There is no sign of small bowel obstruction. There is diverticulosis without evidence of diverticulitis. No free intraperitoneal fluid or air is identified. No distal ureteral or bladder calculi are seen. No obvious bladder mass lesion is evident. The iliac arteries are of normal caliber. No pelvic adenopathy is noted. The prostate is at the upper limit of normal in size There is a small right pleural effusion and there is a minimal left pleural effusion. There is right lower lobe atelectasis Lumbar scoliosis and degenerative disc disease is seen. No fracture is identified. No focal osseous lesion is seen Impression: 1. Cholelithiasis with possible cholecystitis. Correlation with gallbladder sonography may be useful 2. Small right pleural effusion and minimal left pleural effusion 3. Mild splenomegaly 4. Bilateral renal cortical atrophy 5. Diverticulosis without evidence of diverticulitis ACT 112: Positive. There are findings on this exam that require communication between the performing entity and the patient following Patient Test Result Information Act ([place] ACT 112) guidelines. Electronically signed by Thiago Patel 04-17-2025 2:10 PM
--- NOTE | 2025-04-17 14:57 | History & Physical Report ---
Date of Service April 17, 2025 Assessment & Plan (1) End stage chronic kidney disease: Plan: 60-year-old male with a history of diabetic/hypertensive ESRD with missed dialysis over the preceding 3 weeks who presents with acute metabolic acidosis, developing volume overload, and developing hyperkalemia likely from missed dialysis. Additionally he has had some dark stools and right upper quadrant abdominal pain and shows possible cholecystitis on CT. He does not have transaminitis. He is admitted with dialysis pending, and is covered empirically for potential cholecystitis with Zosyn and right upper quadrant ultrasound pending. Does not show obstructive LFTs. ESRD, acute on chronic metabolic acidosis, hyperkalemia Patient on MWF dialysis through left upper extremity fistula since 09/2024 Has missed dialysis last 2.5 weeks, was seen in the ER this week but declined admission at that time. No hypoxia; does endorse cough, orthopnea, progressive fatigue greatly worsened in the last 24 hours No chest pain/chest pressure. Potassium 5.8. Magnesium 2.6. VBG 7.15/36/32/13 Nephrology consulted for urgent dialysis due to your metabolic acidosis. He is not hypoxic but is dyspneic, with basilar crackles, evidence of fluid retention and orthopnea. EKG: Sinus, prolonged QT. Slight peaked appearance to P waves with similar amplitude/area under the curve to prior Abdominal pain, dark stools, ?melena patient reports dark/black stools and is concerned about bleeding. Was seen for similar 01/2025 and was Campylobacter positive at that time BUN is markedly elevated Hemoglobin is at baseline, 9.3 Protonix bolus, and twice daily push ordered Noncontrasted CTA/P was performed in ER due to ESRD. This shows possible cholecystitis. Type and cross ordered, consent for blood on file Right upper quadrant ultrasound pending. He is tender in the right upper quadrant palpation, he reports this is new. Zosyn ordered, ultrasound pending. Patient has tolerated Zosyn in the past. He has a cephalosporin allergy/hives. Type II DM Patient reports he only takes 1 unit of Lantus, and otherwise his blood sugars have been within normal range of [id number] ESRD, adequate BSG at time of admission, and risk of hypoglycemia with dis proportionate weight versus home dosing will consult pharmacy versus glycemic management and admit on SSI correction factor only. He is not requiring insulin at time of admission for his BSG Goal BSG [id number] Last A1c well-controlled Hypertension Medications continued DVT prophylaxis: SCDs Disposition: PCU DNR/DNI, discussed with patient at bedside on admission Diet: Renal (2) Metabolic acidosis: (3) Anemia due to chronic kidney disease: (4) History of CVA (cerebrovascular accident): (5) Hypertension: (6) Diabetes mellitus: History of Present Illness Primary Care Provider: Kamlesh OwensDO Acevedo is a 60-year-old male with a history of ESRD due to diabetic kidney disease/hypertension who started dialysis September 2024 typically on MWF HD via left brachiocephalic fistula who presents with hyperkalemia, metabolic acidosis, and? Equivocal cholecystitis. Patient was seen in the ER 2 days ago for hypokalemia and ESRD after multiple sessions of dialysis. At that time it was recommended he be admitted for inpatient management of hyperkalemia with additional concern for melenic stool. At that time he refused admission. Potential for comfort measures at home if he wished to discontinue dialysis was discussed at that time as he reported he was tired of needlesticks and dialysis. Per review of ER note patient expressed an understanding that if the test were to continue to rise this would be fatal and this was discussed with him at length along with his . Patient did refuse further care and was discharged home. To minimize harm he was discharged with Loitzelma and Bumex. He presents today with abdominal pain. ER evaluation shows VBG 7.15/pCO2 36/SAMPLE WEAVER 13. Potassium 5.8 He does not have a leukocytosis CTA/P: Cholelithiasis with possible cholecystitis. No evidence of diverticulitis. No hydronephrosis or perinephric stranding. Noted Chest x-ray reported as right middle lobe pneumonia, discussed with ER provider did appear more consistent with pulmonary edema. Due to synapse error with synapse/synapse independent visualization from hospitalist provider was not possible at time of admission consultation Ionized calcium was low at 0.79 Magnesium 2.6 Phosphorus markedly elevated 18.4 Creatinine 17.62 BUN 146 Bicarb 13 Anion gap 25 Patient seen at bedside. Per patient: Dark stool/black stool for 2-3 weeks Stopped going to dialysis 2.5 weeks ago. "[place] other than abdominal pain and bloating.' No appetite Cannot pass bowels, very small bowel movements that are tiny and black. No maroon/bright red blood "I am having trouble breathing past 20 hours, maybe a few days. For some strange reason its getting harder and harder for me to breath" Endorses a dry cough, nonproductive. This morning he caughed up a little white/clear phlegm. Endorses orthopnea in the last 24 hours. 'I can't sleep, or lay down and don't feel good last 20 or so hours. Breathing gets worse. I'm still coughing too' No leg swelling NO history of heart failure. No history of heart attacks. Past history of T2DM. "sugar diabetes. Does pretty good on lantus". Takes 1unit per day. Sugar usually 100-110. Takes lisinopril, 'some kind of dialysis pill since I stopped dialysis'. Has not been taking nifedipine the last week. DId not take lokelma or bumex in the last few days. With regard to plans and thoughts on dialysis. "I really don't know what I want to do about this. I'd love to get a kidney transplant but doesn't look like that will happen." Medical History: Reviewed Medications: Reviewed Surgical History: Reviewed Family history: Reviewed Allergies: Reviewed Social History:denies Tobacco/alcohol use Code Status: DNR/DNI, confirmed patient on admission Allergies Allergy/AdvReac Type Severity Reaction Status Date / Time cephalexin AdvReac Verified 10/26/24 18:10 hydralazine AdvReac Verified 10/26/24 18:10 sulfamethoxazole AdvReac Verified 10/26/24 18:10 [From Bactrim] trimethoprim [From Bactrim] AdvReac Verified 10/26/24 18:10 Home Medications Medication Instructions Recorded Confirmed Type insulin glargine 100 unit/mL (3 1 unit subcut UD 11/02/21 04/17/25 History mL) subcutaneous pen (Lantus Solostar U-100 Insulin) vitamin B complex and vitamin C 1 cap PO QAM 10/26/24 04/17/25 History no.20-folic acid 1 mg capsule (Renal Caps) albuterol sulfate 90 mcg/actuation 2 puff inhalation .Q4-6 PRN sob 12/12/24 04/17/25 History aerosol inhaler (Ventolin HFA) furosemide 80 mg tablet 0 mg PO QAM 02/16/25 04/17/25 History lisinopril 10 mg tablet 10 mg PO AMHS 02/16/25 04/17/25 History nifedipine 60 mg tablet,extended 60 mg PO QAM 02/16/25 04/17/25 History release bumetanide 1 mg tablet 1 mg PO BID #30 tabs 04/15/25 04/17/25 Rx sodium zirconium cyclosilicate 10 10 g PO TID #30 ea 04/15/25 04/17/25 Rx gram oral powder packet (Lokelma) calcium acetate(phosphat bind) 667 0 mg PO TIDM 04/17/25 04/17/25 History mg capsule sucroferric oxyhydroxide 500 mg 0 mg PO TIDM 04/17/25 04/17/25 History chewable tablet (Velphoro) Past Med/Surg History Problem List (Updated 03/23/25 @ 00:07 by Background Jonel) Anemia due to chronic kidney disease Metabolic acidosis End stage renal disease on dialysis Hyperkalemia (Acute) Diarrhea Medical History (Updated 03/23/25 @ 00:07 by Background Daemon) Diverticulitis sigmoid - 11/2024 End stage chronic kidney disease Anemia Secondary hyperparathyroidism History of CVA (cerebrovascular accident) Diabetes mellitus Hypertension History of deep venous thrombosis or pulmonary embolus Asthma Dyslipidemia Hypertriglyceridemia Surgical History (Updated 02/16/25 @ 18:49 by Joel Campos MD) S/P arteriovenous (AV) fistula creation LUE Family History (Updated 02/16/25 @ 18:49 by Joel Campos MD) Father Cancer Prostate Kidney disease Late in life while suffering from advanced metastatic prostate cancer and alcoholism Heart disease Denies family history of Colorectal cancer Social History (Updated 02/16/25 @ 18:50 by Joel Campos MD) Smoking Status: Never smoker Tobacco Type: Smokeless Tobacco (Dip or Chew) Second Hand Exposure: Yes; Do You Dip or Chew Tobacco: No ("quit"); Hx Alcohol Use: Yes Hx Substance Use: No Preferred Language: Moroccan Communication Ability: Effective Guide Excursion Required: No Beliefs That Will Affect Care: None marital status: Current Living Situation: Significant Other current occupational status: disabled How many Children do You have: 2 Feels Safe at Home: Yes Assistive Devices: None Physical Exam Physical Exam: General: A&Ox3. NAD. Cooperative. HEENT: Atraumatic, normocephalic. Vision and hearing grossly intact. PERLAA. Pulm: Basilar crackles b/l very slight left-sided rales. Symmetrical chest rise. No increased work of breathing. No respiratory distress. Cardiac: RRR, -mrg. Radial pulses intact and symmetrical. Abdominal: Right upper quadrant tender to palpation, no rebound/guarding. Remaining abdomen diffusely tense, but nontender. Extremities: Warm, dry. Slight ankle edema. Results & Data Results & Data Vital Signs (Past 12 Hours) Vital Signs Temp Pulse Resp BP Pulse Ox O2 Del Method 04/17/25 14:00 78 21 94 04/17/25 13:30 170/96 H 04/17/25 12:57 72 24 96 04/17/25 12:33 74 17 97 04/17/25 12:30 148/85 H 04/17/25 12:00 75 04/17/25 11:57 74 21 94 04/17/25 11:28 36.9 C 81 18 165/78 H 99 Room Air PG Care Time/CCT Total # of Minutes Spent Total Time Spent with Patient: Total time spent is greater than 50% in coordination of care (as documented) at patient's floor/unit and/or counseling patient: Coding Level of Care Code 03248 INT INP/OBS CARE 3/75MIN Diagnoses End stage chronic kidney disease N18.6 Metabolic acidosis E87.20 Anemia due to chronic kidney disease N18.9; D63.1 History of CVA (cerebrovascular accident) Z86.73 Hypertension I10 Diabetes mellitus E11.9
[2025-04-17] MEDS ORDERED: metroNIDAZOLE 500 MG/100 ML BAG IV STA (15:40)
[2025-04-17] MEDS ORDERED: CIPROFLOXACIN / D5W 400 MG/200 ML BAG IV STA (15:41)
[2025-04-17] MEDS ORDERED: SODIUM CHLORIDE 0.9% 1,000 ML IV PRN (15:53)
--- NOTE | 2025-04-17 16:04 | Nephrology Consultation ---
Date of Consultation April 17, 2025 Assessment & Plan (1) End stage renal disease on dialysis: * Will provide emergency HD this evening due to metabolic acidosis and hyperkalemia * HD this evening will be heparin free due to concern for possible GI bleeding * HD this evening will be limited to 2 hours at QB 200 cc/minute due to severe azotemia * HD orders have been placed in EMR. HD on-call RN was contacted. Medical update and orders were reviewed via telephone. Anticipated time to begin dialysis will be approximately 2 hours. Admitting service was provided update * BMP, CBC in a.m. * Will plan second HD in a.m. for further correction of patient's hyperkalemia, metabolic acidosis and azotemia * Outpatient hemodialysis prescription: [facility] MWF 3.5hr 2K 2Ca Mg 1.0 Na 138 HCO3 34 FX CorAL-80 EDW 93 kg 15g needles * Discussed with Mr. Ballesteros this afternoon the reason that he did not attend out patient dialysis for 2.5 weeks. He indicated that they are now using his AV fistula. He was "tired of being stuck with needles". He did not discuss discontinuation of dialysis with his primary stencil inspector. Hospice/comfort measures were not implemented as an outpatient. The patient simply chose not to attend his treatments. We discussed the importance of attending dialysis as prescribed 3x/week in order to avoid future hospitalization/ICU care/. Patient voiced understanding. (2) Metabolic acidosis: * Emergency HD today. Short treatment due to significant azotemia. Will use 34 mEq bicarbonate bath (3) Hyperkalemia: * Await ECG * Medical management as per hospitalist service until HD can be implemented (4) Anemia: * Recommend FOBT. If positive consider consultation with gastroenterology * Will order iron studies with a.m. labs (5) Diabetes mellitus: History of Present Illness Reason for Consultation: ESKD-D History of Present Illness Mr. Ballesteros is a 60-year-old white male who is seen at the request of the Dr. Archer to provide emergency hemodialysis and assist with medical management. Information for the HPI is obtained from direct patient interview and review of the EMR. HPI summarized as follows: Mr. Ballesteros has ESKD due to DKD, HTN. His first treatment was 09/17/2024 via [facility]. He underwent L BC AVF creation 11/[address] Milner. Mr. Ballesteros dialyzes at [facility] under the care of Dr. Hirsch (MWF 3.5hr 2K 2Ca Mg 1.0 Na 138 HCO3 34 FX CorAL-80 EDW 93 kg 15g needles). His medical history is significant for AODM, DVT w/ PE, CVA x2, hyperlipidemia, asthma. Mr. Ballesteros presented to the [facility] 04/15/25 for evaluation of abdominal distention, tenderness and melanotic stool x 2.5 weeks. He does take velphoro as a phosphate binder but chose to stop this medication and has no longer attend his dialysis treatments. On 04/15/25 admission was advised for hemodialysis to correct hyperkalemia, acidemia and volume overload. It was also recommended that he undergo GI evaluation. Mr. Ballesteros voiced understanding but indicated that he did not desire further dialysis or medical intervention and felt that he could manage his symptoms on his own at home. He left the EMD AMA. This afternoon Mr. Ballesteros returns to [facility] E[facility] complaining of nausea, lower abdominal discomfort and continued melanotic stool. He states that he is now agreeable to admission, emergency hemodialysis and gastroenterology evaluation for probable GI bleed. Emergency room evaluation reveals that the patient is afebrile and hemodynamically stable. VBG pH 7.15, K5.8, CO2 13, BUN > 140, Cr 17.6, Hgb 9.5, INR 1.1. CXR with possible right middle lobe pneumonia. No pleural effusion or pneumothorax. Abdominal CT without IV contrast revealed cholelithiasis with possible cholecystitis, small R > L pleural effusions and diverticulosis. ECG has been ordered. Results are pending. Mr. Ballesteros denies PUD, prior GI blood loss, intestinal polyps, hemorrhoids or GI malignancy. He denies the regular use of nonsteroidal medications or herbal supplements. Allergies Allergy/AdvReac Type Severity Reaction Status Date / Time cephalexin AdvReac Verified 10/26/24 18:10 hydralazine AdvReac Verified 10/26/24 18:10 sulfamethoxazole AdvReac Verified 10/26/24 18:10 [From Bactrim] trimethoprim [From Bactrim] AdvReac Verified 10/26/24 18:10 Home Medications Medication Instructions Recorded Confirmed Type insulin glargine 100 unit/mL (3 1 unit subcut UD 11/02/21 04/17/25 History mL) subcutaneous pen (Lantus Solostar U-100 Insulin) vitamin B complex and vitamin C 1 cap PO QAM 10/26/24 04/17/25 History no.20-folic acid 1 mg capsule (Renal Caps) albuterol sulfate 90 mcg/actuation 2 puff inhalation .Q4-6 PRN sob 12/12/24 04/17/25 History aerosol inhaler (Ventolin HFA) furosemide 80 mg tablet 0 mg PO QAM 02/16/25 04/17/25 History lisinopril 10 mg tablet 10 mg PO AMHS 02/16/25 04/17/25 History nifedipine 60 mg tablet,extended 60 mg PO QAM 02/16/25 04/17/25 History release bumetanide 1 mg tablet 1 mg PO BID #30 tabs 04/15/25 04/17/25 Rx sodium zirconium cyclosilicate 10 10 g PO TID #30 ea 04/15/25 04/17/25 Rx gram oral powder packet (Lokelma) calcium acetate(phosphat bind) 667 0 mg PO TIDM 04/17/25 04/17/25 History mg capsule sucroferric oxyhydroxide 500 mg 0 mg PO TIDM 04/17/25 04/17/25 History chewable tablet (Velphoro) Patient History Medical History Diverticulitis sigmoid - 11/2024 End stage chronic kidney disease Anemia Secondary hyperparathyroidism History of CVA (cerebrovascular accident) Diabetes mellitus Hypertension History of deep venous thrombosis or pulmonary embolus Asthma Dyslipidemia Hypertriglyceridemia Surgical History S/P arteriovenous (AV) fistula creation LUE Family History Father Cancer Prostate Kidney disease Late in life while suffering from advanced metastatic prostate cancer and alcoholism Heart disease Denies family history of Colorectal cancer Social History Smoking Status: Never smoker Tobacco Type: Smokeless Tobacco (Dip or Chew) Second Hand Exposure: Yes; Do You Dip or Chew Tobacco: No ("quit"); Hx Alcohol Use: Yes Hx Substance Use: No Preferred Language: Serbian Communication Ability: Effective Immigration Case Manager Required: No Beliefs That Will Affect Care: None marital status: Current Living Situation: Significant Other current occupational status: disabled How many Children do You have: 2 Feels Safe at Home: Yes Assistive Devices: None Review of Systems Constitutional: no fever Eyes: no problem reported Ear, Nose, Mouth, Throat: no problem reported Respiratory: no cough and no dyspnea Cardiovascular: no chest pain Gastrointestinal: Lower abdominal pain, melanotic stool Integumentary: no rash Neurologic: no problem reported Physical Exam Constitutional: not in distress Eyes: PERRL, conjunctivae normal, anicteric sclerae ENMT: external ear and nose normal, oropharynx normal Neck: trachea midline, no thyromegaly Respiratory: normal respiratory effort, lungs clear to auscultation Cardiovascular: RRR, no murmur, no edema L arm AVF + bruit Gastrointestinal (Abdomen): Inspection/Auscultation: + abdomen distended and + hypoactive bowel sounds Percussion/Palpation: abdomen nontender and no guarding Musculoskeletal: Extremities: no cyanosis and no clubbing Skin: no rashes, warm and dry Neurologic: awake; not confused Results & Data Vital Signs (Past 12 Hours) Vital Signs Temp Pulse Pulse Resp BP Pulse Ox O2 Del Method 04/17/25 15:09 74 20 96 Room Air 04/17/25 14:54 79 18 100 04/17/25 14:00 78 21 94 04/17/25 13:30 170/96 H 04/17/25 12:57 72 24 96 04/17/25 12:33 74 17 97 04/17/25 12:30 148/85 H 04/17/25 12:00 75 04/17/25 11:57 74 21 94 04/17/25 11:28 36.9 C 81 18 165/78 H 99 Room Air Laboratory Results Laboratory Results WBC 5.19 K/ul (4.8-10.8) 04/17/25 11:44 RBC 2.95 M/uL (4.70-6.10) L 04/17/25 11:44 Hgb 9.3 g/dl (14.0-18.0) L 04/17/25 11:44 POC Hgb 9.5 g/dl (14.0-18.0) L 04/17/25 11:50 Hct 28.2 % (42.0-52.0) L 04/17/25 11:44 POC Hct 28 % (42-52) L 04/17/25 11:50 MCV 95.6 fL (80.0-100.0) 04/17/25 11:44 MCH 31.5 pg (25.0-34.0) 04/17/25 11:44 MCHC 33.0 g/dL (32.0-36.0) 04/17/25 11:44 RDW Std Deviation 49.8 fL (36.4-46.3) H 04/17/25 11:44 RDW Coeff of Chelsey 14.3 % (11.5-14.5) 04/17/25 11:44 Plt Count 115 K/uL (130-400) L 04/17/25 11:44 MPV 12.6 fL (9.4-12.4) H 04/17/25 11:44 Immature Gran % (Auto) 0.6 % 04/17/25 11:44 Neut % (Auto) 74.1 % 04/17/25 11:44 Lymph % (Auto) 14.3 % 04/17/25 11:44 Sauk % (Auto) 8.1 % 04/17/25 11:44 Eos % (Auto) 1.7 % 04/17/25 11:44 Baso % (Auto) 1.2 % 04/17/25 11:44 Neut # (Auto) 3.85 K/uL (1.40-6.50) 04/17/25 11:44 Lymph # (Auto) 0.74 K/uL (1.20-3.40) L 04/17/25 11:44 Sauk # (Auto) 0.42 K/uL (0.11-0.59) 04/17/25 11:44 Eos # (Auto) 0.09 K/uL (0.00-0.50) 04/17/25 11:44 Baso # (Auto) 0.06 K/uL (0.00-0.20) 04/17/25 11:44 Immature Gran # (Auto) 0.03 K/uL (0.01-0.20) 04/17/25 11:44 VBG pH 7.15 (7.36-7.41) L 04/17/25 12:47 VBG pCO2 36 mmHg (38-50) L 04/17/25 12:47 VBG pO2 32 mmHg 04/17/25 12:47 VBG HCO3 13 mmol/L 04/17/25 12:47 VBG O2 Saturation < 60.0 % 04/17/25 12:47 VBG Base Excess -15.5 mEq/L 04/17/25 12:47 POC Sodium 133 mmol/L (135-144) L 04/17/25 11:50 Sodium 136 mmol/L (136-145) 04/17/25 11:44 POC Potassium 5.8 mmol/L (3.3-5.0) H 04/17/25 11:50 Potassium 5.8 mmol/L (3.5-5.1) H 04/17/25 11:44 POC Chloride 103 mmol/L (101-112) 04/17/25 11:50 Chloride 98 mmol/L (98-107) 04/17/25 11:44 Carbon Dioxide 13 mmol/L (21-32) L 04/17/25 11:44 POC Total CO2 14 mmol/L (24-31) L 04/17/25 11:50 Anion Gap 25 (3-11) H 04/17/25 11:44 POC Anion Gap 23.0 mmol/L (16-25) 04/17/25 11:50 POC BUN > 140 mg/dl (7-18) H* 04/17/25 11:50 BUN 146 mg/dl (6-23) H 04/17/25 11:44 Creatinine 17.62 mg/dl (0.6-1.4) H* D 04/17/25 11:44 POC Creatinine 20.0 mg/dl (0.6-1.3) H* 04/17/25 11:50 Est Cr Clr Drug Dosing 5.3 ml/min 04/17/25 11:44 eGFR 2.74 04/17/25 11:44 BUN/Creatinine Ratio 8.3 (10-20) L 04/17/25 11:44 Glucose 93 mg/dl (70-99(Fasting)) 04/17/25 11:44 POC Glucose (other) 91 mg/dl (70-99) 04/17/25 11:50 Calcium 6.8 mg/dl (8.6-10.3) L 04/17/25 11:44 POC Ioniz Calcium Brando 0.79 mmol/l (1.12-1.32) L 04/17/25 11:50 Phosphorus 18.4 mg/dl (2.5-4.9) H 04/17/25 11:44 Magnesium 2.6 mg/dl (1.7-2.4) H 04/17/25 11:44 Total Bilirubin 0.4 mg/dl (0.2-1.0) 04/17/25 11:44 AST 17 U/L (13-39) 04/17/25 11:44 ALT 27 U/L (7-52) 04/17/25 11:44 Alkaline Phosphatase 63 U/L (34-104) 04/17/25 11:44 Total Protein 7.2 gm/dl (6.0-8.3) 04/17/25 11:44 Albumin 4.6 gm/dl (3.4-5.0) 04/17/25 11:44 Globulin 2.6 gm/dl (2.5-4.0) 04/17/25 11:44 Albumin/Globulin Ratio 1.8 (0.9-2) 04/17/25 11:44 Lipase 134 U/L (11-82) H 04/17/25 11:44 Impressions Abdomen/Pelvis CT 04/17/25 12:08 Clinical History: Abdominal pain Technique: Axial computed tomography images were obtained of the abdomen and pelvis without intravenous contrast. Comparison is made to the prior CT dated 02/16/2025 Findings: The liver is overall of normal size, attenuation, and contour with no sign of cirrhosis or significant fatty infiltration. No definite liver mass lesion is seen on this noncontrast study. Gallstones are present. There is apparent mild gallbladder wall thickening. No bile duct dilatation is noted. The spleen is mildly enlarged measuring 14.6 cm. No focal splenic lesion is evident. The pancreas appears normal with no sign of acute or chronic pancreatitis and no mass lesion noted. The pancreatic duct is of normal caliber. The adrenal glands appear unremarkable. No renal or proximal ureteral calculi are seen. There is no hydronephrosis or perinephric stranding. No definite renal mass lesion is identified. There is bilateral renal cortical atrophy The aorta is of normal caliber. No abdominal adenopathy is seen. The stomach appears normal. There is no sign of small bowel obstruction. There is diverticulosis without evidence of diverticulitis. No free intraperitoneal fluid or air is identified. No distal ureteral or bladder calculi are seen. No obvious bladder mass lesion is evident. The iliac arteries are of normal caliber. No pelvic adenopathy is noted. The prostate is at the upper limit of normal in size There is a small right pleural effusion and there is a minimal left pleural effusion. There is right lower lobe atelectasis Lumbar scoliosis and degenerative disc disease is seen. No fracture is identified. No focal osseous lesion is seen Impression: 1. Cholelithiasis with possible cholecystitis. Correlation with gallbladder sonography may be useful 2. Small right pleural effusion and minimal left pleural effusion 3. Mild splenomegaly 4. Bilateral renal cortical atrophy 5. Diverticulosis without evidence of diverticulitis ACT 112: Positive. There are findings on this exam that require communication between the performing entity and the patient following Patient Test Result Information Act ([place] ACT 112) guidelines. Electronically signed by Thiago Patel 04-17-2025 2:10 PM Chest X-Ray 04/17/25 12:08 Technique: A frontal view of the chest was obtained Comparison is made to the prior examinations dated 04/15/2025 Findings: There is possible right middle lobe infiltrate, with new mild patchy opacity seen. The heart size is at the upper limit of normal. No pleural effusion or pneumothorax is seen. There is no definite pulmonary nodule. No fracture is noted. No foreign body is seen Impression: Possible right middle lobe pneumonia ACT 112: Positive. There are findings on this exam that require communication between the performing entity and the patient following Patient Test Result Information Act ([place] ACT 112) guidelines. Electronically signed by Thiago Patel 04-17-2025 12:59 PM PG Care Time/CCT Total # of Minutes Spent Total Time Spent with Patient: Total time spent is greater than 50% in coordination of care (as documented) at patient's floor/unit and/or counseling patient: Coding Level of Care Code 07150 IN/OBS CONSULT LVL 5,80M Diagnoses End stage renal disease on dialysis N18.6; Z99.2 Metabolic acidosis E87.20 Hyperkalemia E87.5 Anemia D64.9 Anemia type: unspecified type Diabetes mellitus E11.9 (4) Anemia Anemia type: unspecified type Qualified Code(s): D64.9 - Anemia, unspecified
[2025-04-17] MEDS ORDERED: GLUCOSE 40% GEL 15 GM TUBE PO PRN (16:08)
[2025-04-17] MEDS ORDERED: CARBOHYDRATES FOR HYPOGLYCEMIA PO PRN (16:08)
[2025-04-17] MEDS ORDERED: GLUCAGON FOR INJ 1 MG VIAL SQ PRN (16:08)
[2025-04-17] MEDS ORDERED: GLUCOSE 10 TAB/TUBE PO PRN (16:08)
[2025-04-17] MEDS ORDERED: PHARMACY GLYCEMIC MGMT CONSULT PRN (16:08)
[2025-04-17] MEDS ORDERED: DEXTROSE 50% 50 ML SYRINGE IV PRN (16:08)
--- NOTE | 2025-04-17 16:27 | Pharmacy Report ---
Pharmacy Glycemic Short Note 2 - Date of Service April 17, 2025 - Glycemic Short BSG Results (Last 24 hours): 04/17/25 04/17/25 11:44 11:50 Glucose 93 POC Glucose (other) 91 OUTPATIENT ANTIDIABETIC REGIMEN: * Lantus 1 unit daily ASSESSMENT: * 60 year old admitted with ESRD/missed dialysis session, concerns for cholecystitis. Type 2 diabetic - pharmacy consulted for glycemic management. Outpatient regimen confirmed per provider notes. Will utilize novolog SSI only with very loose parameters. Patient previously admitted 02/16/25 and during previous admission required minimal to no insulin each day and blood sugars within goal. PLAN FOR INPATIENT GLYCEMIC CONTROL: * Hold outpatient oral diabetes medications * Basal insulin * Lantus - hold * Bolus insulin * NovoLog per scale ACHS or Q6hrs while NPO * Goal Range: Low 110 mg/dL - High 180 mg/dL * Correction Factor: 50 mg/dL/unit * Nutritional / Prandial insulin per carb ratio of 1 unit per -- grams CHO consumed
[2025-04-17] MEDS: INSULIN ASPART PER UNIT CHARGE SC SCH (17:06)
--- NOTE | 2025-04-17 19:39 | Ultrasound Report ---
EXAM: US gallbladder CLINICAL HISTORY: Gallbladder evaluation. TECHNIQUE: Limited ultrasound of the liver and gallbladder was performed in greyscale and Doppler. Multiple images were obtained in transverse and longitudinal planes. COMPARISON: No prior studies are available for comparison. FINDINGS: Liver: Visualized part of the liver showing homogeneous echotexture. Liver appears normal in size (16.8 cm). No evidence of focal lesions, cysts, or masses. Hepatic vasculature appears normal. Gallbladder: The gallbladder is seen distended with a thickened, edematous wall reaching 8 mm and mild pericholecystic fluid with a negative sonographic Arroyo sign. Echogenic stones are seen inside. CBD is not dilated, reaching 3.4 mm No biliary dilation. The right kidney is normal in size (10 cm) with prominent renal sinus fat. No obstruction or stones. Unremarkable appearance of visualized part of the pancreas. Right-sided mild pleural effusion. IMPRESSION: 1. Features of acute calculous cholecystitis, clinical correlation is recommended. 2. Right-sided mild pleural effusion. Electronically signed by Jesus Lux 04-17-2025 7:38 PM
[2025-04-17] MEDS: EPOETIN ALFA 20,000 UNITS/ML VIAL IV ONE (20:20)
[2025-04-17] MEDS: PANTOprazole 40 MG/10 ML SYR IV SCH (21:40)
[2025-04-17] MEDS: BUMETANIDE 1 MG TAB PO SCH (22:04)
[2025-04-17 23:08] LABS: Appearance Urine Clear (Clear); Glucose Urine UA Trace (Negative)
[2025-04-17] MEDS: PIPERACILLIN/TAZOBACTAM 4.5 GM/100 ML BAG IV ONE (23:08)
[2025-04-17 23:13] LABS: Hematocrit (blood only) 25.2 % (42.0-52.0); Hemoglobin 8.6 g/dl (14.0-18.0)
[2025-04-17 23:38] LABS: Epithelial Cell Urine 0-2 /hpf (0-2)
[2025-04-18] MEDS ORDERED: metroNIDAZOLE 500 MG/100 ML BAG IV SCH
[2025-04-18 00:15] LABS: Adenovirus F 40/41 PCR Not Detected (NotDetected); Campylobacter PCR Not Detected (NotDetected); Enteroaggregative E.coli(EAEC) Not Detected (NotDetected); Shiga-like Toxin E.coli (STEC) Not Detected (NotDetected); Vibrio species PCR Not Detected (NotDetected)
[2025-04-18] MEDS: ACETAMINOPHEN 325 MG TAB PO PRN (01:30)
[2025-04-18] MEDS: LIDOCAINE 5% 1 PATCH TD STA (03:52)
[2025-04-18 06:44] LABS: Hematocrit (blood only) 23.8 % (42.0-52.0); Hemoglobin 8.1 g/dl (14.0-18.0); Mean Corpuscular Hemoglobin 31.8 pg (25.0-34.0); Mean Corpuscular Volume 93.3 fL (80.0-100.0); Platelet Count 83 K/uL (130-400); RDW Standard Deviation 47.5 fL (36.4-46.3); Red Blood Count 2.55 M/uL (4.70-6.10); White Blood Count 3.35 K/ul (4.8-10.8)
[2025-04-18] MEDS ORDERED: SODIUM CHLORIDE 0.9% 1,000 ML IV PRN (07:00)
[2025-04-18 07:14] LABS: Immature Granulocytes # (auto) 0.01 K/uL (0.01-0.20); Immature Granulocytes % (auto) 0.3 %
[2025-04-18 07:19] LABS: Alanine Aminotransferase 18.0 U/L (7-52); Albumin Globulin Ratio 1.9 (0.9-2); Alkaline Phosphatase 49.0 U/L (34-104); Anion Gap 17.0 (3-11); Bilirubin,Total 0.6 mg/dl (0.2-1.0); Blood Urea Nitrogen 97.0 mg/dl (6-23); Calcium 7.0 mg/dl (8.6-10.3); Carbon Dioxide 20.0 mmol/L (21-32); Chloride 101.0 mmol/L (98-107); Creatinine Clr Calc Pharmacy 6.5 ml/min; Globulin 2.0 gm/dl (2.5-4.0); Glucose 72.0 mg/dl (70-99(Fasting)); Iron 88.0 mcg/dl (35-175); Potassium 4.3 mmol/L (3.5-5.1); Sodium 138.0 mmol/L (136-145); Total Iron Binding Cap Calc 203.0 mcg/dl (250-450); Total Protein 5.7 gm/dl (6.0-8.3); Transferrin 145.0 mg/dl (200-360); Transferrin (FE) Percent Satur 43.0 % (20-50)
[2025-04-18 07:37] LABS: Ferritin 567.5 ng/ml (8-388)
--- NOTE | 2025-04-18 08:52 | Nephrology Progress Note ---
Date of Service April 18, 2025 Assessment & Plan (1) End stage renal disease on dialysis: Plan: * Heparin free HD this morning for continued UF and urea clearance. 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 * Plan to hold HD tomorrow to allow for GI procedures if indicated. Will provide HD on MWF schedule while inpatient (2) Metabolic acidosis: Plan: * Improved. Will provide HD again this am (3) Hyperkalemia: Plan: * Corrected (4) Anemia: Plan: * Recommend FOBT. If positive consider consultation with gastroenterology * 04/18/25 iron sat 43%, ferritin 567 (5) Diabetes mellitus: Admission and Anticipated Discharge Date Admission Date: April 17, 2025 Subjective Mr. Ballesteros was evaluated in his hospital room this morning. He denies abdominal pain but reports continued melena. He was dialyzed for 2 hours yesterday with 1.5L UF. He is agreeable to a second dialysis treatment this morning. Review of Systems Constitutional: no fever Eyes: no problem reported Ear, Nose, Mouth, Throat: no problem reported Respiratory: no cough and no dyspnea Cardiovascular: no chest pain Gastrointestinal: melanotic stool Integumentary: no rash Neurologic: no problem reported Physical Exam Constitutional: not in distress Eyes: PERRL, conjunctivae normal, anicteric sclerae ENMT: external ear and nose normal, oropharynx normal Neck: trachea midline, no thyromegaly Respiratory: normal respiratory effort, lungs clear to auscultation Cardiovascular: RRR, no murmur, no edema Gastrointestinal (Abdomen): Inspection/Auscultation: + abdomen distended and + hypoactive bowel sounds Percussion/Palpation: abdomen nontender and no guarding Musculoskeletal: Extremities: no cyanosis and no clubbing Skin: no rashes, warm and dry Neurologic: awake; not confused Results & Data Vital Signs (Past 12 Hours) Vital Signs Temp Pulse Pulse Pulse Resp BP Pulse Ox 04/18/25 08:00 36.5 C 78 18 145/71 H 96 04/18/25 07:06 79 04/18/25 03:56 36.5 C 74 21 151/79 H 96 04/17/25 21:43 83 04/17/25 21:30 04/17/25 21:27 36.5 C 81 16 168/76 H 99 04/17/25 21:27 04/17/25 21:14 88 Pulse Ox O2 Del Method O2 Del Method 04/18/25 08:00 Room Air 04/18/25 07:06 04/18/25 03:56 Room Air 04/17/25 21:43 04/17/25 21:30 Room Air 04/17/25 21:27 Room Air 04/17/25 21:27 99 Room Air 04/17/25 21:14 Laboratory Results Laboratory Results - last 24 hr 04/17/25 04/17/25 04/17/25 11:44 11:50 12:47 WBC 5.19 RBC 2.95 L Hgb 9.3 L POC Hgb 9.5 L Hct 28.2 L POC Hct 28 L MCV 95.6 MCH 31.5 MCHC 33.0 RDW Std Deviation 49.8 H RDW Coeff of Chelsey 14.3 Plt Count 115 L MPV 12.6 H Immature Gran % (Auto) 0.6 Neut % (Auto) 74.1 Lymph % (Auto) 14.3 Perry % (Auto) 8.1 Eos % (Auto) 1.7 Baso % (Auto) 1.2 Neut # (Auto) 3.85 Lymph # (Auto) 0.74 L Perry # (Auto) 0.42 Eos # (Auto) 0.09 Baso # (Auto) 0.06 Immature Gran # (Auto) 0.03 VBG pH 7.15 L VBG pCO2 36 L VBG pO2 32 VBG HCO3 13 VBG O2 Saturation < 60.0 VBG Base Excess -15.5 POC Sodium 133 L Sodium 136 POC Potassium 5.8 H Potassium 5.8 H POC Chloride 103 Chloride 98 Carbon Dioxide 13 L POC Total CO2 14 L Anion Gap 25 H POC Anion Gap 23.0 POC BUN > 140 H* BUN 146 H Creatinine 17.62 H* D POC Creatinine 20.0 H* Est Cr Clr Drug Dosing 5.3 eGFR 2.74 BUN/Creatinine Ratio 8.3 L Glucose 93 POC Glucose POC Glucose (other) 91 Calcium 6.8 L POC Ioniz Calcium Brando 0.79 L Phosphorus 18.4 H Magnesium 2.6 H Iron TIBC Transferrin Transferrin % Sat Ferritin Total Bilirubin 0.4 AST 17 ALT 27 Alkaline Phosphatase 63 Total Protein 7.2 Albumin 4.6 Globulin 2.6 Albumin/Globulin Ratio 1.8 Lipase 134 H Urine Color Urine Appearance Urine pH Ur Specific [place] Urine Protein Urine Glucose (UA) Urine Ketones Urine Blood Urine Nitrite Urine Bilirubin Urine Urobilinogen Ur Leukocyte Esterase Urine RBC Urine WBC Ur Epithelial Cells Urine Bacteria Urine Comment Nasal Screen MRSA (PCR) Stool Occult Bld Scrn Stl C. cayetanensis PCR Stool Rotavirus A PCR Stl Adenov F 40/41 PCR Stool Astrovirus (PCR) Stool Campylobacter PCR Stool Cryptosporidium PCR Stl E.coli Shiga Tox PCR Stl Enterotoxigenic E PCR Stool EPEC (PCR) Stool EAEC (PCR) Stl E. histolytica PCR Stool Giardia Lamblia PCR Stool Salmonella PCR Stool Sapovirus (PCR) Stl P. shigelloides PCR Stl Shigella/EIEC PCR St Y.enterocolitica PCR Stool Vibrio (PCR) Stl Vibrio cholerae PCR Stl Norovirus GI/GII PCR Hep Bs Antigen Pending Hep Bs Antibody Pending Hep Bs Antibody, Quant Pending Blood Type Antibody Screen 04/17/25 04/17/25 04/17/25 16:15 16:53 21:23 WBC RBC Hgb POC Hgb Hct POC Hct MCV MCH MCHC RDW Std Deviation RDW Coeff of Chelsey Plt Count MPV Immature Gran % (Auto) Neut % (Auto) Lymph % (Auto) Perry % (Auto) Eos % (Auto) Baso % (Auto) Neut # (Auto) Lymph # (Auto) Perry # (Auto) Eos # (Auto) Baso # (Auto) Immature Gran # (Auto) VBG pH VBG pCO2 VBG pO2 VBG HCO3 VBG O2 Saturation VBG Base Excess POC Sodium Sodium POC Potassium Potassium POC Chloride Chloride Carbon Dioxide POC Total CO2 Anion Gap POC Anion Gap POC BUN BUN Creatinine POC Creatinine Est Cr Clr Drug Dosing eGFR BUN/Creatinine Ratio Glucose POC Glucose 100 H 74 POC Glucose (other) Calcium POC Ioniz Calcium Brando Phosphorus Magnesium Iron TIBC Transferrin Transferrin % Sat Ferritin Total Bilirubin AST ALT Alkaline Phosphatase Total Protein Albumin Globulin Albumin/Globulin Ratio Lipase Urine Color Urine Appearance Urine pH Ur Specific [place] Urine Protein Urine Glucose (UA) Urine Ketones Urine Blood Urine Nitrite Urine Bilirubin Urine Urobilinogen Ur Leukocyte Esterase Urine RBC Urine WBC Ur Epithelial Cells Urine Bacteria Urine Comment Nasal Screen MRSA (PCR) Stool Occult Bld Scrn Stl C. cayetanensis PCR Stool Rotavirus A PCR Stl Adenov F 40/ PCR Stool Astrovirus (PCR) Stool Campylobacter PCR Stool Cryptosporidium PCR Stl E.coli Shiga Tox PCR Stl Enterotoxigenic E PCR Stool EPEC (PCR) Stool EAEC (PCR) Stl E. histolytica PCR Stool Giardia Lamblia PCR Stool Salmonella PCR Stool Sapovirus (PCR) Stl P. shigelloides PCR Stl Shigella/EIEC PCR St Y.enterocolitica PCR Stool Vibrio (PCR) Stl Vibrio cholerae PCR Stl Norovirus GI/GII PCR Hep Bs Antigen Hep Bs Antibody Hep Bs Antibody, Quant Blood Type A Positive Antibody Screen NEGATIVE 04/17/25 04/17/25 04/18/25 22:29 22:45 06:21 WBC 3.35 L RBC 2.55 L Hgb 8.6 L 8.1 L POC Hgb Hct 25.2 L 23.8 L POC Hct MCV 93.3 MCH 31.8 MCHC 34.0 RDW Std Deviation 47.5 H RDW Coeff of Chelsey 14.1 Plt Count 83 L MPV 12.1 Immature Gran % (Auto) 0.3 Neut % (Auto) 72.3 Lymph % (Auto) 13.1 Perry % (Auto) 10.7 Eos % (Auto) 2.7 Baso % (Auto) 0.9 Neut # (Auto) 2.42 Lymph # (Auto) 0.44 L Perry # (Auto) 0.36 Eos # (Auto) 0.09 Baso # (Auto) 0.03 Immature Gran # (Auto) 0.01 VBG pH VBG pCO2 VBG pO2 VBG HCO3 VBG O2 Saturation VBG Base Excess POC Sodium Sodium 138 POC Potassium Potassium 4.3 D POC Chloride Chloride 101 Carbon Dioxide 20 L POC Total CO2 Anion Gap 17 H POC Anion Gap POC BUN BUN 97 H D Creatinine 14.11 H* D POC Creatinine Est Cr Clr Drug Dosing 6.5 eGFR 3.57 BUN/Creatinine Ratio 6.9 L Glucose 72 POC Glucose POC Glucose (other) Calcium 7.0 L POC Ioniz Calcium Brando Phosphorus Magnesium Iron 88 TIBC 203 L Transferrin 145 L Transferrin % Sat 43 Ferritin 567.5 H Total Bilirubin 0.6 AST 13 ALT 18 Alkaline Phosphatase 49 Total Protein 5.7 L D Albumin 3.7 Globulin 2.0 L Albumin/Globulin Ratio 1.9 Lipase Urine Color Yellow Urine Appearance Clear Urine pH 7.0 Ur Specific [place] 1.015 Urine Protein 3+ H Urine Glucose (UA) Trace H Urine Ketones Negative Urine Blood 1+ H Urine Nitrite Negative Urine Bilirubin Negative Urine Urobilinogen Negative Ur Leukocyte Esterase Negative Urine RBC 0-2 Urine WBC 0-5 Ur Epithelial Cells 0-2 Urine Bacteria None Seen Urine Comment Nasal Screen MRSA (PCR) Negative Stool Occult Bld Scrn Positive A Stl C. cayetanensis PCR Not Detected Stool Rotavirus A PCR Not Detected Stl Adenov F 40/41 PCR Not Detected Stool Astrovirus (PCR) Not Detected Stool Campylobacter PCR Not Detected Stool Cryptosporidium PCR Not Detected Stl E.coli Shiga Tox PCR Not Detected Stl Enterotoxigenic E PCR Not Detected Stool EPEC (PCR) Not Detected Stool EAEC (PCR) Not Detected Stl E. histolytica PCR Not Detected Stool Giardia Lamblia PCR Not Detected Stool Salmonella PCR Not Detected Stool Sapovirus (PCR) Not Detected Stl P. shigelloides PCR Not Detected Stl Shigella/EIEC PCR Not Detected St Y.enterocolitica PCR Not Detected Stool Vibrio (PCR) Not Detected Stl Vibrio cholerae PCR Not Detected Stl Norovirus GI/GII PCR Not Detected Hep Bs Antigen Hep Bs Antibody Hep Bs Antibody, Quant Blood Type Antibody Screen 04/18/25 07:45 WBC RBC Hgb POC Hgb Hct POC Hct MCV MCH MCHC RDW Std Deviation RDW Coeff of Chelsey Plt Count MPV Immature Gran % (Auto) Neut % (Auto) Lymph % (Auto) Perry % (Auto) Eos % (Auto) Baso % (Auto) Neut # (Auto) Lymph # (Auto) Perry # (Auto) Eos # (Auto) Baso # (Auto) Immature Gran # (Auto) VBG pH VBG pCO2 VBG pO2 VBG HCO3 VBG O2 Saturation VBG Base Excess POC Sodium Sodium POC Potassium Potassium POC Chloride Chloride Carbon Dioxide POC Total CO2 Anion Gap POC Anion Gap POC BUN BUN Creatinine POC Creatinine Est Cr Clr Drug Dosing eGFR BUN/Creatinine Ratio Glucose POC Glucose 96 POC Glucose (other) Calcium POC Ioniz Calcium Brando Phosphorus Magnesium Iron TIBC Transferrin Transferrin % Sat Ferritin Total Bilirubin AST ALT Alkaline Phosphatase Total Protein Albumin Globulin Albumin/Globulin Ratio Lipase Urine Color Urine Appearance Urine pH Ur Specific [place] Urine Protein Urine Glucose (UA) Urine Ketones Urine Blood Urine Nitrite Urine Bilirubin Urine Urobilinogen Ur Leukocyte Esterase Urine RBC Urine WBC Ur Epithelial Cells Urine Bacteria Urine Comment Nasal Screen MRSA (PCR) Stool Occult Bld Scrn Stl C. cayetanensis PCR Stool Rotavirus A PCR Stl Adenov F 40 PCR Stool Astrovirus (PCR) Stool Campylobacter PCR Stool Cryptosporidium PCR Stl E.coli Shiga Tox PCR Stl Enterotoxigenic E PCR Stool EPEC (PCR) Stool EAEC (PCR) Stl E. histolytica PCR Stool Giardia Lamblia PCR Stool Salmonella PCR Stool Sapovirus (PCR) Stl P. shigelloides PCR Stl Shigella/EIEC PCR St Y.enterocolitica PCR Stool Vibrio (PCR) Stl Vibrio cholerae PCR Stl Norovirus GI/GII PCR Hep Bs Antigen Hep Bs Antibody Hep Bs Antibody, Quant Blood Type Antibody Screen PG Care Time/CCT Total # of Minutes Spent Total Time Spent with Patient: Total time spent is greater than 50% in coordination of care (as documented) at patient's floor/unit and/or counseling patient: Coding Level of Care Code 10655 SUB INP/OBS CARE 3/50MIN Diagnoses End stage renal disease on dialysis N18.6; Z99.2 Metabolic acidosis E87.20 Hyperkalemia E87.5 Anemia D64.9 Anemia type: unspecified type Diabetes mellitus E11.9 (4) Anemia Anemia type: unspecified type Qualified Code(s): D64.9 - Anemia, unspecified
[2025-04-18 09:07] LABS: Hep B Surface Ag with confirm Negative (Negative)
--- NOTE | 2025-04-18 09:48 | Hospitalist Progress Note ---
Date of Service April 18, 2025 Assessment & Plan (1) End stage chronic kidney disease: Plan: -ESRD, acute on chronic metabolic acidosis, hyperkalemia Patient on MWF dialysis through left upper extremity fistula since 09/2024 Has missed dialysis last 2.5 weeks, was seen in the ER this week but declined admission at that time. No hypoxia; does endorse cough, orthopnea, progressive fatigue greatly worsened in the last 24 hours No chest pain/chest pressure. Potassium 5.8. Magnesium 2.6. VBG 7.15/36/32/13 Nephrology consulted for urgent dialysis due to your metabolic acidosis. He is not hypoxic but is dyspneic, with basilar crackles, evidence of fluid retention and orthopnea. EKG: Sinus, prolonged QT. Slight peaked appearance to P waves with similar amplitude/area under the curve to prior - K+ 4.3 today Abdominal pain, dark stools, ?melena patient reports dark/black stools and is concerned about bleeding. Was seen for similar 01/2025 and was Campylobacter positive at that time BUN is markedly elevated Hemoglobin is at baseline, 9.3 Protonix bolus, and twice daily push ordered Noncontrasted CTA/P was performed in ER due to ESRD. This shows possible cholecystitis. Type and cross ordered, consent for blood on file Right upper quadrant ultrasound pending. He is tender in the right upper quadrant palpation, he reports this is new. Zosyn ordered, ultrasound pending. Patient has tolerated Zosyn in the past. He has a cephalosporin allergy/hives. Type II DM Patient reports he only takes 1 unit of Lantus, and otherwise his blood sugars have been within normal range of 780037 ESRD, adequate BSG at time of admission, and risk of hypoglycemia with disproportionate weight versus home dosing will consult pharmacy versus glycemic management and admit on SSI correction factor only. He is not requiring insulin at time of admission for his BSG Goal BSG [id number] Last A1c well-controlled Hypertension Medications continued DVT prophylaxis: SCDs Disposition: PCU DNR/DNI, discussed with patient at bedside on admission Diet: Renal (2) Melanotic stools: Plan: -occult + -protonix BID IV -GI consulted (3) Acute cholecystitis: Plan: -US showing features of acute calculous cholecystis -surgery consulted (4) Metabolic acidosis: Plan: -resolved s/p HD (5) History of CVA (cerebrovascular accident): (6) Hypertension: (7) Diabetes mellitus: Plan 60-year-old male with a history of diabetic/hypertensive ESRD with missed dialysis over the preceding 3 weeks who presents with acute metabolic acidosis, developing volume overload, and developing hyperkalemia likely from missed dialysis. Additionally he has had some dark stools and right upper quadrant abdominal pain and shows possible cholecystitis on CT. He does not have chau saminitis. He is admitted with dialysis pending, and is covered empirically for potential cholecystitis with Zosyn. Does not show obstructive LFTs. Admission and Anticipated Discharge Date Admission Date: April 17, 2025 Subjective No events overnight. Pt resting comfortably in bed. Review of Systems Review of Systems: CONST: Negative for fever, body aches and chills. HENT: Negative for neck pain/stiffness, headache, congestion, sore throat, swelling. EYES: Negative for discharge/pain or vision changes. RESP: Negative for cough/hemoptysis and shortness of breath. CV: Negative chest pain, difficulty breathing, palpitations. ABD: Negative pain, nausea, vomiting. : Negative increase frequency, dysuria, blood in urine or stool. MUSC: Negative for muscle aches, edema. SKIN: Negative rash, lesions/sores. NEURO: Negative headache, dizziness, weakness. Physical Exam Physical Exam: GENERAL APPEARANCE NAD, activity normal for age, well developed/ well nourished, no cyanosis, pallor, or diaphoresis. EYES lids/conjunctiva normal. EARS/NOSE/THROAT Mucous membranes moist, nares normal, lips/teeth normal uvula midline without oral pharyngeal erythema, exudate or swelling TMs normal bilaterally. No lymphangitis/lymphedema. HEAD/NECK normocephalic atraumatic, no facial trauma, neck is supple. RESPIRATORY respiratory effort normal, speaks in full sentences, no tripod position, no accessory muscle use. Lungs clear to auscultation without rhonchi, wheezes, rales CARDIAC Regular rate and rhythm, no edema. ABDOMINAL Soft, ND/NT. No evidence of fluid wave. No pulsatile masses on exam, rebound tenderness, Arroyo sign or pain over Mcburney's point. MUSCLES/EXTREMITIES No abnormal range of motion, no swelling. SKIN Warm, pink and dry. No rashes, dermatoses, petechiae or lesions. NEUROLOGICAL Speech is clear and appropriate. Normal level of consciousness. Gait and coordination are normal. 5/5 strength in all extremities. PSYCH Normal mood and affect. Judgement/competence is appropriate Results & Data Results & Data Vital Signs (Past 12 Hours) Vital Signs Temp Pulse Pulse Pulse Resp BP Pulse Ox 04/18/25 08:00 36.5 C 78 18 145/71 H 96 04/18/25 07:06 79 04/18/25 03:56 36.5 C 74 21 151/79 H 96 04/17/25 21:43 83 O2 Del Method 04/18/25 08:00 Room Air 04/18/25 07:06 04/18/25 03:56 Room Air 04/17/25 21:43 PG Care Time/CCT Total # of Minutes Spent Total Time Spent with Patient: Total time spent is greater than 50% in coordination of care (as documented) at patient's floor/unit and/or counseling patient: Coding Level of Care Code 76290 SUB INP/OBS CARE 2/35MIN Diagnoses End stage chronic kidney disease N18.6 Melanotic stools K92.1 Acute cholecystitis K81.0 Metabolic acidosis E87.20 History of CVA (cerebrovascular accident) Z86.73 Hypertension I10 Diabetes mellitus E11.9
[2025-04-18] MEDS: NIFEdipine EXTENDED REL 30 MG TABCR PO SCH (13:30)
[2025-04-18] MEDS: NEPHROCAPS PO SCH (13:30)
--- NOTE | 2025-04-18 14:38 | Surgery Consultation ---
Date of Consultation April 18, 2025 Assessment & Plan (1) Melanotic stools: (2) End stage renal disease on dialysis: Plan 60 yo male with ESRD on dialysis who presented to ED with having missed dialysis for 3 weeks along with upper abdominal pain and melanotic stools for 2.[address] scan showing cholelithiasis with possible cholecystitis and ultrasound with findings of acute calculous cholecystitis however clinical correlation recommended. He has no elevation in LFTS. No leukocytosis and no tenderness on examination with negative Arroyo's sign. Given no leukocytosis and no pain on examination, acute cholecystitis is low on differential. The gallbladder wall thickening could be related to his ESRD and the pericholecystic fluid could be due to the fluid overload from missing dialysis for nearly 3 weeks. Would recommend GI consultation for the melanotic stools and Hemoccult positive stools for upper endoscopy to rule out PUD as cause of melena and RUQ pain. Can continue IV antibiotics and repeat am labs. Continue medical management. Dr. Burns has seen and examined pt, agrees with above. History of Present Illness Reason for Consultation: acute calculous cholecystitis Requesting Physician: Coy rhodes MD Attending Physician: Coy Rhodes MD History of Present Illness Mr. Ballesteros is a 60 yo male with ESRD on dialysis, hypertension, DM type 2, CVA who presented to ED with complaint of abdominal pain and black stools along with missing dialysis for about 3 weeks. Was last seen in ED here on 04/15/25 and recommended admission with hemodialysis and GI consultation for melena but patient refused any treatment or any palliative discussions at that time as he stated he did not want any more treatment or any dialysis. He was seen today after dialysis treatment and states that he was not going to his dialysis because he was having abdominal pain and nausea and was unable to drive himself to dialysis or get his to take off work to take him. he states he has noticed black stools for 2.5 weeks with abdominal pain and bloating after eating. Currently is not having any abdominal pain or nausea and feels good after dialysis. Allergies Allergy/AdvReac Type Severity Reaction Status Date / Time cephalexin AdvReac Verified 10/26/24 18:10 hydralazine AdvReac Verified 10/26/24 18:10 sulfamethoxazole AdvReac Verified 10/26/24 18:10 [From Bactrim] trimethoprim [From Bactrim] AdvReac Verified 10/26/24 18:10 Home Medications Medication Instructions Recorded Confirmed Type insulin glargine 100 unit/mL (3 1 unit subcut UD 11/02/21 04/17/25 History mL) subcutaneous pen (Lantus Solostar U-100 Insulin) vitamin B complex and vitamin C 1 cap PO QAM 10/26/24 04/17/25 History no.20-folic acid 1 mg capsule (Renal Caps) albuterol sulfate 90 mcg/actuation 2 puff inhalation .Q4-6 PRN sob 12/12/24 04/17/25 History aerosol inhaler (Ventolin HFA) furosemide 80 mg tablet 0 mg PO QAM 02/16/25 04/17/25 History lisinopril 10 mg tablet 10 mg PO AMHS 02/16/25 04/17/25 History nifedipine 60 mg tablet,extended 60 mg PO QAM 02/16/25 04/17/25 History release bumetanide 1 mg tablet 1 mg PO BID #30 tabs 04/15/25 04/17/25 Rx sodium zirconium cyclosilicate 10 10 g PO TID #30 ea 04/15/25 04/17/25 Rx gram oral powder packet (Lokelma) calcium acetate(phosphat bind) 667 0 mg PO TIDM 04/17/25 04/17/25 History mg capsule sucroferric oxyhydroxide 500 mg 0 mg PO TIDM 04/17/25 04/17/25 History chewable tablet (Velphoro) Patient History Medical History Diverticulitis sigmoid - 11/2024 End stage chronic kidney disease Anemia Secondary hyperparathyroidism History of CVA (cerebrovascular accident) Diabetes mellitus Hypertension History of deep venous thrombosis or pulmonary embolus Asthma Dyslipidemia Hypertriglyceridemia Surgical History S/P arteriovenous (AV) fistula creation LUE Family History Father Cancer Prostate Kidney disease Late in life while suffering from advanced metastatic prostate cancer and alcoholism Heart disease Denies family history of Colorectal cancer Social History Smoking Status: Never smoker Tobacco Type: Smokeless Tobacco (Dip or Chew) Second Hand Exposure: Yes; Do You Dip or Chew Tobacco: No ("quit"); Hx Alcohol Use: No Hx Substance Use: No Preferred Language: Korean Communication Ability: Effective 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 Beliefs That Will Affect Care: None marital status: Current Living Situation: Significant Other Current Living Situation Comment: Lives w/ significat other current occupational status: disabled How many Children do You have: 2 Feels Safe at Home: Yes Assistive Devices: Glasses Review of Systems Review of Systems: All systems reviewed & are unremarkable except as noted in HPI & below Physical Exam Constitutional: WD/WN, vitals as above + obese, cooperative and comfortable; no acute distress and not ill appearing Respiratory: normal respiratory effort; no respiratory distress Gastrointestinal (Abdomen): Inspection/Auscultation: abdomen normal to inspect ion; abdomen not distended Percussion/Palpation: abdomen soft; abdomen nontender, no guarding, abdomen not rigid and abdomen not firm Skin: no rashes, warm and dry no jaundice Results & Data Vital Signs (Past 12 Hours) Vital Signs Temp Pulse Pulse Pulse Resp BP BP 04/18/25 13:29 37 C 81 18 167/82 H 04/18/25 12:00 76 128/64 04/18/25 11:30 70 151/79 H 04/18/25 11:00 73 144/76 H 04/18/25 10:30 74 125/65 04/18/25 10:00 72 146/77 H 04/18/25 09:39 73 134/84 04/18/25 09:27 36.5 C 74 04/18/25 09:00 04/18/25 08:00 36.5 C 78 18 145/71 H 04/18/25 07:06 79 04/18/25 03:56 36.5 C 74 21 151/79 H Pulse Ox O2 Del Method 04/18/25 13:29 96 Room Air 04/18/25 12:00 04/18/25 11:30 04/18/25 11:00 04/18/25 10:30 04/18/25 10:00 04/18/25 09:39 04/18/25 09:27 04/18/25 09:00 Room Air 04/18/25 08:00 96 Room Air 04/18/25 07:06 04/18/25 03:56 96 Room Air Laboratory Results 04/18/25 04/18/25 04/18/25 Range/Units 13:31 07:45 06:21 WBC 3.35 L (4.8-10.8) K/ul RBC 2.55 L (4.70-6.10) M/uL Hgb 8.1 L (14.0-18.0) g/dl Hct 23.8 L (42.0-52.0) % MCV 93.3 (80.0-100.0) fL MCH 31.8 (25.0-34.0) pg MCHC 34.0 (32.0-36.0) g/dL RDW Std Deviation 47.5 H (36.4-46.3) fL RDW Coeff of Chelsey 14.1 (11.5-14.5) % Plt Count 83 L (130-400) K/uL MPV 12.1 (9.4-12.4) fL Immature Gran % (Auto) 0.3 % Neut % (Auto) 72.3 % Lymph % (Auto) 13.1 % Person % (Auto) 10.7 % Eos % (Auto) 2.7 % Baso % (Auto) 0.9 % Neut # (Auto) 2.42 (1.40-6.50) K/uL Lymph # (Auto) 0.44 L (1.20-3.40) K/uL Person # (Auto) 0.36 (0.11-0.59) K/uL Eos # (Auto) 0.09 (0.00-0.50) K/uL Baso # (Auto) 0.03 (0.00-0.20) K/uL Immature Gran # (Auto) 0.01 (0.01-0.20) K/uL Sodium 138 (136-145) mmol/L Potassium 4.3 D (3.5-5.1) mmol/L Chloride 101 (98-107) mmol/L Carbon Dioxide 20 L (21-32) mmol/L Anion Gap 17 H (3-11) BUN 97 H D (6-23) mg/dl Creatinine 14.11 H* D (0.6-1.4) mg/dl Est Cr Clr Drug Dosing 6.5 ml/min eGFR 3.57 BUN/Creatinine Ratio 6.9 L (10-20) Glucose 72 (70-99(Fasting)) mg/dl POC Glucose 80 96 (70-99) mg/dl Calcium 7.0 L (8.6-10.3) mg/dl Iron 88 (35-175) mcg/dl TIBC 203 L (250-450) mcg/dl Transferrin 145 L (200-360) mg/dl Transferrin % Sat 43 (20-50) % Ferritin 567.5 H (8-388) ng/ml Total Bilirubin 0.6 (0.2-1.0) mg/dl AST 13 (13-39) U/L ALT 18 (7-52) U/L Alkaline Phosphatase 49 (34-104) U/L Total Protein 5.7 L D (6.0-8.3) gm/dl Albumin 3.7 (3.4-5.0) gm/dl Globulin 2.0 L (2.5-4.0) gm/dl Albumin/Globulin Ratio 1.9 (0.9-2) Urine Color Urine Appearance (Clear) Urine pH (4.5-7.5) Ur Specific [place] (1.000-1.030) Urine Protein (Negative) Urine Glucose (UA) (Negative) Urine Ketones (Negative) Urine Blood (Negative) Urine Nitrite (Negative) Urine Bilirubin (Negative) Urine Urobilinogen (Negative) Ur Leukocyte Esterase (Negative) Urine RBC (0-2) /hpf Urine WBC (0-5) /hpf Ur Epithelial Cells (0-2) /hpf Urine Bacteria (None Seen) Urine Comment Nasal Screen MRSA (PCR) (Negative) Stool Occult Bld Scrn (Negative) Stl C. cayetanensis PCR (NotDetected) Stool Rotavirus A PCR (NotDetected) Stl Adenov F 40/41 PCR (NotDetected) Stool Astrovirus (PCR) (NotDetected) Stool Campylobacter PCR (NotDetected) Stool Cryptosporidium PCR (NotDetected) Stl E.coli Shiga Tox PCR (NotDetected) Stl Enterotoxigenic E PCR (NotDetected) Stool EPEC (PCR) (NotDetected) Stool EAEC (PCR) (NotDetected) Stl E. histolytica PCR (NotDetected) Stool Giardia Lamblia PCR (NotDetected) Stool Salmonella PCR (NotDetected) Stool Sapovirus (PCR) (NotDetected) Stl P. shigelloides PCR (NotDetected) Stl Shigella/EIEC PCR (NotDetected) St Y.enterocolitica PCR (NotDetected) Stool Vibrio (PCR) (NotDetected) Stl Vibrio cholerae PCR (NotDetected) Stl Norovirus GI/GII PCR (NotDetected) Hep Bs Antigen (Negative) Hep Bs Antibody Hep Bs Antibody, Quant (>or=10mIU/mL Immune) mIU/mL Blood Type Antibody Screen 04/17/25 04/17/25 04/17/25 Range/Units 22:45 22:29 21:23 WBC (4.8-10.8) K/ul RBC (4.70-6.10) M/uL Hgb 8.6 L (14.0-18.0) g/dl Hct 25.2 L (42.0-52.0) % MCV (80.0-100.0) fL MCH (25.0-34.0) pg MCHC (32.0-36.0) g/dL RDW Std Deviation (36.4-46.3) fL RDW Coeff of Chelsey (11.5-14.5) % Plt Count (130-400) K/uL MPV (9.4-12.4) fL Immature Gran % (Auto) % Neut % (Auto) % Lymph % (Auto) % Person % (Auto) % Eos % (Auto) % Baso % (Auto) % Neut # (Auto) (1.40-6.50) K/uL Lymph # (Auto) (1.20-3.40) K/uL Person # (Auto) (0.11-0.59) K/uL Eos # (Auto) (0.00-0.50) K/uL Baso # (Auto) (0.00-0.20) K/uL Immature Gran # (Auto) (0.01-0.20) K/uL Sodium (136-145) mmol/L Potassium (3.5-5.1) mmol/L Chloride (98-107) mmol/L Carbon Dioxide (21-32) mmol/L Anion Gap (3-11) BUN (6-23) mg/dl Creatinine (0.6-1.4) mg/dl Est Cr Clr Drug Dosing ml/min eGFR BUN/Creatinine Ratio (10-20) Glucose (70-99(Fasting)) mg/dl POC Glucose 74 (70-99) mg/dl Calcium (8.6-10.3) mg/dl Iron (35-175) mcg/dl TIBC (250-450) mcg/dl Transferrin (200-360) mg/dl Transferrin % Sat (20-50) % Ferritin (8-388) ng/ml Total Bilirubin (0.2-1.0) mg/dl AST (13-39) U/L ALT (7-52) U/L Alkaline Phosphatase (34-104) U/L Total Protein (6.0-8.3) gm/dl Albumin (3.4-5.0) gm/dl Globulin (2.5-4.0) gm/dl Albumin/Globulin Ratio (0.9-2) Urine Color Yellow Urine Appearance Clear (Clear) Urine pH 7.0 (4.5-7.5) Ur Specific [place] 1.015 (1.000-1.030) Urine Protein 3+ H (Negative) Urine Glucose (UA) Trace H (Negative) Urine Ketones Negative (Negative) Urine Blood 1+ H (Negative) Urine Nitrite Negative (Negative) Urine Bilirubin Negative (Negative) Urine Urobilinogen Negative (Negative) Ur Leukocyte Esterase Negative (Negative) Urine RBC 0-2 (0-2) /hpf Urine WBC 0-5 (0-5) /hpf Ur Epithelial Cells 0-2 (0-2) /hpf Urine Bacteria None Seen (None Seen) Urine Comment Nasal Screen MRSA (PCR) Negative (Negative) Stool Occult Bld Scrn Positive A (Negative) Stl C. cayetanensis PCR Not Detected (NotDetected) Stool Rotavirus A PCR Not Detected (NotDetected) Stl Adenov F 40/41 PCR Not Detected (NotDetected) Stool Astrovirus (PCR) Not Detected (NotDetected) Stool Campylobacter PCR Not Detected (NotDetected) Stool Cryptosporidium PCR Not Detected (NotDetected) Stl E.coli Shiga Tox PCR Not Detected (NotDetected) Stl Enterotoxigenic E PCR Not Detected (NotDetected) Stool EPEC (PCR) Not Detected (NotDetected) Stool EAEC (PCR) Not Detected (NotDetected) Stl E. histolytica PCR Not Detected (NotDetected) Stool Giardia Lamblia PCR Not Detected (NotDetected) Stool Salmonella PCR Not Detected (NotDetected) Stool Sapovirus (PCR) Not Detected (NotDetected) Stl P. shigelloides PCR Not Detected (NotDetected) Stl Shigella/EIEC PCR Not Detected (NotDetected) St Y.enterocolitica PCR Not Detected (NotDetected) Stool Vibrio (PCR) Not Detected (NotDetected) Stl Vibrio cholerae PCR Not Detected (NotDetected) Stl Norovirus GI/GII PCR Not Detected (NotDetected) Hep Bs Antigen (Negative) Hep Bs Antibody Hep Bs Antibody, Quant (>or=10mIU/mL Immune) mIU/mL Blood Type Antibody Screen 04/17/25 04/17/25 04/17/25 Range/Units 16:53 16:15 11:44 WBC (4.8-10.8) K/ul RBC (4.70-6.10) M/uL Hgb (14.0-18.0) g/dl Hct (42.0-52.0) % MCV (80.0-100.0) fL MCH (25.0-34.0) pg MCHC (32.0-36.0) g/dL RDW Std Deviation (36.4-46.3) fL RDW Coeff of Chelsey (11.5-14.5) % Plt Count (130-400) K/uL MPV (9.4-12.4) fL Immature Gran % (Auto) % Neut % (Auto) % Lymph % (Auto) % Person % (Auto) % Eos % (Auto) % Baso % (Auto) % Neut # (Auto) (1.40-6.50) K/uL Lymph # (Auto) (1.20-3.40) K/uL Person # (Auto) (0.11-0.59) K/uL Eos # (Auto) (0.00-0.50) K/uL Baso # (Auto) (0.00-0.20) K/uL Immature Gran # (Auto) (0.01-0.20) K/uL Sodium (136-145) mmol/L Potassium (3.5-5.1) mmol/L Chloride (98-107) mmol/L Carbon Dioxide (21-32) mmol/L Anion Gap (3-11) BUN (6-23) mg/dl Creatinine (0.6-1.4) mg/dl Est Cr Clr Drug Dosing ml/min eGFR BUN/Creatinine Ratio (10-20) Glucose (70-99(Fasting)) mg/dl POC Glucose 100 H (70-99) mg/dl Calcium (8.6-10.3) mg/dl Iron (35-175) mcg/dl TIBC (250-450) mcg/dl Transferrin (200-360) mg/dl Transferrin % Sat (20-50) % Ferritin (8-388) ng/ml Total Bilirubin (0.2-1.0) mg/dl AST (13-39) U/L ALT (7-52) U/L Alkaline Phosphatase (34-104) U/L Total Protein (6.0-8.3) gm/dl Albumin (3.4-5.0) gm/dl Globulin (2.5-4.0) gm/dl Albumin/Globulin Ratio (0.9-2) Urine Color Urine Appearance (Clear) Urine pH (4.5-7.5) Ur Specific [place] (1.000-1.030) Urine Protein (Negative) Urine Glucose (UA) (Negative) Urine Ketones (Negative) Urine Blood (Negative) Urine Nitrite (Negative) Urine Bilirubin (Negative) Urine Urobilinogen (Negative) Ur Leukocyte Esterase (Negative) Urine RBC (0-2) /hpf Urine WBC (0-5) /hpf Ur Epithelial Cells (0-2) /hpf Urine Bacteria (None Seen) Urine Comment Nasal Screen MRSA (PCR) (Negative) Stool Occult Bld Scrn (Negative) Stl C. cayetanensis PCR (NotDetected) Stool Rotavirus A PCR (NotDetected) Stl Adenov F 40/41 PCR (NotDetected) Stool Astrovirus (PCR) (NotDetected) Stool Campylobacter PCR (NotDetected) Stool Cryptosporidium PCR (NotDetected) Stl E.coli Shiga Tox PCR (NotDetected) Stl Enterotoxigenic E PCR (NotDetected) Stool EPEC (PCR) (NotDetected) Stool EAEC (PCR) (NotDetected) Stl E. histolytica PCR (NotDetected) Stool Giardia Lamblia PCR (NotDetected) Stool Salmonella PCR (NotDetected) Stool Sapovirus (PCR) (NotDetected) Stl P. shigelloides PCR (NotDetected) Stl Shigella/EIEC PCR (NotDetected) St Y.enterocolitica PCR (NotDetected) Stool Vibrio (PCR) (NotDetected) Stl Vibrio cholerae PCR (NotDetected) Stl Norovirus GI/GII PCR (NotDetected) Hep Bs Antigen Negative (Negative) Hep Bs Antibody Immune Hep Bs Antibody, Quant > 500.00 (>or=10mIU/mL Immune) mIU/mL Blood Type A Positive Antibody Screen NEGATIVE Diagnostic Findings US gallbladder 04/17/25 ADDENDUM: The results were sent successfully via fax at [phone] at 01:02 PM [facility], 04/17/2025. Electronically signed by Jesus Lux 04-18-2025 02:19 AM ADDENDUM END EXAM: US gallbladder CLINICAL HISTORY: Gallbladder evaluation. TECHNIQUE: Limited ultrasound of the liver and gallbladder was performed in greyscale and Doppler. Multiple images were obtained in transverse and longitudinal planes. COMPARISON: No prior studies are available for comparison. FINDINGS: Liver: Visualized part of the liver showing homogeneous echotexture. Liver appears normal in size (16.8 cm). No evidence of focal lesions, cysts, or masses. Hepatic vasculature appears normal. Gallbladder: The gallbladder is seen distended with a thickened, edematous wall reaching 8 mm and mild pericholecystic fluid with a negative sonographic Arroyo sign. Echogenic stones are seen inside. CBD is not dilated, reaching 3.4 mm No biliary dilation. The right kidney is normal in size (10 cm) with prominent renal sinus fat. No obstruction or stones. Unremarkable appearance of visualized part of the pancreas. Right-sided mild pleural effusion. IMPRESSION: 1. Features of acute calculous cholecystitis, clinical correlation is recommended. 2. Right-sided mild pleural effusion. CT abd/pelvis 04/17/2025 Clinical History: Abdominal pain Technique: Axial computed tomography images were obtained of the abdomen and pelvis without intravenous contrast. Comparison is made to the prior CT dated 02/16/2025 Findings: The liver is overall of normal size, attenuation, and contour with no sign of cirrhosis or significant fatty infiltration. No definite liver mass lesion is seen on this noncontrast study. Gallstones are present. There is apparent mild gallbladder wall thickening. No bile duct dilatation is noted. The spleen is mildly enlarged measuring 14.6 cm. No focal splenic lesion is evident. The pancreas appears normal with no sign of acute or chronic pancreatitis and no mass lesion noted. The pancreatic duct is of normal caliber. The adrenal glands appear unremarkable. No renal or proximal ureteral calculi are seen. There is no hydronephrosis or perinephric stranding. No definite renal mass lesion is identified. There is bilateral renal cortical atrophy The aorta is of normal caliber. No abdominal adenopathy is seen. The stomach appears normal. There is no sign of small bowel obstruction. There is diverticulosis without evidence of diverticulitis. No free intraperitoneal fluid or air is identified. No distal ureteral or bladder calculi are seen. No obvious bladder mass lesion is evident. The iliac arteries are of normal caliber. No pelvic adenopathy is noted. The prostate is at the upper limit of normal in size There is a small right pleural effusion and there is a minimal left pleural effusion. There is right lower lobe atelectasis Lumbar scoliosis and degenerative disc disease is seen. No fracture is identified. No focal osseous lesion is seen Impression: 1. Cholelithiasis with possible cholecystitis. Correlation with gallbladder sonography may be useful 2. Small right pleural effusion and minimal left pleural effusion 3. Mild splenomegaly 4. Bilateral renal cortical atrophy 5. Diverticulosis without evidence of diverticulitis
--- NOTE | 2025-04-18 14:45 | Gastrointestinal Consultation ---
Date of Consultation April 18, 2025 Assessment & Plan (1) Melanotic stools: (2) Acute cholecystitis: Plan -Recommendations for abdominal pain/imaging findings of acute cholecystitis per general surgery -Protonix 40 mg BID; No further melena at present. Patient had brown/green stools today. -Continue to monitor CMP & H/H -Patient ate a full lunch, so would not be able to do EGD today. Keep NPO for EGD on 04/19/25. Supervising Physician Co-Signing Physician Notes Patient with abdominal pain. Patient has not been getting dialysis and came in with markedly abnormal BUN and creatinine. Abdominal pain could be seen with lack of dialysis and uremia. Actually feeling reasonably well today. Does give a history of melena. He did take Pepto-Bismol though he states the melena predated that drug. Perform upper endoscopy. Scheduled for tomorrow. Abdomen benign. History of Present Illness Reason for Consultation: Melena Attending Physician: Coy Rhodes MD History of Present Illness Patient is a 60 yo male with PMH of ESRD on HD. He was in the ED several days ago and inpatient admission was recommended for management of hyperkalemia and melena. He refused further care and was discharged home. He came back to the ED with abdominal pain. A CT scan showed possible cholecystitis. An US showed possible cholecystitis. LFTs normal. Gen surg consulted. GI involved because 2.5 weeks ago patient had an episode of melena. He notes this isn't going on at this point. No BRBPR. He moved his bowels today and it was brown/green. He denies NSAID use. No blood thinning medications. No PUD history. No EGD history. Distant history of colonoscopy 8 years ago in [place]. Patient eating lunch at the time of my visit. BUN 97. Cr 14.11. H/H 8.1/23.8. Heme positive stool. Allergies Allergy/AdvReac Type Severity Reaction Status Date / Time cephalexin AdvReac Verified 10/26/24 18:10 hydralazine AdvReac Verified 10/26/24 18:10 sulfamethoxazole AdvReac Verified 10/26/24 18:10 [From Bactrim] trimethoprim [From Bactrim] AdvReac Verified 10/26/24 18:10 Home Medications Medication Instructions Recorded Confirmed Type insulin glargine 100 unit/mL (3 1 unit subcut UD 11/02/21 04/17/25 History mL) subcutaneous pen (Lantus Solostar U-100 Insulin) vitamin B complex and vitamin C 1 cap PO QAM 10/26/24 04/17/25 History no.20-folic acid 1 mg capsule (Renal Caps) albuterol sulfate 90 mcg/actuation 2 puff inhalation .Q4-6 PRN sob 12/12/24 04/17/25 History aerosol inhaler (Ventolin HFA) furosemide 80 mg tablet 0 mg PO QAM 02/16/25 04/17/25 History lisinopril 10 mg tablet 10 mg PO AMHS 02/16/25 04/17/25 History nifedipine 60 mg tablet,extended 60 mg PO QAM 02/16/25 04/17/25 History release bumetanide 1 mg tablet 1 mg PO BID #30 tabs 04/15/25 04/17/25 Rx sodium zirconium cyclosilicate 10 10 g PO TID #30 ea 04/15/25 04/17/25 Rx gram oral powder packet (Lokelma) calcium acetate(phosphat bind) 667 0 mg PO TIDM 04/17/25 04/17/25 History mg capsule sucroferric oxyhydroxide 500 mg 0 mg PO TIDM 04/17/25 04/17/25 History chewable tablet (Velphoro) Patient History Medical History Diverticulitis sigmoid - 11/2024 End stage chronic kidney disease Anemia Secondary hyperparathyroidism History of CVA (cerebrovascular accident) Diabetes mellitus Hypertension History of deep venous thrombosis or pulmonary embolus Asthma Dyslipidemia Hypertriglyceridemia Surgical History S/P arteriovenous (AV) fistula creation LUE Family History Father Cancer Prostate Kidney disease Late in life while suffering from advanced metastatic prostate cancer and alcoholism Heart disease Denies family history of Colorectal cancer Social History Smoking Status: Never smoker Tobacco Type: Smokeless Tobacco (Dip or Chew) Second Hand Exposure: Yes; Do You Dip or Chew Tobacco: No ("quit"); Hx Alcohol Use: No Hx Substance Use: No Preferred Language: Syriac Communication Ability: Effective Tram Driver Required: No Beliefs That Will Affect Care: None marital status: Current Living Situation: Significant Other Current Living Situation Comment: Lives w/ significat other current occupational status: disabled How many Children do You have: 2 Other Information That Helps Us Care for You: No Feels Safe at Home: Yes Safety Concerns: Feels Safe At This Time Assistive Devices: Glasses Review of Systems Constitutional: no fever and no chills Respiratory: no cough Cardiovascular: no chest pain Gastrointestinal: + abdominal pain and + melena (now resol oswaldo); no nausea, no vomiting and no coffee ground emesis Physical Exam Constitutional: well developed Respiratory: normal respiratory effort Cardiovascular: Rate/Rhythm: regular rate Gastrointestinal (Abdomen): normal bowel sounds, soft, nontender, no hepatosplenomegaly Results & Data Vital Signs (Past 12 Hours) Vital Signs Temp Pulse Pulse Pulse Resp BP BP 04/18/25 13:29 37 C 81 18 167/82 H 04/18/25 12:00 76 128/64 04/18/25 11:30 70 151/79 H 04/18/25 11:00 73 144/76 H 04/18/25 10:30 74 125/65 04/18/25 10:00 72 146/77 H 04/18/25 09:39 73 134/84 04/18/25 09:27 36.5 C 74 04/18/25 09:00 04/18/25 08:00 36.5 C 78 18 145/71 H 04/18/25 07:06 79 04/18/25 03:56 36.5 C 74 21 151/79 H Pulse Ox O2 Del Method 04/18/25 13:29 96 Room Air 04/18/25 12:00 04/18/25 11:30 04/18/25 11:00 04/18/25 10:30 04/18/25 10:00 04/18/25 09:39 04/18/25 09:27 04/18/25 09:00 Room Air 04/18/25 08:00 96 Room Air 04/18/25 07:06 04/18/25 03:56 96 Room Air PG Care Time/CCT Total # of Minutes Spent Total Time Spent with Patient: Total time spent is greater than 50% in coordination of care (as documented) at patient's floor/unit and/or counseling patient: Coding Level of Care Code 38211 IN/OBS CONSULT LVL 4,60M Diagnoses Melanotic stools K92.1 Acute cholecystitis K81.0
[2025-04-18 15:23] LABS: Hematocrit (blood only) 26.8 % (42.0-52.0); Hemoglobin 9.3 g/dl (14.0-18.0)
[2025-04-18] MEDS: REMOVE LIDODERM PATCH SCH (16:02)
[2025-04-18] MEDS ORDERED: CIPROFLOXACIN / D5W 400 MG/200 ML BAG IV SCH (18:00)
[2025-04-18 22:11] LABS: Hematocrit (blood only) 26.8 % (42.0-52.0); Hemoglobin 9.2 g/dl (14.0-18.0)
[2025-04-19] MEDS: ACETAMINOPHEN 1,000 MG/100 ML VIAL IV STA (02:54)
[2025-04-19] MEDS: INSULIN ASPART PER UNIT CHARGE SC SCH ×2 (05:53→16:35)
[2025-04-19 07:32] LABS: Hematocrit (blood only) 26.6 % (42.0-52.0); Hemoglobin 9.4 g/dl (14.0-18.0); Immature Granulocytes # (auto) 0.03 K/uL (0.01-0.20); Immature Granulocytes % (auto) 0.6 %; Mean Corpuscular Hemoglobin 32.4 pg (25.0-34.0); Mean Corpuscular Volume 91.7 fL (80.0-100.0); Platelet Count 126 K/uL (130-400); RDW Standard Deviation 46.5 fL (36.4-46.3); Red Blood Count 2.90 M/uL (4.70-6.10); White Blood Count 5.14 K/ul (4.8-10.8)
[2025-04-19 07:54] LABS: Alanine Aminotransferase 15.0 U/L (7-52); Albumin Globulin Ratio 1.8 (0.9-2); Alkaline Phosphatase 49.0 U/L (34-104); Anion Gap 13.0 (3-11); Bilirubin,Total 0.6 mg/dl (0.2-1.0); Blood Urea Nitrogen 54.0 mg/dl (6-23); Calcium 7.6 mg/dl (8.6-10.3); Carbon Dioxide 23.0 mmol/L (21-32); Chloride 103.0 mmol/L (98-107); Creatinine Clr Calc Pharmacy 8.5 ml/min; Globulin 2.2 gm/dl (2.5-4.0); Glucose 86.0 mg/dl (70-99(Fasting)); Potassium 3.9 mmol/L (3.5-5.1); Sodium 139.0 mmol/L (136-145); Total Protein 6.1 gm/dl (6.0-8.3)
--- NOTE | 2025-04-19 08:50 | Nephrology Progress Note ---
Date of Service April 19, 2025 Assessment & Plan (1) End stage renal disease on dialysis: Plan: * Volume status and electrolyte balance are acceptable. No acute indication for HD today. Will plan for next dialysis treatment for am * Outpatient hemodialysis prescription: [facility] MWF 3.5hr 2K 2Ca Mg 1.0 Na 138 HCO3 34 FX CorAL-80 EDW 93 kg 15g needles * BMP, CBC in a.m. (2) Metabolic acidosis: Plan: * Improved. Will provide HD again this am (3) Hyperkalemia: Plan: * Corrected (4) Anemia: Plan: * Patient is scheduled for EGD today * 04/18/25 iron sat 43%, ferritin 567 (5) Diabetes mellitus: Admission and Anticipated Discharge Date Admission Date: April 17, 2025 Subjective Mr. Ballesteros was evaluated in his hospital room this morning. He denies abdominal pain but reports continued melena. He is awaiting EGD this morning. He was last dialyzed 04/18/25 for 3 hours w/ 2.5 L UF Review of Systems Constitutional: no fever Eyes: no problem reported Ear, Nose, Mouth, Throat: no problem reported Respiratory: no cough and no dyspnea Cardiovascular: no chest pain Gastrointestinal: melanotic stool Integumentary: no rash Neurologic: no problem reported Physical Exam Constitutional: not in distress Eyes: PERRL, conjunctivae normal, anicteric sclerae ENMT: external ear and nose normal, oropharynx normal Neck: trachea midline, no thyromegaly Respiratory: normal respiratory effort, lungs clear to auscultation Cardiovascular: RRR, no murmur, no edema Gastrointestinal (Abdomen): Inspection/Auscultation: + abdomen distended and + hypoactive bowel sounds Percussion/Palpation: abdomen nontender and no guarding Musculoskeletal: Extremities: no cyanosis and no clubbing Skin: no rashes, warm and dry Neurologic: awake; not confused Results & Data Vital Signs (Past 12 Hours) Vital Signs Temp Pulse Pulse Pulse Resp BP Pulse Ox 04/19/25 07:04 36.8 C 81 20 146/71 H 93 04/19/25 03:06 37.4 C 88 18 162/78 H 96 04/18/25 23:00 90 04/18/25 22:43 37.1 C 86 18 139/75 95 O2 Del Method 04/19/25 07:04 Room Air 04/19/25 03:06 Room Air 04/18/25 23:00 04/18/25 22:43 Room Air Laboratory Results Laboratory Results - last 24 hr 04/17/25 04/18/25 04/18/25 11:44 13:31 14:52 WBC RBC Hgb 9.3 L Hct 26.8 L MCV MCH MCHC RDW Std Deviation RDW Coeff of Chelsey Plt Count MPV Immature Gran % (Auto) Neut % (Auto) Lymph % (Auto) Barry % (Auto) Eos % (Auto) Baso % (Auto) Neut # (Auto) Lymph # (Auto) Barry # (Auto) Eos # (Auto) Baso # (Auto) Immature Gran # (Auto) Sodium Potassium Chloride Carbon Dioxide Anion Gap BUN Creatinine Est Cr Clr Drug Dosing eGFR BUN/Creatinine Ratio Glucose POC Glucose 80 Calcium Total Bilirubin AST ALT Alkaline Phosphatase Total Protein Albumin Globulin Albumin/Globulin Ratio Hep Bs Antigen Negative Hep Bs Antibody Immune Hep Bs Antibody, Quant > 500.00 04/18/25 04/18/25 04/18/25 16:27 20:40 21:58 WBC RBC Hgb 9.2 L Hct 26.8 L MCV MCH MCHC RDW Std Deviation RDW Coeff of Chelsey Plt Count MPV Immature Gran % (Auto) Neut % (Auto) Lymph % (Auto) Barry % (Auto) Eos % (Auto) Baso % (Auto) Neut # (Auto) Lymph # (Auto) Barry # (Auto) Eos # (Auto) Baso # (Auto) Immature Gran # (Auto) Sodium Potassium Chloride Carbon Dioxide Anion Gap BUN Creatinine Est Cr Clr Drug Dosing eGFR BUN/Creatinine Ratio Glucose POC Glucose 134 H 120 H Calcium Total Bilirubin AST ALT Alkaline Phosphatase Total Protein Albumin Globulin Albumin/Globulin Ratio Hep Bs Antigen Hep Bs Antibody Hep Bs Antibody, Quant 04/19/25 04/19/25 04/19/25 05:52 06:11 07:37 WBC 5.14 RBC 2.90 L Hgb 9.4 L Hct 26.6 L MCV 91.7 MCH 32.4 MCHC 35.3 RDW Std Deviation 46.5 H RDW Coeff of Chelsey 13.7 Plt Count 126 L D MPV 12.4 Immature Gran % (Auto) 0.6 Neut % (Auto) 68.6 Lymph % (Auto) 15.6 Barry % (Auto) 11.9 Eos % (Auto) 2.5 Baso % (Auto) 0.8 Neut # (Auto) 3.53 Lymph # (Auto) 0.80 L Barry # (Auto) 0.61 H Eos # (Auto) 0.13 Baso # (Auto) 0.04 Immature Gran # (Auto) 0.03 Sodium 139 Potassium 3.9 Chloride 103 Carbon Dioxide 23 Anion Gap 13 H BUN 54 H D Creatinine 10.86 H* D Est Cr Clr Drug Dosing 8.5 eGFR 4.89 BUN/Creatinine Ratio 5.0 L Glucose 86 POC Glucose 101 H 93 Calcium 7.6 L Total Bilirubin 0.6 AST 11 L ALT 15 Alkaline Phosphatase 49 Total Protein 6.1 Albumin 3.9 Globulin 2.2 L Albumin/Globulin Ratio 1.8 Hep Bs Antigen Hep Bs Antibody Hep Bs Antibody, Quant PG Care Time/CCT Total # of Minutes Spent Total Time Spent with Patient: Total time spent is greater than 50% in coordination of care (as documented) at patient's floor/unit and/or counseling patient: Coding Level of Care Code 85551 SUB INP/OBS CARE 3/50MIN Diagnoses End stage renal disease on dialysis N18.6; Z99.2 Metabolic acidosis E87.20 Hyperkalemia E87.5 Anemia D64.9 Anemia type: unspecified type Diabetes mellitus E11.9 (4) Anemia Anemia type: unspecified type Qualified Code(s): D64.9 - Anemia, unspecified
--- NOTE | 2025-04-19 09:21 | Hospitalist Progress Note ---
Date of Service April 19, 2025 Assessment & Plan (1) End stage chronic kidney disease: Plan: -ESRD, acute on chronic metabolic acidosis, hyperkalemia Patient on MWF dialysis through left upper extremity fistula since 09/2024 Has missed dialysis last 2.5 weeks, was seen in the ER this week but declined admission at that time. No hypoxia; does endorse cough, orthopnea, progressive fatigue greatly worsened in the last 24 hours No chest pain/chest pressure. Potassium 5.8. Magnesium 2.6. VBG 7.15/36/32/13 Nephrology consulted for urgent dialysis due to your metabolic acidosis. He is not hypoxic but is dyspneic, with basilar crackles, evidence of fluid retention and orthopnea. EKG: Sinus, prolonged QT. Slight peaked appearance to P waves with similar amplitude/area under the curve to prior (2) Melanotic stools: Plan: -occult + -protonix BID IV -GI consulted -EGD this am (3) Acute cholecystitis: Plan: -US showing features of acute calculous cholecystis -surgery consulted -no need for surgery at this time (4) Metabolic acidosis: Plan: -resolved s/p HD (5) History of CVA (cerebrovascular accident): (6) Hypertension: (7) Diabetes mellitus: Plan 60-year-old male with a history of diabetic/hypertensive ESRD with missed dialysis over the preceding 3 weeks who presents with acute metabolic acidosis, developing volume overload, and developing hyperkalemia likely from missed dialysis. Additionally he has had some dark stools and right upper quadrant abdominal pain and shows possible cholecystitis on CT. He does not have transaminitis. He is admitted with dialysis pending, and is covered empirically for potential cholecystitis with Zosyn. Does not show obstructive LFTs. Admission and Anticipated Discharge Date Admission Date: April 17, 2025 Subjective Plan for EGD today. No events overnight Review of Systems Review of Systems: CONST: Negative for fever, body aches and chills. HENT: Negative for neck pain/stiffness, headache, congestion, sore throat, swelling. EYES: Negative for discharge/pain or vision changes. RESP: Negative for cough/hemoptysis and shortness of breath. CV: Negative chest pain, difficulty breathing, palpitations. ABD: Negative pain, nausea, vomiting. : Negative increase frequency, dysuria, blood in urine or stool. MUSC: Negative for muscle aches, edema. SKIN: Negative rash, lesions/sores. NEURO: Negative headache, dizziness, weakness. Physical Exam Physical Exam: GENERAL APPEARANCE NAD, activity normal for age, well developed/ well nourished, no cyanosis, pallor, or diaphoresis. EYES lids/conjunctiva normal. EARS/NOSE/THROAT Mucous membranes moist, nares normal, lips/teeth normal uvula midline without oral pharyngeal erythema, exudate or swelling TMs normal bilaterally. No lymphangitis/lymphedema. HEAD/NECK normocephalic atraumatic, no facial trauma, neck is supple. RESPIRATORY respiratory effort normal, speaks in full sentences, no tripod position, no accessory muscle use. Lungs clear to auscultation without rhonchi, wheezes, rales CARDIAC Regular rate and rhythm, no edema. ABDOMINAL Soft, ND/NT. No evidence of fluid wave. No pulsatile masses on exam, rebound tenderness, Arroyo sign or pain over Mcburney's point. MUSCLES/EXTREMITIES No abnormal range of motion, no swelling. SKIN Warm, pink and dry. No rashes, dermatoses, petechiae or lesions. NEUROLOGICAL Speech is clear and appropriate. Normal level of consciousness. Gait and coordination are normal. 5/5 strength in all extremities. PSYCH Normal mood and affect. Judgement/competence is appropriate Results & Data Results & Data Vital Signs (Past 12 Hours) Vital Signs Temp Pulse Pulse Pulse Resp BP Pulse Ox 04/19/25 07:04 36.8 C 81 20 146/71 H 93 04/19/25 03:06 37.4 C 88 18 162/78 H 96 04/18/25 23:00 90 04/18/25 22:43 37.1 C 86 18 139/75 95 O2 Del Method 04/19/25 07:04 Room Air 04/19/25 03:06 Room Air 04/18/25 23:00 04/18/25 22:43 Room Air PG Care Time/CCT Total # of Minutes Spent Total Time Spent with Patient: Total time spent is greater than 50% in coordination of care (as documented) at patient's floor/unit and/or counseling patient: Coding Level of Care Code 91735 SUB INP/OBS CARE 2/35MIN Diagnoses End stage chronic kidney disease N18.6 Melanotic stools K92.1 Acute cholecystitis K81.0 Metabolic acidosis E87.20 History of CVA (cerebrovascular accident) Z86.73 Hypertension I10 Diabetes mellitus E11.9
--- NOTE | 2025-04-19 09:28 | Pharmacy Report ---
Pharmacy Glycemic Sign Off Nt - Date of Service April 19, 2025 - Assessment & Plan ASSESSMENT: * Pharmacy was consulted by Dr Rivera on 04/17/25 for glycemic control and to write orders per [facility] inpatient glycemic control protocol. * Major changes made by pharmacy to antidiabetic regimen include: * Added NovoLog with loose correction factor only * Patient has been receiving/requiring 0 units of insulin per day for adequate glycemic control * BSGs ranging 74-134 mg/dl * Do not anticipate further changes in patient status that would quickly deteriorate glycemic control (i.e. patient to be NPO for upcoming procedure, steroids tapering, starting tube feedings, etc). * Please see recommendations for outpatient antidiabetic regimen below. PLAN FOR INPATIENT GLYCEMIC CONTROL: No changes needed to current regimen. * Continue NovoLog per scale ACHS/Q6hrs while NPO * Goal range = 110- 80 mg/dl * CF = 50 mg/dl/unit * CR = 1 unit for ever NONE g CHO consumed * Pharmacy is signing off of glycemic consult and will no longer be making adjustments to inpatient regimen. Please feel free to re-consult if needed. Thank you.
--- NOTE | 2025-04-19 09:58 | History & Physical Bridge Note ---
Date of Service April 19, 2025 History & Physical Bridge Note I have examined the patient, reviewed the History & Physical and in the interval since the performance of the History & Physical I have noted the following changes of clinical significance: no changes noted Keep NPO and proceed with EGD for further evaluation of melena and abdominal pain. Supervising Physician Co-Signing Physician Notes Benign abdomen. Less abdominal pain since dialysis. Attentionally related to uremia. EGD today. Benefits discussed informed consent obtained
--- NOTE | 2025-04-19 12:02 | Anesthesiology Consultation ---
Date of Service April 19, 2025 Assessment & Plan Chart Review Chart Review: Acceptable Risk for Surgery and Patient NOT seen in Pre Admission Testing Consults Requested none ASA ASA3 Proposed Anesthesia Anesthesia Type: MAC Risk / Benefits Reviewed With: PT / POA / Parent / Guardian, Accepts Plan and Informed Consent Obtained History Surgery Operation Date: 04/19/25 17:00 Proposed Procedures p Esophagogastroduodenoscopy Dr. Hemant Marcos MD Height/Weight Height: 5 ft 11 in Weight: 97.1 kg Allergies Allergy/AdvReac Type Severity Reaction Status Date / Time cephalexin AdvReac Verified 10/26/24 18:10 hydralazine AdvReac Verified 10/26/24 18:10 sulfamethoxazole AdvReac Verified 10/26/24 18:10 [From Bactrim] trimethoprim [From Bactrim] AdvReac Verified 10/26/24 18:10 Medications Home Medications Medication Instructions Recorded Confirmed Last Taken insulin glargine 100 unit/mL (3 1 unit subcut UD 11/02/21 04/17/25 10/25/24 mL) subcutaneous pen (Lantus Solostar U-100 Insulin) vitamin B complex and vitamin C 1 cap PO QAM 10/26/24 04/17/25 02/02/25 no.20-folic acid 1 mg capsule (Renal Caps) albuterol sulfate 90 mcg/actuation 2 puff inhalation .Q4-6 PRN sob 12/12/24 04/17/25 Unknown aerosol inhaler (Ventolin HFA) furosemide 80 mg tablet 0 mg PO QAM 02/16/25 04/17/25 02/15/25 lisinopril 10 mg tablet 10 mg PO AMHS 02/16/25 04/17/25 02/16/25 AM DOSE nifedipine 60 mg tablet,extended 60 mg PO QAM 02/16/25 04/17/25 1 Week Ago release ~04/10/25 bumetanide 1 mg tablet 1 mg PO BID #30 tabs 04/15/25 04/17/25 Unknown sodium zirconium cyclosilicate 10 10 g PO TID #30 ea 04/15/25 04/17/25 Unknown gram oral powder packet (Lokelma) calcium acetate(phosphat bind) 667 0 mg PO TIDM 04/17/25 04/17/25 Unknown mg capsule sucroferric oxyhydroxide 500 mg 0 mg PO TIDM 04/17/25 04/17/25 Unknown chewable tablet (Velphoro) Active Medications Generic Name Dose Route Start Last Admin Trade Name Freq PRN Reason Stop Dose Admin Acetaminophen 650 mg 04/17/25 21:27 04/18/25 01:30 Acetaminophen 325 Mg Tab PO 05/17/25 21:26 650 mg Q4H PRN Administration Pain or Fever Bumetanide 1 mg 04/17/25 21:27 04/19/25 09:32 Bumetanide 1 Mg Tab PO 05/17/25 21:26 1 mg BID17 YVONNE Administration Pantoprazole Sodium 40 mg in 10 mls @ 5 mls/min 04/17/25 21:00 04/19/25 09:30 Protonix IV 05/17/25 20:59 5 mls/min BID YVONNE Administration Insulin Aspart 0 units 04/19/25 06:00 04/19/25 11:47 Insulin Aspart Per Unit Charge SC 05/19/25 05:59 Not Given Q6 YVONNE Lisinopril 10 mg 04/17/25 21:27 04/19/25 09:32 Lisinopril 10 Mg Tab PO 05/17/25 21:26 10 mg AMHS YVONNE Administration Nifedipine 60 mg 04/18/25 09:00 04/19/25 09:32 Nifedipine Extended Rel 30 Mg Tabcr PO 05/18/25 08:59 60 mg QAM YVONNE Administration Vitamin B Complex/Folic Acid 1 cap 04/18/25 09:00 04/19/25 09:32 Nephrocaps PO 05/18/25 08:59 1 cap QAM YVONNE Administration NPO Date Last Intake of Fluids: 04/18/25 Time Last Intake of Fluids: 22:00 Past Medical History Medical History Diverticulitis sigmoid - 11/2024 End stage chronic kidney disease Anemia Secondary hyperparathyroidism History of CVA (cerebrovascular accident) Diabetes mellitus Hypertension History of deep venous thrombosis or pulmonary embolus Asthma Dyslipidemia Hypertriglyceridemia Exercise / Class Metabolic Activity II 4-5 Yardwork/Stairs/Walk up hill Past Family History Family History Father Cancer Prostate Kidney disease Late in life while suffering from advanced metastatic prostate cancer and alcoholism Heart disease Denies family history of Colorectal cancer Past Surgical History Surgical History S/P arteriovenous (AV) fistula creation LUE Past Anesthesia History No Hx of Anesthesia Complications and No Family Hx of Anesthesia Complications History of PONV No Hx of PONV and No Hx of Motion Sickness Social History Smoking Status: Never smoker Do You Dip or Chew Tobacco: No ("quit") Hx Alcohol Use: No Hx Substance Use: No substance use type: does not use Review of Systems Constitutional: as per Subjective / HPI Physical Exam Vital Signs Last Vital Signs Temp 36.8 C 04/19/25 07:04 Pulse 83 04/19/25 09:00 Resp 20 04/19/25 07:04 BP 146/71 H 04/19/25 07:04 Pulse Ox 93 04/19/25 07:04 O2 Del Method Room Air 04/19/25 10:42 Constitutional WD/WN, vitals as above + obese; no acute distress Eyes PERRL, conjunctivae normal, anicteric sclerae ENMT external ear and nose normal, oropharynx normal Mouth: no dentition abnormality Thyromental Distance: > or= 3.5 Finger Breadths Mallampati Class: III Neck trachea midline, no thyromegaly Respiratory normal respiratory effort, lungs clear to auscultation normal respiratory effort; no respiratory distress Auscultation: lungs clear to auscultation bilaterally Cardiovascular RRR, no murmur, no edema Musculoskeletal Head/Neck/Chest: normocephalic and head atraumatic Spine: normal cervical ROM and no pain with cervical ROM Extremities: extremities normal to inspection and strength 5/5 throughout; full ROM of extremities Skin no rashes, warm and dry Neurologic moves all extremities Motor/Sensory: no sensory deficit Psychiatric A+Ox3, euthymic affect Orientation: alert and oriented x 3 Testing Laboratory Results 04/19/25 06:11 04/19/25 06:11 Urine Color Yellow 04/17/25 22:45 Urine Appearance Clear (Clear) 04/17/25 22:45 Urine pH 7.0 (4.5-7.5) 04/17/25 22:45 Ur Specific [place] 1.015 (1.000-1.030) 04/17/25 22:45 Urine Protein 3+ (Negative) H 04/17/25 22:45 Urine Glucose (UA) Trace (Negative) H 04/17/25 22:45 Urine Ketones Negative (Negative) 04/17/25 22:45 Urine Nitrite Negative (Negative) 04/17/25 22:45 Ur Leukocyte Esterase Negative (Negative) 04/17/25 22:45 Urine RBC 0-2 /hpf (0-2) 04/17/25 22:45 Urine WBC 0-5 /hpf (0-5) 04/17/25 22:45 Ur Epithelial Cells 0-2 /hpf (0-2) 04/17/25 22:45 Blood Type A Positive 04/17/25 16:15 Antibody Screen NEGATIVE 04/17/25 16:15 04/19/25 04/19/25 04/19/25 11:47 07:37 05:52 POC Glucose 131 H 93 101 H
--- NOTE | 2025-04-19 13:05 | Communication Note ---
Date of Service: April 19, 2025 Normal upper endoscopy. Symptoms are resolved, continue PPI. It is possible this was related to his uremia and his stomach discomfort.
--- NOTE | 2025-04-19 13:08 | GI REPORT ---
[facility] Patient: JLUIA PURVIS : 1965 Sex at : Male Age: 60 Years Procedure: Upper GI endoscopy Date: 04/19/2025 Attending Physician: George Macros MD Referring MD: Coy Rhodes MD Indications: - Epigastric abdominal pain Medications: - Monitored Anesthesia Care Complications: - No immediate complications. Estimated Blood Loss: - Estimated blood loss: None. Procedure: - The egd scope was introduced through the mouth and advanced to the second part of the duodenum. - The upper GI endoscopy was accomplished without difficulty. - The patient tolerated the procedure well. Findings: - The examined esophagus was normal. - The entire examined stomach was normal. - The examined duodenum was normal. Impression: - Normal esophagus. - Normal stomach. - Normal examined duodenum. - No specimens collected. Recommendation: - Reassurance. PPI x 1 month. Procedure Code(s): - 54853, Esophagogastroduodenoscopy, flexible, transoral; diagnostic, including collection of specimen(s) by brushing or washing, when performed (separate procedure) Diagnosis Code(s): - R10.13, Epigastric pain CPT(R) - 2022 copyright [employer]. All Rights Reserved. The CPT codes, CCI edits and ICD codes generated are intended as suggestions and were generated based on input data. These codes are preliminary and upon development lead review may be revised to meet current compliance and payer requirements. The provider is responsible for the final determination of appropriate codes, and modifiers. George Marcos MD This document has been electronically signed. Note Initiated:04/19/2025 Note Completed:04/19/2025 1:07 PM \\[id number]
--- NOTE | 2025-04-19 13:19 | Anesthesiology Progress Note ---
Date of Service April 19, 2025 Anesthesia Post Procedure Vital Signs Vital Signs: Temp Pulse Pulse Pulse Pulse Resp BP 04/19/25 13:02 82 16 139/65 04/19/25 12:12 36.8 C 83 16 168/84 H 04/19/25 11:58 36.7 C 78 74 18 132/77 04/19/25 10:42 04/19/25 09:00 83 04/19/25 07:04 36.8 C 81 20 146/71 H 04/19/25 03:06 37.4 C 88 18 162/78 H 04/18/25 23:00 90 04/18/25 22:43 37.1 C 86 18 139/75 04/18/25 19:52 36.9 C 87 18 157/76 H 04/18/25 17:04 85 04/18/25 16:14 36.9 C 70 18 149/68 H 04/18/25 13:29 37 C 81 18 167/82 H Pulse Ox O2 Del Method 04/19/25 13:02 94 Room Air 04/19/25 12:12 93 Room Air 04/19/25 11:58 96 Room Air 04/19/25 10:42 Room Air 04/19/25 09:00 04/19/25 07:04 93 Room Air 04/19/25 03:06 96 Room Air 04/18/25 23:00 04/18/25 22:43 95 Room Air 04/18/25 19:52 96 Room Air 04/18/25 17:04 04/18/25 16:14 98 Room Air 04/18/25 13:29 96 Room Air Transfer of Care Handoff Completed per policy Notes Mental Status: alert / awake / arousable and participated in evaluation Patient Amnestic to Procedure: Yes Nausea / Vomiting: adequately controlled Pain: adequately controlled Airway Patency, RR, SpO2: stable & adequate BP & HR: stable & adequate Hydration State: stable & adequate Anesthetic Complications: no major complications apparent and Pt Satisfied with anesthetic care
[2025-04-19] MEDS: PROPOFOL IV EMULSION 10 MG/ML 20 ML VIAL IV ONE (14:34)
[2025-04-19] MEDS: LIDOCAINE 2% 2 ML VIAL/AMP(20MG/ML) INFIL ONE (14:34)
[2025-04-19 15:09] LABS: Hematocrit (blood only) 29.3 % (42.0-52.0); Hemoglobin 10.0 g/dl (14.0-18.0)
[2025-04-19] MEDS: ALBUTEROL HFA 8 GM INHALER INH PRN (21:58)
[2025-04-19 23:36] LABS: Hematocrit (blood only) 27.5 % (42.0-52.0); Hemoglobin 9.5 g/dl (14.0-18.0)
[2025-04-20 06:09] LABS: Hematocrit (blood only) 26.4 % (42.0-52.0); Hemoglobin 9.2 g/dl (14.0-18.0); Immature Granulocytes # (auto) 0.04 K/uL (0.01-0.20); Immature Granulocytes % (auto) 0.5 %; Mean Corpuscular Hemoglobin 31.7 pg (25.0-34.0); Mean Corpuscular Volume 91.0 fL (80.0-100.0); Platelet Count 142 K/uL (130-400); RDW Standard Deviation 45.1 fL (36.4-46.3); Red Blood Count 2.90 M/uL (4.70-6.10); White Blood Count 8.57 K/ul (4.8-10.8)
[2025-04-20 06:47] LABS: Alanine Aminotransferase 12.0 U/L (7-52); Albumin Globulin Ratio 1.7 (0.9-2); Alkaline Phosphatase 46.0 U/L (34-104); Anion Gap 15.0 (3-11); Bilirubin,Total 0.6 mg/dl (0.2-1.0); Blood Urea Nitrogen 63.0 mg/dl (6-23); Calcium 7.6 mg/dl (8.6-10.3); Carbon Dioxide 20.0 mmol/L (21-32); Chloride 100.0 mmol/L (98-107); Creatinine Clr Calc Pharmacy 7.0 ml/min; Globulin 2.3 gm/dl (2.5-4.0); Glucose 104.0 mg/dl (70-99(Fasting)); Potassium 3.9 mmol/L (3.5-5.1); Sodium 135.0 mmol/L (136-145); Total Protein 6.1 gm/dl (6.0-8.3)
[2025-04-20] MEDS ORDERED: SODIUM CHLORIDE 0.9% 1,000 ML IV PRN (07:00)
--- NOTE | 2025-04-20 08:53 | Nephrology Progress Note ---
Date of Service April 20, 2025 Assessment & Plan (1) End stage renal disease on dialysis: Plan: * Heparin free HD today. Orders have been entered into EMR and HD RN notified * [facility].5[facility] 2K 2Ca Mg 1.0 Na 138 HCO3 34 FX CorAL-80 EDW 93 kg 15g needles * Advised patient to return to regular MWF HD at [facility] when discharged from hospital. Reviewed importance of not missing treatments in detail this morning * BMP, CBC in a.m. (2) Metabolic acidosis: Plan: * Resolved w/ HD (3) Hyperkalemia: Plan: * Corrected (4) Anemia: Plan: * [id number] EGD negative for active bleed. Await further input from gastroen terology * 04/18/25 iron sat 43%, ferritin 567 (5) Diabetes mellitus: Admission and Anticipated Discharge Date Admission Date: April 17, 2025 Subjective Mr. Ballesteros was evaluated in his hospital room this morning. EGD was negative for active site of bleeding. Patient reports that he may have had a diverticular bleed. He is subjectively improved and hopes to be discharged to home soon Review of Systems Constitutional: no fever Eyes: no problem reported Ear, Nose, Mouth, Throat: no problem reported Respiratory: no cough and no dyspnea Cardiovascular: no chest pain Gastrointestinal: no problem reported Integumentary: no rash Neurologic: no problem reported Physical Exam Constitutional: not in distress Eyes: PERRL, conjunctivae normal, anicteric sclerae ENMT: external ear and nose normal, oropharynx normal Neck: trachea midline, no thyromegaly Respiratory: normal respiratory effort, lungs clear to auscultation Cardiovascular: RRR, no murmur, no edema Gastrointestinal (Abdomen): Inspection/Auscultation: abdomen normal to inspection and normal bowel sounds Percussion/Palpation: abdomen nontender and no guarding Musculoskeletal: Extremities: no cyanosis and no clubbing Skin: no rashes, warm and dry Neurologic: awake; not confused Results & Data Vital Signs (Past 12 Hours) Vital Signs Temp Pulse Pulse Resp BP Pulse Ox O2 Del Method 04/20/25 07:36 36.9 C 92 H 17 152/73 H 95 Room Air 04/20/25 03:49 36.8 C 90 18 138/69 96 Room Air 04/19/25 23:00 101 H Laboratory Results Laboratory Results - last 24 hr 04/19/25 04/19/25 04/19/25 11:47 14:46 16:11 WBC RBC Hgb 10.0 L Hct 29.3 L MCV MCH MCHC RDW Std Deviation RDW Coeff of Chelsey Plt Count MPV Immature Gran % (Auto) Neut % (Auto) Lymph % (Auto) [place] % (Auto) Eos % (Auto) Baso % (Auto) Neut # (Auto) Lymph # (Auto) [place] # (Auto) Eos # (Auto) Baso # (Auto) Immature Gran # (Auto) Sodium Potassium Chloride Carbon Dioxide Anion Gap BUN Creatinine Est Cr Clr Drug Dosing eGFR BUN/Creatinine Ratio Glucose POC Glucose 131 H 144 H Calcium Total Bilirubin AST ALT Alkaline Phosphatase Total Protein Albumin Globulin Albumin/Globulin Ratio 04/19/25 04/20/25 04/20/25 23:13 05:48 07:34 WBC 8.57 RBC 2.90 L Hgb 9.5 L 9.2 L Hct 27.5 L 26.4 L MCV 91.0 MCH 31.7 MCHC 34.8 RDW Std Deviation 45.1 RDW Coeff of Chelsey 13.6 Plt Count 142 MPV 11.6 Immature Gran % (Auto) 0.5 Neut % (Auto) 76.6 Lymph % (Auto) 10.7 [place] % (Auto) 9.7 Eos % (Auto) 1.8 Baso % (Auto) 0.7 Neut # (Auto) 6.57 H Lymph # (Auto) 0.92 L [place] # (Auto) 0.83 H Eos # (Auto) 0.15 Baso # (Auto) 0.06 Immature Gran # (Auto) 0.04 Sodium 135 L Potassium 3.9 Chloride 100 Carbon Dioxide 20 L Anion Gap 15 H BUN 63 H Creatinine 13.13 H* D Est Cr Clr Drug Dosing 7.0 eGFR 3.90 BUN/Creatinine Ratio 4.8 L Glucose 104 H POC Glucose 110 H Calcium 7.6 L Total Bilirubin 0.6 AST 10 L ALT 12 Alkaline Phosphatase 46 Total Protein 6.1 Albumin 3.8 Globulin 2.3 L Albumin/Globulin Ratio 1.7 PG Care Time/CCT Total # of Minutes Spent Total Time Spent with Patient: Total time spent is greater than 50% in coordination of care (as documented) at patient's floor/unit and/or counseling patient: Coding Level of Care Code 58477 SUB INP/OBS CARE MIN Diagnoses End stage renal disease on dialysis N18.6; Z99.2 Metabolic acidosis E87.20 Hyperkalemia E87.5 Anemia D64.9 Anemia type: unspecified type Diabetes mellitus E11.9 (4) Anemia Anemia type: unspecified type Qualified Code(s): D64.9 - Anemia, unspecified
--- NOTE | 2025-04-20 11:40 | Discharge Summary ---
Discharge Summary Date of Service April 20, 2025 Principal Dx & Hospital Course #1 = Principal Diagnosis (1) End stage chronic kidney disease: -ESRD, acute on chronic metabolic acidosis, hyperkalemia Patient on MWF dialysis through left upper extremity fistula since 09/2024 Has missed dialysis last 2.5 weeks, was seen in the ER this week but declined admission at that time. No hypoxia; does endorse cough, orthopnea, progressive fatigue greatly wo rsened in the last 24 hours No chest pain/chest pressure. Potassium 5.8. Magnesium 2.6. VBG 7.15/36/32/13 Nephrology consulted for urgent dialysis due to your metabolic acidosis. He is not hypoxic but is dyspneic, with basilar crackles, evidence of fluid retention and orthopnea. EKG: Sinus, prolonged QT. Slight peaked appearance to P waves with similar amplitude/area under the curve to prior (2) Melanotic stools: -occult + -protonix BID IV -GI consulted -EGD shows no evidence of any acute pathology -symptoms likely 2nd to diverticulosis (3) Acute cholecystitis: -US showing features of acute calculous cholecystis -surgery consulted -no need for surgery at this time (4) Metabolic acidosis: -resolved s/p HD (5) History of CVA (cerebrovascular accident): (6) Hypertension: (7) Diabetes mellitus: Plan 60-year-old male with a history of diabetic/hypertensive ESRD with missed dialysis over the preceding 3 weeks who presents with acute metabolic acidosis, developing volume overload, and developing hyperkalemia likely from missed dialysis. Additionally he has had some dark stools and right upper quadrant abdominal pain and shows possible cholecystitis on CT. He does not have transaminitis. He is admitted with dialysis pending, and is covered empirically for potential cholecystitis with Zosyn. Does not show obstructive LFTs. Admission HPI Per Admitting Provider Curtis is a 60-year-old male with a history of ESRD due to diabetic kidney disease/hypertension who started dialysis September 2024 typically on MWF HD via left brachiocephalic fistula who presents with hyperkalemia, metabolic acidosis, and? Equivocal cholecystitis. Patient was seen in the ER 2 days ago for hypokalemia and ESRD after multiple sessions of dialysis. At that time it was recommended he be admitted for inpatient management of hyperkalemia with additional concern for melenic stool. At that time he refused admission. Potential for comfort measures at home if he wished to discontinue dialysis was discussed at that time as he reported he was tired of needlesticks and dialysis. Per review of ER note patient expressed an understanding that if the test were to continue to rise this would be fatal and this was discussed with him at length along with his . Patient did refuse further care and was discharged home. To minimize harm he was discharged with Lokelma and Bumex. He presents today with abdominal pain. ER evaluation shows VBG 7.15/pCO2 36/LEAD PERSON 13. Potassium 5.8 He does not have a leukocytosis CTA/P: Cholelithiasis with possible cholecystitis. No evidence of di verticulitis. No hydronephrosis or perinephric stranding. Noted Chest x-ray reported as right middle lobe pneumonia, discussed with ER provider did appear more consistent with pulmonary edema. Due to synapse error with [employer]where independent visualization from hospitalist provider was not possible at time of admission consultation Ionized calcium was low at 0.79 Magnesium 2.6 Phosphorus markedly elevated 18.4 Creatinine 17.62 BUN 146 Bicarb 13 Anion gap 25 Patient seen at bedside. Per patient: Dark stool/black stool for 2-3 weeks Stopped going to dialysis 2.5 weeks ago. "[place] other than abdominal pain and bloating.' No appetite Cannot pass bowels, very small bowel movements that are tiny and black. No maroon/bright red blood "I am having trouble breathing past 20 hours, maybe a few days. For some strange reason its getting harder and harder for me to breath" Endorses a dry cough, nonproductive. This morning he caughed up a little white/clear phlegm. Endorses orthopnea in the last 24 hours. 'I can't sleep, or lay down and don't feel good last 20 or so hours. Breathing gets worse. I'm still coughing too' No leg swelling NO history of heart failure. No history of heart attacks. Past history of T2DM. "sugar diabetes. Does pretty good on lantus". Takes 1unit per day. Sugar usually 100-110. Takes lisinopril, 'some kind of dialysis pill since I stopped dialysis'. Has not been taking nifedipine the last week. DId not take lokelma or bumex in the last few days. With regard to plans and thoughts on dialysis. "I really don't know what I want to do about this. I'd love to get a kidney transplant but doesn't look like that will happen." Medical History: Reviewed Medications: Reviewed Surgical History: Reviewed Family history: Reviewed Allergies: Reviewed Social History:denies Tobacco/alcohol use Code Status: DNR/DNI, confirmed patient on admission Discharge Exam GENERAL APPEARANCE NAD, activity normal for age, well developed/ well nourished, no cyanosis, pallor, or diaphoresis. EYES lids/conjunctiva normal. EARS/NOSE/THROAT Mucous membranes moist, nares normal, lips/teeth normal uvula midline without oral pharyngeal erythema, exudate or swelling TMs normal bilaterally. No lymphangitis/lymphedema. HEAD/NECK normocephalic atraumatic, no facial trauma, neck is supple. RESPIRATORY respiratory effort normal, speaks in full sentences, no tripod position, no accessory muscle use. Lungs clear to auscultation without rhonchi, wheezes, rales CARDIAC Regular rate and rhythm, no edema. ABDOMINAL Soft, ND/NT. No evidence of fluid wave. No pulsatile masses on exam, rebound tenderness, Arroyo sign or pain over Mcburney's point. MUSCLES/EXTREMITIES No abnormal range of motion, no swelling. SKIN Warm, pink and dry. No rashes, dermatoses, petechiae or lesions. NEUROLOGICAL Speech is clear and appropriate. Normal level of consciousness. Gait and coordination are normal. 5/5 strength in all extremities. PSYCH Normal mood and affect. Judgement/competence is appropriate Discharge Plan Discharge Items Patient Disposition: Home - Self-Care Reason For Visit: METABOLIC ACIDOSIS, ESRD, HYPERKALEMIA Discharge Diagnosis: metabolic acidosis, ESRD, hyperkalemia Condition on Discharge: Serious Activity: Resume your previous activity Non-emergency contact: Primary Care Provider Call non-emergency contact if: you have any medication questions Follow-up/Referrals: Kamlesh Owens DO [Primary Care Provider] - Diet: Regular Addtl Attending Provider Instructions: Follow up with PMD in 1 week Stand-Alone Forms: [employer], Smoking Cessation Medications and DC Order Prescriptions: Continued Lantus Solostar U-100 Insulin 100 unit/mL (3 mL) insulin pen 1 unit subcut UD Rx Instructions: 12/12- usually 1 unit daily but if readings are perfect, he does none. INJECT BASELINE OF 1 UNIT AND ADD 1 UNIT FOR EVERY 10 POINTS OF BLOOD SUGAR READINGS, DO NOT EXCEED GREATER THAN 30 UNITS ONCE A DAY Lokelma 10 gram powder in packet 10 g PO TID Qty: 30 0RF bumetanide 1 mg tablet 1 mg PO BID Qty: 30 0RF Velphoro 500 mg tablet,chewable 0 mg PO TIDM Patient Comments: 04/17-last filled 03/11 30 day supply #180 calcium acetate(phosphat bind) 667 mg capsule 0 mg PO TIDM Patient Comments: 04/17-last filled 01/19/25 30 day supply #180 Renal Caps 1 mg capsule 1 cap PO QAM albuterol sulfate [Ventolin HFA] 90 mcg/actuation HFA aerosol inhaler 2 puff INHALATION .Q4-6 PRN (Reason: sob) Patient Comments: last filled 11/10/24 nifedipine 60 mg tablet extended release 60 mg PO QAM furosemide 80 mg tablet 0 mg PO QAM Patient Comments: 04/17-last filled 11/15 90 day supply #90 lisinopril 10 mg tablet 10 mg PO AMHS Discharge Orders: Discharge Order (Routine); Ordered 04/20/25 Ordered By: Coy Rhodes Admission Data Admit Date/Time: 04/17/25 16:07 Attending Provider: Coy Rhodes Admit Provider: Amrit Rivera Primary Care Provider: Kamlesh Owens Other Providers: Maged Agrawal; Amrit Rivera; Azalia Burnett; Drew Golden Jr Other Interventions: Discharge Summary Assessment (RN) Last Done: 04/19/25 13:29 Hospital Stay Data Consultations 04/17/25 15:37 Consult Nephrology Routine 04/17/25 16:31 ED Decision to Admit Stat 04/18/25 07:08 Consult General Surgery Routine 04/18/25 07:09 Consult Gastroenterology Routine Procedures Performed Operation Date: 04/19/25 17:00 Actual Procedures p Esophagogastroduodenoscopy - George Marcos MD Diagnostic Imagining Performed 04/17/25 12:08 CT abd pelvis wo con Stat 04/17/25 15:31 US gallbladder Urgent Discharge Instructions Given to Patient (Per Discharging Provider) Follow up with PMD in 1 week Total Time Total Time Spent Total Time Spent (In Minutes): 50 Coding Level of Care Code 18602 INP/OBS DISCH >30 MIN Diagnoses End stage chronic kidney disease N18.6 Melanotic stools K92.1 Acute cholecystitis K81.0 Metabolic acidosis E87.20 History of CVA (cerebrovascular accident) Z86.73 Hypertension I10 Diabetes mellitus E11.9
[2025-04-20] MEDS: EPOETIN ALFA 10,000 UNITS/ML VIAL IV ONE (12:52)
[2025-04-20 14:48] LABS: Hematocrit (blood only) 27.3 % (42.0-52.0); Hemoglobin 9.6 g/dl (14.0-18.0)
[2025-04-20 15:30] VITALS: BP 122/66; RESP 19; TEMP 99; O2SAT 96
[2025-04-20 16:02] VITALS: PULSE 78
--- NOTE | 2025-04-22 13:06 | Electrocardiogram Report ---
Test Reason : Blood Pressure : */* mmHG Vent. Rate : 74 BPM Atrial Rate : 74 BPM P-R Int : 182 ms QRS Dur : 90 ms QT Int : 468 ms P-R-T Axes : 49 -18 63 degrees QTcB Int : 519 ms Normal sinus rhythm Possible Left atrial enlargement Prolonged QT Abnormal ECG When compared with ECG of 15-Apr-2025 18:24, No significant change was found Confirmed by Srikanth Desir ([id number]) on 04/22/2025 1:06:05 PM Referred By: REFERRED SELF Confirmed By: Srikanth Desir
--- NOTE | 2025-04-22 15:14 | Electrocardiogram Report ---
Test Reason : Blood Pressure : */* mmHG Vent. Rate : 141 BPM Atrial Rate : 144 BPM P-R Int : * ms QRS Dur : 88 ms QT Int : 336 ms P-R-T Axes : * -17 172 degrees QTcB Int : 514 ms Atrial fibrillation Abnormal ECG When compared with ECG of 17-Apr-2025 15:44, (unconfirmed) Atrial fibrillation is now Present T wave inversion now evident in Lateral leads HR has increased Confirmed by Srikanth Desir ([id number]) on 04/22/2025 3:14:07 PM Referred By: REFERRED SELF Confirmed By: Srikanth Desir
--- NOTE | 2025-04-22 15:16 | Electrocardiogram Report ---
Test Reason : Blood Pressure : */* mmHG Vent. Rate : 95 BPM Atrial Rate : 95 BPM P-R Int : 164 ms QRS Dur : 100 ms QT Int : 368 ms P-R-T Axes : 58 -22 144 degrees QTcB Int : 462 ms Normal sinus rhythm T wave abnormality, consider lateral ischemia Abnormal ECG When compared with ECG of 20-Apr-2025 12:33, (unconfirmed) Sinus rhythm has replaced Atrial fibrillation Confirmed by Srikanth Desir ([id number]) on 04/22/2025 3:15:45 PM Referred By: REFERRED SELF Confirmed By: Srikanth Desir
== END 2025-04-20 16:39 | disposition home or self-care (01) | DRG 640 ==
LOC: ED 11:18 → SUATTDRO 16:07 → EDINP 16:07 → 2S 18:15

== ENCOUNTER 2025-07-03 09:24 | Inpatient (IN) ==
--- NOTE | 2025-07-03 09:59 | Emergency Department Note ---
Impression & Plan SOB (shortness of breath), CHF (congestive heart failure), Anemia, Dialysis patient, Failure of outpatient treatment, Rhinovirus infection ED Provider Note NAME: JULIA PURVIS AGE: 60 SEX: M : 1965 ARRIVES VIA: Walk-In INFORMANT: [Patient][signif other] ED PROVIDER(S): [Hieu Archer MD] CHIEF COMPLAINT: Short of breath HISTORY OF PRESENT ILLNESS: The patient is a 60-year-old male who attends dialysis Wednesdays and Fridays. The patient has had a week of a productive cough and some increasing dyspnea. His temperature was elevated at 101. The patient went to the [facility] 3 days ago and was diagnosed with pneumonia. Admission was recommended however, the patient decided to be discharged. He was placed on Augmentin and Zithromax. 2 days ago, the patient had dialysis, 2 L of fluid were removed. The patient states that despite the treatment noted above, he has had increasing dyspnea, especially laying flat. His cough is persisting. He feels weak and washed out. He realizes he likely requires a hospitalization. PMHx/PSHx/Social Hx: See Below PHYSICAL EXAM: GENERAL: Patient is in no acute distress. HEENT: No acute trauma, normocephalic atraumatic, mucous membranes moist, no nasal congestion. NECK: No stridor, no adenopathy, no meningismus, trachea is midline. LUNGS: Wheezing bilaterally with some scattered crackles bilaterally. Breath sounds are diminished. No obvious respiratory distress. Wet cough noted. HEART: Without murmurs gallops or rubs, regular rate and rhythm. ABDOMEN: Soft, nontender, no peritonitis. EXTREMITIES: No cyanosis, full range of motion of all the joints without pain or difficulty. Mild bilateral pedal edema. NEUROLOGIC: Oriented x 3, no acute motor or sensory deficits, no focal weakness. SKIN: No jaundice, no diaphoresis. DIFFERENTIAL DIAGNOSIS: Bronchitis or pneumonia, CHF, anemia, cardiac ischemia, viral illness, among others. EMERGENCY DEPARTMENT PROCEDURES: MEDICAL DECISION MAKING: There is no leukocytosis. The patient is anemic. He has a history of anemia but his hemoglobin today is below his typical baseline and certainly, may be delusional. There is a normal platelet count. No bandemia. Renal panel testing shows a high BUN and creatinine consistent with his dialysis need. The potassium was normal. Lactic acid level was not elevated making severe sepsis less likely. No concerning liver enzyme elevation. ECG shows a normal sinus rhythm, no ST elevation. Cardiac enzyme testing x 1 is slightly elevated. This troponin elevation appears chronic when looking back at previous testing. The elevation may be secondary to mismatch, his renal disease or, I suppose acute cardiac injury. The troponin would need trending. Chest x-ray does show some mild to moderate CHF. No focal pneumonia. Respiratory BioFire was positive for rhinovirus. Patient was given a DuoNeb. He was given 1 inch of nitroglycerin paste. He was given IV Solu-Medrol. The patient presents short of breath despite Augmentin and Zithromax prescribed outpatient. He is still short of breath despite 2 L of fluid taken off during dialysis 2 days ago. By workup, he appears to be in CHF. This is likely causing the majority of his dyspnea and respiratory complaints. Of course, the rhinovirus infection is contributing. The patient is in need of a hospital stay. He will require dialysis, further pulmonary care. I did speak with the patient and case management, the on-call hospitalist was consulted. Prior/Outside records/notes reviewed: None ECG per my interpretation: Indication was dyspnea. The ECG shows a normal sinus rhythm with a rate of 87. There is some baseline artifact. There is no ST elevation, there is some nonspecific ST change. No PVCs. The QTc is 500. Continuous Cardiac Monitoring per my interpretation: An order was placed for continuous cardiac monitoring. The monitor shows a rate of 84 with normal sinus rhythm. Imaging/x-ray results per my interpretation: Chest x-ray shows some mild CHF. No obvious focal pneumonia. Chronic Medical/Social conditions affecting care: History of dialysis 3 times per week. Care/Management discussed with: Case management and the on-call hospitalist. Level of care consideration(s): After review of the information above and other included data: --I believe the patient requires escalation of care to admission DISPOSITION: Admission Past Med/Surg History Problem List Rhinovirus infection (Acute) Failure of outpatient treatment (Acute) Dialysis patient (Acute) Anemia (Acute) CHF (congestive heart failure) (Acute) SOB (shortness of breath) (Acute) Acute cholecystitis Melanotic stools Anemia due to chronic kidney disease Metabolic acidosis End stage renal disease on dialysis Hyperkalemia (Acute) Diarrhea Medical History Diverticulitis sigmoid - 11/2024 End stage chronic kidney disease Anemia Secondary hyperparathyroidism History of CVA (cerebrovascular accident) Diabetes mellitus Hypertension History of deep venous thrombosis or pulmonary embolus Asthma Dyslipidemia Hypertriglyceridemia Surgical History S/P arteriovenous (AV) fistula creation LUE Family History Father Cancer Prostate Kidney disease Late in life while suffering from advanced metastatic prostate cancer and alcoholism Heart disease Denies family history of Colorectal cancer Social History Smoking Status: Never smoker Tobacco Type: Smokeless Tobacco (Dip or Chew) Second Hand Exposure: Yes; Do You Dip or Chew Tobacco: No ("quit"); Hx Alcohol Use: No Hx Substance Use: No Preferred Language: Chinese Communication Ability: Effective Er Medical Technician Required: No Beliefs That Will Affect Care: None marital status: Current Living Situation: Significant Other Current Living Situation Comment: Lives w/ significat other current occupational status: disabled How many Children do You have: 2 Feels Safe at Home: Yes Assistive Devices: Glasses Allergies Allergies Allergy/AdvReac Type Severity Reaction Status Date / Time influenza virus vaccine, Allergy Severe Unknown Verified 07/03/25 14:05 specific cephalexin AdvReac Severe Unknown Verified 07/03/25 14:05 hydralazine AdvReac Severe Unknown Verified 07/03/25 14:05 sulfamethoxazole AdvReac Severe Unknown Verified 07/03/25 14:05 [From Bactrim] trimethoprim [From Bactrim] AdvReac Severe Unknown Verified 07/03/25 14:05 Home Meds Home Medications Medication Instructions Recorded Confirmed aspirin 81 mg tablet 81 mg PO DAILY 07/03/25 07/03/25 carvedilol 12.5 mg tablet 12.5 mg PO DAILY 07/03/25 07/03/25 isosorbide dinitrate 20 mg tablet 20 mg PO TID 07/03/25 07/03/25 nifedipine 60 mg tablet,extended 60 mg PO DAILY 07/03/25 07/03/25 release rosuvastatin 10 mg tablet 10 mg PO HS 07/03/25 07/03/25 sucroferric oxyhydroxide 500 mg 1,000 mg PO TID 07/03/25 07/03/25 chewable tablet (Velphoro) Results & Data (ED) Vital Signs Vital Signs - 24 hr 07/03/25 09:34 07/03/25 09:52 07/03/25 10:33 Temperature 36.6 C Temperature Source Temporal Artery Scan Pulse Rate 88 84 80 Pulse Rate from SpO2 Sensor Pulse Rhythm Regular Respiratory Rate 26 H 20 Respiratory Effort / Characteristics Short of Breath Respiratory Pattern Tachypnea Blood Pressure 194/95 H Blood Pressure Mean 128 Pulse Oximetry 94 92 Oxygen Delivery Method Room Air Room Air Oxygen Flow Rate Sepsis Recent Fever Within 48 Hours No Sepsis New/Unexplained Change in Mental Status No Sepsis Action Taken by Nursing No Action Required 07/03/25 11:00 07/03/25 11:01 Temperature Temperature Source Pulse Rate 79 Pulse Rate from SpO2 Sensor 79 Pulse Rhythm Respiratory Rate 20 Respiratory Effort / Characteristics Respiratory Pattern Blood Pressure 143/88 H Blood Pressure Mean 106 Pulse Oximetry 98 94 Oxygen Delivery Method Nasal Cannula Nasal Cannula Oxygen Flow Rate 2 2 Sepsis Recent Fever Within 48 Hours Sepsis New/Unexplained Change in Mental Status Sepsis Action Taken by Snf Medications Current Medication List: was personally reviewed by me Laboratory Data Attestation: I reviewed the patient's lab results. 07/03/25 09:55 07/03/25 09:55 Lab Results 07/03/25 07/03/25 Range/Units 09:55 10:14 WBC 5.27 (4.8-10.8) K/ul RBC 2.70 L (4.70-6.10) M/uL Hgb 8.8 L (14.0-18.0) g/dl Hct 26.0 L (42.0-52.0) % MCV 96.3 (80.0-100.0) fL MCH 32.6 (25.0-34.0) pg MCHC 33.8 (32.0-36.0) g/dL RDW Std Deviation 49.8 H (36.4-46.3) fL RDW Coeff of Chelsey 14.5 (11.5-14.5) % Plt Count 152 (130-400) K/uL MPV 11.2 (9.4-12.4) fL Immature Gran % (Auto) 0.6 % Neut % (Auto) 70.9 % Lymph % (Auto) 17.1 % [place]asta % (Auto) 7.6 % Eos % (Auto) 3.4 % Baso % (Auto) 0.4 % Neut # (Auto) 3.74 (1.40-6.50) K/uL Lymph # (Auto) 0.90 L (1.20-3.40) K/uL [place]asta # (Auto) 0.40 (0.11-0.59) K/uL Eos # (Auto) 0.18 (0.00-0.50) K/uL Baso # (Auto) 0.02 (0.00-0.20) K/uL Immature Gran # (Auto) 0.03 (0.01-0.20) K/uL PT 11.6 (9.0-12.0) Seconds INR 1.1 (0.9-1.1) APTT 32 H (21-31) Seconds PTT Ratio 1.2 Sodium 136 (136-145) mmol/L Potassium 4.6 (3.5-5.1) mmol/L Chloride 96 L (98-107) mmol/L Carbon Dioxide 22 (21-32) mmol/L Anion Gap 18 H (3-11) BUN 68 H (6-23) mg/dl Creatinine 11.23 H* (0.6-1.4) mg/dl Est Cr Clr Drug Dosing 8.4 ml/min eGFR 4.70 BUN/Creatinine Ratio 6.1 L (10-20) Glucose 186 H (70-99(Fasting)) mg/dl Lactate 1.5 (0.4-2.0) mmol/L Calcium 8.1 L (8.6-10.3) mg/dl Magnesium 2.2 (1.7-2.4) mg/dl Total Bilirubin 0.7 (0.2-1.0) mg/dl AST 18 (13-39) U/L ALT 19 (7-52) U/L Alkaline Phosphatase 62 (34-104) U/L Troponin I High Sens 35.4 H (0-20) pg/ml B-Natriuretic Peptide 3791 H (0-100) pg/ml Total Protein 6.8 (6.0-8.3) gm/dl Albumin 4.0 (3.4-5.0) gm/dl Globulin 2.8 (2.5-4.0) gm/dl Albumin/Globulin Ratio 1.4 (0.9-2) Adenovirus (PCR) Not Detected (NotDetected) B. pertussis DNA (PCR) Not Detected (NotDetected) B.parapertussis DNA PCR Not Detected (NotDetected) C. pneumoniae DNA (PCR) Not Detected (NotDetected) Coronavirus OC43 (PCR) Not Detected (NotDetected) Coronavirus HKU1 (PCR) Not Detected (NotDetected) Coronavirus 229E (PCR) Not Detected (NotDetected) SARS-CoV-2 (PCR) Not Detected (NotDetected) Coronavirus NL63 (PCR) Not Detected (NotDetected) Human Metapneumovir PCR Not Detected (NotDetected) Influenza Type A (PCR) Not Detected (NotDetected) Influenza Type B (PCR) Not Detected (NotDetected) M. pneumoniae (PCR) Not Detected (NotDetected) Parainfluenza 1 (PCR) Not Detected (NotDetected) Parainfluenza 2 (PCR) Not Detected (NotDetected) Parainfluenza 3 (PCR) Not Detected (NotDetected) Parainfluenza 4 (PCR) Not Detected (NotDetected) RSV (PCR) Not Detected (NotDetected) Entero/Rhino (PCR) DETECTED A (NotDetected) Administered Medications Albuterol (Albut/Ipratrop 3mg/0.5mg Neb 3 Ml Vial) 3 ml NEB Q6R [facility]; Protocol Stop: 08/02/25 12:59 Last Admin: 07/03/25 14:07 Dose: 3 ml Documented By: KMS Methylprednisolone 80 mg/ (Syringe) 1.28 mls @ 0.427 mls/min IV Q8H [facility] Stop: 08/02/25 16:59 Last Admin: 07/03/25 16:25 Dose: 0.427 mls/min Documented By: MP Isosorbide Dinitrate (Isosorbide Dinitrate 20 Mg Tab) 20 mg PO TID@0700,1200,1700 [facility] Stop: 08/02/25 16:59 Last Admin: 07/03/25 16:25 Dose: 20 mg Documented By: FELIPE Miscellaneous (Sucroferric Oxyhydroxide [Velphoro] 500 Mg Tablet-Order Awaiting Action) 1 each N/A QS YVONNE Stop: 08/02/25 15:59 Last Admin: 07/03/25 16:28 Dose: Not Given Documented By: FELIPE Discontinued Medications Albuterol (Albut/Ipratrop 3mg/0.5mg Neb 3 Ml Vial) 3 ml NEB NOW STA; Protocol Stop: 07/03/25 09:55 Last Admin: 07/03/25 10:11 Dose: 3 ml Documented By: CROW Furosemide (Furosemide 40 Mg/4 Ml Vial) 80 mg IV ONE ONE Stop: 07/03/25 11:12 Last Admin: 07/03/25 11:31 Dose: 80 mg Documented By: QGV Piperacillin Sod/Tazobactam Sod (Zosyn) 4.5 gm in 100 mls @ 200 mls/hr IV NOW ONE; Protocol Stop: 07/03/25 11:40 Last Infusion: 07/03/25 12:03 Dose: Infused Documented By: Admin: 07/03/25 11:31 Dose: 200 mls/hr Documented By: QGV Methylprednisolone (Methylprednisolone 125 Mg/2 Ml Vial) 60 mg IV NOW STA Stop: 07/03/25 09:55 Last Admin: 07/03/25 10:11 Dose: 60 mg Documented By: CROW Nitroglycerin (Nitroglycerin 2% Ointment 30gm Tube) 1 inch EXT NOW STA Stop: 07/03/25 10:00 Last Admin: 07/03/25 10:11 Dose: 1 inch Documented By: CROW Imaging Data Radiologist's Impression: Chest X-Ray 07/03/25 09:46 XR chest 1V portable CLINICAL HISTORY: Dyspnea COMPARISON STUDY: 05/06/2025 FINDINGS: Stable cardiomegaly with pulmonary vascular congestion. Stable mild hazy opacity in the lung bases. No pneumothorax. IMPRESSION: Stable exam with CHF and likely small pleural effusions. ACT 112: Negative or not required by law. Electronically signed by: Artie Mehta M.D. 07/03/2025 10:03 AM Discharge Plan Visit Data Chief Complaint: Flu Like Symptoms Stated Complaint: FLU ED Provider: Hieu Archer Discharge Problem: SOB (shortness of breath), CHF (congestive heart failure), Anemia, Dialysis patient, Failure of outpatient treatment, Rhinovirus infection Patient Disposition: Admitted As Inpatient Condition: Fair Discharge Instructions Interventions: ED Discharge Assessment Last Done: 07/03/25 12:24 Discharge Problem: CHF (congestive heart failure) Qualifiers: Heart failure type: unspecified Heart failure chronicity: acute Qualified Code(s): I50.9 - Heart failure, unspecified Anemia Qualifiers: Anemia type: unspecified type Qualified Code(s): D64.9 - Anemia, unspecified
--- NOTE | 2025-07-03 10:04 | XRay Report ---
XR chest 1V portable CLINICAL HISTORY: Dyspnea COMPARISON STUDY: 05/06/2025 FINDINGS: Stable cardiomegaly with pulmonary vascular congestion. Stable mild hazy opacity in the melissa g bases. No pneumothorax. IMPRESSION: Stable exam with CHF and likely small pleural effusions. ACT 112: Negative or not required by law. Electronically signed by: Artie Mehta M.D. 07/03/2025 10:03 AM
[2025-07-03] MEDS: ALBUT/IPRATROP 3MG/0.5MG NEB 3 ML VIAL NEB STA (10:11)
[2025-07-03] MEDS: NITROGLYCERIN 2% OINTMENT 30GM TUBE EXT STA (10:11)
[2025-07-03 10:15] LABS: Hematocrit (blood only) 26.0 % (42.0-52.0); Hemoglobin 8.8 g/dl (14.0-18.0); Immature Granulocytes # (auto) 0.03 K/uL (0.01-0.20); Immature Granulocytes % (auto) 0.6 %; Mean Corpuscular Hemoglobin 32.6 pg (25.0-34.0); Mean Corpuscular Volume 96.3 fL (80.0-100.0); Platelet Count 152 K/uL (130-400); RDW Standard Deviation 49.8 fL (36.4-46.3); Red Blood Count 2.70 M/uL (4.70-6.10); White Blood Count 5.27 K/ul (4.8-10.8)
[2025-07-03 10:39] LABS: Alanine Aminotransferase 19.0 U/L (7-52); Albumin Globulin Ratio 1.4 (0.9-2); Albumin Level 4.0 gm/dl (3.4-5.0); Alkaline Phosphatase 62.0 U/L (34-104); Anion Gap 18.0 (3-11); Bilirubin,Total 0.7 mg/dl (0.2-1.0); Blood Urea Nitrogen 68.0 mg/dl (6-23); Calcium 8.1 mg/dl (8.6-10.3); Carbon Dioxide 22.0 mmol/L (21-32); Chloride 96.0 mmol/L (98-107); Creatinine Clr Calc Pharmacy 8.4 ml/min; Globulin 2.8 gm/dl (2.5-4.0); Glucose 186.0 mg/dl (70-99(Fasting)); Magnesium 2.2 mg/dl (1.7-2.4); Potassium 4.6 mmol/L (3.5-5.1); Sodium 136.0 mmol/L (136-145); Total Protein 6.8 gm/dl (6.0-8.3)
[2025-07-03 11:06] LABS: INR 1.1 (0.9-1.1); Partial Thromboplastin Time 32 Seconds (21-31); Prothrombin Time 11.6 Seconds (9.0-12.0)
[2025-07-03] MEDS ORDERED: POLYETHYLENE (MIRALAX) 17 GM PACK PO PRN (11:12)
[2025-07-03] MEDS ORDERED: ACETAMINOPHEN 325 MG TAB PO PRN (11:12)
[2025-07-03] MEDS ORDERED: ONDANSETRON INJ 2 MG/ML 2 ML VIAL IV PRN (11:12)
[2025-07-03] MEDS ORDERED: MELATONIN 3 MG TAB PO PRN (11:12)
[2025-07-03 11:14] LABS: Chlamydia pneumoniae PCR Not Detected (NotDetected); Coronavirus 229E PCR Not Detected (NotDetected); Coronavirus CoV-2 (COVID19)PCR Not Detected (NotDetected); Coronavirus HKU1 PCR Not Detected (NotDetected); Coronavirus NL63 PCR Not Detected (NotDetected); Coronavirus OC43PCR Not Detected (NotDetected); Human Metapneumovirus PCR Not Detected (NotDetected); Parainfluenza Virus 1 PCR Not Detected (NotDetected); Parainfluenza Virus 2 PCR Not Detected (NotDetected); Parainfluenza Virus 3 PCR Not Detected (NotDetected); Parainfluenza Virus 4 PCR Not Detected (NotDetected); Respiratory Syncytial VirusPCR Not Detected (NotDetected); Rhinovirus/Enterovirus PCR DETECTED (NotDetected)
[2025-07-03] MEDS: PIPERACILLIN/TAZOBACTAM 4.5 GM/100 ML BAG IV ONE (11:31)
[2025-07-03] MEDS: FUROSEMIDE 40 MG/4 ML VIAL IV ONE (11:31)
--- NOTE | 2025-07-03 11:31 | History & Physical Report ---
Date of Service July 03, 2025 Assessment & Plan (1) Rhinovirus infection: (2) Pulmonary edema: (3) End stage renal disease on dialysis: Plan This is a 60 year old gentleman with past medical history of ESRD on dialysis, anemia, HTN who presented to the ED on 07/03/2025 for coughing and shortness of breath. While in the ED he had a CXR that appeared consistent with CHF. His hgb was low at 8.8 which appears slightly below his baseline of 9-10. His creatinine was elevated at 11.23. Electrolytes stable. Troponin was elevated at 35.4 and BNP was elevated at 3791. Respiratory biofire was positive for rhinovirus. Blood cultures are pending. #Rhinovirus w/ ~ 1 week of symptoms including cough, congestion, occasional SOB, and fever. Was recently evaluated at [facility] ED ~ 3 days ago, was recommended admission and supposedly declined. He did return home on Augmentin/Azithromax which he had been taking home w/ no relief in symptoms CXR consistent with CHF, no pneumonia observed. Respiratory biofire + for Rhinovirus. CBC w/ no leukocytosis. BC pending S/p 60mg IV Solu-Medrol in ED --> continue 40mg TID dosing on admission, titrate down as necessary Duonebs q6h scheduled, IS Start IV Zosyn Oxygen prn w/ goal being > 90%. On 2L currently. --> per nursing he has been occasionally dropping into the 70% when resting/sleeping, consider outpatient sleep referral if continues. #Pulmonary edema does have SOB on outpatient basis, worsens prior to dialysis & resolved after typically. Worse w/ lying down. CXR consistent w/ CHF BNP elevated at 3971 in setting of ESRD + pulmonary edema, no prior to compare Trop elevated at 35.4 w/ repeat trending. EKG w/o signs of ischemia & no CP on exam. Likely demand secondary to illness + volume overload. 80mg IV Lasix given, monitor I&O's --> if making adequate urine output, consider further lasix in AM Echo ordered & pending. Dialysis MWF #ESRD on Dialysis Follows w/ [facility] nephrology, consulted on admission, appreciate recommendations. Creatinine 11.23, continue to monitor Dialysis MWF while inpatient. #Anemia Hgb 8.8 on admission. Baseline appears between 9-10 Likely anemia of chronic disease in setting of ESRD. B12, Folate, Iron panel ordered for AM #HTN elevated at time of admission @ 194/94 Home regimen: Carvedilol, Isosorbide dinitrate, nifedipine - continue #HLD - statin DVT prophylaxis: Heparin Code: DNR/DNI Case was discussed with Dr. Calhoun at time of admission. History of Present Illness Primary Care Provider: Kamlesh Owens DO This is a 60 year old gentleman with past medical history of ESRD on dialysis, anemia, HTN who presented to the ED on 07/03/2025 for coughing and shortness of breath. Leni was seen & examined this morning in the ED. He reports that his symptoms have been ongoing for about a week. He states that he was febrile earlier this week with temperatures > 100F. States his cough has been productive w/ sputum. States that he went to [facility] & was given two antibiotics but he does not feel much improvement. He denies any CP. He states he will have SOB prior to dialysis on occasion because he can "feel his lungs fill up with fluid" and states that it does resolve after dialysis. He states he still does make urine at home. Denies any abdominal pain, nausea, vomiting, or changes in bowel habits. Denies any dysuria/hematuria. While in the ED he had a CXR that appeared consistent with CHF. His hgb was low at 8.8 which appears slightly below his baseline of 9-10. His creatinine was elevated at 11.23. Electrolytes stable. Troponin was elevated at 35.4 and BNP was elevated at 3791. Respiratory biofire was positive for rhinovirus. Blood cultures are pending. Code discussion did take place & he does confirm that he is a DNR/DNI. Allergies Allergy/AdvReac Type Severity Reaction Status Date / Time cephalexin AdvReac Verified 05/06/25 11:55 hydralazine AdvReac Verified 05/06/25 11:55 sulfamethoxazole AdvReac Verified 05/06/25 11:55 [From Bactrim] trimethoprim [From Bactrim] AdvReac Verified 05/06/25 11:55 Home Medications Medication Instructions Recorded Confirmed Type aspirin 81 mg tablet 81 mg PO DAILY 07/03/25 07/03/25 History carvedilol 12.5 mg tablet 12.5 mg PO DAILY 07/03/25 07/03/25 History isosorbide dinitrate 20 mg tablet 20 mg PO TID 07/03/25 07/03/25 History nifedipine 60 mg tablet,extended 60 mg PO DAILY 07/03/25 07/03/25 History release rosuvastatin 10 mg tablet 10 mg PO HS 07/03/25 07/03/25 History sucroferric oxyhydroxide 500 mg 1,000 mg PO TID 07/03/25 07/03/25 History chewable tablet (Velphoro) Past Med/Surg History Problem List (Updated 07/03/25 @ 11:30 by Hieu Archer MD) Rhinovirus infection (Acute) Failure of outpatient treatment (Acute) Dialysis patient (Acute) Anemia (Acute) CHF (congestive heart failure) (Acute) SOB (shortness of breath) (Acute) Acute cholecystitis Melanotic stools Anemia due to chronic kidney disease Metabolic acidosis End stage renal disease on dialysis Hyperkalemia (Acute) Diarrhea Medical History Diverticulitis sigmoid - 11/2024 End stage chronic kidney disease Anemia Secondary hyperparathyroidism History of CVA (cerebrovascular accident) Diabetes mellitus Hypertension History of deep venous thrombosis or pulmonary embolus Asthma Dyslipidemia Hypertriglyceridemia Surgical History S/P arteriovenous (AV) fistula creation LUE Family History Father Cancer Prostate Kidney disease Late in life while suffering from advanced metastatic prostate cancer and alcoholism Heart disease Denies family history of Colorectal cancer Social History Smoking Status: Never smoker Tobacco Type: Smokeless Tobacco (Dip or Chew) Second Hand Exposure: Yes; Do You Dip or Chew Tobacco: No ("quit"); Hx Alcohol Use: No Hx Substance Use: No Preferred Language: Romanian Communication Ability: Effective Billing Department Supervisor Required: No Beliefs That Will Affect Care: None marital status: Current Living Situation: Significant Other Current Living Situation Comment: Lives w/ significat other current occupational status: disabled How many Children do You have: 2 Feels Safe at Home: Yes Assistive Devices: Glasses Physical Exam Physical Exam: General: NAD, VS: BP 194/95; P80; R20; T36.6C Resp: normal respiratory effort, lungs diminished at bases, scattered rhonchi throughout lung corrigan, more prominent in upper lung corrigan. Scant wheezing CV: RRR, no murmur Abd: normal bowel sounds, non tender Extremities: Moves all extremities, no edema Neuro: A&O x3 Skin: intact, no lesions noted Results & Data Results & Data Vital Signs (Past 12 Hours) Vital Signs Temp Pulse Resp BP Pulse Ox O2 Del Method 07/03/25 10:33 80 20 92 Room Air 07/03/25 09:52 84 07/03/25 09:34 36.6 C 88 26 H 194/95 H 94 Room Air Code Status & VTE Plan VTE Prophylaxis Plan VTE Prophylaxis will be ordered: Yes Supervising Physician Co-Signing Physician Notes The patient was seen by me. The chart was reviewed. Case discussed with LENI Ashley. Agree with assessment and plan PG Care Time/CCT Total # of Minutes Spent Total Time Spent with Patient: Total time spent is greater than 50% in coordination of care (as documented) at patient's floor/unit and/or counseling patient: Coding Level of Care Code 28157 INT INP/OBS CARE 3/75MIN Diagnoses Rhinovirus infection B34.8 Pulmonary edema J81.1 End stage renal disease on dialysis N18.6; Z99.2
--- NOTE | 2025-07-03 13:35 | Nephrology Consultation ---
Date of Consultation July 03, 2025 Assessment & Plan (1) End stage renal disease on dialysis: ESKD attributed to DM and hypertension. Maintained on MWF HD at [facility]. Outpatient Rx: 3.5hr - 2K 2Ca Na138 [id number] - FX CorAL-80 425/800 via L AVF with 15g needles. EDW 96 kg. BP and volume status are acceptable. Electrolytes controlled. Next HD will be planned for tomorrow. Preliminary orders have been entered. Medications are appropriately dosed for IHD. Maintain renal diet. Document I/O's and daily standing weights. A serum metabolic profile and H/H will be obtained prior to treatment tomorrow. (2) Anemia: Chronic, stable. Maintained on Mircera as outpatient (last dose 75 mcg 06/27). History of recent LGIB attributed to diverticulitis without any more recent signs of bleeding. (3) Rhinovirus infection: Started on Zosyn and Solu-medrol. Magement per hospitalist team. (4) CHF (congestive heart failure): HFrEF. Furosemide provided to encourage UOP. History of Present Illness Reason for Consultation: dialysis pt, MWF. Requesting Physician: Chun Calhoun MD Attending Physician: Chun Calhoun MD History of Present Illness Mr. Curtis Ballesteros is a 60 year-old male with ESKD due to DKD and HTN. Hs first treatment was 09/17/2024 via IJ TCC. L BC AVF creation performed 11/[address] Milner. Mr. Ballesteros dialyzes at [facility] under my care (MWF 3.5hr - 2K 2Ca Na138 [id number] - FX CorAL-80 425/800 via L AVF with 15g needles. EDW 96 kg. Unfortunately, Curtis continues to miss at least ~1 scheduled treatment each week. He completed treatment on July 01 without complications. Pretreatment weight 100 kg and post 97.1 kg. Curtis missed his scheduled treatment on June 29 and June 22. He completed only a partial treatment on June 27. Recently, he presented to the ER at [facility] with cough and shortness of breath. He was diagnosed with a viral illness and possible pneumonia for which Augmentin and azithromycin were started. Curtis presented to the ER at [facility] today with persistent symptoms. Evaluation +rhinovirus infection. Zosyn and Solu-medrol have been provided. Medical history is significant for AODM, HTN, history of CVA in 2012 and 2014, DVT w/ PE, hyperlipidemia, asthma, and coronary artery disease as well as HFrEF. Cardiac catheterization in May demonstrating LVEF 25-30% and mild to moderate cardiovascular disease. He was admitted to [facility] in April with acute anemia due to lower GI bleed attributed to diverticulosis. EGD unrevealing. Evaluation also concerning for possible cholecystitis medically managed. Prior to his hospitalization in April, he had missed ~2.5 weeks of hemodialysis treatments. He has been tolerating HD reasonably well with volume management issues stemming from large IDWG and multiple missed treatments. Co mplications of CKD include anemia and hyperphosphatemia (poorly controlled) with sPTH. Allergies Allergy/AdvReac Type Severity Reaction Status Date / Time influenza virus vaccine, Allergy Severe Unknown Verified 07/03/25 14:05 specific cephalexin AdvReac Severe Unknown Verified 07/03/25 14:05 hydralazine AdvReac Severe Unknown Verified 07/03/25 14:05 sulfamethoxazole AdvReac Severe Unknown Verified 07/03/25 14:05 [From Bactrim] trimethoprim [From Bactrim] AdvReac Severe Unknown Verified 07/03/25 14:05 Home Medications Medication Instructions Recorded Confirmed Type aspirin 81 mg tablet 81 mg PO DAILY 07/03/25 07/03/25 History carvedilol 12.5 mg tablet 12.5 mg PO DAILY 07/03/25 07/03/25 History isosorbide dinitrate 20 mg tablet 20 mg PO TID 07/03/25 07/03/25 History nifedipine 60 mg tablet,extended 60 mg PO DAILY 07/03/25 07/03/25 History release rosuvastatin 10 mg tablet 10 mg PO HS 07/03/25 07/03/25 History sucroferric oxyhydroxide 500 mg 1,000 mg PO TID 07/03/25 07/03/25 History chewable tablet (Velphoro) Patient History Medical History Diverticulitis sigmoid - 11/2024 End stage chronic kidney disease Anemia Secondary hyperparathyroidism History of CVA (cerebrovascular accident) Diabetes mellitus Hypertension History of deep venous thrombosis or pulmonary embolus Asthma Dyslipidemia Hypertriglyceridemia Surgical History S/P arteriovenous (AV) fistula creation LUE Family History Father Cancer Prostate Kidney disease Late in life while suffering from advanced metastatic prostate cancer and alcoholism Heart disease Denies family history of Colorectal cancer Social History Smoking Status: Never smoker Tobacco Type: Smokeless Tobacco (Dip or Chew) Second Hand Exposure: Yes; Do You Dip or Chew Tobacco: No ("quit"); Hx Alcohol Use: No Hx Substance Use: No Preferred Language: Uzbek Communication Ability: Effective Industrial Laborer Required: No Beliefs That Will Affect Care: None marital status: Current Living Situation: Significant Other Current Living Situation Comment: Lives w/ significat other current occupational status: disabled How many Children do You have: 2 Feels Safe at Home: Yes Assistive Devices: Glasses Review of Systems Review of Systems: All systems reviewed & are unremarkable except as noted in HPI & below Constitutional: + fever Respiratory: + cough and + dyspnea Gastrointestinal: + constipation Physical Exam Constitutional: well developed; no acute distress Eyes: + anicteric sclerae; no conjunctival abn ormality ENMT: Mouth: no oral mucosal abnormality and oral mucous membranes not dry Neck: normal visual inspection and trachea midline Respiratory: normal respiratory effort Auscultation: + rhonchi and + wheezes Cardiovascular: Rate/Rhythm: regular rate Heart Sounds: normal S1 and normal S2 Extremities: + edema and + AV fistula Musculoskeletal: Extremities: no cyanosis and no clubbing Skin: normal turgor; no lesions Neurologic: Motor/Sensory: no tremor and no asterixis Psychiatric: Orientation: alert and oriented x 3 Results & Data Vital Signs (Past 12 Hours) Vital Signs Temp Pulse Pulse Resp BP Pulse Ox O2 Del Method 07/03/25 12:33 79 15 142/79 H 100 Nasal Cannula 07/03/25 12:30 81 14 100 Nasal Cannula 07/03/25 11:25 77 L Room Air 07/03/25 11:01 94 Nasal Cannula 07/03/25 11:00 79 20 143/88 H 98 Nasal Cannula 07/03/25 10:33 80 20 92 Room Air 07/03/25 09:52 84 07/03/25 09:34 36.6 C 88 26 H 194/95 H 94 Room Air O2 Flow Rate 07/03/25 12:33 2 07/03/25 12:30 2 07/03/25 11:25 07/03/25 11:01 2 07/03/25 11:00 2 07/03/25 10:33 07/03/25 09:52 07/03/25 09:34 Laboratory Results Laboratory Results - last 24 hr 07/03/25 07/03/25 07/03/25 09:55 10:14 11:40 WBC 5.27 RBC 2.70 L Hgb 8.8 L Hct 26.0 L MCV 96.3 MCH 32.6 MCHC 33.8 RDW Std Deviation 49.8 H RDW Coeff of Chelsey 14.5 Plt Count 152 MPV 11.2 Immature Gran % (Auto) 0.6 Neut % (Auto) 70.9 Lymph % (Auto) 17.1 Major % (Auto) 7.6 Eos % (Auto) 3.4 Baso % (Auto) 0.4 Neut # (Auto) 3.74 Lymph # (Auto) 0.90 L [place] # (Auto) 0.40 Eos # (Auto) 0.18 Baso # (Auto) 0.02 Immature Gran # (Auto) 0.03 PT 11.6 INR 1.1 APTT 32 H PTT Ratio 1.2 Sodium 136 Potassium 4.6 Chloride 96 L Carbon Dioxide 22 Anion Gap 18 H BUN 68 H Creatinine 11.23 H* Est Cr Clr Drug Dosing 8.4 eGFR 4.70 BUN/Creatinine Ratio 6.1 L Glucose 186 H Lactate 1.5 Calcium 8.1 L Magnesium 2.2 Total Bilirubin 0.7 AST 18 ALT 19 Alkaline Phosphatase 62 Troponin I High Sens 35.4 H B-Natriuretic Peptide 3791 H Total Protein 6.8 Albumin 4.0 Globulin 2.8 Albumin/Globulin Ratio 1.4 Nasal Screen MRSA (PCR) Negative Adenovirus (PCR) Not Detected B. pertussis DNA (PCR) Not Detected B.parapertussis DNA PCR Not Detected C. pneumoniae DNA (PCR) Not Detected Coronavirus OC43 (PCR) Not Detected Coronavirus HKU1 (PCR) Not Detected Coronavirus 229E (PCR) Not Detected SARS-CoV-2 (PCR) Not Detected Coronavirus NL63 (PCR) Not Detected Human Metapneumovir PCR Not Detected Influenza Type A (PCR) Not Detected Influenza Type B (PCR) Not Detected M. pneumoniae (PCR) Not Detected Parainfluenza 1 (PCR) Not Detected Parainfluenza 2 (PCR) Not Detected Parainfluenza 3 (PCR) Not Detected Parainfluenza 4 (PCR) Not Detected RSV (PCR) Not Detected Entero/Rhino (PCR) DETECTED A 07/03/25 12:20 WBC RBC Hgb Hct MCV MCH MCHC RDW Std Deviation RDW Coeff of Chelsey Plt Count MPV Immature Gran % (Auto) Neut % (Auto) Lymph % (Auto) Major % (Auto) Eos % (Auto) Baso % (Auto) Neut # (Auto) Lymph # (Auto) Major # (Auto) Eos # (Auto) Baso # (Auto) Immature Gran # (Auto) PT INR APTT PTT Ratio Sodium Potassium Chloride Carbon Dioxide Anion Gap BUN Creatinine Est Cr Clr Drug Dosing eGFR BUN/Creatinine Ratio Glucose Lactate Calcium Magnesium Total Bilirubin AST ALT Alkaline Phosphatase Troponin I High Sens 36.7 H B-Natriuretic Peptide Total Protein Albumin Globulin Albumin/Globulin Ratio Nasal Screen MRSA (PCR) Adenovirus (PCR) B. pertussis DNA (PCR) B.parapertussis DNA PCR C. pneumoniae DNA (PCR) Coronavirus OC43 (PCR) Coronavirus HKU1 (PCR) Coronavirus 229E (PCR) SARS-CoV-2 (PCR) Coronavirus NL63 (PCR) Human Metapneumovir PCR Influenza Type A (PCR) Influenza Type B (PCR) M. pneumoniae (PCR) Parainfluenza 1 (PCR) Parainfluenza 2 (PCR) Parainfluenza 3 (PCR) Parainfluenza 4 (PCR) RSV (PCR) Entero/Rhino (PCR) Diagnostic Findings XR chest 1V portable COMPARISON STUDY: 05/06/2025 FINDINGS: Stable cardiomegaly with pulmonary vascular congestion. Stable mild hazy opacity in the lung bases. No pneumothorax. IMPRESSION: Stable exam with CHF and likely small pleural effusions. PG Care Time/CCT Total # of Minutes Spent Total Time Spent with Patient: Total time spent is greater than 50% in coordination of care (as documented) at patient's floor/unit and/or counseling patient: Coding Level of Care Code 86444 IN/OBS CONSULT LVL 4,60M Diagnoses End stage renal disease on dialysis N18.6; Z99.2 Anemia D64.9 Anemia type: unspecified type Rhinovirus infection B34.8 CHF (congestive heart failure) I50.9 Heart failure chronicity: acute Heart failure type: unspecified (2) Anemia Anemia type: unspecified type Qualified Code(s): D64.9 - Anemia, unspecified (4) CHF (congestive heart failure) Heart failure chronicity: acute Heart failure type: unspecified Qualified Code(s): I50.9 - Heart failure, unspecified
[2025-07-03] MEDS: ALBUT/IPRATROP 3MG/0.5MG NEB 3 ML VIAL NEB SCH (14:07)
[2025-07-03] MEDS: ISOSORBIDE DINITRATE 20 MG TAB PO SCH (16:25)
--- NOTE | 2025-07-03 17:03 | XCELERA ---
[id number] \\[id number]
[2025-07-03] MEDS: PIPERACILLIN/TAZOBACTAM 4.5 GM/100 ML BAG IV SCH (21:14)
[2025-07-03] MEDS: ROSUVASTATIN CALCIUM 10 MG TAB PO SCH (21:19)
[2025-07-03] MEDS: HEPARIN SOD 5,000 UNIT/0.5 ML VIAL SQ SCH (21:23)
--- NOTE | 2025-07-04 05:47 | Electrocardiogram Report ---
Test Reason : Blood Pressure : */* mmHG Vent. Rate : 87 BPM Atrial Rate : 87 BPM P-R Int : 182 ms QRS Dur : 94 ms QT Int : 416 ms P-R-T Axes : 46 -19 92 degrees QTcB Int : 500 ms Normal sinus rhythm Possible Left atrial enlargement Nonspecific T wave abnormality Prolonged QT Abnormal ECG When compared with ECG of 06-May-2025 11:32, Criteria for Inferior infarct are no longer Present Nonspecific T wave abnormality no longer evident in Inferior leads Confirmed by Horacio Frey ([id number]) on 07/04/2025 5:46:37 AM Referred By: Confirmed By: Horacio Frey
[2025-07-04 06:46] LABS: Hematocrit (blood only) 24.4 % (42.0-52.0); Hemoglobin 8.1 g/dl (14.0-18.0); Mean Corpuscular Hemoglobin 31.4 pg (25.0-34.0); Mean Corpuscular Volume 94.6 fL (80.0-100.0); Platelet Count 146 K/uL (130-400); RDW Standard Deviation 48.0 fL (36.4-46.3); Red Blood Count 2.58 M/uL (4.70-6.10); White Blood Count 8.10 K/ul (4.8-10.8)
[2025-07-04 07:14] LABS: Anion Gap 20.0 (3-11); Blood Urea Nitrogen 92.0 mg/dl (6-23); Calcium 8.0 mg/dl (8.6-10.3); Carbon Dioxide 20.0 mmol/L (21-32); Chloride 93.0 mmol/L (98-107); Creatinine Clr Calc Pharmacy 7.4 ml/min; Glucose 206.0 mg/dl (70-99(Fasting)); Iron 58.0 mcg/dl (35-175); Potassium 4.9 mmol/L (3.5-5.1); Sodium 133.0 mmol/L (136-145); Total Iron Binding Cap Calc 224.0 mcg/dl (250-450); Transferrin 160.0 mg/dl (200-360); Transferrin (FE) Percent Satur 26.0 % (20-50)
[2025-07-04 07:35] LABS: Folate (Folic Acid),Ser orPlas 11.66 ng/ml (>5.38)
[2025-07-04 07:36] LABS: Vitamin B12 529.0 pg/ml (180-914)
--- NOTE | 2025-07-04 08:11 | Hospitalist Progress Note ---
Date of Service July 04, 2025 Assessment & Plan (1) Rhinovirus infection: (2) Pulmonary edema: (3) End stage renal disease on dialysis: Plan Pt is a 60 y/o male w/ a PMHx significant for ESRD on dialysis, anemia, and HTN who presented to the ED on 07/03/2025 for coughing and SOB. #[facility] HANDS AND DIAL INSPECTOR, recommended admission, pt declined and went home on Augmentin/Zithromax w/ no relief of sx. -BC pending; negative @ 24hrs -Sputum Culture pending; preliminary results w/ normal latrell -Duonebs q6h PRN -Continue IV Zosyn -CBC, BMP in AM #Pulmonary edema - SOB at baseline, worsens prior to dialysis and resolves after; worse when laying down. CXR in ED consistent w/ CHF, no pneumonia; ECHO 07/03 demonstrated HFrEF at 40-45% w/ moderately dilated left ventricle w/ global hypokinesis, borderline dilated right ventricle, moderate left atrial dilation, mild right atrial dilation, mild mitral regurgitation, mild pulm HTN, and borderline dilated aortic root - similar findings compared to study in November 2024. BNP elevated 07/03 at 3971. Trop peaked 35.4 - EKG w/o signs of ischemia; likely d/t illness, increased demand, and volume overload #ESRD on Dialysis - follows w/ [facility] nephrology -Consulted Nephrology -Continue to trend creatinine -Dialysis MWF while inpatient #Anemia - Hgb 8.8 on admission w/ baseline of 9-10; B12 + Folate are stable -Likely anemia of chronic disease in setting of ESRD. -Received Venofer during dialysis per nephrology #HTN - Pt reported side-effects after recent medication changes; takes Hydralazine at home; reports no current sx -Continue Carvedilol, Isosorbide dinitrate, nifedipine -Restart Lisinopril 10mg QAM -Orthostatic VS QShift #HLD - no acute concerns; continue statin Dispo: Continue Med-Tele; awaiting cultures DVT prophylaxis: Heparin Admission and Anticipated Discharge Date Admission Date: July 03, 2025 Subjective Pt is sitting at bedside in NAD, present. Pt expresses that his sx are much improved from the time of admission. Pt states that his SOB has continued to improve and feels drastically better after receiving dialysis. Pt stated that 5L were removed from him during dialysis; this is consistent with dialysis post-tx assessment note. Pt states that he is still experiencing a productive cough with clear sputum + white flecks throughout in addition to a sore throat. Pt denies chills, myalgias, H/A, CP, palpitations, abd pain/discomfort, N/V, and changes in bowel/bladder habits. He notes that he believes that there was a medication he was taking at home in the AM that causes him to feel light-headed and dizzy but is unsure as to what medication could be causing it. Pt states that since arrival to the hospital, he no longer feels dizzy or has difficulties with ambulation. Cardiac Telemetry: Sinus 80s - 90s Review of Systems Review of Systems: All systems reviewed & are unremarkable except as noted in Subjective Physical Exam Physical Exam: General: Pt is a 60 y/o overweight male in NAD sitting at bedside. VS: reviewed - remarkable Skin: Warm and dry; no lesions or ulcerations Respiratory: CTA bilat, no adventitious sounds noted. Chest expansion is full an d symmetrical Cardio: RRR no murmurs Abdomen: Round, normoactive BS x4, nontender to palpation MSK: FROM of extremities, no deformities Extremities: no edema, clubbing, or cyanosis Neuro: A&Ox3, cooperative Results & Data Results & Data Vital Signs (Past 12 Hours) Vital Signs Temp Pulse Pulse Resp BP Pulse Ox O2 Del Method 07/04/25 07:18 100 H 16 93 Room Air 07/04/25 06:57 98.2 F 89 22 168/81 H 94 Room Air 07/04/25 03:10 98.4 F 86 14 165/83 H 96 Room Air 07/04/25 02:04 85 24 96 Room Air 07/03/25 23:35 98.1 F 88 16 180/90 H 94 Room Air 07/03/25 22:45 64 07/03/25 21:56 Room Air Laboratory Results Reviewed: CBC, BMP, Iron, Folate, B12 Diagnostic Findings Reviewed: Echo PG Care Time/CCT Total # of Minutes Spent Total Time Spent with Patient: Total time spent is greater than 50% in coordination of care (as documented) at patient's floor/unit and/or counseling patient: Coding Level of Care Code 96764 SUB INP/OBS CARE 3/50MIN Diagnoses Rhinovirus infection B34.8 Pulmonary edema J81.1 End stage renal disease on dialysis N18.6; Z99.2
[2025-07-04] MEDS: IRON SUCROSE 100 MG in SYRINGE 0 ML IV SCH (10:00)
--- NOTE | 2025-07-04 12:16 | Nephrology Progress Note ---
Date of Service July 04, 2025 Assessment & Plan (1) End stage renal disease on dialysis: Plan: ESKD attributed to DM and hypertension. Maintained on MWF HD at [facility]. Outpatient Rx: 3.5hr - 2K 2Ca Na138 [id number] - FX CorAL-80 425/800 via L AVF with 15g needles. EDW 96 kg. Orders for HD today entered into the EHR and reviewed with hotel maintenance engineer. Curtis is tolerating treatment well. Medications are appropriately dosed for IHD. Maintain renal diet. Document I/O's and daily standing weights. (2) Anemia: Plan: Chronic, stable. Maintained on Mircera as outpatient (last dose 75 mcg 06/27). Venofer 100 mg provided with HD today. History of recent LGIB attributed to diverticulitis without any more recent signs of bleeding. (3) Rhinovirus infection: Plan: Remains on Zosyn and Solu-medrol. Management per hospitalist team. (4) CHF (congestive heart failure): Plan: HFrEF. Furosemide provided to encourage UOP. UF with HD as tolerated. Admission and Anticipated Discharge Date Admission Date: July 03, 2025 Subjective No acute events overnight. Curtis was seen and evaluated during hemodialysis this AM. He is tolerating treatment reasonably well. He continues to endorse dyspnea and cough. Myalgias persist. Review of Systems Review of Systems: All systems reviewed & are unremarkable except as noted in HPI & below Physical Exam Constitutional: well developed; no acute distress Eyes: + anicteric sclerae; no conjunctival abn ormality ENMT: Mouth: no oral mucosal abnormality and oral mucous membranes not dry Neck: normal visual inspection and trachea midline Respiratory: normal respiratory effort Auscultation: + rales and + wheezes Cardiovascular: Rate/Rhythm: regular rate Heart Sounds: normal S1 and normal S2 Extremities: + edema and + AV fistula Musculoskeletal: Extremities: no cyanosis and no clubbing Skin: normal turgor; no lesions Neurologic: Motor/Sensory: no tremor and no asterixis Psychiatric: Orientation: alert and oriented x 3 Results & Data Vital Signs (Past 12 Hours) Vital Signs Temp Pulse Pulse Pulse Resp BP BP 07/04/25 12:00 94 H 156/89 H 07/04/25 11:45 82 153/87 H 07/04/25 11:30 85 167/92 H 07/04/25 11:15 83 166/94 H 07/04/25 11:00 77 160/82 H 07/04/25 10:45 82 167/89 H 07/04/25 10:28 80 162/90 H 07/04/25 10:15 80 162/100 H 07/04/25 10:00 90 176/99 H 07/04/25 09:45 83 156/93 H 07/04/25 09:30 85 162/88 H 07/04/25 09:27 89 161/87 H 07/04/25 09:22 89 07/04/25 09:00 07/04/25 08:00 91 H 07/04/25 07:18 100 H 16 07/04/25 06:57 36.8 C 89 22 168/81 H 07/04/25 03:10 36.9 C 86 14 165/83 H 07/04/25 02:04 85 24 Pulse Ox O2 Del Method 07/04/25 12:00 07/04/25 11:45 07/04/25 11:30 07/04/25 11:15 07/04/25 11:00 07/04/25 10:45 07/04/25 10:28 07/04/25 10:15 07/04/25 10:00 07/04/25 09:45 07/04/25 09:30 07/04/25 09:27 07/04/25 09:22 07/04/25 09:00 Room Air 07/04/25 08:00 07/04/25 07:18 93 Room Air 07/04/25 06:57 94 Room Air 07/04/25 03:10 96 Room Air 07/04/25 02:04 96 Room Air Laboratory Results Laboratory Results - last 24 hr 07/03/25 07/03/25 07/03/25 11:40 12:20 15:46 WBC RBC Hgb Hct MCV MCH MCHC RDW Std Deviation RDW Coeff of Chelsey Plt Count MPV Sodium Potassium Chloride Carbon Dioxide Anion Gap BUN Creatinine Est Cr Clr Drug Dosing eGFR BUN/Creatinine Ratio Glucose Calcium Iron TIBC Transferrin Transferrin % Sat Troponin I High Sens 36.7 H 32.1 H Vitamin B12 Folate Nasal Screen MRSA (PCR) Negative 07/03/25 07/04/25 21:41 06:18 WBC 8.10 RBC 2.58 L Hgb 8.1 L Hct 24.4 L MCV 94.6 MCH 31.4 MCHC 33.2 RDW Std Deviation 48.0 H RDW Coeff of Chelsey 14.3 Plt Count 146 MPV 11.2 Sodium 133 L Potassium 4.9 Chloride 93 L Carbon Dioxide 20 L Anion Gap 20 H BUN 92 H D Creatinine 12.72 H* D Est Cr Clr Drug Dosing 7.4 eGFR 4.05 BUN/Creatinine Ratio 7.2 L Glucose 206 H Calcium 8.0 L Iron 58 TIBC 224 L Transferrin 160 L Transferrin % Sat 26 Troponin I High Sens 28.3 H Vitamin B12 529 Folate 11.66 Nasal Screen MRSA (PCR) PG Care Time/CCT Total # of Minutes Spent Total Time Spent with Patient: Total time spent is greater than 50% in coordination of care (as documented) at patient's floor/unit and/or counseling patient: Coding Level of Care Code 17880 SUB INP/OBS CARE 3/50MIN Diagnoses End stage renal disease on dialysis N18.6; Z99.2 Anemia D64.9 Anemia type: unspecified type Rhinovirus infection B34.8 CHF (congestive heart failure) I50.9 Heart failure chronicity: acute Heart failure type: unspecified (2) Anemia Anemia type: unspecified type Qualified Code(s): D64.9 - Anemia, unspecified (4) CHF (congestive heart failure) Heart failure chronicity: acute Heart failure type: unspecified Qualified Code(s): I50.9 - Heart failure, unspecified
[2025-07-04] MEDS: NIFEdipine EXTENDED REL 30 MG TABCR PO SCH (14:15)
[2025-07-04] MEDS: ASPIRIN 81 MG ECTAB PO SCH (14:15)
[2025-07-04] MEDS ORDERED: ALBUT/IPRATROP 3MG/0.5MG NEB 3 ML VIAL NEB PRN (15:02)
[2025-07-05 07:04] LABS: Hematocrit (blood only) 26.1 % (42.0-52.0); Hemoglobin 8.9 g/dl (14.0-18.0); Immature Granulocytes # (auto) 0.07 K/uL (0.01-0.20); Immature Granulocytes % (auto) 0.8 %; Mean Corpuscular Hemoglobin 31.9 pg (25.0-34.0); Mean Corpuscular Volume 93.5 fL (80.0-100.0); Platelet Count 165 K/uL (130-400); RDW Standard Deviation 48.7 fL (36.4-46.3); Red Blood Count 2.79 M/uL (4.70-6.10); White Blood Count 8.78 K/ul (4.8-10.8)
[2025-07-05 07:29] LABS: Anion Gap 14.0 (3-11); Blood Urea Nitrogen 53.0 mg/dl (6-23); Calcium 8.3 mg/dl (8.6-10.3); Carbon Dioxide 28.0 mmol/L (21-32); Chloride 89.0 mmol/L (98-107); Creatinine Clr Calc Pharmacy 12.2 ml/min; Glucose 118.0 mg/dl (70-99(Fasting)); Potassium 4.1 mmol/L (3.5-5.1); Sodium 131.0 mmol/L (136-145)
[2025-07-05 07:55] VITALS: RESP 21
--- NOTE | 2025-07-05 10:12 | Nephrology Progress Note ---
Date of Service July 05, 2025 Assessment & Plan (1) End stage renal disease on dialysis: Plan: ESKD attributed to DM and hypertension. Maintained on MWF HD at [facility]. Outpatient Rx: 3.5hr - 2K 2Ca Na138 [id number] - FX CorAL-80 425/800 via L AVF with 15g needles. EDW 96 kg. Curtis completed treatment yesterday with adequate UF and clearance. I offered a short treatment today for additional UF but he declined. We will plan on treatment tomorrow per his usual schedule. Medications are appropriately dosed for IHD. Maintain renal diet. Document I/O's and daily standing weights. (2) Anemia: Plan: Chronic, stable. Maintained on Mircera as outpatient (last dose 75 mcg 06/27). Venofer 100 mg provided with HD yesterday. History of recent LGIB attributed to diverticulitis without any more recent signs of bleeding. (3) Rhinovirus infection: Plan: Remains on Zosyn and Solu-medrol. Management per hospitalist team. (4) CHF (congestive heart failure): Plan: HFrEF. Furosemide provided to encourage UOP. UF with HD as tolerated. Next HD tomorrow. Admission and Anticipated Discharge Date Admission Date: July 03, 2025 Subjective No acute events overnight. Cough and CELESTE persist but improving. Orthopnea markedly improved. No fevers or chills. Curtis tolerated HD well yesterday. No complications with treatment. He refused treatment today for additional UF. He hopes to be discharged home later today. Review of Systems Review of Systems: All systems reviewed & are unremarkable except as noted in HPI & below Physical Exam Constitutional: well developed; no acute distress Eyes: + anicteric sclerae; no conjunctival abn ormality ENMT: Mouth: no oral mucosal abnormality and oral mucous membranes not dry Neck: normal visual inspection and trachea midline Respiratory: normal respiratory effort Auscultation: + wheezes Cardiovascular: Rate/Rhythm: regular rate Heart Sounds: normal S1 and normal S2 Extremities: + edema and + AV fistula Musculoskeletal: Extremities: no cyanosis and no clubbing Skin: normal turgor; no lesions Neurologic: Motor/Sensory: no tremor and no asterixis Psychiatric: Orientation: alert and oriented x 3 Results & Data Vital Signs (Past 12 Hours) Vital Signs Temp Pulse Pulse Pulse Pulse Resp BP 07/05/25 09:40 07/05/25 07:54 36.6 C 89 21 148/77 H 07/05/25 06:53 83 18 07/05/25 03:46 36.6 C 82 18 145/81 H 07/05/25 01:03 81 18 07/05/25 00:05 36.6 C 79 18 138/73 07/04/25 23:20 83 Pulse Ox O2 Del Method 07/05/25 09:40 Room Air 07/05/25 07:54 97 Room Air 07/05/25 06:53 94 Room Air 07/05/25 03:46 94 Room Air 07/05/25 01:03 95 Room Air 07/05/25 00:05 93 Room Air 07/04/25 23:20 Laboratory Results Laboratory Results - last 24 hr 07/05/25 06:27 WBC 8.78 RBC 2.79 L Hgb 8.9 L Hct 26.1 L MCV 93.5 MCH 31.9 MCHC 34.1 RDW Std Deviation 48.7 H RDW Coeff of Chelsey 14.6 H Plt Count 165 MPV 11.0 Immature Gran % (Auto) 0.8 Neut % (Auto) 81.2 Lymph % (Auto) 10.1 [place] % (Auto) 7.5 Eos % (Auto) 0.3 Baso % (Auto) 0.1 Neut # (Auto) 7.12 H Lymph # (Auto) 0.89 L [place] # (Auto) 0.66 H Eos # (Auto) 0.03 Baso # (Auto) 0.01 Immature Gran # (Auto) 0.07 Sodium 131 L Potassium 4.1 Chloride 89 L Carbon Dioxide 28 Anion Gap 14 H BUN 53 H D Creatinine 7.60 H* D Est Cr Clr Drug Dosing 12.2 eGFR 7.51 BUN/Creatinine Ratio 7.0 L Glucose 118 H Calcium 8.3 L PG Care Time/CCT Total # of Minutes Spent Total Time Spent with Patient: Total time spent is greater than 50% in coordination of care (as documented) at patient's floor/unit and/or counseling patient: Coding Level of Care Code 03184 SUB INP/OBS CARE 2/35MIN Diagnoses End stage renal disease on dialysis N18.6; Z99.2 Anemia D64.9 Anemia type: unspecified type Rhinovirus infection B34.8 CHF (congestive heart failure) I50.9 Heart failure chronicity: acute Heart failure type: unspecified (2) Anemia Anemia type: unspecified type Qualified Code(s): D64.9 - Anemia, unspecified (4) CHF (congestive heart failure) Heart failure chronicity: acute Heart failure type: unspecified Qualified Code(s): I50.9 - Heart failure, unspecified
[2025-07-05 11:38] VITALS: BP 145/79; TEMP 98.8; O2SAT 95
--- NOTE | 2025-07-05 13:03 | Discharge Summary ---
Discharge Summary Date of Service July 05, 2025 Principal Dx & Hospital Course #1 = Principal Diagnosis (1) Pulmonary edema: (2) Rhinovirus infection: (3) End stage renal disease on dialysis: Plan #Pulmonary edema - Pt is a 60 y/o male w/ a PMHx significant for ESRD on dialysis, anemia, and HTN who presented to the ED on 07/03/2025 for coughing and SOB. CXR in ED was demonstrated cardiomegaly w/ vascular congestion - consistent with CHF; ECHO 07/03 demonstrated HFrEF at 40-45% w/ moderately dilated left ventricle w/ global hypokinesis, borderline dilated right ventricle, moderate left atrial dilation, mild right atrial dilation, mild mitral regurgitation, mild pulm HTN, and borderline dilated aortic root - similar findings compared to study in November 2024. BNP elevated 07/03 at 3971 and Trops peaked 35.4 - EKG w/o signs of ischemia; likely d/t illness, increased demand, and volume overload. Pt received dialysis on 07/04 which greatly improved his SOB and cough. #Rhinovirus - While in the ED, pt received a Biofire that was positive for Rhinovirus. Pt also received a CXR that did not reveal any signs consistent with pneumonia. Pt was admitted with empiric IV abx, IV steroids, and duonebs. Pt received blood cultures and a sputum culture that were both negative at 48 hours. IV steroids and IV abx were discontinued and pt was d/c home. #ESRD on Dialysis - Nephrology was consulted during the pts inpatient stay. Pt received dialysis on 07/04 where 5L of extra fluid was removed from the patient. This was tolerated well by pt - per nephrology. Pt should Maintain renal diet and continue attending dialysis MWF as scheduled. #Anemia - Pts Hgb was 8.8 on admission. An iron panel revealed decreased Iron; pt was given a Venofer infusion during his dialysis per nephrology. A B12 and Folate were additionally ordered; these results were stable. #HTN - Pt's BP was elevated in the 140s systolically throughout the duration of the inpatient stay. Pt reported side-effects after recent medication changes. Pt states that he noticed that he wasn't receiving all of his home medications, but was unsure of which ones were missing. Pt's later brought in a list of medications that the patient takes at home. The list contained scheduled lisinopril and hydralazine; both of which were not provided upon initial medication reconciliation. It was attempted to restart Lisinopril 10mg QAM but pt refused, stating that thinks this medication was discontinued 2wks [employer]. Pt was unsure if he was taking scheduled Hydralazine at home as written on the list of medications provided by pt . Pt was encouraged to f/u with PCP within 1wk of discharge and discuss HTN medication management. Pt to continue Carvedilol, Isosorbide dinitrate, nifedipine at home as rx. Recommended not to take the hydralazine. #HLD - no acute concerns; continue rosuvastatin. Dispo: D/C home - self care Notes For Next Care Provider Please review HTN medication w/ pt. Pt was unsure of home HTN medication management. Pt received Carvedilol, Isosorbide dinitrate, and nifedipine during inpt stay. Admission HPI Per Admitting Provider This is a 60 year old gentleman with past medical history of ESRD on dialysis, anemia, HTN who presented to the ED on 07/03/2025 for coughing and shortness of breath. Leni was seen & examined this morning in the ED. He reports that his symptoms have been ongoing for about a week. He states that he was febrile earlier this week with temperatures > 100F. States his cough has been productive w/ sputum. States that he went to [facility] & was given two antibiotics but he does not feel much improvement. He denies any CP. He states he will have SOB prior to dialysis on occasion because he can "feel his lungs fill up with fluid" and states that it does resolve after dialysis. He states he still does make urine at home. Denies any abdominal pain, nausea, vomiting, or changes in bowel habits. Denies any dysuria/hematuria. While in the ED he had a CXR that appeared consistent with CHF. His hgb was low at 8.8 which appears slightly below his baseline of 9-10. His creatinine was elevated at 11.23. Electrolytes stable. Troponin was elevated at 35.4 and BNP was elevated at 3791. Respiratory biofire was positive for rhinovirus. Blood cultures are pending. Code discussion did take place & he does confirm that he is a DNR/DNI. Discharge Exam General: Pt is a 60 y/o overweight male in NAD sitting at bedside. VS: reviewed - remarkable; elevated BP Skin: Warm and dry; no lesions or ulcerations Respiratory: CTA bilat, no adventitious sounds noted. Chest expansion is full and symmetrical Cardio: RRR no murmurs Abdomen: Round, normoactive BS x4, nontender to palpation Extremities: no edema, clubbing, or cyanosis Neuro: A&Ox3, cooperative Discharge Plan Discharge Items Patient Disposition: Home - Self-Care Reason For Visit: SOB Discharge Diagnosis: Rhinovirus | Pulm Edema Condition on Discharge: Fair Activity: Resume your previous activity Non-emergency contact: Primary Care Provider Call non-emergency contact if: you have any medication questions and your symptoms worsen Follow-up/Referrals: Kamlesh Owens DO [Primary Care Provider] - 07/27/25 8:00 am (Follow up scheduled on 07/27/25 at 8:00) Diet: Dialysis Renal Addtl Attending Provider Instructions: You were hospitalized for Rhinovirus and Pulmonary Edema. While you were in the ED, you received an x-ray that revealed an enlarged heart with pulmonary vascular congestion which are findings consistent with heart failure. You additionally received a nasal swab which revealed that you had rhinovirus. After you were admitted to the hospital you were given empiric IV antibiotics in addition to IV steroids and breathing treatments to help with your shortness of breath. You additionally had an echocardiogram which demonstrated dilation of the left + right ventricles and the left + right ventricles and an ejection fraction of 40-45%; these were similar findings to your echo on 12/13/2024. On 07/04, you received dialysis where an excess of 5 liters of fluid were removed. A sputum culture was taken at the beginning of your hospitalization which revealed no bacterial growth. Your IV antibiotics were discontinued. Please continue to attend your dialysis appointments as scheduled. Rhinovirus is extremely contagious to infants; it's strongly recommended that you avoid contact with infants for at least 10 days or until your symptoms have completely resolved. Medications: Your medication list has been reviewed and reconciled upon discharge to ensure accuracy and continuity of care. An updated list of all your medications is included with your hospital discharge paperwork. Please review this list closely, and make note of any changes. Take your medications as instructed; do not skip a dose of your medicines. Make sure all of your doctors know every medicine you are taking (including [id number] medicines, vitamins, and supplements). Call your primary care provider before taking any new medicines (including over- the-counter medicines, vitamins, and supplements), because some of these may interact with your current medications, or may make your symptoms worse. Tell your primary care provider if you cannot afford your medications. Activity: You can do normal everyday activities as your body allows. Take rest breaks if you feel tired. Do not overexert. Stop activity if you have pain, shortness of breath or feel dizzy. Follow-up appointments: Make an appointment with your primary care physician within one week of discharge. A copy of this summary will be sent to them. Every time you see your primary care physician, or any other doctor, bring your medication list, and a list of questions. CONTACT YOUR PRIMARY CARE PROVIDER if you experience any of the following: Shortness of breath or difficulty breathing Fevers or chills Feeling tired with normal activity or experiencing dizziness or fainting Difficulty following your treatment plan, or difficulty taking medications CALL 911 OR GO TO THE EMERGENCY DEPARTMENT if you experience any of the following: Severe abdominal pain or nausea/vomiting Severe chest pain, or chest pain that radiates (moves) to your jaw or arm Sudden, severe shortness of breath or difficulty breathing Thank you for allowing us to participate in your care. Pending Studies at Discharge: No Stand-Alone Forms: [facility], Smoking Cessation Medications and DC Order Prescriptions: Continued carvedilol 12.5 mg tablet 12.5 mg PO DAILY isosorbide dinitrate 20 mg tablet 20 mg PO TID aspirin 81 mg tablet 81 mg PO DAILY nifedipine 60 mg tablet extended release 60 mg PO DAILY rosuvastatin 10 mg tablet 10 mg PO HS Velphoro 500 mg tablet,chewable 1,000 mg PO TID Discharge Orders: Discharge Order (Routine); Ordered 07/05/25 Ordered By: Karen Lu/Other Patient Handouts: Kidney Disease Fluid Intake, Kidney Disease Limiting Sodium, Heart Failure Dc Admission Data Admit Date/Time: 07/03/25 11:12 Attending Provider: Saul Garces Admit Provider: Chun Calhoun Primary Care Provider: Kamlesh Owens Other Providers: Chun Calhoun; Maged Agrawal; Abel Brady Kevin C.; Huyen Hernandez Other Interventions: Discharge Summary Assessment (RN) Last Done: 07/05/25 13:02 Hospital Stay Data Consultations 07/03/25 10:26 ED Decision to Admit Stat 07/03/25 11:12 Consult Nephrology Routine Pending Results Patient Have Any Pending Studies at Discharge: No Discharge Instructions Given to Patient (Per Discharging Provider) You were hospitalized for Rhinovirus and Pulmonary Edema. While you were in the ED, you received an x-ray that revealed an enlarged heart with pulmonary vascular congestion which are findings consistent with heart failure. You additionally received a nasal swab which revealed that you had rhinovirus. After you were admitted to the hospital you were given empiric IV antibiotics in addition to IV steroids and breathing treatments to help with your shortness of breath. You additionally had an echocardiogram which demonstrated dilation of the left + right ventricles and the left + right ventricles and an ejection fraction of 40-45%; these were similar findings to your echo on 12/13/2024. On 07/04, you received dialysis where an excess of 5 liters of fluid were removed. A sputum culture was taken at the beginning of your hospitalization which revealed no bacterial growth. Your IV antibiotics were discontinued. Please continue to attend your dialysis appointments as scheduled. Rhinovirus is extremely contagious to infants; it's strongly recommended that you avoid contact with infants for at least 10 days or until your symptoms have completely resolved. Medications: Your medication list has been reviewed and reconciled upon discharge to ensure accuracy and continuity of care. An updated list of all your medications is included with your hospital discharge paperwork. Please review this list closely, and make note of any changes. Take your medications as instructed; do not skip a dose of your medicines. Make sure all of your doctors know every medicine you are taking (including [id number] medicines, vitamins, and supplements). Call your primary care provider before taking any new medicines (including over- the-counter medicines, vitamins, and supplements), because some of these may interact with your current medications, or may make your symptoms worse. Tell your primary care provider if you cannot afford your medications. Activity: You can do normal everyday activities as your body allows. Take rest breaks if you feel tired. Do not overexert. Stop activity if you have pain, shortness of breath or feel dizzy. Follow-up appointments: Make an appointment with your primary care physician within one week of discharge. A copy of this summary will be sent to them. Every time you see your primary care physician, or any other doctor, bring your medication list, and a list of questions. CONTACT YOUR PRIMARY CARE PROVIDER if you experience any of the following: Shortness of breath or difficulty breathing Fevers or chills Feeling tired with normal activity or experiencing dizziness or fainting Difficulty following your treatment plan, or difficulty taking medications CALL 911 OR GO TO THE EMERGENCY DEPARTMENT if you experience any of the following: Severe abdominal pain or nausea/vomiting Severe chest pain, or chest pain that radiates (moves) to your jaw or arm Sudden, severe shortness of breath or difficulty breathing Thank you for allowing us to participate in your care. Total Time Total Time Spent Total Time Spent (In Minutes): Time spent day of discharge 40 minutes including direct patient care, medication reconciliation, documentation, review of labs and images, and coordination of care. Coding Level of Care Code 75599 INP/OBS DISCH >30 MIN Diagnoses Pulmonary edema J81.1 Rhinovirus infection B34.8 End stage renal disease on dialysis N18.6; Z99.2
[2025-07-05 13:09] VITALS: PULSE 80
== END 2025-07-05 13:22 | disposition home or self-care (01) | DRG 865 ==
LOC: SUATTDRO → ED 09:24 → SUATTDRO 11:12 → 2S 11:12